=== PATIENT | female | born 1950 | race Caucasian/White ===

== ENCOUNTER → 2023-10-21 13:46 | Outpatient (REF) | payer MEDICARE, OTHER, SELFPAY | LOC: HWRAD 13:46 | PROVIDERS: ATTENDING PHYSICIAN Internal Medicine | DX: Z78.0 Asymptomatic menopausal state (principal) | CPT/HCPCS: 77080 ==

== ENCOUNTER 2023-11-22 06:16 | Day surgery (SDC) | payer MEDICARE, OTHER, SELFPAY ==
[2023-11-22] VITALS (9 sets, daily range): BP systolic 110–138; BP diastolic 44–76; BMI 32.2
[2023-11-22 07:34] LABS: Glucose - Point of Care 125 mg/dl (70-99)
[2023-11-22] MEDS: NORMOSOL-R 1000 IV ×2 (07:42→10:11)
[2023-11-22 10:07] LABS: Glucose - Point of Care 95 mg/dl (70-99)
== END 2023-11-22 11:29 | disposition home or self-care (01) ==
LOC: SDS 06:16
PROVIDERS: ATTENDING PHYSICIAN Otolaryngology
DX: J32.9 Chronic sinusitis, unspecified (principal)
CPT/HCPCS: 31254; 31256; 88304; 88311; 82962

== ENCOUNTER 2024-01-04 01:31 | Inpatient (IN) | payer MEDICARE, OTHER, SELFPAY ==
[2024-01-03 21:25] VITALS: BMI 31.7
[2024-01-03 21:26] VITALS: BP 100/58
[2024-01-03 21:47] LABS: % Basophils 0.3 % (0-2); % Eosinophils 0.6 % (0-6); % Immature Granulocytes 0.3 % (0-0.5); % Lymphocytes 3.6 % (20.5-51.1); % Monocytes 7.5 % (1.7-9.3); % Neutrophils 87.7 % (42.2-75.2); Absolute Basophils 0.1 10^3/uL (0-0.2); Absolute Eosinophils 0.1 10^3/uL (0-0.7); Absolute Immature Granulocytes 0.1 10^3/uL (0-0.05); Absolute Lymphocytes 0.6 10^3/uL (1.2-3.4); Absolute Monocytes 1.3 10^3/uL (0.1-0.6); Absolute Neutrophils 15.5 10^3/uL (1.4-6.5); Hematocrit 35.1 % (37.0-47.0); Hemoglobin 11.9 g/dL (12.0-16.0); Mean Corp Hgb Conc. 33.9 g/dL (33.0-37.0); Mean Corpuscular Hgb 28.4 pg (27.0-31.0); Mean Corpuscular Volume 83.8 fL (81.0-99.0); Mean Platelet Volume 9.8 fL (7.4-10.4); Nucleated Red Blood Cells % 0 %; Platelet Count 286 10^3/uL (130-400); Red Blood Cell Count 4.19 10^6/uL (4.20-5.40); Red Cell Dist. Width 12.5 % (11.5-14.5); White Blood Cell Count 17.7 10^3/uL (4.8-10.8)
[2024-01-03 21:54] VITALS: BP 114/52
[2024-01-03 22:00] VITALS: BP 111/57
[2024-01-03 22:01] LABS: Urine Albumin 1+ (Neg - Trace); Urine Bilirubin Negative (Negative); Urine Character Clear (Clear); Urine Color Yellow; Urine Glucose Negative (Negative); Urine Ketone Negative (Negative); Urine Leukocyte Negative (Negative); Urine Nitrite Negative (Negative); Urine Occult Blood Negative (Negative); Urine Urobilinogen Negative (Neg - 1+)
[2024-01-03 22:02] LABS: ALT (SGPT) 14 U/L (0-35); AST (SGOT) 26 U/L (14-36); Albumin 4.2 g/dl (3.5-5.0); Alkaline Phosphatase 122 U/L (38-126); Blood Urea Nitrogen 33 mg/dl (7-17); Carbon Dioxide 26 mmol/L (22-30); Chloride 102 mmol/L (98-107); Estimated Creatinine Clearance 31 ml/min; Glucose 151 mg/dl (70-99); Potassium 3.8 mmol/L (3.5-5.1); Sodium 133 mmol/L (135-145); Total Bilirubin 0.7 mg/dl (0.2-1.3); Total Protein 6.9 g/dl (6.3-8.2); eGFR 33.63
[2024-01-03 22:02] LABS: COVID-19 Antigen Negative (Negative)
[2024-01-03 22:11] LABS: Urine Red Blood Cell None Seen /HPF (0-2); Urine Squamous Cell 0-2 /LPF (Few); Urine White Cell 0-2 /HPF (0-5)
[2024-01-03] MEDS: TYLENOL 1000 MG PO (22:26)
[2024-01-03] MEDS: NSS 500 IV (22:26)
[2024-01-03 22:30] VITALS: BP 113/55
--- NOTE | 2024-01-03 22:37 | ED.GENMED ---
History of Present Illness
General
Chief Complaint: Fever
Source: patient
Exam Limitations: none
Time Seen by Provider: 01/03/24 21:26
Travel History
Have you had any contact with someone who has COVID-19?: No
Do you have any symptoms of coronavirus? Fever > 100 degrees, chills, cough, shortness of breath, sore throat, loss of taste or smell, muscle aches, or headache?: Yes
Symptoms:: fever
History of Present Illness
History of Present Illness:
This is a 73 year old female that comes in with c/o weakness. States that she was in the tub and was unable to get out. States that she couldn't stand up. State that she has been feeling weak today. States that 2 weeks ago she started with the tops
of her legs feeling weak. States that this is how she felt before they replaced her heart valve. States that she had chills today but did not realize that she had a fever. States that she also had diarrhea. Denies any chest pain, SOB, abd pain,
nausea, vomiting, headache, dizziness, urinary burning.
Past History
Past History
ED Past Medical History: Asthma, HTN, Hypercholesterolemia, NIDDM and Other (Neuropathy, PNA, Cardiomyopathy, Hemorrhoids, Cervical prolapse, Anemia, Vertigo)
ED Past Surgical History: Appendectomy, Cardiac (Aortic valve replaced), Cholecystectomy, Gynecological (Breast biopsy, Partial hysterectomy, ) and Other (Pessary, Cataracts, )
Social History
Tobacco: Non-smoker
Alcohol: Daily (Wine 2 glasses)
Personal:
Living: with family
Review of Systems
Review of Systems
All Other Systems: ROS reviewed and negative except as documented in HPI and ROS
Constitutional: Reports fever; Denies chills
EENT: Reports no symptoms
Respiratory: Reports no symptoms; Denies cough or trouble breathing
Cardiac: Reports no symptoms; Denies chest pain
ABD/GI: Reports diarrhea; Denies abdominal pain, nausea or vomiting
: Reports no symptoms; Denies dysuria, frequency or urgency
Musculoskeletal: Reports no symptoms
Skin: Reports no symptoms
Neurological: Reports no symptoms; Denies dizzy or headache
Psychiatric: Reports no symptoms
Phy Exam
General Physical Exam
General Presentation: no apparent distress
General age: appears stated age
General Skin: warm and dry
General Habitus: elderly
General Mental: alert
General Hydration: dry mucous membranes
ENT Exam
ENT Exam: TM's normal, pharynx normal and neck supple
Eye Exam
Eye Exam: EOMI
Cardiovascular Exam
Cardiovascular Exam: regular rate/rhythm, no edema and normal peripheral pulses
Pulmonary Exam
Pulmonary Exam: lungs clear, no respiratory distress, no rales, chest non tender, no crackles, no rhonchi, no wheezing and no cough
Gastrointestinal Exam
Gastrointestinal Exam: normal bowel sounds, non tender, soft, no organomegaly, no pulsatile mass and non distended
Musculoskeletal Exam
Musculoskeletal Exam: full ROM and no edema
Skin Exam
Skin Exam: normal color, warm/dry, no rash and no petechia
Psychiatric Exam
Psychiatric Exam: normal mood/affect
Course
Orders/Labs/Results
Orders:
Orders
01/03/24 21:19
EKG [Electrocardiogram (*1)] Urgent
Reason for Study: Fatigue / Weakness
EKG- Treatment ONCE
01/03/24 21:39
Complete Blood Count/With Diff Urgent
Comprehensive Metabolic Panel Urgent
Lactic Acid Q4H
Comment: ON ICE, CANCEL 2ND ORDER IF FIRST LACTIC ACID LEVEL <2
Blood Culture Q30M
MYRNA Source: Blood/Venous
Specimen Description:
Date Specimen was Collected: 01/03/24
Time Specimen was Collected: 21:30
Comment: FROM 2 SEPARATE SITES
01/03/24 21:41
COVID-19 Antigen Urgent
Source: Nasal Swab
Influenza A+B Rapid Molecular Urgent
MYRNA Source: Nasal Swab
Specimen Description:
01/03/24 21:49
Blood Culture Q30M
MYRNA Source: Blood/Venous
Specimen Description:
Comment: FROM 2 SEPARATE SITES
01/03/24 21:55
Urinalysis Reflex To Culture Urgent
Date Specimen was Collected: 01/03/24
Time Specimen was Collected: 21:30
Comment: straight cath
Urine Microscopic Reflex Cult Urgent
01/03/24 22:20
Acetaminophen [Tylenol] 1,000 mg .ROUTE .STK-MED ONE
01/03/24 22:23
0.9% Sodium Chloride 500 ml [Nss] 500 ml IV BOLUS
Acetaminophen [Tylenol] 1,000 mg PO NOW STA
01/03/24 22:36
CT Head W/o Iv Contrast Urgent
Comment:
Reason For Exam: wEAKNESS, COULDNT GET UP
01/03/24 22:42
CR Chest - 2 Views Urgent
Comment:
Reason For Exam: Weakness, fever
01/03/24 22:44
Troponin I Urgent
01/03/24 23:36
EKG- Treatment ONCE
01/04/24 00:10
Vancomycin 1 Gram/200 ml [Vancocin] 1 gram in 200 ml IV NOW
01/04/24 00:17
Admit/Transfer Patient As Directed
Co-Sign Provider:
Level of Care: Inpatient admission
Assign to:: Telemetry
Physician / Group: Jack
Diagnosis: Fever / Sepsis
Reason for Telemetry: Arrhythmia
Date to Stop Telemetry: 01/07/24
Time to Stop Telemetry: 11:00
Reason for Hospitalization: Fever / Sepsis
Expected length of stay greater than two midnights?: Yes
ELOS- Estimated Length of Stay in days: 4
I certify the patient meets the requirements for IP care: Yes
01/04/24 00:19
Code Status As Directed
Resuscitation Status: Full Code
01/04/24 00:24
LevoFLOXacin 500 MG/100 ML [Levaquin] 500 mg in 100 ml IV NOW
01/04/24 01:45
Electrocardiogram (*1) Urgent
Reason for Study: Fatigue / Weakness
Other Reason for Exam: Repeat with Troponin
Troponin I Urgent
01/07/24 11:00
DC Protocol for Telemetry ONCE
Abnormal Lab Results
01/03/24 01/03/24 01/03/24
21:39 21:55 22:44
WBC 17.7 H 10^3/uL
(4.8-10.8)
RBC 4.19 L 10^6/uL
(4.20-5.40)
Hgb 11.9 L g/dL
(12.0-16.0)
Hct 35.1 L %
(37.0-47.0)
Abs Immat Gran (auto) 0.1 H 10^3/uL
(0-0.05)
Absolute Neuts (auto) 15.5 H 10^3/uL
(1.4-6.5)
Absolute Lymphs (auto) 0.6 L 10^3/uL
(1.2-3.4)
Absolute Monos (auto) 1.3 H 10^3/uL
(0.1-0.6)
Neutrophils % 87.7 H %
(42.2-75.2)
Lymphocytes % 3.6 L %
(20.5-51.1)
Sodium 133 L mmol/L
(135-145)
BUN 33 H mg/dl
(7-17)
Creatinine 1.6 H mg/dL
(0.6-1.0)
Glucose 151 H mg/dl
(70-99)
Troponin I 0.187 H* ng/ml
Urine Albumin (Reflex) 1+ A
(Neg - Trace)
01/03/24 21:39
01/03/24 21:39
Leukocytosis, H/H slightly low. Sodium slightly low. Dehydration. Glucose nonfasting. Urine negative for infection. COVID and Influenza negative, Lactic acid normal at 1.0, Troponin 0.187
Vital Signs
Initial and Last Documented VS:
Initial Vital Signs
Temp Pulse Resp BP Pulse Ox
100.8 F H 110 20 100/58 95
01/03/24 21:26 01/03/24 21:26 01/03/24 21:26 01/03/24 21:26 01/03/24 21:26
Last Documented Vital Signs
Temp Pulse Resp BP Pulse Ox
98.7 F 94 18 119/56 95
01/04/24 00:26 01/04/24 00:15 01/04/24 00:00 01/04/24 00:00 01/04/24 00:15
MDM/Problems Addressed
Differential Diagnosis Includes:
PNA, Viral illness
MDM/Problems Addressed:
This is a 73 year old female that comes in with c/o weakness. States that she was unable to get out of the tub. State that she couldn't walk. States that she had chills today and diarrhea.
Will check lab, CT head, chest x-ray urine, Give IV fluids.
Back into see patient and family. Explained that her WBC are elevated but she is negative for COVID and Influenza. Her Chest x-ray is normal. Her urine is negative for infection. Her Troponin however is very elevated and there does not appear to any
prior Troponin. Will admit patient. CT head report is pending. Questioned patient at this time if she had any other pain. State that once and awhile she gets a cramp in her chest that only last <1min and then goes away. Hospitalist notified.
Chronic conditions affecting care: DM
Acute Exacerbation and/or Progression of Chronic Illness:
NA
*Radiology
Radiology exam reviewed: radiology read reviewed (Chest-NO acute cardiopulmonary process CT head-No acute intracranial abnormality by CT. NO acute intracranial hemorrhage, evidence of acute large territorial infarction, mass or mass effect.
Chronic microvascular ischemic changes of the cerebral white matter. Cerebral volume loss. Prior sinus surg)
*Pulse Oximetry
Patient hypoxic: no
*EKG
Interpreted by ED Provider?: Yes
Heart Rate: 109
Rate: tachycardiac
Rhythm: sinus and PVC's
[place]: normal axis
Interval: normal interval
QRS Pattern: normal QRS
Ischemia: no ischemia
*Crayon Sawyer Interpretation
Rate: tachycardiac
Heart Rate: 105
Rhythm: sinus tachycardia
*Critical Care Note
Total Time (30-74mins, 75-104mins- exclusive of procedures): Not Applicable
ED Attending Note
-
Portions of this chart may have been created with voice recognition software.� Occasional wrong word or��sound alike� substitutions may have occurred due to the inherent limitations of voice recognition software.
Discharge Plan
Departure
Patient Disposition: Admit
Date of Disposition: 01/03/24
Time of Disposition: 23:34
Admit to: Telemetry
Presentation/result/management discussed w/ accepting MD/DO: Hospitalist
Patient with high blood pressure during this ER visit?: No
Condition: Good
Covid-19: Negative COVID-19
Discharge Problem:
Fever, Weakness, Elevated troponin
Prescriptions:
No Action
gabapentin 600 MG tablet
1,200 mg PO BID
albuterol sulfate [Ventolin HFA] 90 MCG/PUFF HFA aerosol inhaler
2 puff inhalation R Q4 PRN (Reason: sob/wheezing)
omeprazole 20 MG tablet,delayed release (DR/EC)
20 mg PO QPM
carvedilol 6.25 mg Tablet
6.25 mg PO BID
cyanocobalamin (vitamin B-12) [Vitamin B-12] 1,000 mcg Tablet
1,000 mcg PO DAILY
duloxetine 30 mg Capsule,Delayed Release(Dr/Ec)
30 mg PO DAILY
Mounjaro 2.5 mg/0.5 mL Pen Injector
2.5 mg SC QWEEK
famotidine 40 mg Tablet
40 mg PO HS
rosuvastatin 20 mg Tablet
20 mg PO HS
insulin glargine [Lantus Solostar U-100 Insulin] 100 unit/mL (3 mL) Insulin Pen
34 unit SC HS
Patient Comments:
took 27 units on 11/21/23
furosemide 20 MG tablet
20 mg PO DAILY
valsartan 80 mg Tablet
80 mg PO HS
nitroglycerin [Nitrostat] 0.4 mg Tablet, Sublingual
0.4 mg SUBLINGUAL [id number] PRN (Reason: chest pain)
fluticasone propion-salmeterol [Wixela Inhub] 100-50 mcg/dose blister with device
1 inh INHALATION R BID
fluticasone propionate 50 mcg/actuation [place],Suspension
1 spray INTRANASAL DAILY
Referrals:
Susan Arnold MD [Family Provider] -
Interventions
Interventions:
*Risk Screen - Suicide Last Done: 01/03/24 21:56
*General Assessment Last Done: 01/03/24 21:56
*Neglect/Abuse Screening Last Done: 01/03/24 21:56
*ED COVID-19 Vaccine History Last Done: 01/03/24 21:56
ED- Neurological Assessment Last Done: 01/03/24 21:30
ED-Skin Assessment Last Done: 01/03/24 21:30
Discharge Date and Time
Print Language: ETHIOPIAN
[2024-01-03 23:18] LABS: Troponin I 0.187 ng/ml
[2024-01-03 23:21] VITALS: BP 126/49
[2024-01-03 23:30] VITALS: BP 123/53
[2024-01-04] VITALS (32 sets, daily range): BP systolic 88–164; BP diastolic 37–100; PULSE 76–86; O2SAT 97; BMI 31.4; BMI 31.6
--- NOTE | 2024-01-04 00:31 | HPS.HSE ---
Family Physician
-
Family Physician: Susan Arnold
Chief Complaint
-
Weakness, Chills
History of Present Illness
Patient is a 73y F with PMH significant for aortic stenosis s/p BioAVR, DM-II, hypertension and recent sinus surgery who presents to ED complaining of weakness and chills. History obtained from patient and her family at the bedside. Patient
states that she was feeling well early this AM. Around 5:30 this evening she reported feeling very cold and 'shivering'. She felt weak in the legs. She lie down in bed with an electric blanket for a time. She then wanted to get into a warm bath
- but she required her 's assistance to do this. When the patient was ready to get out of the tub, she was completely unable to get up. She noted significant weakness in both legs - mostly in the thighs. Patient denies any bladder or
bowel incontinence.
EMS was called and patient was brought to the ED for further evaluation.
Patient states that the weak sensation in her thighs is similar to the symptoms that she experienced from sever prior to undergoing AVR.
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 She has been driving back and forth every weekend.
Patient complains of some lower back discomfort that she attributes to her recent change in activity.
She also notes that she underwent endoscopic sinus surgery here on 11/22/23.
About one week later, she had a cracked tooth and this required extraction at her dentist's office.
Patient states that she tool her usual pre-procedure clindamycin prior to the dental extraction. She was given pre-op clindamycin here prior to the sinus surgery.
No known sick contacts. Patient states that she has a chronic cough (since episode of pneumonia last Fall) but no recent change in that symptom.
No other focal complaints including N/V/D, complaints, etc.
Patient states that her dose of Mounjaro was increased about 3 weeks ago. No other recent med changes.
Medical History
Past Medical History
Past Medical History: Reports Other
Additional Past Medical History:
Aortic Stenosis
History of Cardiomyopathy with Recovered LVEF (25% to 60-65%)
Hypertension
DM-II
Chronic Sinus Disease
Mild Intermittent Asthma
Melanoma
Past Surgical History: Reports Other
Additional Past Surgical History:
Bioprosthetic AVR (2014)
Cholecystectomy
Appendectomy
Breast Biopsies
Endoscopic Sinus Surgery (11/22/23)
Social History
Tobacco: Non-smoker
Alcohol: Occasional
Drug: None
Personal:
Living: With Family
Family History
Family History: Other (Mother: CAD Brother: CAD)
Allergies / Home Medications
Allergies reflects when Allergies were last updated in [facility].
Home Medications with original date entered in [facility]
Allergy/Medication List:
Allergies
Allergy/AdvReac Type Severity Reaction Status Date / Time
hydrocodone bitartrate Allergy confusion Verified 01/03/24 21:23
[From Vicodin]
oxycodone HCl [From Percocet] Allergy Nausea Verified 01/03/24 21:23
Penicillins Allergy skin color Verified 01/03/24 21:23
changes,problems
breathing
Home Medications
albuterol sulfate 90 mcg/actuation aerosol inhaler (Ventolin HFA) 2 puff inhalation R Q4 PRN sob/wheezing 02/22/15
gabapentin 600 mg tablet 1,200 mg PO BID pain 02/22/15
omeprazole 20 mg tablet,delayed release 20 mg PO QPM Gastrointestinal Issue 02/24/15
carvedilol 6.25 mg tablet 6.25 mg PO BID Blood Pressure 11/18/23
cyanocobalamin (vitamin B-12) 1,000 mcg tablet (Vitamin B-12) 1,000 mcg PO DAILY Supplement 11/18/23
duloxetine 30 mg capsule,delayed release 30 mg PO DAILY depression 11/18/23
famotidine 40 mg tablet 40 mg PO HS Gastrointestinal Issue 11/18/23
insulin glargine 100 unit/mL (3 mL) subcutaneous pen (Lantus Solostar U-100 Insulin) 34 unit SC HS diabetes 11/18/23
rosuvastatin 20 mg tablet 20 mg PO HS High Cholesterol 11/18/23
tirzepatide 2.5 mg/0.5 mL subcutaneous pen injector (Mounjaro) 2.5 mg SC QWEEK 11/18/23
furosemide 20 mg tablet 20 mg PO DAILY Fluid Retention/Swelling 11/22/23
fluticasone 100 mcg-salmeterol 50 mcg/dose blistr powdr for inhalation (Wixmele Inhub) 1 inh inhalation R BID 01/03/24
fluticasone propionate 50 mcg/actuation nasal spray,suspension 1 spray intranasal DAILY 01/03/24
nitroglycerin 0.4 mg sublingual tablet (Nitrostat) 0.4 mg sublingual [id number] PRN chest pain 01/03/24
valsartan 80 mg tablet 80 mg PO HS 01/03/24
Review of Systems
-
History Source: Patient and Family
A 12 point ROS was completed and negative except as noted: Yes
Constitutional: Reports Fatigue and Chills; Denies Fever
EENT: Denies Sore Throat
Respiratory: Reports Cough; Denies Hemoptysis or Trouble Breathing
Cardiac: Denies Chest Pain, Diaphoresis, Palpitations or Syncope
Abdomen/GI: Denies Abdominal Pain, Nausea, Vomiting, Diarrhea, Bloody Stools or Black Stools
: Denies Dysuria, Frequency or Flank Pain
Musculoskeletal: Denies Joint Pain or Edema
Neurological: Reports Dizzy and Weakness; Denies Headache or Numbness
Psych: Denies Depression or Anxiety
Physical Exam
Vital Signs
Vital Signs
Temp Pulse Resp BP Pulse Ox
98.7 F 94 18 119/56 95
01/04/24 00:26 01/04/24 00:15 01/04/24 00:00 01/04/24 00:00 01/04/24 00:15
Physical Exam
General: Other (73y F in no acute distress. Mildly pale appearing.)
HEENT: Moist mucous membranes, PERRLA and Other (No bruits.)
Respiratory: Other (Decreased throughout. Otherwse clear. No W/R/R.)
Cardiac: S1/S2 and Regular Rhythm; No Murmur
GI: Soft, Non Tender, Non Distended and Normal Bowel Sounds
Musculoskeletal: No Clubbing, No Cyanosis and No Edema
Neuro: AO x 3 and Other (Sensation and strength seems somewhat diminshed - but globally. No clear sensory level / focal deficits. )
Laboratory Results
-
01/03/24 21:39
01/03/24 21:39
Laboratory Results
Lactic Acid 1.0 mmol/L (0.7-2.0) 01/03/24 21:39
Total Bilirubin 0.7 mg/dl (0.2-1.3) 01/03/24 21:39
AST 26 U/L (14-36) 01/03/24 21:39
ALT 14 U/L (0-35) 01/03/24 21:39
Alkaline Phosphatase 122 U/L (38-126) 01/03/24 21:39
Troponin I 0.187 ng/ml H* 01/03/24 22:44
Impression/Plan
-
A/P: Patient is a 73y F with PMH significant for HTN, DM-II and prior BioAVR who presents to ED complaining of weakness and chills.
Fever / Sepsis
- Admit for further evaluation and treatment.
- Patient presents with fever to 103, leukocytosis, tachycardia.
- No evident focal source of infection identified with initial eval in the ED.
- COVID, influenza, UA and CXR all unremarkable.
- ? bacteremia +/- endocarditis given recent interventions (sinus surgery / dental procedure) - though patient did receive abx prophylaxis prior to each.
- Follow-up blood culture data. Check Echo.
- Empiric IV abx for now with Vanco / Levaquin (significant PCN allergy).
- ID evaluation for additional recommendations.
- Follow for clinical improvement / specifically improvement in weakness.
Non-Ischemic Myocardial Injury
Abnormal Troponin
- Initial troponin in the ED is 0.187 with no complaints of chest pain and no noted ischemia on EKG.
- ? related to endocarditis / myocarditis due to the above.
- Check blood cultures as noted. Check Lyme status.
- Check Echo for evidence of valve abnormality / vegetation - though no murmur appreciated on exam.
- Follow troponin to peak.
- ASA daily for now.
- Cardiology evaluation for additional recommendations.
Weakness
- Seems likely global phenomenon secondary to acute illness, fever, etc.
- No focality appreciated on exam.
- Follow for any neurologic changes.
- Consider MR spine imaging if any increase / focal weakness or if no other source for fever is discovered.
ASCVD
Aortic Stenosis s/p BioAVR
History of Cardiomyopathy with Recovered EF
- Stable. No chest pain, dyspnea, etc at present.
- EKG unremarkable as noted above.
- Last Echo was 2022 and showed normal EF, well-seated AVR, etc.
- No evidence on exam of volume overload.
- Hold Lasix for now. Follow I/Os, daily weights, etc.
SHARRON on CKD III
- SCr = 1.6 compared to known baseline of 1.1.
- Hold ARB acutely.
- Gentle IVFs overnight.
- Follow for improvement in renal function.
- Renally dose meds / abx.
DM-II
- Stable. Hold Mounjaro acutely.
- Continue basal : bolus inuslin regimen.
- Follow glucose and cover with SSI as needed.
- Update A1C.
DVT Prophylaxis: Subcut Heparin
Code Status: Full
[2024-01-04] MEDS: VANCOCIN 200 IV ×2 (00:36→20:41)
[2024-01-04] MEDS: LR 1000 IV ×2 (01:45→14:19)
[2024-01-04] MEDS: LEVAQUIN 100 IV (01:46)
[2024-01-04 02:30] LABS: Troponin I 0.157 ng/ml
[2024-01-04 06:29] LABS: Hematocrit 34.6 % (37.0-47.0); Hemoglobin 11.3 g/dL (12.0-16.0); Mean Corp Hgb Conc. 32.7 g/dL (33.0-37.0); Mean Corpuscular Hgb 28.8 pg (27.0-31.0); Mean Corpuscular Volume 88.3 fL (81.0-99.0); Mean Platelet Volume 10.1 fL (7.4-10.4); Platelet Count 271 10^3/uL (130-400); Red Blood Cell Count 3.92 10^6/uL (4.20-5.40); Red Cell Dist. Width 12.6 % (11.5-14.5); White Blood Cell Count 15.9 10^3/uL (4.8-10.8)
[2024-01-04 06:37] LABS: Blood Urea Nitrogen 31 mg/dl (7-17); Calcium 8.6 mg/dl (8.4-10.2); Carbon Dioxide 29 mmol/L (22-30); Chloride 102 mmol/L (98-107); Creatine Phosphokinase 426 U/L (30-135); Estimated Creatinine Clearance 33 ml/min; Glucose 120 mg/dl (70-99); Sodium 136 mmol/L (135-145); eGFR 36.34
[2024-01-04 06:48] LABS: Troponin I 0.105 ng/ml
[2024-01-04 07:11] LABS: TSH Reflex To Free T4 0.73 uIU/ml (0.47-4.68)
[2024-01-04 07:29] LABS: Erythrocyte Sed Rate 64 mm/hour (0-20)
[2024-01-04 08:32] LABS: Glucose - Point of Care 100 mg/dl (70-99)
[2024-01-04 08:32] LABS: Glycohemoglobin (HgbA1c) 6.5 % (4.0-5.6)
[2024-01-04] MEDS: NOVOLOG FLEXPEN-LOW RESISTANCE SC ×3 (08:34→16:36)
[2024-01-04] MEDS: COREG 6.25 MG PO ×2 (08:35→19:18)
[2024-01-04] MEDS: CYMBALTA DELAYED RELEASE 30 MG PO (08:36)
[2024-01-04] MEDS: HEPARIN 5000 UNITS SC ×2 (08:36→16:36)
[2024-01-04] MEDS: LOW STRENGTH ASPIRIN 81 MG PO (08:37)
[2024-01-04] MEDS: NEURONTIN 600 MG PO ×2 (08:37→19:18)
--- NOTE | 2024-01-04 08:49 | PHA.VAN.IN ---
Assessment
- Assessment
Renal Function: Appears elevated from baseline (SCR 1.5 vs 1.1)
Concomitant Antimicrobials: levofloxacin
Plan
- Plan
Initial / Loading Dose: 1000mg - 01/03 00:36 PLUS additional 1000mg x1 today
Maintenance Regimen: dosing by level
Monitoring: random 01/04 0600
Pharmacokinetics Vancomycin I
- -
Patient Age: 73
Patient Sex: Female
Vancomycin Day #: 1
Indication: Bacteremia
Requesting Provider: Dr. Santiago
Pertinent Antimicrobial Allergies:
penicillins - skin color changes; breathing problems
Height / Weight:
Height 5 ft 3 in
Actual Weight 80.3 kg
Pertinent Past Medical History: BMI ~31, DM II, CKD III (baseline SCR 1.1)
- Vital Signs / Lab Results
Temp Pulse Resp BP Pulse Ox
98.0 F 75 10 109/67 99
01/04/24 08:00 01/04/24 08:35 01/04/24 06:15 01/04/24 08:35 01/04/24 08:00
Lab Results - Hematology
01/03/24 01/04/24
21:39 05:59
WBC 17.7 H 15.9 H
Lab Results - Chemistry
01/03/24 01/04/24
21:39 05:59
BUN 33 H 31 H
Creatinine 1.6 H 1.5 H
Estimated Creat Clear 31 33
Albumin 4.2
01/03/24
21:39
Lactic Acid 1.0
Lab Results - Urine
01/03/24
21:55
Urine Nitrite (Reflex) Negative
Leukocyte Esterase Rfl Negative
Urine WBC (Reflex) 0-2
Ur Squamous Epith Cells 0-2
Microbiology Results
01/03/24 21:41 Influenza Types A & B (ALDAIR) - Final
Nasal Swab Negative for Influenza A & B, NAAT
Negative results must be combined with clinical observations
and patient history.
Nucleic Acid Amplification test (NAAT)performed on the
[employer] platform.
--- NOTE | 2024-01-04 08:57 | CON.CAR ---
Addendum entered and electronically signed by Gt Stovall MD 01/04/24 10:38:
I saw and examined the patient.
The EDGE TRIMMER or PA's note was reviewed and I agree with the note.
Comment: 73-year-old female with a past medical history of severe aortic stenosis status post AVR in 2014, dilated cardiomyopathy that improved to 60%, hypertension, hyperlipidemia, diabetes and CKD presents with weakness over the past 3 weeks. She
had multiple procedures including sinus surgery and dental extraction. She reports she has always been taking her prophylactic antibiotics. No orthopnea or PND. On exam, lungs are clear to auscultation, I do not hear any new murmur, abdomen is
soft nontender nondistended, extremities are warm and well-perfused, she is quite warm to touch actually. Blood cultures are pending, EKG shows normal sinus rhythm with normal LA interval, PVCs are seen. No change from prior. Labs are concerning
for leukocytosis with a left shift, ESR and CRP are quite elevated. Overall picture is quite concerning for endocarditis. I discussed this with the patient. She certainly would never want another open heart surgery. We discussed the SHANI, she is
not certain she would like this. I would keep n.p.o. after midnight. We started with a TTE results are pending. Would recommend ID consult. Currently, not in any heart failure. Will follow.
Original Note:
Consultation
Consultation Request
Date/Time Consultation Requested: 01/04/2024 02:40
Date/Time Consultation Performed: 01/04/2024 09:00
Requesting Provider: Dr. Santiago
Performing Provider: LALO Navarrete for Dr. Stovall
Reason for Consultation: Abnormal troponin, Sepsis in bioAVR
Medical History
-
Chief Complaint: Weakness
History of Present Illness:
Cookie Gallardo is a 73-year-old female (known to Dr. Stovall, her primary corporate intern), with severe arctic stenosis s/p AVR (2014), DCM (EF 25-30%, improved to 60%), dyslipidemia, hypertension, GERD, CKD3, and chronic anemia who presented to the
emergency department with a chief complaint of weakness. She endorses associated chills. She has not been feeling well for the past 48 hours but also admits over the weekend she was not feeling her normal self. Last month, she had sinus surgery.
She took prophylactic antibiotics. Approximately 8 days later she went to the dentist and had an extraction. She took her clindamycin prior to that procedure. 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 Cardiology has been consulted for sepsis in the setting of bio AVR and abnormal troponin. She is not having any chest pain. Chest x-ray without acute pathology. UA unremarkable. She is negative for both
COVID-19 and influenza. Her blood cultures are pending.
Past Medical History
Past Medical History: Cancer (Melanoma), CHF (DCM [recovered]), GERD, HTN, Hypercholesterolemia, NIDDM, Renal Failure (CKD3b), Valvular Disease (AVR) and Other (Anemia)
Past Surgical History: Appendectomy, Cardiac and Cholecystectomy
Social History
Tobacco: Non-Smoker
Alcohol: Occasional
Drug: None
Personal:
Living: With Family
Employment: Retired
Family History
Family History: CAD (In mother and brother. Mother at age 68) and Cancer (Her father had leukemia and pancreatic cancer.)
Allergies / Home Medications
Allergy/AdvReac Type Severity Reaction Status Date / Time
hydrocodone bitartrate Allergy confusion Verified 01/03/24 21:23
[From Vicodin]
oxycodone HCl [From Percocet] Allergy Nausea Verified 01/03/24 21:23
Penicillins Allergy skin color Verified 01/03/24 21:23
changes,problems
breathing
�Medication �Instructions �Recorded �Confirmed �Type
albuterol sulfate 90 mcg/actuation 2 puff inhalation R Q4 PRN 02/22/15 01/03/24 History
aerosol inhaler (Ventolin HFA) sob/wheezing
gabapentin 600 mg tablet 1,200 mg PO BID pain 02/22/15 01/03/24 History
omeprazole 20 mg tablet,delayed 20 mg PO QPM Gastrointestinal Issue 02/24/15 01/03/24 History
release
carvedilol 6.25 mg tablet 6.25 mg PO BID Blood Pressure 11/18/23 01/03/24 History
cyanocobalamin (vitamin B-12) 1,000 mcg PO DAILY Supplement 11/18/23 01/03/24 History
1,000 mcg tablet (Vitamin B-12)
duloxetine 30 mg capsule,delayed 30 mg PO DAILY depression 11/18/23 01/03/24 History
release
famotidine 40 mg tablet 40 mg PO HS Gastrointestinal Issue 11/18/23 01/03/24 History
insulin glargine 100 unit/mL (3 34 unit SC HS diabetes 11/18/23 01/03/24 History
mL) subcutaneous pen (Lantus
Solostar U-100 Insulin)
rosuvastatin 20 mg tablet 20 mg PO HS High Cholesterol 11/18/23 01/03/24 History
tirzepatide 2.5 mg/0.5 mL 2.5 mg SC QWEEK 11/18/23 01/03/24 History
subcutaneous pen injector
(Mounjaro)
furosemide 20 mg tablet 20 mg PO DAILY Fluid 11/22/23 01/03/24 History
Retention/Swelling
fluticasone 100 mcg-salmeterol 50 1 inh inhalation R BID 01/03/24 01/03/24 History
mcg/dose blistr powdr for
inhalation (Wixela Inhub)
fluticasone propionate 50 1 spray intranasal DAILY 01/03/24 01/03/24 History
mcg/actuation nasal
spray,suspension
nitroglycerin 0.4 mg sublingual 0.4 mg sublingual [id number] PRN 01/03/24 01/03/24 History
tablet (Nitrostat) chest pain
valsartan 80 mg tablet 80 mg PO HS 01/03/24 01/03/24 History
Review of Systems
-
History Source: Patient
All other systems: Negative unless noted
Constitutional: Fever, Fatigue and Chills
Respiratory: No Symptoms
Cardiac: No Symptoms
Abdomen/GI: No Symptoms
Physical Exam
Vital Signs
Temp Pulse Resp BP Pulse Ox
98.0 F 75 10 109/67 99
01/04/24 08:00 01/04/24 08:35 01/04/24 06:15 01/04/24 08:35 01/04/24 08:00
Lab Results
01/04/24 05:59
01/04/24 05:59
Troponin I 0.105 ng/ml H* D 01/04/24 05:59
Physical Exam
General: Well Developed, Well Nourished, No Apparent Distress and Comfortable
HEENT: Normocephalic, Anicteric and Moist Mucous Membranes
Respiratory: Non Labored Respirations
Cardiac: S1/S2, Regular Rhythm and Murmur (II/); Negative Peripheral Edema
Breast: Deferred by me
GI: Soft, Non Tender, Non Distended and Normal Bowel Sounds
Genito-urinary: No Costovertebral Tender
Musculoskeletal: No Clubbing, No Cyanosis and No Edema
Skin: Warm and Dry; Negative Rash
Neuro: AO x 3
Psych: Calm
Impression / Plan
-
Sepsis
-Febrile, leukocytosis, tachycardia
-Influenza negative, COVID-19 negative, CXR & UA unremarkable
-CRP 175, CK 426, Lactic 1.0
-Blood cultures are pending
-Prophylaxis prior to ENT surgery with Dr. Bowers
-Echocardiogram
Abnormal troponin, likely nonischemic myocardial injury in the setting of sepsis
-Chest pain-free, EKG stable
-Peak troponin on arrival, 0.187
Dilated cardiomyopathy with recovered EF (prior 25-30%, most recent 60-65%)
-Hold furosemide in the setting of sepsis
-She did not tolerate Farxiga or Jardiance in the past
-Trend daily weight, I/O, and BMP
Severe aortic stenosis s/p bioprosthetic aortic valve replacement
-21 mm bovine Trifecta tissue valve 02/25/[address] Read
-Echo 03/2023: Peak/mean gradient 17/10 mmHg without aortic regurgitation
-Update echo
Hypertension, hold agents in the setting of sepsis
Nonobstructive CAD (luminal irregularities) by cardiac catheterization 2014
CKD3b, follows with Dr. Washburn
NIDDM, Hgba1c 6.5%, per primary
HLD, on rosuvastatin 20mg
Anemia, chronic, follows with Dr. Rivas
Data Reviewed
-
EKG: Report Reviewed by me (Sinus rhythm, PVCs, prolonged QTc, rate 87)
Radiology: Report Reviewed by me (CXR: No acute cardiopulmonary process.)
CT Scan: Report Reviewed by me (Head: No acute intracranial abnormalities appreciated. Mild atrophy and mild chronic small vessel change.)
Medical Tests (Nuc Med, Echo etc): Report Reviewed by me (Echocardiogram as above)
Labs: Labs Reviewed by me
Old Records: Reviewed (Outpatient cardiology records)
--- NOTE | 2024-01-04 09:16 | EDRN ---
Pt just OOB to BR at this time, tolerated ambulation well.
--- NOTE | 2024-01-04 09:25 | EDRN ---
[facility] cardiology ELECTRIC [employer]OR [employer]OLS ASSEMBLER was in to see pt and requested Echo sooner than later so this RN called echo for pt.
--- NOTE | 2024-01-04 09:37 | EDRN ---
Pt's spouse in visiting at this time. Pt received breakfast and is eating now.
--- NOTE | 2024-01-04 09:39 | EDRN ---
Skin Diving Teacher in room w/ pt at this time.
--- NOTE | 2024-01-04 10:00 | EDRN ---
Pt ate 50% of breakfast sandwich for her breakfast.
--- NOTE | 2024-01-04 10:45 | W.PN.HOSP.TC ---
Today's Communication/Plan
-
Cont abx for now
await culture data
ECHO pending
ID eval
IVF
trend cr
Assessment / Plan
Assessment / Plan
A/P: Patient is a 73y F with PMH significant for HTN, DM-II and prior BioAVR who presents to ED complaining of weakness and chills.
Fever / Sepsis
- Patient presents with fever to 103, leukocytosis, tachycardia.
- COVID, influenza, UA and CXR all unremarkable.
- ? bacteremia +/- endocarditis given recent interventions (sinus surgery / dental procedure) - though patient did receive abx prophylaxis prior to each.
- Follow-up blood culture data. Check Echo.
- Empiric IV abx for now with Vanco / Levaquin (significant PCN allergy).
- ID evaluation for additional recommendations.
- Follow for clinical improvement / specifically improvement in weakness. May require SHANI if pt amenable.
Non-Ischemic Myocardial Injury
Abnormal Troponin
- Initial troponin in the ED is 0.187 with no complaints of chest pain and no noted ischemia on EKG.
- ? related to endocarditis / myocarditis due to the above.
- Check blood cultures as noted. Check Lyme status.
- Check Echo for evidence of valve abnormality / vegetation - though no murmur appreciated on exam.
- Follow troponin to peak.
- ASA daily for now.
- Cardiology evaluation for additional recommendations.
Weakness
- Seems likely global phenomenon secondary to acute illness, fever, etc.
- Follow for any neurologic changes.
- Consider MR spine imaging if any increase / focal weakness or if no other source for fever is discovered.
- PT/OT
ASCVD
Aortic Stenosis s/p BioAVR
History of Cardiomyopathy with Recovered EF
- Stable. No chest pain, dyspnea, etc at present.
- EKG unremarkable as noted above.
- Last Echo was 2022 and showed normal EF, well-seated AVR, etc.
- No evidence on exam of volume overload.
- Hold Lasix for now. Follow I/Os, daily weights, etc.
SHARRON on CKD III
- SCr = 1.5 compared to known baseline of 1.1.
- Hold ARB acutely.
- Gentle IVFs overnight.
- Follow for improvement in renal function.
- Renally dose meds / abx.
DM-II
- Stable. Hold Mounjaro acutely.
- Continue basal : bolus inuslin regimen.
- Follow glucose and cover with SSI as needed.
- Update A1C at 6.5.
DVT Prophylaxis: Subcut Heparin
Code Status: Full
d/w with cardiology
Anticipated Discharge: > 48 hours
Subjective/Interval History
-
Date of Service: January 04, 2024
spiked high fever overnight
denies any facial or dental pain
Objective Data
-
Labs:
Laboratory Results
01/04/24
05:59
WBC 15.9 H
Hgb 11.3 L
Hct 34.6 L
Plt Count 271
Sodium 136
Potassium 4.0
Chloride 102
Carbon Dioxide 29
BUN 31 H
Creatinine 1.5 H
Glucose 120 H
Calcium 8.6
Vital Signs:
Vital Signs
Temp Pulse Resp BP Pulse Ox
98.0 F 77 16 106/74 98
01/04/24 08:00 01/04/24 09:30 01/04/24 09:30 01/04/24 09:26 01/04/24 09:26
Physical Exam
-
General: No Apparent Distress
HEENT: Normocephalic, Atraumatic and Moist Mucous Membranes
Cardiac: Regular Rhythm
Neuro: Awake, AO x 3 and Nonfocal/Grossly Intact
Psych: Calm
--- NOTE | 2024-01-04 11:28 | EDRN ---
PT/OT in room w/pt at this time.
--- NOTE | 2024-01-04 12:01 | CON.ID ---
Consultation
-
Date/Time Consultation Requested: January 04, 2024 0242
Date/Time Consultation Performed: January 04, 2024 1200
Requesting Provider: Dr. Jasvir Santiago
Performing Provider: Dr. Jennifer Aguiar
Reason for Consultation: Fever/Sepsis
Chief Complaint / Past History
Chief Complaint
Weakness and shaking chills
History of Present Illness
73-year-old female with diabetes mellitus, CKD 3, aortic stenosis status post bioprosthetic aortic valve replacement who presented to the ER last night due to profound weakness and chills. She states she started feeling weak on Wednesday, December 31.
Yesterday she felt very cold with shaking chills. She used an electric blanket and then took a warm bath. However she was so weak she could not get out of the bathtub. She came to the ER. She was febrile. White count of 17.7. Patient noted to
be in acute on chronic kidney failure. Chest x-ray normal. She was started on vancomycin and levofloxacin. Patient denies ill contacts. No nausea or vomiting. No abdominal pain. Bowel movements have been loose. No dysuria. No headache. No
cough. No sinus congestion. Patient reports she recently had left maxillary pain and unable to chew. She therefore underwent endoscopic sinus surgery on November 22, 2023. Her left facial pain did not improve. She therefore went to the dentist and
noted to have left lower molar cracked tooth. This was a week from the sinus surgery. She underwent extraction of the tooth. She took prophylactic clindamycin. The left facial pain improved after the tooth extraction. She also has not been busy
in the process of moving to a home in the [facility]. She had been cleaning the house. No rodent droppings. She stayed indoors the whole time and did not have time to go outside and therefore no known tick exposure that she is aware of. She has low
back pain worse with standing up from recent increased physical activity. She reports penicillin allergy when she was in college; her skin turned orange, some shortness of breath and she may have fainted and was hospitalized. She never had
cephalosporins in the past.
Past History
Additional Past Medical History:
DM
s/p Bioprosthetic aortic valve replacement (2015)
Hypertension
CKD3
Chronic sinusitis s/p endoscopic sinus surgery 11/22/23
Mild Asthma
Melanoma
cholecystectomy
Appendectomy
Allergy History:
hydrocodone bitartrate [From Vicodin] Allergy (Verified 01/03/24 21:23)
confusion
oxycodone HCl [From Percocet] Allergy (Verified 01/03/24 21:23)
Nausea
Penicillins Allergy (Verified 01/03/24 21:23)
skin color changes,problems breathing
Medications Reviewed: Yes
Current Antibiotics:
Vancomycin
Levofloxacin
Social History
Tobacco: Non-Smoker
Alcohol: Occasional
Drug: None
Personal:
Living: With Family (1 indoor cat)
Family History
Family History: Not Pertinent
Review of Systems
Review of Systems
General: Chills and Change in Appetite
HEENT: Negative Stiff Neck, Sinus Problems, Headache or Pharyngitis
Cardiovascular: Negative Chest Pain or Dyspnea
Respiratory: Negative Cough
Gasteroenterology: Negative Nausea or Vomiting
Genital / Urological: Negative Dysuria or Flank Pain
Endocrine: Weakness and Fatigue
Musculoskeletal: Negative Arthralgias
Skin / Hair / Nails: Negative Rash
Neurological: Negative Headache or Dizziness
All systems: All other systems were reviewed and were negative
Vital Signs
Temp Pulse Resp BP Pulse Ox
98.0 F 77 7 101/41 94
01/04/24 08:00 01/04/24 11:00 01/04/24 11:00 01/04/24 10:00 01/04/24 11:00
Selected Entries
01/03/24
21:26 01/03/24
21:43
Temp 100.8 F H 103.0 F H
Physical Exam
Physical Exam
Constitutional: No Acute Distress, Comfortable and Obese
Head: Other (No frontal or maxillary sinus tenderness)
Pharynx: Benign
Oral: No Thrush
Cardiovascular: Regular Rate and S1/S2
Pulmonary: Clear
Gastrointestinal: Soft, Non Tender, Non Distended and Normal Bowel Sounds
Genito-Urinary: Negative CVA Tenderness
Extremities: Negative Edema or Erythema
Musculoskeletal: Negative Spinal Tenderness
Neurological: AO x 3
Lab / Diagnostic Study Results
01/04/24 05:59
01/04/24 05:59
Abs Immat Gran (auto) 0.1 10^3/uL (0-0.05) H 01/03/24 21:39
Absolute Neuts (auto) 15.5 10^3/uL (1.4-6.5) H 01/03/24 21:39
Absolute Lymphs (auto) 0.6 10^3/uL (1.2-3.4) L 01/03/24 21:39
Absolute Monos (auto) 1.3 10^3/uL (0.1-0.6) H 01/03/24 21:39
Absolute Basos (auto) 0.1 10^3/uL (0-0.2) 01/03/24 21:39
Immature Gran % 0.3 % (0-0.5) 01/03/24 21:39
Neutrophils % 87.7 % (42.2-75.2) H 01/03/24 21:39
Lymphocytes % 3.6 % (20.5-51.1) L 01/03/24 21:39
Monocytes % 7.5 % (1.7-9.3) 01/03/24 21:39
Eosinophils % 0.6 % (0-6) 01/03/24 21:39
Basophils % 0.3 % (0-2) 01/03/24 21:39
ESR 64 mm/hour (0-20) H 01/04/24 05:59
Lactic Acid 1.0 mmol/L (0.7-2.0) 01/03/24 21:39
C-Reactive Protein 175.00 mg/L (0.0-10.00) H 01/04/24 05:59
Ur Squamous Epith Cells 0-2 /LPF (Few) 01/03/24 21:55
Microbiology Results
Micro:
01/03/24 21:41 Influenza Types A & B (ALDAIR) - Final
Nasal Swab Negative for Influenza A & B, NAAT
Negative results must be combined with clinical observations
and patient history.
Nucleic Acid Amplification test (NAAT)performed on the
[employer] platform.
01/03/24 21:49 Blood Culture - Pending
Blood/Venous
01/03/24 21:39 Blood Culture - Pending
Blood/Venous
01/03/24 CXR: No acute cardiopulmonary process.
Assessment / Plan
# Sepsis with fever, leukocytosis
# SHARRON on CKD3
# PCN allergy (occurred in remote past, college)
# presence of bio-prosthetic AVR
-UA neg. CXR neg
- ?bacteremia. Awaiting blood cultures.
Of note recent dental procedure, did take prophylactic clindamycin.
- For TTE
-Continue Vancomycin pending bcx.
-DC levofloxacin due to prolonged QTc
- Discussed with Pharmacist Eder, Will give test dose ceftriaxone 200mg then 2g one hour later as tolerated.
- Trend temps, WBC
[2024-01-04 12:30] LABS: Glucose - Point of Care 113 mg/dl (70-99)
--- NOTE | 2024-01-04 12:42 | EDRN ---
Dr. Cosme CLOUD infectious disease was in to see pt at this time.
--- NOTE | 2024-01-04 12:59 | EDRN ---
Ceftriazone test for PCN allergy will be done here and Vancomycin 1 GM dose (last dose was not enough by wt) will be held until this test is done. This RN spoke w/ pharmacist Danelle at this time.
--- NOTE | 2024-01-04 13:57 | EDRN ---
Pt ambulated to BR at this time. Ceftriaxone received from pharmacy.
[2024-01-04] MEDS: FLUSH (NSS) 1 FLUSH IV ×2 (14:00→14:10)
[2024-01-04] MEDS: ROCEPHIN 10 MG IV (14:01)
[2024-01-04] MEDS: ROCEPHIN 10 ML IV (14:01)
--- NOTE | 2024-01-04 14:17 | EDRN ---
13:40 and 19:40 troponins both cancelled.
[2024-01-04] MEDS: TUMS 1 TABLET PO (15:09)
--- NOTE | 2024-01-04 15:40 | EDRN ---
Dr. Layne TT'd at 14:35 and ordered a TUMS that has been administered.
--- NOTE | 2024-01-04 15:57 | EDRN ---
just handed me the positive blood culture results and this RN went to send TT and Dr. Castellanos had already seen the results.
[2024-01-04] MEDS: ROCEPHIN 2000 MG IV (16:27)
[2024-01-04] MEDS: STERILE WATER FOR INJECTION 20 ML IV (16:28)
[2024-01-04 16:36] LABS: Glucose - Point of Care 121 mg/dl (70-99)
--- NOTE | 2024-01-04 16:40 | EDRN ---
IV site due to LR running was turned off and flushed prior to administering the Rocephin and post administering the Rocephin each time w/ 10 mL saline flush.
--- NOTE | 2024-01-04 16:41 | EDRN ---
IV fluids off pump for transport to admission bed. Pt states she has been having frequent BMs and asking about something to slow it down. Will TT Dr. Castellanos.
[2024-01-04] MEDS: PROTONIX 40 MG PO (17:34)
[2024-01-04] MEDS: TYLENOL 650 MG PO ×2 (19:18→23:18)
[2024-01-04] MEDS: CRESTOR 20 MG PO (20:42)
[2024-01-04] MEDS: PEPCID 20 MG PO (20:42)
[2024-01-04 21:43] LABS: Glucose - Point of Care 100 mg/dl (70-99)
[2024-01-04] MEDS: LANTUS 0.25 UNITS SC (21:48)
[2024-01-05] VITALS (19 sets, daily range): BP systolic 95–126; BP diastolic 40–82; PULSE 83–87; BMI 31.8
[2024-01-05] MEDS: HEPARIN 5000 UNITS SC ×4 (01:55→22:06)
[2024-01-05] MEDS: LEVAQUIN 50 IV (01:56)
[2024-01-05] MEDS: LR 1000 IV (01:56)
[2024-01-05 03:17] LABS: Glucose - Point of Care 132 mg/dl (70-99)
[2024-01-05 04:49] LABS: Hematocrit 33.8 % (37.0-47.0); Mean Corp Hgb Conc. 32.5 g/dL (33.0-37.0); Mean Corpuscular Hgb 28.4 pg (27.0-31.0); Mean Corpuscular Volume 87.3 fL (81.0-99.0); Mean Platelet Volume 9.9 fL (7.4-10.4); Platelet Count 273 10^3/uL (130-400); Red Blood Cell Count 3.87 10^6/uL (4.20-5.40); Red Cell Dist. Width 12.5 % (11.5-14.5); White Blood Cell Count 24.9 10^3/uL (4.8-10.8)
[2024-01-05 05:13] LABS: Vancomycin Random 12.5 ug/ml
[2024-01-05 05:17] LABS: Blood Urea Nitrogen 25 mg/dl (7-17); Calcium 8.8 mg/dl (8.4-10.2); Carbon Dioxide 25 mmol/L (22-30); Chloride 102 mmol/L (98-107); Estimated Creatinine Clearance 38 ml/min; Glucose 131 mg/dl (70-99); Potassium 4.1 mmol/L (3.5-5.1); Sodium 137 mmol/L (135-145); eGFR 43.15
[2024-01-05 06:04] LABS: Hepatitis C Antibody Negative (Negative)
[2024-01-05 07:19] LABS: Absolute Neutrophils -Man Diff 23.1 10^3/uL (1.4-6.5); Band Neutrophils 14 % (0-3); Lymphocytes 3 % (20-51); Monocytes 4 % (2-9); Segmented Neutrophils 79 % (42-75)
[2024-01-05 07:20] LABS: Normal RBC Morphology Yes; Platelets Checked Yes
[2024-01-05 07:21] LABS: Total Cells Counted 100
[2024-01-05 07:37] LABS: Glucose - Point of Care 129 mg/dl (70-99)
--- NOTE | 2024-01-05 08:05 | W.PN.CD ---
Today's Communication / Plan
-
TTE tomorrow
Impression / Plan
-
Sepsis, bacteremia with h/o bio-prosthetic AVR
-Blood culture 01/02: + Strep species
-IV Abx per ID
-TTE 01/03: EF 55-60%, bio-AVR (, no AR); no evidence of endocarditis within limited of TTE
-SHANI tomorrow
Abnormal troponin, likely nonischemic myocardial injury in the setting of sepsis
-Chest pain-free, EKG stable
-Peak troponin on arrival, 0.187
-TTE unremarkable
Dilated cardiomyopathy with recovered EF (prior 25-30%, most recent 60-65%); chronic HFPEF
-Holding furosemide and valsartan in the setting of sepsis, SHARRON
-She did not tolerate Farxiga or Jardiance in the past
-cont coreg
Severe aortic stenosis s/p bioprosthetic aortic valve replacement
-21 mm bovine Trifecta tissue valve 02/25/[address] Read
-plan as above
PVC's
-frequent on tele, no sxs
-cont coreg
Hypertension, hold ARB in the setting of sepsis/SHARRON
Nonobstructive CAD (luminal irregularities) by cardiac catheterization 2015: ASA, statin
CKD3b, follows with Dr. Washburn
NIDDM, Hgba1c 6.5%, per primary
HLD, on rosuvastatin 20mg
Anemia, chronic, follows with Dr. Rivas
Physical Exam
Vital Signs/Labs
Vital Signs
Temp Pulse Resp BP Pulse Ox
97.8 F 78 14 104/48 93
01/05/24 04:27 01/05/24 06:00 01/05/24 06:00 01/05/24 06:00 01/05/24 06:00
01/04/24 01/05/24 01/06/24
06:59 06:59 06:59
Actual Weight 81.2 kg 81.5 kg
01/05/24 04:36
01/05/24 04:36
LAB Results
01/03/24 01/04/24 01/04/24
22:44 01:40 05:59
Troponin I 0.187 H* 0.157 H* 0.105 H* D
01/04/24 01/04/24
13:40 19:40
Troponin I Cancelled Cancelled
Physical Exam
Constitutional: No acute distress and Comfortable
EENT: Moist mucous membranes
Cardiovascular: Rhythm & rate is regular, Pedal edema is absent, JVD pressure is normal and Systolic murmur present
Respiratory: Respiratory effort normal and Lungs clear to auscul.
GI: Soft and Distention absent
Neuro/Psych: AO x 3
Data Reviewed
-
Date of Service: January 05, 2024
EKG: Tracing Personally Visualized and interpreted (Tele: SR, frequent PVC's)
Labs: Labs Reviewed by me
[2024-01-05] MEDS: COREG 6.25 MG PO ×2 (08:36→19:51)
[2024-01-05] MEDS: NEURONTIN 600 MG PO ×2 (08:36→19:50)
[2024-01-05] MEDS: LOW STRENGTH ASPIRIN 81 MG PO (08:37)
[2024-01-05] MEDS: CYMBALTA DELAYED RELEASE 30 MG PO (08:37)
[2024-01-05] MEDS: NOVOLOG FLEXPEN-LOW RESISTANCE SC ×3 (08:38→17:57)
--- NOTE | 2024-01-05 10:19 | W.PN.HOSP.TC ---
Today's Communication/Plan
-
Continue with IV antibiotic
Surveillance cultures
IV fluids
SHANI in the morning
Assessment / Plan
Assessment / Plan
A/P: Patient is a 73y F with PMH significant for HTN, DM-II and prior BioAVR who presents to ED complaining of weakness and chills.
Sepsis likely 2/2 strep bacteremia with high suspicion for endocarditis -poa
- COVID, influenza, UA and CXR all unremarkable.
- ? bacteremia +/- endocarditis given recent interventions (sinus surgery / dental procedure) - though patient did receive abx prophylaxis prior to each.
- TTE negative for vegetation.
- Initial blood culture with Streptococcus species. Await susceptibility results. Surveillance cultures added.
- Vancomycin Levaquin discontinued and started on ceftriaxone. Seems to have tolerated cephalosporins.
- Plan for SHANI in the morning
- ID evaluation for additional recommendations. Bump in WBC noted.
- Follow for clinical improvement / specifically improvement in weakness. May require SHANI if pt amenable.
Non-Ischemic Myocardial Injury
Abnormal Troponin
- Initial troponin in the ED is 0.187 with no complaints of chest pain and no noted ischemia on EKG.
- ? related to endocarditis / myocarditis due to the above
- ASA daily for now.
- Cardiology evaluation for additional recommendations.
Weakness improved.
- Seems likely global phenomenon secondary to acute illness, fever, etc.
- Follow for any neurologic changes.
- Consider MR spine imaging if any increase / focal weakness or if no other source for fever is discovered.
- PT/OT
ASCVD
Aortic Stenosis s/p BioAVR
History of Cardiomyopathy with Recovered EF
- Stable. No chest pain, dyspnea, etc at present.
- EKG unremarkable as noted above.
- Last Echo was 2022 and showed normal EF, well-seated AVR, etc.
- No evidence on exam of volume overload.
- Hold Lasix for now. Follow I/Os, daily weights, etc.
SHARRON on CKD III
- Hold ARB acutely.
- Monitor off IV fluids. Improvement in creatinine.
- Follow for improvement in renal function.
- Renally dose meds / abx.
DM-II
- Stable. Hold Mounjaro acutely.
- Continue basal : bolus inuslin regimen.
- Follow glucose and cover with SSI as needed.
- Update A1C at 6.5.
DVT Prophylaxis: Subcut Heparin
Code Status: Full
d/w with cardiology
Anticipated Discharge: > 48 hours
Subjective/Interval History
-
Date of Service: January 05, 2024
states feeling better compared to yesterday
Objective Data
-
Labs:
Laboratory Results
01/05/24
04:36
WBC 24.9 H
Hgb 11.0 L
Hct 33.8 L
Plt Count 273
Sodium 137
Potassium 4.1
Chloride 102
Carbon Dioxide 25
BUN 25 H
Creatinine 1.3 H
Glucose 131 H
Calcium 8.8
Vital Signs:
Vital Signs
Temp Pulse Resp BP Pulse Ox
97.8 F 78 14 104/48 93
01/05/24 04:27 01/05/24 06:00 01/05/24 06:00 01/05/24 06:00 01/05/24 06:00
I&O
01/04/24 01/05/24 01/06/24
06:59 06:59 06:59
Intake Total 1889
Balance 1889
Physical Exam
-
General: No Apparent Distress
HEENT: Normocephalic, Atraumatic and Moist Mucous Membranes
Cardiac: Regular Rhythm and S1/S2; Negative Murmur
GI: Soft, Nontender, Nondistended and Normal Bowel Sounds
Rectal: Deferred by Provider
Musculoskeletal: No Edema
Neuro: Awake, Alert, Oriented, AO x 3, No Motor Deficits and Nonfocal/Grossly Intact
Psych: Calm
Data Reviewed
-
Total Time Spent with Patient (in minutes): 55
--- NOTE | 2024-01-05 11:59 | CM ---
CM following re: discharge planning.
Reviewed pt's chart, met with pt.
Pt is a 73 year old female, admitted with primary dx of Fever.
Pt reports she lives with in a 2SH, 2 steps to enter, has 2 supportive children. 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 No DME, VN or SNF history.
PT and OT will evaluate the pt to determine a level of care at discharge.
PCP: Susan Arnold
Pharmacy: [facility]
D/C plan: home with anticipated no need vs VN if recommended by PT/OT.
CM will follow with discharge plan updates as hospitalization progresses
[2024-01-05 12:15] LABS: Glucose - Point of Care 106 mg/dl (70-99)
--- NOTE | 2024-01-05 12:53 | W.PN.ID1 ---
Date of Service
Date of Service: January 05, 2024
Today's Communication
Agree with SHANI.
Continue ceftriaxone.
Assessment / Plan
# Streptococcus bacteremia
# Sepsis with fever, leukocytosis- worse
# SHARRON on CKD3
# PCN allergy (occurred in remote past, college)
# presence of bio-prosthetic AVR
- Of note recent cracked molar s/p dental procedure, did take prophylactic clindamycin.
- TTE no gross vege
-Appreciate cardiology - for SHANI
- Repeat blood cultures.
-Discontinue Vancomycin
- Continue ceftriaxone 2g IV q24. Pt tolerating abx.
- Trend temps, WBC
# Additional Past Medical History:
DM
s/p Bioprosthetic aortic valve replacement (2014)
Hypertension
CKD3
Chronic sinusitis s/p endoscopic sinus surgery 11/22/23
Mild Asthma
Melanoma
cholecystectomy
Appendectomy
Chief Complaint
-: Fever, Leukocytosis and Bacteremia
Subjective / Review of Systems
Feels better today. No back pain today.
Vital Signs / Physical Exam
Vital Signs
Vital Signs
Temp Pulse Resp BP Pulse Ox
98.0 F 76 13 113/52 97
01/05/24 07:00 01/05/24 12:00 01/05/24 12:00 01/05/24 12:00 01/05/24 12:35
Selected Entries
01/04/24
23:27
Temp 102.2 F H
Physical Exam
Constitutional: No Acute Distress and Comfortable
Cardiovascular: Regular Rate and S1/S2
Pulmonary: Clear
Gastrointestinal: Soft, Non Tender and Non Distended
Extremities: Negative Edema
Neurological: AO x 3
Objective Data
Lab Data
Lab Results
01/05/24 04:36
01/05/24 04:36
ESR 64 mm/hour (0-20) H 01/04/24 05:59
Estimated Creat Clear 38 ml/min 01/05/24 04:36
Lactic Acid 1.0 mmol/L (0.7-2.0) 01/03/24 21:39
Total Bilirubin 0.7 mg/dl (0.2-1.3) 01/03/24 21:39
AST 26 U/L (14-36) 01/03/24 21:39
ALT 14 U/L (0-35) 01/03/24 21:39
Alkaline Phosphatase 122 U/L (38-126) 01/03/24 21:39
C-Reactive Protein 175.00 mg/L (0.0-10.00) H 01/04/24 05:59
Most recent labs reviewed.
Micro Results:
01/05/24 04:36 Blood Culture - Pending
Blood/Venous
01/03/24 21:49 Blood Culture - Preliminary
Blood/Venous Streptococcus species
Gram Stain - Preliminary
01/03/24 21:39 Blood Culture - Preliminary
Blood/Venous Streptococcus species
Gram Stain - Preliminary
01/03/24 21:41 Influenza Types A & B (ALDAIR) - Final
Nasal Swab Negative for Influenza A & B, NAAT
Negative results must be combined with clinical observations
and patient history.
Nucleic Acid Amplification test (NAAT)performed on the
[employer] platform.
01/03/24 CXR: No acute cardiopulmonary process.
Care Review
Plan reviewed with: Physician (Dr. Butt)
[2024-01-05] MEDS: STERILE WATER FOR INJECTION 20 ML IV (16:54)
[2024-01-05] MEDS: ROCEPHIN 2000 MG IV (16:54)
[2024-01-05] MEDS: TYLENOL 650 MG PO (17:50)
[2024-01-05] MEDS: PROTONIX 40 MG PO (17:50)
[2024-01-05 18:08] LABS: Glucose - Point of Care 95 mg/dl (70-99)
--- NOTE | 2024-01-05 20:38 | PTCARENOTE ---
Received pt from keny MENDOSA. Pt is AAOx3, flat. NSR w/ PVCs on the monitor. On RA O2 sat 99%, lungs diminished. Poor appetite, BRP x1. SCDs in place. Mouth care provided. Pt is laying comfortable in bed with call amos in reach.
[2024-01-05] MEDS: CRESTOR 20 MG PO (22:06)
[2024-01-05] MEDS: PEPCID 20 MG PO (22:06)
[2024-01-05] MEDS: LANTUS 0.25 UNITS SC (22:06)
[2024-01-05 22:16] LABS: Glucose - Point of Care 102 mg/dl (70-99)
[2024-01-06] VITALS (10 sets, daily range): BP systolic 98–147; BP diastolic 46–85; BMI 31.5
[2024-01-06] MEDS: TYLENOL 650 MG PO ×2 (03:49→19:53)
[2024-01-06 03:55] LABS: % Basophils 0.4 % (0-2); % Eosinophils 1.5 % (0-6); % Immature Granulocytes 0.5 % (0-0.5); % Lymphocytes 10.5 % (20.5-51.1); % Monocytes 8.1 % (1.7-9.3); Absolute Basophils 0.1 10^3/uL (0-0.2); Absolute Eosinophils 0.2 10^3/uL (0-0.7); Absolute Immature Granulocytes 0.1 10^3/uL (0-0.05); Absolute Lymphocytes 1.6 10^3/uL (1.2-3.4); Absolute Monocytes 1.2 10^3/uL (0.1-0.6); Absolute Neutrophils 12.1 10^3/uL (1.4-6.5); Hematocrit 29.6 % (37.0-47.0); Hemoglobin 10.2 g/dL (12.0-16.0); Mean Corp Hgb Conc. 34.5 g/dL (33.0-37.0); Mean Corpuscular Hgb 28.3 pg (27.0-31.0); Mean Corpuscular Volume 82.2 fL (81.0-99.0); Mean Platelet Volume 9.8 fL (7.4-10.4); Nucleated Red Blood Cells % 0 %; Platelet Count 277 10^3/uL (130-400); Red Cell Dist. Width 12.6 % (11.5-14.5); White Blood Cell Count 15.3 10^3/uL (4.8-10.8)
[2024-01-06 04:25] LABS: Blood Urea Nitrogen 19 mg/dl (7-17); Calcium 8.7 mg/dl (8.4-10.2); Carbon Dioxide 23 mmol/L (22-30); Chloride 104 mmol/L (98-107); Estimated Creatinine Clearance 50 ml/min; Glucose 98 mg/dl (70-99); Potassium 4.1 mmol/L (3.5-5.1); Sodium 135 mmol/L (135-145); eGFR 59.12
[2024-01-06 07:56] LABS: Glucose - Point of Care 81 mg/dl (70-99)
[2024-01-06] MEDS: NOVOLOG FLEXPEN-LOW RESISTANCE SC ×3 (08:22→17:54)
--- NOTE | 2024-01-06 08:39 | PTCARENOTE ---
Patient is not having any GI, diarrhea issues when asked at this time. Spoke to infectin disease, enhanced precautions discontinued.
--- NOTE | 2024-01-06 08:57 | W.PN.CD ---
Today's Communication / Plan
-
SHANI today for endocarditis eval
Cr improved
-resume lasix 20mg PO daily to maintain euvolemic
-assess for ARB tomorrow
Impression / Plan
-
Sepsis, bacteremia with h/o bio-prosthetic AVR
-Blood culture 01/02: + Strep species
-IV Abx per ID
-TTE 01/03: EF 55-60%, bio-AVR (, no AR); no evidence of endocarditis within limited of TTE
-SHANI today
Abnormal troponin, likely nonischemic myocardial injury in the setting of sepsis
-Chest pain-free, EKG stable
-Peak troponin on arrival, 0.187
-TTE unremarkable
Dilated cardiomyopathy with recovered EF (prior 25-30%, most recent 60-65%); chronic HFPEF
-She did not tolerate Farxiga or Jardiance in the past
-cont coreg
-Holding furosemide and valsartan in the setting of sepsis, SHARRON--Cr has improved
-resume lasix 20mg PO daily to maintain euvolemic
-assess for ARB tomorrow
Severe aortic stenosis s/p bioprosthetic aortic valve replacement
-21 mm bovine Trifecta tissue valve 02/25/[address] Read
-plan as above
PVC's
-frequent on tele, no sxs
-cont coreg
Hypertension, hold ARB in the setting of sepsis/SHARRON
Nonobstructive CAD (luminal irregularities) by cardiac catheterization 2015: ASA, statin
CKD3b, follows with Dr. Washburn
NIDDM, Hgba1c 6.5%, per primary
HLD, on rosuvastatin 20mg
Anemia, chronic, follows with Dr. Rivas
Physical Exam
Vital Signs/Labs
Vital Signs
Temp Pulse Resp BP Pulse Ox
100.5 F H 86 18 132/59 98
01/06/24 03:52 01/06/24 06:00 01/06/24 06:00 01/06/24 06:00 01/05/24 22:02
01/05/24 01/06/24 01/07/24
06:59 06:59 06:59
Actual Weight 81.5 kg 80.6 kg
01/06/24 03:46
01/06/24 03:46
LAB Results
01/03/24 01/04/24 01/04/24
22:44 01:40 05:59
Troponin I 0.187 H* 0.157 H* 0.105 H* D
01/04/24 01/04/24
13:40 19:40
Troponin I Cancelled Cancelled
Physical Exam
Constitutional: No acute distress and Comfortable
EENT: Moist mucous membranes
Cardiovascular: Rhythm & rate is regular, Pedal edema is absent, JVD pressure is normal and Systolic murmur present
Respiratory: Respiratory effort normal and Lungs clear to auscul.
GI: Soft, Distention absent and Flat
Neuro/Psych: AO x 3
Data Reviewed
-
Date of Service: January 06, 2024
EKG: Other (Tele: SR, PVC's)
Labs: Labs Reviewed by me
[2024-01-06 10:33] LABS: Lyme Antibody Screen, EIA Negative (Negative)
--- NOTE | 2024-01-06 11:00 | W.PN.HOSP.TC ---
Today's Communication/Plan
-
await SHANI
IV abx
await surveillance culture
tx to tele
Assessment / Plan
Assessment / Plan
A/P: Patient is a 73y F with PMH significant for HTN, DM-II and prior BioAVR who presents to ED complaining of weakness and chills.
Sepsis likely 2/2 strep bacteremia with high suspicion for endocarditis -poa
- COVID, influenza, UA and CXR all unremarkable.
- ? bacteremia +/- endocarditis given recent interventions (sinus surgery / dental procedure) - though patient did receive abx prophylaxis prior to each.
- TTE negative for vegetation.
- Initial blood culture with Streptococcus species. Await susceptibility results. Surveillance cultures added.
- Vancomycin Levaquin discontinued and started on ceftriaxone. Seems to have tolerated cephalosporins.
- SHANI-await final report.
- ID evaluation for additional recommendations. WBC downtreded.
- Follow for clinical improvement / specifically improvement in weakness.
Non-Ischemic Myocardial Injury
Abnormal Troponin
- Initial troponin in the ED is 0.187 with no complaints of chest pain and no noted ischemia on EKG.
- ? related to endocarditis / myocarditis due to the above
- ASA daily for now.
- Cardiology evaluation for additional recommendations.
Weakness improved.
- Seems likely global phenomenon secondary to acute illness, fever, etc.
- Follow for any neurologic changes.
- Consider MR spine imaging if any increase / focal weakness or if no other source for fever is discovered.
- PT/OT
ASCVD
Aortic Stenosis s/p BioAVR
History of Cardiomyopathy with Recovered EF
- Stable. No chest pain, dyspnea, etc at present.
- EKG unremarkable as noted above.
- Last Echo was 2022 and showed normal EF, well-seated AVR, etc.
- No evidence on exam of volume overload.
- restarted on lasix. Follow I/Os, daily weights, etc.
SHARRON on CKD III
- Hold ARB acutely.
- DC IVF Improvement in creatinine.
- Follow for improvement in renal function.
- Renally dose meds / abx.
DM-II
- Stable. Hold Mounjaro acutely.
- Continue basal : bolus inuslin regimen.
- Follow glucose and cover with SSI as needed.
- Update A1C at 6.5.
DVT Prophylaxis: Subcut Heparin
Code Status: Full
d/w with spouse at bedside in details.
Anticipated Discharge: > 48 hours
Subjective/Interval History
-
Date of Service: January 06, 2024
Objective Data
-
Labs:
Laboratory Results
01/06/24
03:46
WBC 15.3 H
Hgb 10.2 L
Hct 29.6 L
Plt Count 277
Sodium 135
Potassium 4.1
Chloride 104
Carbon Dioxide 23
BUN 19 H
Creatinine 1.0
Glucose 98
Calcium 8.7
Vital Signs:
Vital Signs
Temp Pulse Resp BP Pulse Ox
98.3 F 86 18 132/59 98
01/06/24 07:05 01/06/24 06:00 01/06/24 06:00 01/06/24 06:00 01/05/24 22:02
I&O
01/05/24 01/06/24 01/07/24
06:59 06:59 06:59
Intake Total 1889 450 / 450
Balance 1889 450 / 450
[2024-01-06] MEDS: COREG 6.25 MG PO ×2 (11:42→19:52)
[2024-01-06] MEDS: HEPARIN 5000 UNITS SC ×3 (11:43→22:19)
[2024-01-06] MEDS: CYMBALTA DELAYED RELEASE 30 MG PO (11:43)
[2024-01-06] MEDS: LASIX 20 MG PO (11:43)
[2024-01-06] MEDS: LOW STRENGTH ASPIRIN 81 MG PO (11:43)
[2024-01-06] MEDS: NEURONTIN 600 MG PO ×2 (11:43→19:52)
[2024-01-06 12:33] LABS: Glucose - Point of Care 99 mg/dl (70-99)
--- NOTE | 2024-01-06 13:49 | CONSULT.CT ---
Consultation
-
Date/Time Consultation Requested: 01/05 1345
Date/Time Consultation Performed: 01/05 1350
Requesting Provider: Jeremias CLOUD
Performing Provider: Juan Toledo MD
Reason for Consultation: Ednocarditis
Patient History
Physicians
Family Physician: Joyce Yang
Outpatient Dairy Powder Mixer Operator: Wilman
Inpatient Dairy Powder Mixer Operator: Filomena
History of Present Illness
73 y/o w/ PMHx of SAVR (#21mm [facility] Elias Trifecta with Dr. Read in 2014), DMII, HTN, and recent dental and sinus surgery presents to the ED complaining of weakness and chills. She states that due to the chills she took a hot bath but then
afterwards was so weak she couldn't get OOB. They called EMS and they took her to . She complained of LE weakness that she associated with her feelings prior to her last AVR.
of note, she underwent endoscopic sinus surgery here on 11/21 and about a week later she had a cracked tooth extraction. She reports taking her clindamycin pre-procedure for both.
Today, she went received a SHANI which showed a possible AV abscess and MV abscess. Therefore, CT surgery was consulted for surgical evaluation.
Past Medical History
Past Medical History: HTN, NIDDM and Valvular Disease
Past Surgical History
Tooth removal
Endoscopic Sinus surgery
SAVR in 2014
Dental History
Missing teeth and old implant
Social History
Alcohol: Daily
Drug: None
Tobacco: Former Smoker
Personal:
Living: With Spouse
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
Allergies
Allergy/AdvReac Type Severity Reaction Status Date / Time
hydrocodone bitartrate Allergy confusion Verified 01/03/24 21:23
[From Vicodin]
oxycodone HCl [From Percocet] Allergy Nausea Verified 01/03/24 21:23
Penicillins Allergy skin color Verified 01/04/24 13:17
changes,problems
breathing
(in
college)
Home Medications
�Medication �Instructions �Recorded �Confirmed �Type
albuterol sulfate 90 mcg/actuation 2 puff inhalation R Q4 PRN 02/22/15 01/03/24 History
aerosol inhaler (Ventolin HFA) sob/wheezing
gabapentin 600 mg tablet 1,200 mg PO BID pain 02/22/15 01/03/24 History
omeprazole 20 mg tablet,delayed 20 mg PO QPM Gastrointestinal Issue 02/24/15 01/03/24 History
release
carvedilol 6.25 mg tablet 6.25 mg PO BID Blood Pressure 11/18/23 01/03/24 History
cyanocobalamin (vitamin B-12) 1,000 mcg PO DAILY Supplement 11/18/23 01/03/24 History
1,000 mcg tablet (Vitamin B-12)
duloxetine 30 mg capsule,delayed 30 mg PO DAILY depression 11/18/23 01/03/24 History
release
famotidine 40 mg tablet 40 mg PO HS Gastrointestinal Issue 11/18/23 01/03/24 History
insulin glargine 100 unit/mL (3 34 unit SC HS diabetes 11/18/23 01/03/24 History
mL) subcutaneous pen (Lantus
Solostar U-100 Insulin)
rosuvastatin 20 mg tablet 20 mg PO HS High Cholesterol 11/18/23 01/03/24 History
tirzepatide 2.5 mg/0.5 mL 2.5 mg SC QWEEK Weight loss 11/18/23 01/03/24 History
subcutaneous pen injector
(Mounjaro)
furosemide 20 mg tablet 20 mg PO DAILY Fluid 11/22/23 01/03/24 History
Retention/Swelling
fluticasone 100 mcg-salmeterol 50 1 inh inhalation R BID 01/03/24 01/03/24 History
mcg/dose blistr powdr for Lung/Breathing Issues
inhalation (Wixela Inhub)
fluticasone propionate 50 1 spray intranasal DAILY 01/03/24 01/03/24 History
mcg/actuation nasal Lung/Breathing Issues
spray,suspension
nitroglycerin 0.4 mg sublingual 0.4 mg sublingual [id number] PRN 01/03/24 01/03/24 History
tablet (Nitrostat) chest pain
valsartan 80 mg tablet 80 mg PO HS Blood Pressure 01/03/24 01/03/24 History
Review of Systems
-
History Source: Patient and Family
General: Reports Fever, Fatigue and Chills
HEENT: Reports No Symptoms
Respiratory: Reports No Symptoms
Cardiac: Reports No Symptoms
Abdomen/GI: Reports No Symptoms
: Reports No Symptoms
Musculoskeletal: Reports Myalgias and Joint Pain
Skin: Reports No Symptoms
Neurological: Reports Weakness
Vascular: Reports No Symptoms
Physical Exam
Vital Signs
Temp 98.3 F 01/06/24 07:05
Temp route: Oral 01/06/24 07:05
Pulse 94 01/06/24 12:00
Rhythm: Normal sinus rhythm 01/06/24 12:24
With- PVC's Monomorphic 01/05/24 20:26
Resp Rate 15 01/06/24 12:00
Blood pressure 137/62 01/06/24 12:00
Blood pressure extremity used: Right upper arm 01/04/24 14:00
Position: Lying 01/04/24 14:00
MAP (cuff-Bria Monitor) 85 01/06/24 12:00
SaO2 97 01/06/24 12:00
Oxygen Mode of Delivery Room air 01/05/24 22:02
Pulse Ox at Rest 97 01/04/24 11:41
Can the patient verbally communicate their pain? Yes 01/06/24 12:24
Pain scale rating: Asleep 01/06/24 04:49
Actual Weight 80.6 kg 01/06/24 03:38
Body Mass Index (BMI) 31.5 01/06/24 03:38
Supine- Blood Pressure 126/53 01/05/24 19:52
Supine- Pulse 83 01/05/24 19:52
Sitting- Blood Pressure 125/68 01/05/24 19:52
Sitting- Pulse 87 01/05/24 19:52
Standing- Blood Pressure 117/62 01/05/24 19:52
Standing- Pulse 86 01/05/24 19:52
Blood pressure extremity used: Left upper arm 01/05/24 19:52
Mode BP taken: Automatic 01/05/24 19:52
Labs
01/06/24 03:46
01/06/24 03:46
Hemoglobin A1c 6.5 % (4.0-5.6) H 01/04/24 05:59
Troponin I Cancelled 01/04/24 19:40
Urinalysis
Urine Color Yellow 01/03/24 21:55
Urine Clarity Clear (Clear) 01/03/24 21:55
Urine pH 6.0 (5.0-9.0) 01/03/24 21:55
Ur Specific [place] 1.010 (<1.030) 01/03/24 21:55
Urine Ketones Negative (Negative) 01/03/24 21:55
Ur Occult Blood Reflex Negative (Negative) 01/03/24 21:55
Urine Bilirubin Negative (Negative) 01/03/24 21:55
Leukocyte Esterase Rfl Negative (Negative) 01/03/24 21:55
Urine RBC None seen /HPF (0-2) 01/03/24 21:55
Urine WBC (Reflex) 0-2 /HPF (0-5) 01/03/24 21:55
Ur Squamous Epith Cells 0-2 /LPF (Few) 01/03/24 21:55
Urine Glucose Negative (Negative) 01/03/24 21:55
Urine Albumin (Reflex) 1+ (Neg - Trace) A 01/03/24 21:55
Exam
General: Well Developed, Fever and Other (cuellar)
HEENT: Normocephalic
Respiratory: Crackles
Cardiac: S1/S2
GI: Non Tender and Non Distended
Rectal: Deferred by Provider
Skin: Other (cool)
Neuro: AO x 3
Extremities: Lower Level Edema
Lymph: No Lymphadenopathy
Psych: Other (anxious)
Assessment / Plan
-
73-year-old female with past medical history listed above found to have possible AV root abscess. CT surgery consulted for surgical evaluation
#AV root abscess
- Patient's case will be discussed with attending physician; surgical timing will be determined after testing
- Routine preoperative cardiothoracic surgery orders will be initiated when surgical timing is determined
- Follow up CTA chest
- LHC to r/o CAD
- Serial blood cultures and monitor fever trend
- Continue ABX
- PICC line placement for long term acute care registered nurse abx
- Transfer to IVU
--- NOTE | 2024-01-06 14:42 | W.PN.UPDATE ---
Update Note
Progress Note Update
I met with Mrs. Gallardo and her at the bedside. Had dental and sinus surgery 1 month ago, has been experiencing fevers and chills nightly for the last week. Feels better since Abx has been started. Positive blood cultures. Her SHANI is suspicious
to me for a root abscess at the N/L segment of the annulus heading toward the aorto-mitral curtain. The 21mm Trifecta valve is functional with some sclerosis, but no bhavin deterioration. Plan for CTA of the Chest (aortic gated) / will also need a
[facility]. She understands that should there be evidence confirming an abscess around her root, that a reoperation would likely be indicated after a period of abx treatment for bacterial clearance. For now, would place her in IVU, continue abx, serial
blood cultures, etc. I plan to sit down with her once the CT is done to go over the plan of care in detail.
Thank you for involving me in the care of this patient. Please feel free to contact me with any questions or concerns.
Robb Toledo MD, MS
Cardiothoracic Surgeon
[facility]
This dictation was created using the [employer] dictation system. Please excuse any grammatical, typographical, or 'sound alike' errors.
--- NOTE | 2024-01-06 15:12 | W.PN.ID1 ---
Date of Service
Date of Service: January 06, 2024
Today's Communication
See below.
Assessment / Plan
# Streptococcus mitis/oralis bacteremia
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
# Sepsis with fever, leukocytosis- improving
# SHARRON on CKD3
# PCN allergy (occurred in remote past, [facility])
# presence of bio-prosthetic AVR
- Of note recent cracked molar s/p dental procedure, did take prophylactic clindamycin.
- SHANI suspicious for root abscess. CTS now following.
- Repeat blood cultures negative to date.
- Continue ceftriaxone 2g IV q24.
- Trend temps, WBC
# Additional Past Medical History:
DM
s/p Bioprosthetic aortic valve replacement (2014)
Hypertension
CKD3
Chronic sinusitis s/p endoscopic sinus surgery 11/22/23
Mild Asthma
Melanoma
cholecystectomy
Appendectomy
Chief Complaint
-: Fever, Leukocytosis and Bacteremia
Subjective / Review of Systems
Appetite improving.
Vital Signs / Physical Exam
Vital Signs
Vital Signs
Temp Pulse Resp BP Pulse Ox
98.5 F 94 15 137/62 98
01/06/24 11:05 01/06/24 12:00 01/06/24 12:00 01/06/24 12:00 01/06/24 14:20
Physical Exam
Constitutional: No Acute Distress and Comfortable
Cardiovascular: Regular Rate and S1/S2
Pulmonary: Clear
Gastrointestinal: Soft, Non Tender and Non Distended
Genito-Urinary: Negative CVA Tenderness
Musculoskeletal: Negative Spinal Tenderness
Neurological: AO x 3
Objective Data
Lab Data
Lab Results
01/06/24 03:46
01/06/24 03:46
ESR 64 mm/hour (0-20) H 04/23/24 05:59
Estimated Creat Clear 50 ml/min 01/06/24 03:46
Lactic Acid 1.0 mmol/L (0.7-2.0) 01/03/24 21:39
Total Bilirubin 0.7 mg/dl (0.2-1.3) 01/03/24 21:39
AST 26 U/L (14-36) 01/03/24 21:39
ALT 14 U/L (0-35) 01/03/24 21:39
Alkaline Phosphatase 122 U/L (38-126) 01/03/24 21:39
C-Reactive Protein 175.00 mg/L (0.0-10.00) H 01/04/24 05:59
Most recent labs reviewed.
Micro Results:
01/05/24 13:17 Blood Culture - Preliminary
Blood/Venous No Growth in 24 hours- Final report to follow
01/03/24 21:49 Blood Culture - Final
Blood/Venous Strep mitis/oralis
Gram Stain - Final
01/03/24 21:39 Blood Culture - Final
Blood/Venous Strep mitis/oralis
Gram Stain - Final
01/05/24 04:36 Blood Culture - Preliminary
Blood/Venous No Growth in 24 hours- Final report to follow
01/06/24 03:46 Blood Culture - Pending
Blood/Venous
01/03/24 21:41 Influenza Types A & B (ALDAIR) - Final
Nasal Swab Negative for Influenza A & B, NAAT
Negative results must be combined with clinical observations
and patient history.
Nucleic Acid Amplification test (NAAT)performed on the
[employer] platform.
01/03/24 CXR: No acute cardiopulmonary process.
--- NOTE | 2024-01-06 15:33 | PTCARENOTE ---
Patient is now for transfer to IVU due to SHANI findings. Ct scan in progress at this time. Patient educated about plan of care, verbalized understanding.
[2024-01-06] MEDS: ROCEPHIN 2000 MG IV (16:40)
[2024-01-06] MEDS: STERILE WATER FOR INJECTION 20 ML IV (16:41)
[2024-01-06] MEDS: PROTONIX 40 MG PO (16:42)
--- NOTE | 2024-01-06 17:49 | PTCARENOTE ---
Report given to Alison MENDOSA for transfer to room 2246. Belongings to be sent with patient. Patient made aware of plan of care.
[2024-01-06 18:04] LABS: Glucose - Point of Care 102 mg/dl (70-99)
--- NOTE | 2024-01-06 19:10 | PTCARENOTE ---
Pt transferred to 2246 from IMU. Pt denies any discomfort, states she 'has had a hard day and needs to not think'. Telemetry shows sinus rhythm.
[2024-01-06 21:25] LABS: Glucose - Point of Care 133 mg/dl (70-99)
[2024-01-06] MEDS: CRESTOR 20 MG PO (22:19)
[2024-01-06] MEDS: PEPCID 20 MG PO (22:19)
[2024-01-06] MEDS: LANTUS 0.25 UNITS SC (22:20)
--- NOTE | 2024-01-06 23:53 | PTCARENOTE ---
Pt rec'd at change of shift with spouse and son at bedside. Pt voiced that she is very anxious to have to do a redo valve surgery if necessary. Emotional support given. Sinus on telemetry. Afebrile. Pt with c/o b/l shoulder discomfort,medicated with
Tylenol.
[2024-01-07] VITALS (15 sets, daily range): BP systolic 92–141; BP diastolic 40–91; BMI 31.1
[2024-01-07 05:16] LABS: % Basophils 0.3 % (0-2); % Eosinophils 1.9 % (0-6); % Immature Granulocytes 0.5 % (0-0.5); % Lymphocytes 12.9 % (20.5-51.1); % Monocytes 8.5 % (1.7-9.3); % Neutrophils 75.9 % (42.2-75.2); Absolute Eosinophils 0.2 10^3/uL (0-0.7); Absolute Immature Granulocytes 0.1 10^3/uL (0-0.05); Absolute Lymphocytes 1.5 10^3/uL (1.2-3.4); Absolute Neutrophils 8.8 10^3/uL (1.4-6.5); Hematocrit 31.4 % (37.0-47.0); Hemoglobin 10.5 g/dL (12.0-16.0); Mean Corp Hgb Conc. 33.4 g/dL (33.0-37.0); Mean Corpuscular Hgb 28.8 pg (27.0-31.0); Mean Platelet Volume 9.8 fL (7.4-10.4); Nucleated Red Blood Cells % 0 %; Platelet Count 287 10^3/uL (130-400); Red Blood Cell Count 3.65 10^6/uL (4.20-5.40); Red Cell Dist. Width 12.3 % (11.5-14.5); White Blood Cell Count 11.6 10^3/uL (4.8-10.8)
[2024-01-07 05:56] LABS: Blood Urea Nitrogen 15 mg/dl (7-17); Calcium 9.1 mg/dl (8.4-10.2); Carbon Dioxide 23 mmol/L (22-30); Chloride 106 mmol/L (98-107); Estimated Creatinine Clearance 49 ml/min; Glucose 113 mg/dl (70-99); Potassium 3.8 mmol/L (3.5-5.1); Sodium 139 mmol/L (135-145); eGFR 59.12
--- NOTE | 2024-01-07 08:15 | W.PN.CD ---
Today's Communication / Plan
-
npo for [facility] today
will hold arb today
Impression / Plan
-
Sepsis, bacteremia with h/o bio-prosthetic AVR now
-Blood culture 01/02: + Strep mitis , Tmax 100.5 01/05 3:52am
-IV Abx per ID
-TTE 01/03: EF 55-60%, bio-AVR (, no AR); no evidence of endocarditis within limited of TTE
-SHANI with significant aortic root abscess on my review of the images
-CT surgery c/s will discuss timing of testing with them.
-will get [facility] today
Abnormal troponin, likely nonischemic myocardial injury in the setting of sepsis
-Chest pain-free, EKG stable
-Peak troponin on arrival, 0.187
Dilated cardiomyopathy with recovered EF (prior 25-30%, most recent 60-65%); chronic HFPEF
-She did not tolerate Farxiga or Jardiance in the past
-cont coreg
-Cr has imporved after intitial elevation
-furosemide resumed.
-intermittent hypotension will continue to hold ARB today
Severe aortic stenosis s/p bioprosthetic aortic valve replacement
-21 mm bovine Trifecta tissue valve 02/[address] Read
-plan as above
PVC's
-frequent on tele, no sxs
-cont coreg
Hypertension, hold ARB in the setting of sepsis/SHARRON
Nonobstructive CAD (luminal irregularities) by cardiac catheterization 2015: ASA, statin
CKD3b, follows with Dr. Washburn
NIDDM, Hgba1c 6.5%, per primary
HLD, on rosuvastatin 20mg
Anemia, chronic, follows with Dr. Rivas
Subjective:
she is overwhelmed but feeling better, really didn't want another surgery but beginning to wrap her head around this.
Data:
01/07/24 :TTE CONCLUSIONS
Normal biventricular size and systolic function without regional wall motion
abnormality.
Bioprosthetic aortic valve replacement is functioning well (peak/mean
gradients 26/15 mmHg, and no AI).
The mean gradient across the AoV has increased over time.
No vegetation seen on this transthoracic echocardiogram.
Little change since the prior study of 04/02/2023 when the AoV gradient was 10
mmHg. On 06/03/2021 the mean gradient across the AoV was 8 mmHg.
Consider SHANI if clinically indicated.
Physical Exam
Vital Signs/Labs
Vital Signs
Temp Pulse Resp BP Pulse Ox
98.8 F 91 20 111/46 96
01/07/24 07:38 01/07/24 07:40 01/07/24 07:38 01/07/24 07:40 01/07/24 07:38
01/06/24 01/07/24 01/08/24
06:59 06:59 06:59
Actual Weight 80.6 kg 79.5 kg
01/07/24 05:01
01/07/24 05:01
LAB Results
01/04/24 01/04/24
13:40 19:40
Troponin I Cancelled Cancelled
Physical Exam
Constitutional: No acute distress
Cardiovascular: Rhythm & rate is regular, Pedal edema is absent and Systolic murmur present
Respiratory: Respiratory effort normal, Lungs clear to auscul., Wheeze Absent and Crackles Absent
Neuro/Psych: AO x 3
Data Reviewed
-
Date of Service: January 07, 2024
X-Ray/CT/US/MRI/NUC/PET: Discussed with Physician ([facility] today d/w dr rivas and dr reddy)
--- NOTE | 2024-01-07 08:25 | W.PN.CT ---
Today's Communication / Plan
-
- Patient stated that fevers have been improving
- CT Chest/Abd/plevis showed some haziness around the aorta
- Continue Abx
- Repeat echocardiogram next week
- Possible surgery with Dr. Toledo later next week
Assessment / Plan
-
# AV root abscess
# Sepsis with fever, leukocytosis- improving
# SHARRON on CKD3
# Streptococcus mitis/oralis bacteremia
Subjective
-
Date of Service: January 07, 2024
Objective Data
-
Lab Results
01/07/24 05:01
01/07/24 05:01
Vital Signs
Vital Signs
Temp Pulse Resp BP Pulse Ox
98.8 F 91 20 111/46 96
01/07/24 07:38 01/07/24 07:40 01/07/24 07:38 01/07/24 07:40 01/07/24 07:38
CT Intake/Output/Weight
01/06/24 01/07/24 01/07/24
18:59 06:59 18:59
Intake Total 120 / 220 100 / 220
Balance 120 / 220 100 / 220
SaO2: 96
Data Reviewed
-
Lab Results: Results Reviewed
Medications: Active Meds Reviewed
CT Scan: Report Reviewed and Image Reviewed
--- NOTE | 2024-01-07 08:58 | W.PN.ID1 ---
Date of Service
Date of Service: January 07, 2024
Today's Communication
Continue ceftriaxone.
Assessment / Plan
# Streptococcus mitis/oralis bacteremia
# Root abscess/infective endocarditis
# Sepsis with fever, leukocytosis- improving
# SHARRON on CKD3
# PCN allergy (occurred in remote past, [facility]), tolerating cephalosporins
# presence of bio-prosthetic AVR
- Of note recent cracked molar s/p dental procedure, did take prophylactic clindamycin.
- SHANI suspicious for root abscess. CTS now following.
- Repeat blood cultures negative to date.
- Continue ceftriaxone 2g IV q24.
- Trend WBC
# Additional Past Medical History:
DM
s/p Bioprosthetic aortic valve replacement (2014)
Hypertension
CKD3
Chronic sinusitis s/p endoscopic sinus surgery 11/22/23
Mild Asthma
Melanoma
cholecystectomy
Appendectomy
Chief Complaint
-: Fever, Leukocytosis and Bacteremia
Subjective / Review of Systems
No acute complaints.
Vital Signs / Physical Exam
Vital Signs
Vital Signs
Temp Pulse Resp BP Pulse Ox
98.8 F 91 20 111/46 96
01/07/24 07:38 01/07/24 07:40 01/07/24 07:38 01/07/24 07:40 01/07/24 08:26
Physical Exam
Constitutional: No Acute Distress and Comfortable
Cardiovascular: Regular Rate; Negative S1/S2
Pulmonary: Clear
Gastrointestinal: Soft, Non Tender and Non Distended
Extremities: Negative Edema
Neurological: AO x 3
Objective Data
Lab Data
Lab Results
01/07/24 05:01
01/07/24 05:01
ESR 64 mm/hour (0-20) H 01/04/24 05:59
Estimated Creat Clear 49 ml/min 01/07/24 05:01
Lactic Acid 1.0 mmol/L (0.7-2.0) 01/03/24 21:39
Total Bilirubin 0.7 mg/dl (0.2-1.3) 01/03/24 21:39
AST 26 U/L (14-36) 01/03/24 21:39
ALT 14 U/L (0-35) 01/03/24 21:39
Alkaline Phosphatase 122 U/L (38-126) 01/03/24 21:39
C-Reactive Protein 175.00 mg/L (0.0-10.00) H 01/04/24 05:59
Most recent labs reviewed.
Micro Results:
01/05/24 04:36 Blood Culture - Preliminary
Blood/Venous No Growth in 48 hours- Final report to follow
01/06/24 03:46 Blood Culture - Preliminary
Blood/Venous No Growth in 24 hours- Final report to follow
01/05/24 13:17 Blood Culture - Preliminary
Blood/Venous No Growth in 24 hours- Final report to follow
01/03/24 21:49 Blood Culture - Final
Blood/Venous Strep mitis/oralis
Gram Stain - Final
01/03/24 21:39 Blood Culture - Final
Blood/Venous Strep mitis/oralis
Gram Stain - Final
01/03/24 21:41 Influenza Types A & B (ALDAIR) - Final
Nasal Swab Negative for Influenza A & B, NAAT
Negative results must be combined with clinical observations
and patient history.
Nucleic Acid Amplification test (NAAT)performed on the
[employer] platform.
01/03/24 CXR: No acute cardiopulmonary process.
[2024-01-07] MEDS: LASIX PO (09:00)
[2024-01-07] MEDS: NEURONTIN 600 MG PO ×2 (09:05→20:31)
[2024-01-07] MEDS: LOW STRENGTH ASPIRIN 81 MG PO (09:05)
[2024-01-07] MEDS: COREG 6.25 MG PO ×2 (09:06→20:30)
[2024-01-07] MEDS: CYMBALTA DELAYED RELEASE 30 MG PO (09:06)
[2024-01-07] MEDS: HEPARIN 5000 UNITS SC ×2 (09:06→16:00)
[2024-01-07] MEDS: TYLENOL 650 MG PO ×2 (09:12→18:53)
[2024-01-07] MEDS: NOVOLOG FLEXPEN-LOW RESISTANCE SC ×3 (09:13→17:10)
[2024-01-07 09:14] LABS: Glucose - Point of Care 109 mg/dl (70-99)
--- NOTE | 2024-01-07 10:33 | W.PN.HOSP.TC ---
Today's Communication/Plan
-
IV abx
[facility] today
CTS recs
Assessment / Plan
Assessment / Plan
A/P: Patient is a 73y F with PMH significant for HTN, DM-II and prior BioAVR who presents to ED complaining of weakness and chills.
Sepsis likely 2/2 Streptococcus mitis/oralis bacteremia with high suspicion for endocarditis and aortic root abscess -poa
- COVID, influenza, UA and CXR all unremarkable.
- given recent interventions (sinus surgery / dental procedure) - though patient did receive abx prophylaxis prior to each.
- TTE negative for vegetation.
- Surveillance cultures negative so far.. Today resulted. Continue ceftriaxone.
- Vancomycin Levaquin discontinued and started on ceftriaxone. Seems to have tolerated cephalosporins.
- SHANI-concern for aortic root abscess. Status post CT chest abdomen per CT surgery.
- ID evaluation for additional recommendations.
- Plan for left heart cath today. CT surgery following for eventual surgery.
- Follow for clinical improvement / specifically improvement in weakness.
Non-Ischemic Myocardial Injury
Abnormal Troponin
- Initial troponin in the ED is 0.187 with no complaints of chest pain and no noted ischemia on EKG.
- ? related to endocarditis / myocarditis due to the above
- ASA daily for now. [facility] today.
- Cardiology evaluation for additional recommendations.
Weakness improved.
- Seems likely global phenomenon secondary to acute illness, fever, etc.
- Follow for any neurologic changes.
- Consider MR spine imaging if any increase / focal weakness or if no other source for fever is discovered.
- PT/OT
ASCVD
Aortic Stenosis s/p BioAVR
History of Cardiomyopathy with Recovered EF
- No evidence on exam of volume overload.
- restarted on lasix 20mg daily. Follow I/Os, daily weights, etc.
SHARRON on CKD III
- Hold ARB acutely as plan for [facility] today.
- DC IVF Improvement in creatinine.
- Follow for improvement in renal function.
- Renally dose meds / abx.
DM-II
- Stable. Hold Mounjaro acutely.
- Continue basal : bolus inuslin regimen.
- Follow glucose and cover with SSI as needed.
- Update A1C at 6.5.
DVT Prophylaxis: Subcut Heparin
Code Status: Full
d/w with spouse at bedside in details.
d/w with cardiology
Anticipated Discharge: > 48 hours
Subjective/Interval History
-
Date of Service: January 07, 2024
tx to IVU
Plan for LHC
Remains afebrile
ambulating in room
Objective Data
-
Labs:
Laboratory Results
01/07/24
05:01
WBC 11.6 H
Hgb 10.5 L
Hct 31.4 L
Plt Count 287
Sodium 139
Potassium 3.8
Chloride 106
Carbon Dioxide 23
BUN 15
Creatinine 1.0
Glucose 113 H
Calcium 9.1
Vital Signs:
Vital Signs
Temp Pulse Resp BP Pulse Ox
98.8 F 91 20 111/46 96
01/07/24 07:38 01/07/24 07:40 01/07/24 07:38 01/07/24 09:06 01/07/24 09:14
I&O
01/06/24 01/07/24 01/08/24
06:59 06:59 06:59
Intake Total 450 / 450 220 / 220
Balance 450 / 450 220 / 220
Physical Exam
-
General: No Apparent Distress
HEENT: Normocephalic, Atraumatic and Moist Mucous Membranes
Cardiac: Regular Rhythm and S1/S2; Negative Murmur
GI: Soft, Nontender, Nondistended and Normal Bowel Sounds
Rectal: Deferred by Provider
Musculoskeletal: No Edema
Neuro: Awake, Alert, Oriented, AO x 3, No Motor Deficits and Nonfocal/Grossly Intact
Psych: Calm
--- NOTE | 2024-01-07 11:10 | CM ---
Chart reviewed. Patient is independent of ADLS, lives with her in a [address], [address], 0 [address]ME. Patient being treated for endocarditis x 1 week of antibiotics and possible redo AVR 01/13. CM to follow patient
--- NOTE | 2024-01-07 11:51 | ITS.CL.CATH ---
[facility] - Catheterization
Cardiac Catheterization
Procedure Report:
CARDIAC CATHETERIZATION REPORT
Date of Procedure: 01/07/2024
Referring: Marry Stovall MD
Indication: Preop coronary angiogram for patient with prosthetic valve endocarditis/planned redo AVR
HEMODYNAMIC DATA
AO: 115/57
LV: Not done
LEFT VENTRICULOGRAPHY: Not performed as we did not want to cross the infected aortic valve
CORONARY ANGIOGRAPHY
Dominance: Right
Left Main: Normal
LAD: Trivial luminal irregularities
Circumflex: Normal
RCA: 20% proximal stenosis otherwise normal dominant vessel
Note: Coronary takeoffs are quite low relative to the aortic prosthesis
Closure Device: None-the procedure was performed via the left radial artery. The right radial artery was not used as there was no palpable pulse.
Radiation (mGy): 375
DAP (cm2.Gy): 32.2
Fluoroscopy time: 7.5 minutes
CONCLUSIONS
1: No significant CAD
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
3. Both the left and right coronary takeoffs are very close to the prosthetic valve annulus
Copy to: Marry Stovall MD, Susan Arnold MD
Alfie Novak MD, [facility], [facility]
[2024-01-07] MEDS: NSS 1000 IV (12:40)
[2024-01-07 12:49] LABS: Glucose - Point of Care 103 mg/dl (70-99)
[2024-01-07] MEDS: STERILE WATER FOR INJECTION 20 ML IV (16:01)
[2024-01-07] MEDS: ROCEPHIN 2000 MG IV (16:01)
[2024-01-07 16:48] LABS: Glucose - Point of Care 130 mg/dl (70-99)
[2024-01-07] MEDS: PROTONIX 40 MG PO (17:48)
--- NOTE | 2024-01-07 19:47 | PTCARENOTE ---
Pt had cardiac cath via left radial artery. Radial band removed without problem, no sign of bleeding or hematoma . Pt slept for several hours post cath, given tylenol for headache. Telemetry shows sinus rhythm.
[2024-01-07 21:28] LABS: Glucose - Point of Care 135 mg/dl (70-99)
[2024-01-07] MEDS: PEPCID 20 MG PO (22:39)
[2024-01-07] MEDS: LANTUS 0.25 UNITS SC (22:39)
[2024-01-07] MEDS: CRESTOR 20 MG PO (22:39)
[2024-01-08] MEDS: HEPARIN 5000 UNITS SC ×4 (00:05→23:24)
--- NOTE | 2024-01-08 01:30 | PTCARENOTE ---
Left radial cath site wnl. Sleeping at present. No complaints earlier when questioned. Remains SR on the monitor in the 80's.
[2024-01-08 04:13] VITALS: BP 105/34
[2024-01-08 05:16] LABS: % Basophils 0.3 % (0-2); % Eosinophils 2.1 % (0-6); % Immature Granulocytes 0.6 % (0-0.5); % Lymphocytes 12.1 % (20.5-51.1); % Monocytes 9.4 % (1.7-9.3); % Neutrophils 75.5 % (42.2-75.2); Absolute Eosinophils 0.3 10^3/uL (0-0.7); Absolute Immature Granulocytes 0.1 10^3/uL (0-0.05); Absolute Lymphocytes 1.4 10^3/uL (1.2-3.4); Absolute Monocytes 1.1 10^3/uL (0.1-0.6); Hemoglobin 10.7 g/dL (12.0-16.0); Mean Corp Hgb Conc. 32.4 g/dL (33.0-37.0); Mean Corpuscular Hgb 28.1 pg (27.0-31.0); Mean Corpuscular Volume 86.6 fL (81.0-99.0); Nucleated Red Blood Cells % 0 %; Platelet Count 283 10^3/uL (130-400); Red Blood Cell Count 3.81 10^6/uL (4.20-5.40); Red Cell Dist. Width 12.3 % (11.5-14.5)
[2024-01-08 05:50] LABS: Blood Urea Nitrogen 14 mg/dl (7-17); Calcium 8.8 mg/dl (8.4-10.2); Carbon Dioxide 27 mmol/L (22-30); Chloride 105 mmol/L (98-107); Estimated Creatinine Clearance 49 ml/min; Glucose 103 mg/dl (70-99); Potassium 3.9 mmol/L (3.5-5.1); Sodium 137 mmol/L (135-145); eGFR 59.12
[2024-01-08 08:00] VITALS: BMI 31.0
--- NOTE | 2024-01-08 08:10 | W.PN.CD ---
Today's Communication / Plan
-
-Continue IV antibiotics.
-Possible plan for surgery as per ID/CT surgery
Impression / Plan
-
Sepsis, bacteremia with h/o bio-prosthetic AVR now
-Blood culture 01/02: + Strep mitis , Tmax 100.5 01/05 3:52am
-IV Abx per ID
-TTE 01/03: EF 55-60%, bio-AVR (, no AR); no evidence of endocarditis within limited of TTE
-SHANI with significant aortic root abscess on my review of the images
-CT surgery c/s will discuss timing of testing with them.
-Left heart cath on 01/07/2024: No significant coronary artery disease; both left and right coronary takeoffs are close to prosthetic valve annulus�prostatic aortic valve endocarditis
Abnormal troponin, likely nonischemic myocardial injury in the setting of sepsis
-Chest pain-free, EKG stable
-Peak troponin on arrival, 0.187
Dilated cardiomyopathy with recovered EF (prior 25-30%, most recent 60-65%); chronic HFPEF
-She did not tolerate Farxiga or Jardiance in the past
-cont coreg
-Cr has improved after inittial elevation
-furosemide resumed.
-intermittent hypotension will continue to hold ARB for now
Severe aortic stenosis s/p bioprosthetic aortic valve replacement
-21 mm bovine Trifecta tissue valve 02/25/[address] Read
-plan as above
PVC's
-frequent on tele, no sxs
-cont coreg
Hypertension, hold ARB in the setting of sepsis/SHARRON
Nonobstructive CAD (luminal irregularities) by cardiac catheterization 2015: ASA, statin
CKD3b, follows with Dr. Washburn
NIDDM, Hgba1c 6.5%, per primary
HLD, on rosuvastatin 20mg
Anemia, chronic, follows with Dr. Rivas
Subjective:
No active complaints. Denies chest pain.
Data:
01/07/24 :TTE CONCLUSIONS
Normal biventricular size and systolic function without regional wall motion
abnormality.
Bioprosthetic aortic valve replacement is functioning well (peak/mean
gradients 26/15 mmHg, and no AI).
The mean gradient across the AoV has increased over time.
No vegetation seen on this transthoracic echocardiogram.
Little change since the prior study of 04/02/2023 when the AoV gradient was 10
mmHg. On 06/03/2021 the mean gradient across the AoV was 8 mmHg.
Consider SHANI if clinically indicated.
Physical Exam
Vital Signs/Labs
Vital Signs
Temp Pulse Resp BP Pulse Ox
98.5 F 85 20 105/34 98
01/08/24 03:10 01/08/24 04:13 01/08/24 03:10 01/08/24 04:13 01/08/24 03:10
01/07/24 01/08/24 01/09/24
06:59 06:59 06:59
Actual Weight 79.5 kg
01/08/24 04:27
01/08/24 04:27
Magnesium 2.0 mg/dl (1.6-2.3) 01/08/24 04:27
Physical Exam
Constitutional: No acute distress and Comfortable
EENT: Anicteric and Moist mucous membranes
Cardiovascular: Rhythm & rate is regular, Pedal edema is absent, JVD pressure is normal and Systolic murmur present
Respiratory: Respiratory effort normal, Lungs clear to auscul. and Crackles Absent
GI: Soft and Non tender
Neuro/Psych: Alert and AO x 3
Data Reviewed
-
Date of Service: January 08, 2024
Medical Decision Making: Reviewed Test Results, Independent Historian Assessment and Test Interpretation
EKG: Tracing Personally Visualized and interpreted (Telemetry shows normal sinus rhythm with frequent PVCs.)
Echo: Report Reviewed by me
Labs: Labs Reviewed by me
Old Records: Reviewed
[2024-01-08 08:27] VITALS: BP 126/74
[2024-01-08 08:33] LABS: Glucose - Point of Care 110 mg/dl (70-99)
[2024-01-08] MEDS: NOVOLOG FLEXPEN-LOW RESISTANCE SC ×3 (08:33→17:46)
[2024-01-08] MEDS: COREG 6.25 MG PO ×2 (08:33→19:35)
[2024-01-08] MEDS: LOW STRENGTH ASPIRIN 81 MG PO (08:34)
[2024-01-08] MEDS: NEURONTIN 600 MG PO ×2 (08:34→19:35)
[2024-01-08] MEDS: CYMBALTA DELAYED RELEASE 30 MG PO (08:35)
[2024-01-08] MEDS: LASIX 20 MG PO (08:35)
--- NOTE | 2024-01-08 09:15 | PTCARENOTE ---
Assumed care of pt from night RN. Pt received asleep but wakens easily to verbal. VSS, CM shows NSR with first degree AVB, POX 97% on RA. Pt c/o frequent diarrhea from antibiotics, feels weak. Left radial site remains CDI with normal CMS
throughout limb. No c/o pain, weight stable.
--- NOTE | 2024-01-08 09:56 | W.PN.ID1 ---
Date of Service
Date of Service: January 08, 2024
Today's Communication
Continue ceftriaxone.
Assessment / Plan
# Streptococcus mitis/oralis bacteremia
# Bio-AVR root abscess/infective endocarditis
# Leukocytosis - stable
# Fever resolved
# SHARRON on CKD3 - resolved
# PCN allergy (occurred in remote past, [facility]), tolerating cephalosporins
- Of note recent cracked molar s/p dental procedure, did take prophylactic clindamycin.
- SHANI suspicious for root abscess.
- Tentative valve surgery next week.
- Repeat blood cultures negative to date.
- Continue ceftriaxone 2g IV q24.
- Trend WBC
# Additional Past Medical History:
DM
s/p Bioprosthetic aortic valve replacement (2014)
Hypertension
CKD3
Chronic sinusitis s/p endoscopic sinus surgery 11/22/23
Mild Asthma
Melanoma
cholecystectomy
Appendectomy
Chief Complaint
-: Fever, Leukocytosis and Bacteremia
Vital Signs / Physical Exam
Vital Signs
Vital Signs
Temp Pulse Resp BP Pulse Ox
98.5 F 99 20 126/74 97
01/08/24 03:10 01/08/24 08:33 01/08/24 03:10 01/08/24 08:33 01/08/24 08:51
Physical Exam
Constitutional: No Acute Distress and Comfortable
Cardiovascular: Regular Rate and S1/S2
Pulmonary: Clear
Gastrointestinal: Soft, Non Tender and Non Distended
Objective Data
Lab Data
Lab Results
01/08/24 04:27
01/08/24 04:27
ESR 64 mm/hour (0-20) H 01/04/24 05:59
Estimated Creat Clear 49 ml/min 01/08/24 04:27
Lactic Acid 1.0 mmol/L (0.7-2.0) 01/03/24 21:39
Total Bilirubin 0.7 mg/dl (0.2-1.3) 01/03/24 21:39
AST 26 U/L (14-36) 01/03/24 21:39
ALT 14 U/L (0-35) 01/03/24 21:39
Alkaline Phosphatase 122 U/L (38-126) 01/03/24 21:39
C-Reactive Protein 175.00 mg/L (0.0-10.00) H 01/04/24 05:59
Most recent labs reviewed.
Micro Results:
01/05/24 04:36 Blood Culture - Preliminary
Blood/Venous No Growth in 72 hours- Final report to follow
01/06/24 03:46 Blood Culture - Preliminary
Blood/Venous No Growth in 48 hours- Final report to follow
01/05/24 13:17 Blood Culture - Preliminary
Blood/Venous No Growth in 48 hours- Final report to follow
01/03/24 21:49 Blood Culture - Final
Blood/Venous Strep mitis/oralis
Gram Stain - Final
01/03/24 21:39 Blood Culture - Final
Blood/Venous Strep mitis/oralis
Gram Stain - Final
01/03/24 21:41 Influenza Types A & B (ALDAIR) - Final
Nasal Swab Negative for Influenza A & B, NAAT
Negative results must be combined with clinical observations
and patient history.
Nucleic Acid Amplification test (NAAT)performed on the
[employer] platform.
01/03/24 CXR: No acute cardiopulmonary process.
[2024-01-08] MEDS: VISBIOME 2 CAP PO (10:49)
[2024-01-08 12:00] VITALS: BP 121/58
--- NOTE | 2024-01-08 12:59 | W.PN.HOSP.TC ---
Today's Communication/Plan
-
probiotics added
cont IV abx
CTS recs for surgery
Assessment / Plan
Assessment / Plan
A/P: Patient is a 73y F with PMH significant for HTN, DM-II and prior BioAVR who presents to ED complaining of weakness and chills.
Sepsis likely 2/2 Streptococcus mitis/oralis bacteremia with high suspicion for endocarditis and aortic root abscess -poa
- COVID, influenza, UA and CXR all unremarkable.
- given recent interventions (sinus surgery / dental procedure) - though patient did receive abx prophylaxis prior to each.
- TTE negative for vegetation.
- Surveillance cultures negative so far.. Continue ceftriaxone.
- Vancomycin Levaquin discontinued and started on ceftriaxone. Seems to have tolerated cephalosporins. Probiotics added
- SHANI-concern for aortic root abscess. Status post CT chest abdomen per CT surgery.
- ID evaluation for additional recommendations.
- CT surgery following for eventual surgery.
- Follow for clinical improvement / specifically improvement in weakness.
Non-Ischemic Myocardial Injury
Abnormal Troponin
- Initial troponin in the ED is 0.187 with no complaints of chest pain and no noted ischemia on EKG.
- ? related to endocarditis / myocarditis due to the above
- ASA daily for now. Status post left heart catheter 01/06 with no significant CAD. LV G not performed as the patient has prosthetic aortic valve endocarditis. Both the left and right coronary takeoffs are very close to the prosthetic valve annulus
- Cardiology evaluation for additional recommendations.
Weakness improved.
- Seems likely global phenomenon secondary to acute illness, fever, etc.
- PT/OT
ASCVD
Aortic Stenosis s/p BioAVR
History of Cardiomyopathy with Recovered EF
- No evidence on exam of volume overload.
- restarted on lasix 20mg daily. Follow I/Os, daily weights, etc.
SHARRON on CKD III
- Hold ARB acutely as plan for [facility] today.
- DC IVF Improvement in creatinine.
- Follow for improvement in renal function.
- Renally dose meds / abx.
DM-II
- Stable. Hold Mounjaro acutely.
- Continue basal : bolus inuslin regimen.
- Follow glucose and cover with SSI as needed.
- Update A1C at 6.5.
DVT Prophylaxis: Subcut Heparin
Code Status: Full
d/w with spouse at bedside in details.
d/w with cardiology
Anticipated Discharge: > 48 hours
Subjective/Interval History
-
Date of Service: January 08, 2024
states of loose stools
Objective Data
-
Labs:
Laboratory Results
01/08/24
04:27
WBC 12.0 H
Hgb 10.7 L
Hct 33.0 L
Plt Count 283
Sodium 137
Potassium 3.9
Chloride 105
Carbon Dioxide 27
BUN 14
Creatinine 1.0
Glucose 103 H
Calcium 8.8
Vital Signs:
Vital Signs
Temp Pulse Resp BP Pulse Ox
98.0 F 94 16 121/58 97
01/08/24 12:02 01/08/24 12:00 01/08/24 12:02 01/08/24 12:00 01/08/24 12:02
I&O
01/07/24 01/08/24 01/09/24
06:59 06:59 06:59
Intake Total 220 / 220 860 / 860
Balance 220 / 220 860 / 860
Physical Exam
-
General: Well Developed and No Apparent Distress
HEENT: Normocephalic, Atraumatic and Moist Mucous Membranes
Cardiac: Regular Rhythm and S1/S2
GI: Soft, Nontender, Nondistended and Normal Bowel Sounds
Rectal: Deferred by Provider
Musculoskeletal: No Edema
Neuro: Awake, Alert, Oriented, AO x 3, No Motor Deficits and Nonfocal/Grossly Intact
Psych: Calm
[2024-01-08 13:03] LABS: Glucose - Point of Care 129 mg/dl (70-99)
--- NOTE | 2024-01-08 13:56 | W.PN.UPDATE ---
Update Note
Progress Note Update
Patient remains afebrile
Leukocytosis stable (11.6 today previously 12.0)
ABX per ID (Rocephin 2000 mg IV daily)
Plan for repeat echocardiogram (SHANI) on Wednesday01/11/24
Will re-evaluate after SHANI, possible surgery with Dr. Toledo later next week.
#AV root abscess
#Sepsis with fever, leukocytosis
# SHARRON on CKDIII-improving
# Streptococcus mitis/oralis bacteremia
[2024-01-08] MEDS: STERILE WATER FOR INJECTION 20 ML IV (15:44)
[2024-01-08] MEDS: ROCEPHIN 2000 MG IV (15:44)
[2024-01-08 16:10] VITALS: BP 128/55
[2024-01-08] MEDS: PROTONIX 40 MG PO (17:46)
[2024-01-08 17:48] LABS: Glucose - Point of Care 97 mg/dl (70-99)
[2024-01-08 19:25] VITALS: BP 148/63
[2024-01-08] MEDS: TYLENOL 650 MG PO (19:35)
[2024-01-08 21:36] LABS: Glucose - Point of Care 131 mg/dl (70-99)
[2024-01-08] MEDS: LANTUS 0.25 UNITS SC (21:58)
[2024-01-08] MEDS: PEPCID 20 MG PO (21:58)
[2024-01-08] MEDS: CRESTOR 20 MG PO (21:58)
[2024-01-08 22:03] VITALS: BP 133/66
--- NOTE | 2024-01-09 01:19 | PTCARENOTE ---
Pt. in NSR this shift, VSS. OOB to use BR with assist x 1, gait steady. Pt. sleeping.
[2024-01-09 03:56] VITALS: BP 150/60
[2024-01-09 05:27] LABS: % Basophils 0.4 % (0-2); % Eosinophils 2.7 % (0-6); % Immature Granulocytes 0.6 % (0-0.5); % Lymphocytes 15.9 % (20.5-51.1); % Monocytes 10.7 % (1.7-9.3); % Neutrophils 69.7 % (42.2-75.2); Absolute Eosinophils 0.3 10^3/uL (0-0.7); Absolute Immature Granulocytes 0.1 10^3/uL (0-0.05); Absolute Lymphocytes 1.8 10^3/uL (1.2-3.4); Absolute Monocytes 1.2 10^3/uL (0.1-0.6); Absolute Neutrophils 7.8 10^3/uL (1.4-6.5); Hematocrit 30.6 % (37.0-47.0); Hemoglobin 10.4 g/dL (12.0-16.0); Mean Corpuscular Hgb 28.4 pg (27.0-31.0); Mean Corpuscular Volume 83.6 fL (81.0-99.0); Mean Platelet Volume 10.1 fL (7.4-10.4); Nucleated Red Blood Cells % 0 %; Platelet Count 318 10^3/uL (130-400); Red Blood Cell Count 3.66 10^6/uL (4.20-5.40); Red Cell Dist. Width 12.4 % (11.5-14.5); White Blood Cell Count 11.2 10^3/uL (4.8-10.8)
[2024-01-09 05:51] LABS: Blood Urea Nitrogen 12 mg/dl (7-17); Calcium 8.9 mg/dl (8.4-10.2); Carbon Dioxide 28 mmol/L (22-30); Chloride 104 mmol/L (98-107); Estimated Creatinine Clearance 49 ml/min; Glucose 100 mg/dl (70-99); Potassium 3.7 mmol/L (3.5-5.1); Sodium 137 mmol/L (135-145); eGFR 59.12
[2024-01-09 06:00] VITALS: BMI 30.6
[2024-01-09 07:17] VITALS: BP 135/59
[2024-01-09 07:23] LABS: Glucose - Point of Care 118 mg/dl (70-99)
[2024-01-09] MEDS: CYMBALTA DELAYED RELEASE 30 MG PO (08:32)
[2024-01-09] MEDS: NOVOLOG FLEXPEN-LOW RESISTANCE SC (08:32)
[2024-01-09] MEDS: LOW STRENGTH ASPIRIN 81 MG PO (08:32)
[2024-01-09] MEDS: NEURONTIN 600 MG PO ×2 (08:33→19:49)
[2024-01-09] MEDS: HEPARIN 5000 UNITS SC ×2 (08:33→15:58)
[2024-01-09] MEDS: COREG 6.25 MG PO ×2 (08:33→19:48)
[2024-01-09] MEDS: VISBIOME 2 CAP PO (08:34)
[2024-01-09] MEDS: LASIX 20 MG PO (08:34)
--- NOTE | 2024-01-09 09:36 | W.PN.CD ---
Today's Communication / Plan
-
-Continue supportive care with IV antibiotics.
-Repeat SHANI on Wednesday
Impression / Plan
-
Sepsis, bacteremia with h/o bio-prosthetic AVR now
-Blood culture 01/02: + Strep mitis , Tmax 100.5 01/05 3:52am
-IV Abx per ID
-TTE 01/03: EF 55-60%, bio-AVR (, no AR); no evidence of endocarditis within limited of TTE
-SHANI with significant aortic root abscess on my review of the images -plan to repeat on Wednesday
-CT surgery c/s will discuss timing of testing with them.
-Left heart cath on 01/07/2024: No significant coronary artery disease; both left and right coronary takeoffs are close to prosthetic valve annulus�prostatic aortic valve endocarditis
Abnormal troponin, likely nonischemic myocardial injury in the setting of sepsis
-Chest pain-free, EKG stable
-Peak troponin on arrival, 0.187
Dilated cardiomyopathy with recovered EF (prior 25-30%, most recent 60-65%); chronic HFPEF
-She did not tolerate Farxiga or Jardiance in the past
-cont coreg
-Cr has improved after inittial elevation
-furosemide resumed.
-intermittent hypotension will continue to hold ARB for now
Severe aortic stenosis s/p bioprosthetic aortic valve replacement
-21 mm bovine Trifecta tissue valve 02/[address] Read
-plan as above
PVC's
-frequent on tele, no sxs
-cont coreg
Hypertension, hold ARB in the setting of sepsis/SHARRON
Nonobstructive CAD (luminal irregularities) by cardiac catheterization 2015: ASA, statin
CKD3b, follows with Dr. Washburn
NIDDM, Hgba1c 6.5%, per primary
HLD, on rosuvastatin 20mg
Anemia, chronic, follows with Dr. Evelyn
Subjective:
No active complaints. Denies chest pain.
Data:
01/07/24 :TTE CONCLUSIONS
Normal biventricular size and systolic function without regional wall motion
abnormality.
Bioprosthetic aortic valve replacement is functioning well (peak/mean
gradients 26/15 mmHg, and no AI).
The mean gradient across the AoV has increased over time.
No vegetation seen on this transthoracic echocardiogram.
Little change since the prior study of 04/02/2023 when the AoV gradient was 10
mmHg. On 06/03/2021 the mean gradient across the AoV was 8 mmHg.
Consider SHANI if clinically indicated.
Physical Exam
Vital Signs/Labs
Vital Signs
Temp Pulse Resp BP Pulse Ox
98.9 F 84 18 135/59 96
01/09/24 07:14 01/09/24 08:42 01/09/24 08:42 01/09/24 08:33 01/09/24 08:42
01/08/24 01/09/24 01/10/24
06:59 06:59 06:59
Actual Weight 78.4 kg
01/09/24 04:03
01/09/24 04:03
Magnesium 2.0 mg/dl (1.6-2.3) 01/08/24 04:27
Physical Exam
Constitutional: No acute distress and Comfortable
EENT: Anicteric
Cardiovascular: Rhythm & rate is regular, JVD present and Systolic murmur present
Respiratory: Respiratory effort normal and Wheeze Absent
GI: Non tender and Normal bowel sounds
Neuro/Psych: Alert, Oriented and AO x 3
Data Reviewed
-
Date of Service: January 09, 2024
Medical Decision Making: Reviewed Test Results, Independent Historian Assessment and Test Interpretation
EKG: Tracing Personally Visualized and interpreted
Labs: Labs Reviewed by me
Old Records: Reviewed
--- NOTE | 2024-01-09 09:43 | W.PN.ID1 ---
Date of Service
Date of Service: January 09, 2024
Today's Communication
Continue ceftriaxone.
Assessment / Plan
# Streptococcus mitis/oralis bacteremia
# Bio-AVR root abscess/infective endocarditis
# Leukocytosis - improving
# Fever resolved
# SHARRON on CKD3 - resolved
# PCN allergy (occurred in remote past, [facility]), tolerating cephalosporins
- recent cracked molar s/p dental procedure, did take prophylactic clindamycin.
- SHANI suspicious for root abscess.
- Tentative valve surgery this week.
- Repeat blood cultures negative to date.
- Continue ceftriaxone 2g IV q24h x 6 weeks, at least.
- Trend WBC
# Additional Past Medical History:
DM
s/p Bioprosthetic aortic valve replacement (2014)
Hypertension
CKD3
Chronic sinusitis s/p endoscopic sinus surgery 11/22/23
Mild Asthma
Melanoma
cholecystectomy
Appendectomy
Chief Complaint
-: Leukocytosis and Bacteremia
Subjective / Review of Systems
Feels feverish at night.
Vital Signs / Physical Exam
Vital Signs
Vital Signs
Temp Pulse Resp BP Pulse Ox
98.9 F 84 18 135/59 96
01/09/24 07:14 01/09/24 08:42 01/09/24 08:42 01/09/24 08:33 01/09/24 08:42
Physical Exam
Constitutional: No Acute Distress
Cardiovascular: Regular Rate and S1/S2
Pulmonary: Clear
Gastrointestinal: Soft, Non Tender and Non Distended
Objective Data
Lab Data
Lab Results
01/09/24 04:03
01/09/24 04:03
ESR 64 mm/hour (0-20) H 01/04/24 05:59
Estimated Creat Clear 49 ml/min 01/09/24 04:03
Lactic Acid 1.0 mmol/L (0.7-2.0) 01/03/24 21:39
Total Bilirubin 0.7 mg/dl (0.2-1.3) 01/03/24 21:39
AST 26 U/L (14-36) 01/03/24 21:39
ALT 14 U/L (0-35) 01/03/24 21:39
Alkaline Phosphatase 122 U/L (38-126) 01/03/24 21:39
C-Reactive Protein 175.00 mg/L (0.0-10.00) H 01/04/24 05:59
Most recent labs reviewed.
Micro Results:
01/05/24 04:36 Blood Culture - Preliminary
Blood/Venous No Growth in 4 days- Final report to follow
01/06/24 03:46 Blood Culture - Preliminary
Blood/Venous No Growth in 72 hours- Final report to follow
01/05/24 13:17 Blood Culture - Preliminary
Blood/Venous No Growth in 72 hours- Final report to follow
01/03/24 21:49 Blood Culture - Final
Blood/Venous Strep mitis/oralis
Gram Stain - Final
01/03/24 21:39 Blood Culture - Final
Blood/Venous Strep mitis/oralis
Gram Stain - Final
01/03/24 21:41 Influenza Types A & B (ALDAIR) - Final
Nasal Swab Negative for Influenza A & B, NAAT
Negative results must be combined with clinical observations
and patient history.
Nucleic Acid Amplification test (NAAT)performed on the
[employer] platform.
01/03/24 CXR: No acute cardiopulmonary process.
[2024-01-09 10:14] LABS: Glucose - Point of Care 118 mg/dl (70-99)
--- NOTE | 2024-01-09 10:22 | PTCARENOTE ---
Assumed care of pt from night RN. Pt received awake and alert, Ox3. VSs, CM shows NSR with first degree AVB, POX 97% on RA. Pt receiving Rocephin 2 gm's QD. She denies any pain or discomfort at this time, encouraged to ambulate, at
bedside.
--- NOTE | 2024-01-09 10:34 | W.PN.HOSP.TC ---
Today's Communication/Plan
-
Monitor stools
Continue with probiotic
SHANI early next week
Assessment / Plan
Assessment / Plan
A/P: Patient is a 73y F with PMH significant for HTN, DM-II and prior BioAVR who presents to ED complaining of weakness and chills.
Sepsis likely 2/2 Streptococcus mitis/oralis bacteremia with high suspicion for endocarditis and aortic root abscess -poa
- COVID, influenza, UA and CXR all unremarkable.
- given recent interventions (sinus surgery / dental procedure) - though patient did receive abx prophylaxis prior to each.
- TTE negative for vegetation.
- Surveillance cultures negative so far.. Continue ceftriaxone.
- Vancomycin Levaquin discontinued and started on ceftriaxone. Seems to have tolerated cephalosporins. Probiotics added
- SHANI-concern for aortic root abscess. Status post CT chest abdomen per CT surgery.
- ID evaluation for additional recommendations.
- CT surgery correspondence noted with plan for SHANI next Wednesday.
Non-Ischemic Myocardial Injury
Abnormal Troponin
- Initial troponin in the ED is 0.187 with no complaints of chest pain and no noted ischemia on EKG.
- ? related to endocarditis / myocarditis due to the above
- ASA daily for now. Status post left heart catheter 01/06 with no significant CAD. LV G not performed as the patient has prosthetic aortic valve endocarditis. Both the left and right coronary takeoffs are very close to the prosthetic valve annulus
- Cardiology evaluation for additional recommendations.
Weakness improved.
- Seems likely global phenomenon secondary to acute illness, fever, etc.
- PT/OT
Loose stools likely 2/2 antibiotics
-If with 3 or 4 loose stools then check cdiff as on high dose abx
-cont with probiotics.
ASCVD
Aortic Stenosis s/p BioAVR
History of Cardiomyopathy with Recovered EF
- No evidence on exam of volume overload.
- restarted on lasix 20mg daily. Follow I/Os, daily weights, etc.
SHARRON on CKD III
- Hold ARB acutely as plan for [facility] today.
- DC IVF Improvement in creatinine.
- Follow for improvement in renal function.
- Renally dose meds / abx.
DM-II
- Stable. Hold Mounjaro acutely.
- Continue basal : bolus inuslin regimen.
- Follow glucose and cover with SSI as needed.
- Update A1C at 6.5.
DVT Prophylaxis: Subcut Heparin
Code Status: Full
d/w with spouse at bedside in details.
Anticipated Discharge: > 48 hours
Subjective/Interval History
-
Date of Service: January 09, 2024
states of 2 loose bm earlier today
yesterday it stopped after probiotics
yet to receive am meds
Objective Data
-
Labs:
Laboratory Results
01/09/24
04:03
WBC 11.2 H
Hgb 10.4 L
Hct 30.6 L
Plt Count 318
Sodium 137
Potassium 3.7
Chloride 104
Carbon Dioxide 28
BUN 12
Creatinine 1.0
Glucose 100 H
Calcium 8.9
Vital Signs:
Vital Signs
Temp Pulse Resp BP Pulse Ox
98.9 F 84 18 135/59 97
01/09/24 07:14 01/09/24 08:42 01/09/24 08:42 01/09/24 08:33 01/09/24 09:53
I&O
01/08/24 01/09/24 01/10/24
06:59 06:59 06:59
Intake Total 860 / 860 240 / 240
Balance 860 / 860 240 / 240
Physical Exam
-
General: Well Developed and No Apparent Distress
HEENT: Normocephalic, Atraumatic and Moist Mucous Membranes
Cardiac: Regular Rhythm and S1/S2
GI: Nondistended
Rectal: Deferred by Provider
Musculoskeletal: No Edema
Neuro: Awake, Alert, Oriented, AO x 3, No Motor Deficits and Nonfocal/Grossly Intact
Psych: Calm
[2024-01-09 12:01] VITALS: BP 122/66
--- NOTE | 2024-01-09 12:30 | W.PN.CT ---
Today's Communication / Plan
-
Patient continues to remain afebrile. Tmax 99.0
Leukocytosis improving (11.2 today, previously 12.0)
ABX per ID (Rocephin 2000 mg IV daily)
Plan for repeat echocardiogram (SHANI) on Wednesday01/11/24
Will re-evaluate after SHANI.
Further plans for possible surgery with Dr. Toledo later next week will be determined after SHANI and the rest of the patients CT Surgery work up is completed.
Assessment / Plan
-
# AV root abscess
# Sepsis with fever, leukocytosis- improving
# SHARRON on CKD3
# Streptococcus mitis/oralis bacteremia
Subjective
-
Date of Service: January 09, 2024
Objective Data
-
Lab Results
01/09/24 04:03
01/09/24 04:03
Vital Signs
Vital Signs
Temp Pulse Resp BP Pulse Ox
98.7 F 90 20 122/66 96
01/09/24 11:59 01/09/24 12:01 01/09/24 11:59 01/09/24 12:01 01/09/24 12:[address]
CT Intake/Output/Weight
01/08/24 01/09/24 01/09/24
18:59 06:59 18:59
Intake Total 240 / 240
Balance 240 / 240
SaO2: 96
[2024-01-09 12:51] LABS: Glucose - Point of Care 169 mg/dl (70-99)
[2024-01-09] MEDS: NOVOLOG FLEXPEN-LOW RESISTANCE 1 UNITS SC (14:02)
[2024-01-09] MEDS: ROCEPHIN 2000 MG IV (15:57)
[2024-01-09] MEDS: STERILE WATER FOR INJECTION 20 ML IV (15:58)
[2024-01-09 16:03] VITALS: BP 124/64
[2024-01-09] MEDS: TYLENOL 650 MG PO ×2 (16:16→22:08)
[2024-01-09 17:01] LABS: Glucose - Point of Care 163 mg/dl (70-99)
[2024-01-09] MEDS: NOVOLOG FLEXPEN-LOW RESISTANCE 300 UNITS SC (18:24)
[2024-01-09] MEDS: PROTONIX 40 MG PO (18:25)
[2024-01-09 18:46] VITALS: BP 146/68
[2024-01-09 21:47] LABS: Glucose - Point of Care 115 mg/dl (70-99)
[2024-01-09 22:03] VITALS: BP 147/64
[2024-01-09] MEDS: PEPCID 20 MG PO (22:07)
[2024-01-09] MEDS: CRESTOR 20 MG PO (22:07)
[2024-01-09] MEDS: LANTUS 0.25 UNITS SC (22:07)
[2024-01-10] VITALS (9 sets, daily range): BP systolic 104–141; BP diastolic 52–75; PULSE 97–106; O2SAT 94; BMI 30.7
[2024-01-10] MEDS: HEPARIN 5000 UNITS SC ×4 (00:48→23:20)
--- NOTE | 2024-01-10 02:00 | PTCARENOTE ---
Pt. NSR on the monitor, VSS, ambulating independently. No complains of CP/SOB. States she feels overall better tonight than she has since being admitted. Plan of care discussed, understanding verbalized. Pt. currently sleeping.
[2024-01-10 04:36] LABS: % Basophils 0.4 % (0-2); % Immature Granulocytes 0.8 % (0-0.5); % Monocytes 10.7 % (1.7-9.3); % Neutrophils 71.1 % (42.2-75.2); Absolute Basophils 0.1 10^3/uL (0-0.2); Absolute Eosinophils 0.4 10^3/uL (0-0.7); Absolute Immature Granulocytes 0.1 10^3/uL (0-0.05); Absolute Lymphocytes 1.7 10^3/uL (1.2-3.4); Absolute Monocytes 1.3 10^3/uL (0.1-0.6); Absolute Neutrophils 8.6 10^3/uL (1.4-6.5); Mean Corp Hgb Conc. 32.4 g/dL (33.0-37.0); Mean Corpuscular Hgb 27.9 pg (27.0-31.0); Mean Corpuscular Volume 86.3 fL (81.0-99.0); Mean Platelet Volume 9.8 fL (7.4-10.4); Nucleated Red Blood Cells % 0 %; Platelet Count 322 10^3/uL (130-400); Red Blood Cell Count 3.94 10^6/uL (4.20-5.40); Red Cell Dist. Width 12.2 % (11.5-14.5); White Blood Cell Count 12.1 10^3/uL (4.8-10.8)
[2024-01-10 09:02] LABS: Glucose - Point of Care 136 mg/dl (70-99)
[2024-01-10] MEDS: NOVOLOG FLEXPEN-LOW RESISTANCE SC ×3 (09:02→17:45)
[2024-01-10] MEDS: VISBIOME 2 CAP PO (09:07)
[2024-01-10] MEDS: NEURONTIN 600 MG PO ×2 (09:08→20:02)
[2024-01-10] MEDS: CYMBALTA DELAYED RELEASE 30 MG PO (09:08)
[2024-01-10] MEDS: LOW STRENGTH ASPIRIN 81 MG PO (09:08)
[2024-01-10] MEDS: COREG 6.25 MG PO ×2 (09:08→20:02)
[2024-01-10] MEDS: LASIX 20 MG PO (09:09)
--- NOTE | 2024-01-10 09:48 | W.PN.CD ---
Today's Communication / Plan
-
NPO p MN for SHANI tomorrow
Impression / Plan
-
Sepsis, bacteremia with h/o bio-prosthetic AVR now c/f aortic root abscess
-Blood culture 01/02: + Strep mitis , Tmax 100.5 01/05 3:52am
-IV Abx per ID
-TTE 01/03: EF 55-60%, bio-AVR (, no AR); no evidence of endocarditis within limited of TTE
-SHANI with significant aortic root abscess on my review of the images -plan to repeat on Wednesday
-NPO p mn
-CT surgery c/s will discuss timing of testing with them.
-Left heart cath on 01/07/2024: No significant coronary artery disease; both left and right coronary takeoffs are close to prosthetic valve annulus�prostatic aortic valve endocarditis
Abnormal troponin, likely nonischemic myocardial injury in the setting of sepsis
-Chest pain-free, EKG stable
-Peak troponin on arrival, 0.187
Dilated cardiomyopathy with recovered EF (prior 25-30%, most recent 60-65%); chronic HFPEF
-She did not tolerate Farxiga or Jardiance in the past
-cont coreg
-Cr has improved after initial elevation
-furosemide resumed.
-intermittent hypotension will continue to hold ARB for now
Severe aortic stenosis s/p bioprosthetic aortic valve replacement
-21 mm bovine Trifecta tissue valve 02/25/[address] Read
-plan as above
PVC's
-frequent on tele, no sxs
-cont coreg
Hypertension, hold ARB in the setting of sepsis/SHARRON
Nonobstructive CAD (luminal irregularities) by cardiac catheterization 2015: ASA, statin
CKD3b, follows with Dr. Washburn
NIDDM, Hgba1c 6.5%, per primary
HLD, on rosuvastatin 20mg
Anemia, chronic, follows with Dr. Rivas
Subjective:
No active complaints. She is feeling much better. Denies chest pain.
Data:
01/07/24 :TTE CONCLUSIONS
Normal biventricular size and systolic function without regional wall motion
abnormality.
Bioprosthetic aortic valve replacement is functioning well (peak/mean
gradients 26/15 mmHg, and no AI).
The mean gradient across the AoV has increased over time.
No vegetation seen on this transthoracic echocardiogram.
Little change since the prior study of 04/02/2023 when the AoV gradient was 10
mmHg. On 06/03/2021 the mean gradient across the AoV was 8 mmHg.
Consider SHANI if clinically indicated.
Physical Exam
Vital Signs/Labs
Vital Signs
Temp Pulse Resp BP Pulse Ox
98.2 F 103 20 141/76 96
01/10/24 03:05 01/10/24 09:08 01/10/24 03:05 01/10/24 09:08 01/10/24 03:37
01/09/24 01/10/24 01/11/24
06:59 06:59 06:59
Actual Weight 78.4 kg 78.6 kg
01/10/24 04:20
01/09/24 04:03
Magnesium 2.0 mg/dl (1.6-2.3) 01/08/24 04:27
Physical Exam
Constitutional: No acute distress
Cardiovascular: Rhythm & rate is regular, Pedal edema is absent, JVD pressure is normal and Systolic murmur present
Respiratory: Respiratory effort normal, Lungs clear to auscul., Wheeze Absent, Crackles Absent and Rhonchi Absent
Neuro/Psych: AO x 3
Data Reviewed
-
Date of Service: January 10, 2024
X-Ray/CT/US/MRI/NUC/PET: Discussed with Physician (Dr hamilton shani tomorrow) and Discussed with Family ( at the bedside, will do a SHANI tomorrow)
--- NOTE | 2024-01-10 12:22 | CM ---
cm continues to follow, plan is for AVR this admission.
[2024-01-10 13:33] LABS: Glucose - Point of Care 114 mg/dl (70-99)
--- NOTE | 2024-01-10 14:05 | W.PN.ID1 ---
Date of Service
Date of Service: January 10, 2024
Today's Communication
Continue ceftriaxone x 6 weeks.
Assessment / Plan
# Streptococcus mitis/oralis bacteremia
# Possible Bio-AVR root abscess/infective endocarditis
# Leukocytosis - stable
# Fever resolved
# SHARRON on CKD3 - resolved
# PCN allergy (occurred in remote past, [facility]), tolerating cephalosporins
- recent cracked molar s/p dental procedure, did take prophylactic clindamycin.
- Repeat blood cultures negative to date.
- 01/05 SHANI suspicious for root abscess.
- CTA: A discrete aortic root abscess is not clearly seen by CT
- For repeat SHANI tomorrow then decide on +/- surgery.
If valve surgery, please send cultures.
- Plan to treat with 6 weeks of IV abx.
- Continue ceftriaxone 2g IV q24h x 6 weeks through 02/15/24.
Infusion sheet placed in chart.
- Trend WBC
# Additional Past Medical History:
DM
s/p Bioprosthetic aortic valve replacement (2014)
Hypertension
CKD3
Chronic sinusitis s/p endoscopic sinus surgery 11/22/23
Mild Asthma
Melanoma
cholecystectomy
Appendectomy
Chief Complaint
-: Bacteremia
Subjective / Review of Systems
Feeling better today.
Vital Signs / Physical Exam
Vital Signs
Vital Signs
Temp Pulse Resp BP Pulse Ox
98.5 F 98 18 141/76 95
01/10/24 11:47 01/10/24 10:00 01/10/24 11:47 01/10/24 09:08 01/10/24 11:47
Physical Exam
Constitutional: No Acute Distress and Comfortable
Cardiovascular: Regular Rate and S1/S2
Pulmonary: Clear
Gastrointestinal: Soft, Non Tender and Non Distended
Extremities: Negative Edema
Objective Data
Lab Data
Lab Results
01/10/24 04:20
01/09/24 04:03
ESR 64 mm/hour (0-20) H 01/04/24 05:59
Estimated Creat Clear 49 ml/min 01/09/24 04:03
Lactic Acid 1.0 mmol/L (0.7-2.0) 01/03/24 21:39
Total Bilirubin 0.7 mg/dl (0.2-1.3) 01/03/24 21:39
AST 26 U/L (14-36) 01/03/24 21:39
ALT 14 U/L (0-35) 01/03/24 21:39
Alkaline Phosphatase 122 U/L (38-126) 01/03/24 21:39
C-Reactive Protein 175.00 mg/L (0.0-10.00) H 01/04/24 05:59
Most recent labs reviewed.
Micro Results:
01/05/24 13:17 Blood Culture - Final
Blood/Venous No Growth - Final Report
01/05/24 04:36 Blood Culture - Final
Blood/Venous No Growth - Final Report
01/06/24 03:46 Blood Culture - Preliminary
Blood/Venous No Growth in 4 days- Final report to follow
01/03/24 21:49 Blood Culture - Final
Blood/Venous Strep mitis/oralis
Gram Stain - Final
01/03/24 21:39 Blood Culture - Final
Blood/Venous Strep mitis/oralis
Gram Stain - Final
01/03/24 21:41 Influenza Types A & B (ALDAIR) - Final
Nasal Swab Negative for Influenza A & B, NAAT
Negative results must be combined with clinical observations
and patient history.
Nucleic Acid Amplification test (NAAT)performed on the
[employer] platform.
01/03/24 CXR: No acute cardiopulmonary process.
[2024-01-10] MEDS: ROCEPHIN 2000 MG IV (15:36)
[2024-01-10] MEDS: STERILE WATER FOR INJECTION 20 ML IV (15:36)
--- NOTE | 2024-01-10 16:01 | PTCARENOTE ---
Pt c/o burning during antibiotic infusion into left forearm. Left forearm INT d/c'd per pt's request. Will monitor.
--- NOTE | 2024-01-10 16:45 | W.PN.HOSP.TC ---
Today's Communication/Plan
-
SHANI for tomorrow
Decision on surgical intervention to follow
Assessment / Plan
Assessment / Plan
A/P: Patient is a 73y F with PMH significant for HTN, DM-II and prior BioAVR who presents to ED complaining of weakness and chills.
Sepsis likely 2/2 Streptococcus mitis/oralis bacteremia with high suspicion for endocarditis and aortic root abscess -poa
- COVID, influenza, UA and CXR all unremarkable.
- given recent interventions (sinus surgery / dental procedure) - though patient did receive abx prophylaxis prior to each.
- TTE negative for vegetation.
- Surveillance cultures negative so far.. Continue ceftriaxone.
- Vancomycin Levaquin discontinued and started on ceftriaxone 2 gms IV q24hrs. Seems to have tolerated cephalosporins. Probiotics added
- SHANI-concern for aortic root abscess. Status post CT chest abdomen per CT surgery: Moderate calcified atherosclerosis of the thoracic aorta and abdominal aorta, but no evidence for an aortic dissection, aneurysm, or intramural hematoma. A
discrete aortic root abscess is not clearly seen by CT but recommend correlation with transesophageal echocardiogram and intraoperative findings.
- ID input appreciated
- CT surgery correspondence noted with plan for SHANI 01/10.
Non-Ischemic Myocardial Injury
Abnormal Troponin
- Initial troponin in the ED is 0.187 with no complaints of chest pain and no noted ischemia on EKG.
- ? related to endocarditis / myocarditis due to the above
- ASA daily for now. Status post left heart catheter 01/06 with no significant CAD. LV G not performed as the patient has prosthetic aortic valve endocarditis. Both the left and right coronary takeoffs are very close to the prosthetic valve annulus
- Cardiology evaluation appreciated
Weakness improved.
- Seems likely global phenomenon secondary to acute illness, fever, etc.
- PT/OT
Loose stools likely 2/2 antibiotics
-If with 3 or 4 loose stools then check cdiff as on high dose abx
-cont with probiotics.
ASCVD
Aortic Stenosis s/p BioAVR 2014
History of Cardiomyopathy with Recovered EF
- No evidence on exam of volume overload.
- restarted on lasix 20mg daily. Follow I/Os, daily weights, etc.
SHARRON on CKD III
- Holding ARB, reviewed with Dr. Stovall, she prefers to continue to hold pending decision on surgical intervention
- DC IVF Improvement in creatinine.
- BUN/Creat 12/1.0
DM-II
- Stable. Hold Mounjaro acutely.
- Continue basal : bolus inuslin regimen.
- Follow glucose and cover with SSI as needed.
- Update A1C at 6.5.
DVT Prophylaxis: Subcut Heparin
Code Status: Full
d/w with spouse at bedside in details.
Anticipated Discharge: > 48 hours
Subjective/Interval History
-
Date of Service: January 10, 2024
in room, pt concerned about plans
Objective Data
-
Labs:
Laboratory Results
01/10/24
04:20
WBC 12.1 H
Hgb 11.0 L
Hct 34.0 L
Plt Count 322
Vital Signs:
Vital Signs
Temp Pulse Resp BP Pulse Ox
98.2 F 95 16 124/70 98
01/10/24 16:17 01/10/24 15:00 01/10/24 16:17 01/10/24 11:42 01/10/24 16:17
I&O
01/09/24 01/10/24 01/11/24
06:59 06:59 06:59
Intake Total 240 / 240 240 / 240
Balance 240 / 240 240 / 240
Review of Systems
-
History Source: Patient, Family and Coordinated Provider
Constitutional: Denies Fever (afebrile since 01/05)
EENT: Reports No Symptoms Reported
Respiratory: Reports No Symptoms; Denies Cough
Cardiac: Reports No Symptoms; Denies Chest Pain
Physical Exam
-
General: Well Developed, Well Nourished and No Apparent Distress
HEENT: Normocephalic, Atraumatic and Moist Mucous Membranes
Respiratory: Clear to Auscultation; Negative Wheezes, Rales or Rhonchi
Cardiac: Regular Rhythm, S1/S2 and Murmur (2/6sem)
GI: Soft, Nontender and Nondistended
Musculoskeletal: No Clubbing, No Cyanosis and No Edema
[2024-01-10 17:24] LABS: Glucose - Point of Care 127 mg/dl (70-99)
[2024-01-10] MEDS: PROTONIX 40 MG PO (17:44)
[2024-01-10] MEDS: TYLENOL 650 MG PO (20:02)
[2024-01-10 21:42] LABS: Glucose - Point of Care 115 mg/dl (70-99)
[2024-01-10] MEDS: LANTUS SC (22:38)
[2024-01-10] MEDS: CRESTOR 20 MG PO (22:43)
[2024-01-10] MEDS: PEPCID 20 MG PO (22:43)
[2024-01-10] MEDS: LANTUS 0.100000000000000006 UNITS SC (22:43)
[2024-01-11] VITALS (8 sets, daily range): BP systolic 111–136; BP diastolic 49–68; BMI 30.5
--- NOTE | 2024-01-11 01:48 | PTCARENOTE ---
Patient ambulating self in room. Tele monitor shows SR, HR in the 70-90's. HS blood sugar 115. Patient aware to maintain NPO at midnight for SHANI on 01/10. Patient due for 25 units of Lantus. Murtaza Ingram CV PA made aware, and orders obtained. 25units
of Lantus held, and orders to administer 10 units of Lantus instead. See MAR for details. Patient aware of POC,call amos in reach.
[2024-01-11] MEDS: TYLENOL 650 MG PO ×2 (04:26→20:06)
[2024-01-11 05:17] LABS: % Basophils 0.5 % (0-2); % Eosinophils 2.9 % (0-6); % Immature Granulocytes 0.9 % (0-0.5); % Lymphocytes 11.9 % (20.5-51.1); % Monocytes 10.7 % (1.7-9.3); % Neutrophils 73.1 % (42.2-75.2); Absolute Basophils 0.1 10^3/uL (0-0.2); Absolute Eosinophils 0.4 10^3/uL (0-0.7); Absolute Immature Granulocytes 0.1 10^3/uL (0-0.05); Absolute Lymphocytes 1.7 10^3/uL (1.2-3.4); Absolute Monocytes 1.6 10^3/uL (0.1-0.6); Absolute Neutrophils 10.7 10^3/uL (1.4-6.5); Hematocrit 35.1 % (37.0-47.0); Hemoglobin 11.6 g/dL (12.0-16.0); Mean Corpuscular Hgb 27.8 pg (27.0-31.0); Mean Platelet Volume 9.9 fL (7.4-10.4); Nucleated Red Blood Cells % 0 %; Platelet Count 417 10^3/uL (130-400); Red Blood Cell Count 4.18 10^6/uL (4.20-5.40); Red Cell Dist. Width 12.3 % (11.5-14.5); White Blood Cell Count 14.6 10^3/uL (4.8-10.8)
[2024-01-11 05:45] LABS: Procalcitonin 0.37 ng/ml (0.0-0.25)
[2024-01-11 05:49] LABS: ALT (SGPT) 19 U/L (0-35); AST (SGOT) 26 U/L (14-36); Alkaline Phosphatase 99 U/L (38-126); Blood Urea Nitrogen 17 mg/dl (7-17); Calcium 9.3 mg/dl (8.4-10.2); Carbon Dioxide 27 mmol/L (22-30); Chloride 101 mmol/L (98-107); Estimated Creatinine Clearance 49 ml/min; Glucose 136 mg/dl (70-99); Potassium 4.2 mmol/L (3.5-5.1); Total Bilirubin 0.4 mg/dl (0.2-1.3); Total Protein 7.1 g/dl (6.3-8.2); eGFR 59.12
[2024-01-11 05:56] LABS: Sodium 138 mmol/L (135-145)
[2024-01-11 06:58] LABS: Glucose - Point of Care 134 mg/dl (70-99)
[2024-01-11 07:48] LABS: Erythrocyte Sed Rate 61 mm/hour (0-20)
[2024-01-11 12:00] LABS: Glucose - Point of Care 106 mg/dl (70-99)
--- NOTE | 2024-01-11 12:18 | W.PN.CD ---
Today's Communication / Plan
-
Ct surgery to discuss surgical intervention likely Wednesday
Impression / Plan
-
Sepsis, bacteremia with h/o bio-prosthetic AVR now c/f aortic root abscess
-Blood culture 01/02: + Strep mitis , Tmax 100.5 01/05 3:52am
-IV Abx per ID
-TTE 01/03: EF 55-60%, bio-AVR (, no AR); no evidence of endocarditis within limited of TTE
-SHANI with significant aortic root abscess on my review of the images
-Repeat SHANI today 01/11/24 shows progression of the aortic root abscess with flow within the abscess, extension into the LVOT and along the anterior mitral valve with associated trace flow.
-Discussed with Dr Toeldo, will proceed with surgery, he will see Ms Gallardo today to discuss extent of needed surgery.
-Left heart cath on 01/07/2024: No significant coronary artery disease; both left and right coronary takeoffs are close to prosthetic valve annulus�prostatic aortic valve endocarditis
Abnormal troponin, likely nonischemic myocardial injury in the setting of sepsis
-Chest pain-free, EKG stable
-Peak troponin on arrival, 0.187
Dilated cardiomyopathy with recovered EF (prior 25-30%, most recent 60-65%); chronic HFPEF
-She did not tolerate Farxiga or Jardiance in the past
-cont coreg
-Cr has improved after initial elevation
-furosemide resumed.
-intermittent hypotension will continue to hold ARB for now will resume post op as able
Severe aortic stenosis s/p bioprosthetic aortic valve replacement
-21 mm bovine Trifecta tissue valve 02/[address] Read
-plan as above
PVC's
-frequent on tele, no sxs
-cont coreg
Hypertension, hold ARB in the setting of sepsis/SHARRON
Nonobstructive CAD (luminal irregularities) by cardiac catheterization 2015: ASA, statin
CKD3b, follows with Dr. Washburn
NIDDM, Hgba1c 6.5%, per primary
HLD, on rosuvastatin 20mg
Anemia, chronic, follows with Dr. Rivas
Subjective:
No active complaints. She is feeling anixous but ok.
Data:
01/07/24 :TTE CONCLUSIONS
Normal biventricular size and systolic function without regional wall motion
abnormality.
Bioprosthetic aortic valve replacement is functioning well (peak/mean
gradients 26/15 mmHg, and no AI).
The mean gradient across the AoV has increased over time.
No vegetation seen on this transthoracic echocardiogram.
Little change since the prior study of 04/02/2023 when the AoV gradient was 10
mmHg. On 06/03/2021 the mean gradient across the AoV was 8 mmHg.
Consider SHANI if clinically indicated.
Physical Exam
Vital Signs/Labs
Vital Signs
Temp Pulse Resp BP Pulse Ox
98.4 F 80 16 121/61 100
01/11/24 11:55 01/11/24 11:55 01/11/24 11:55 01/11/24 06:55 01/11/24 11:55
01/10/24 01/11/24 01/12/24
06:59 06:59 06:59
Actual Weight 78.6 kg 78 kg
01/11/24 04:22
01/11/24 04:22
Magnesium 2.0 mg/dl (1.6-2.3) 01/08/24 04:27
Physical Exam
Constitutional: No acute distress
Cardiovascular: Rhythm & rate is regular, Pedal edema is absent, JVD pressure is normal and Systolic murmur present
Respiratory: Respiratory effort normal, Lungs clear to auscul., Wheeze Absent, Crackles Absent and Rhonchi Absent
Neuro/Psych: AO x 3
Data Reviewed
-
Date of Service: January 11, 2024
Medical Tests (PFT, Pathology etc): Discussed with Physician (Reviewed images and plan with Dr Toledo)
--- NOTE | 2024-01-11 13:17 | W.PN.OMFS ---
Today's Communication
-
...
Assessment / Plan
-
DENTALLY CLEARED FOR VALVULAR HEART SURGERY
CONSULT TO DICTATE
KELLEN GUERRERO, DMD
[phone]
Subjective Data
-
DENTAL CLEARANCE FOR VALVULAR HEART SURGERY
Objective Data
-
Vitals, I&O and Lab Results:
Vital Signs
Temp Pulse Resp BP Pulse Ox
98.4 F 80 16 121/61 100
01/11/24 11:55 01/11/24 11:55 01/11/24 11:55 01/11/24 06:55 01/11/24 11:55
Intake and Output
01/10/24 01/11/24 01/12/24
06:59 06:59 06:59
Intake Total 240 / 240
Balance 240 / 240
Intake:
Oral fluids 240 / 240
Other:
Number of approximated MODERATE 2 2
amounts of urine
Lab Data
01/11/24 04:22
01/11/24 04:22
Plt Count 417 10^3/uL (130-400) H D 01/11/24 04:22
Microbiology
01/06/24 03:46 Blood Culture - Final
Blood/Venous No Growth - Final Report
01/05/24 13:17 Blood Culture - Final
Blood/Venous No Growth - Final Report
Physical Exam
-
DENTITION INTACT
SEES DDS REGULARLY
NO ACUTE DISEASE
NO RADIOGRAPH AVAILABLE
[2024-01-11] MEDS: NOVOLOG FLEXPEN-LOW RESISTANCE SC ×3 (13:28→18:08)
[2024-01-11] MEDS: HEPARIN SC (13:29)
[2024-01-11] MEDS: LOW STRENGTH ASPIRIN 81 MG PO (13:30)
[2024-01-11] MEDS: COREG 6.25 MG PO ×2 (13:30→20:07)
[2024-01-11] MEDS: LASIX 20 MG PO (13:30)
[2024-01-11] MEDS: NEURONTIN 600 MG PO ×2 (13:30→20:06)
[2024-01-11] MEDS: VISBIOME 2 CAP PO (13:31)
[2024-01-11] MEDS: CYMBALTA DELAYED RELEASE 30 MG PO (13:42)
--- NOTE | 2024-01-11 14:20 | W.PN.HOSP.TC ---
Today's Communication/Plan
-
check stool for C.Diff
Assessment / Plan
Assessment / Plan
A/P: Patient is a 73y F with PMH significant for HTN, DM-II and prior BioAVR who presents to ED complaining of weakness and chills.
Sepsis likely 2/2 Streptococcus mitis/oralis bacteremia with high suspicion for endocarditis and aortic root abscess -poa
- COVID, influenza, UA and CXR all unremarkable.
- given recent interventions (sinus surgery / dental procedure) - though patient did receive abx prophylaxis prior to each.
TTE 01/03:Normal biventricular size and systolic function without regional wall motion
abnormality.
Bioprosthetic aortic valve replacement is functioning well (peak/mean
gradients 26/15 mmHg, and no AI).
The mean gradient across the AoV has increased over time.
No vegetation seen on this transthoracic echocardiogram.
Little change since the prior study of 04/02/2023 when the AoV gradient was 10
mmHg. On 06/03/2021 the mean gradient across the AoV was 8 mmHg.
Consider SHANI if clinically indicated.
- Surveillance cultures negative so far.. Continue ceftriaxone.
- Vancomycin Levaquin discontinued and started on ceftriaxone 2 gms IV q24hrs. Seems to have tolerated cephalosporins. Probiotics added
- SHANI-concern for aortic root abscess. Status post CT chest abdomen per CT surgery: Moderate calcified atherosclerosis of the thoracic aorta and abdominal aorta, but no evidence for an aortic dissection, aneurysm, or intramural hematoma. A
discrete aortic root abscess is not clearly seen by CT but recommend correlation with transesophageal echocardiogram and intraoperative findings.
- ID input appreciated
- CT surgery correspondence noted, underwent SHANI 01/10, input from Dr. Stovall appreciated
WBC 11.6-->12.0-->11.2-->12.1-->14.6
Non-Ischemic Myocardial Injury
Abnormal Troponin
- Initial troponin in the ED is 0.187-->0.157-->0.105 with no complaints of chest pain and no noted ischemia on EKG.
- ? related to endocarditis / myocarditis due to the above
- ASA daily for now. Status post left heart catheter 01/06 with no significant CAD. LV G not performed as the patient has prosthetic aortic valve endocarditis. Both the left and right coronary takeoffs are very close to the prosthetic valve annulus
- Cardiology evaluation appreciated
Weakness improved.
- Seems likely global phenomenon secondary to acute illness, fever, etc.
- PT/OT
Loose stools likely 2/2 antibiotics
-Will check cdiff as on high dose abx in pt with planned surgical intervention, reviewed with nursing, stool is loose, not typical watery as per C.Diff, but with surgery planned and pt on abx, will check stool. Reviewed with pt
-cont with probiotics.
ASCVD
Aortic Stenosis s/p BioAVR 2014
History of Cardiomyopathy with Recovered EF
- No evidence on exam of volume overload.
- restarted on lasix 20mg daily. Follow I/Os, daily weights, etc.
SHARRON on CKD III
- Holding ARB, reviewed with Dr. Stovall, she prefers to continue to hold pending decision on surgical intervention
- DC IVF Improvement in creatinine.
- BUN/Creat 12/1.0
DM-II
- Stable. Hold Mounjaro acutely.
- Continue basal : bolus inuslin regimen.
- Follow glucose and cover with SSI as needed.
- Update A1C at 6.5.
DVT Prophylaxis: Subcut Heparin
Code Status: Full
d/w with spouse at bedside in details.
Anticipated Discharge: > 48 hours
Subjective/Interval History
-
Date of Service: January 11, 2024
Situation reviewed with 1:1 initially, then with and pt
Objective Data
-
Labs:
Laboratory Results
01/11/24
04:22
WBC 14.6 H
Hgb 11.6 L
Hct 35.1 L
Plt Count 417 H D
Sodium 138
Potassium 4.2
Chloride 101
Carbon Dioxide 27
BUN 17
Creatinine 1.0
Glucose 136 H
Calcium 9.3
Total Bilirubin 0.4
AST 26
ALT 19
Alkaline Phosphatase 99
Vital Signs:
Vital Signs
Temp Pulse Resp BP Pulse Ox
98.4 F 80 16 136/64 100
01/11/24 11:55 01/11/24 13:30 01/11/24 11:55 01/11/24 13:30 01/11/24 11:55
I&O
01/10/24 01/11/24 01/12/24
06:59 06:59 06:59
Intake Total 240 / 240
Balance 240 / 240
Review of Systems
-
History Source: Patient, Family and Coordinated Provider
Constitutional: Denies Fever (afebrile since 01/05)
EENT: Reports No Symptoms Reported
Respiratory: Reports No Symptoms; Denies Cough
Cardiac: Reports No Symptoms; Denies Chest Pain
Neuro: Reports No Symptoms
Physical Exam
-
General: Well Developed, Well Nourished and No Apparent Distress
HEENT: Normocephalic, Atraumatic and Moist Mucous Membranes
Respiratory: Rales (bibasilar atelectatic rales); Negative Wheezes or Rhonchi
Cardiac: Regular Rhythm, S1/S2 and Murmur (2/6sem)
GI: Soft, Nontender and Nondistended
Musculoskeletal: No Clubbing, No Cyanosis and No Edema
--- NOTE | 2024-01-11 14:21 | CM ---
joe set up for PICC care at home, [facility] care consulted for IV meds (till 02/14)/ referral started, awaiting ID orders and picc details after surgery.
--- NOTE | 2024-01-11 14:41 | W.PN.UPDATE ---
Update Note
Progress Note Update
I had a long conversation with Mrs. Gallardo and her spouse at the bedside. We reviewed the findings of today's SHANI which demonstrates progression of her root abscess now involving the AL of the mitral valve. There is evidence of early dehiscence of her
bioprosthetic valve as well. She continues to have a leukocytosis on suppressive abx. I described the likely scenario of requiring a double valve replacement (AVR MVR) with reconstruction of her fibrous skeleton. She understands that she is at
elevated risk compared to the average person, I quoted her a mortality risk of 10-15% within 30 days and possible reinfection of her new prosthetic valves. She will very likely require a PPM for heart block post surgery. I have tentatively arrange
for surgery on as first case. She should continue abx until the OR. If she develops any worsening SOB in the meantime, she will need an immediate TTE to eval for sudden new AI.
[2024-01-11] MEDS: HEPARIN 5000 UNITS SC ×2 (15:36→22:44)
--- NOTE | 2024-01-11 15:40 | W.PN.ID1 ---
Date of Service
Date of Service: January 11, 2024
Today's Communication
Please culture valves.
Continue ceftriaxone 2g IV q24h x 6 weeks through 02/15/24 (or longer if OR culture remains positive)
Assessment / Plan
# Streptococcus mitis/oralis bacteremia
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
# Leukocytosis - trending up
# Fever resolved
# SHARRON on CKD3 - resolved
# PCN allergy (occurred in remote past, [facility]), tolerating cephalosporins
- recent cracked molar s/p dental procedure, did take prophylactic clindamycin.
- Repeat blood cultures negative to date.
- 01/05 SHANI suspicious for root abscess.
- 01/10 SHANI progression of AV root abscess with progression and now involves MV
- For valve surgery this week. Please send valves for culture.
- Plan to treat with 6 weeks of IV abx.
- Continue ceftriaxone 2g IV q24h x 6 weeks through 02/15/24 (or longer if OR culture remains positive)
Infusion sheet placed in chart and case managemeny aware.
- Trend WBC
# Additional Past Medical History:
DM
s/p Bioprosthetic aortic valve replacement (2014)
Hypertension
CKD3
Chronic sinusitis s/p endoscopic sinus surgery 11/22/23
Mild Asthma
Melanoma
cholecystectomy
Appendectomy
Chief Complaint
-: Bacteremia
Subjective / Review of Systems
Worried about upcoming surgery.
No diarrhea.
Vital Signs / Physical Exam
Vital Signs
Vital Signs
Temp Pulse Resp BP Pulse Ox
98.7 F 79 18 136/64 95
01/11/24 15:20 01/11/24 15:20 01/11/24 15:20 01/11/24 13:30 01/11/24 15:20
Physical Exam
Constitutional: No Acute Distress and Comfortable
Cardiovascular: Regular Rate and S1/S2
Pulmonary: Clear
Gastrointestinal: Soft, Non Tender and Non Distended
Extremities: Negative Edema
Neurological: AO x 3
Objective Data
Lab Data
Lab Results
01/11/24 04:22
01/11/24 04:22
ESR 61 mm/hour (0-20) H 01/11/24 04:22
Estimated Creat Clear 49 ml/min 01/11/24 04:22
Lactic Acid 1.0 mmol/L (0.7-2.0) 01/03/24 21:39
Total Bilirubin 0.4 mg/dl (0.2-1.3) 01/11/24 04:22
AST 26 U/L (14-36) 01/11/24 04:22
ALT 19 U/L (0-35) 01/11/24 04:22
Alkaline Phosphatase 99 U/L (38-126) 01/11/24 04:22
C-Reactive Protein 175.00 mg/L (0.0-10.00) H 01/04/24 05:59
Most recent labs reviewed.
Micro Results:
01/06/24 03:46 Blood Culture - Final
Blood/Venous No Growth - Final Report
01/05/24 13:17 Blood Culture - Final
Blood/Venous No Growth - Final Report
01/05/24 04:36 Blood Culture - Final
Blood/Venous No Growth - Final Report
01/03/24 21:49 Blood Culture - Final
Blood/Venous Strep mitis/oralis
Gram Stain - Final
01/03/24 21:39 Blood Culture - Final
Blood/Venous Strep mitis/oralis
Gram Stain - Final
01/03/24 21:41 Influenza Types A & B (ALDAIR) - Final
Nasal Swab Negative for Influenza A & B, NAAT
Negative results must be combined with clinical observations
and patient history.
Nucleic Acid Amplification test (NAAT)performed on the
[employer] platform.
01/03/24 CXR: No acute cardiopulmonary process.
[2024-01-11] MEDS: ROCEPHIN 2000 MG IV (16:31)
[2024-01-11] MEDS: STERILE WATER FOR INJECTION 20 ML IV (16:32)
[2024-01-11 17:34] LABS: Glucose - Point of Care 145 mg/dl (70-99)
[2024-01-11] MEDS: PROTONIX 40 MG PO (18:09)
[2024-01-11 22:15] LABS: Glucose - Point of Care 155 mg/dl (70-99)
[2024-01-11] MEDS: PEPCID 20 MG PO (22:44)
[2024-01-11] MEDS: CRESTOR 20 MG PO (22:44)
[2024-01-11] MEDS: LANTUS 0.25 UNITS SC (22:44)
[2024-01-12] VITALS (7 sets, daily range): BP systolic 120–143; BP diastolic 53–69; BMI 30.3
--- NOTE | 2024-01-12 00:16 | PTCARENOTE ---
Pt rec'd at beginning of shift awake,alert with spouse and son at bedside. No c/o sob. Sinus with first degree on telemetry. No bm's thus far this shift. Pt aware of need to obtain stool specimen. Medicated with Tylenol per pt request for chronic
shoulder discomfort.
--- NOTE | 2024-01-12 00:27 | W.PN.CT ---
Today's Communication / Plan
-
Plan:
-Cont. current medical management per primary team
-Cont. current abx per ID, currently on Rocephin
-F/U AM labs, pending
-Avoid AUGUSTA-I/ARB's in preparation for OR
-For likely AVR/MVR/Aortic root replacement/ELAA, by Dr. Toledo tomorrow 01/12
-Will cont. to closely monitor
Assessment / Plan
-
Assessment:
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 mitral valve, per SHANI 01/11/24. Bioprosthetic aortic valve is well seated
-Fever/Leukocytosis
-Blood culture from 01/02 grew Strep mitis/oralis; no growth from subsequent cultures
-Recent tooth extraction
-S/P Endoscopic bilateral anterior ethmoidectomy and maxillary antrostomy, 11/22/23
-S/P Aortic valve replacement ([address] [employer] Trifecta bovine pericardial tissue valve) by Dr. Jayjay Read on 02/25/2015
-SHARRON on CKD3b
-Hypertension.
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
-Hyperlipidemia
-Class 1 obesity
-GERD
-Asthma
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
-Hx of vertigo
-S/p Cholecystectomy
-S/P Appendectomy
-S/P Bilateral breast biopsies (benign)
-S/p Teeth implants
Discussed patient care with: Cardiology, Nursing, Pharmacy and Care Team
Subjective
-
Date of Service: January 12, 2024
No issues overnight. Denies CP/SOB
Objective Data
-
Lab Results
01/11/24 04:22
Vital Signs
Vital Signs
Temp Pulse Resp BP Pulse Ox
97.8 F 77 20 116/51 93
01/11/24 22:49 01/11/24 23:00 01/11/24 22:49 01/11/24 22:50 01/11/24 22:50
SaO2: 93 (RA)
Physical Exam
-
General: Awake, Oriented and AOx3
Cardiovascular: Regular rate & rhythm, No Murmurs, No Rub and No Gallop
Extremities: Other (+trace edema)
Data Reviewed
-
Lab Results: Results Reviewed
Medications: Active Meds Reviewed
Chest X-Ray: Report Reviewed and Image Reviewed
ECG: Report Reviewed and Image Reviewed
--- NOTE | 2024-01-12 05:52 | PTCARENOTE ---
Pt with no c/o sob last night. call amos within reach
[2024-01-12 06:30] LABS: % Basophils 0.5 % (0-2); % Eosinophils 2.9 % (0-6); % Immature Granulocytes 0.9 % (0-0.5); % Lymphocytes 13.9 % (20.5-51.1); % Monocytes 10.3 % (1.7-9.3); % Neutrophils 71.5 % (42.2-75.2); Absolute Basophils 0.1 10^3/uL (0-0.2); Absolute Eosinophils 0.3 10^3/uL (0-0.7); Absolute Immature Granulocytes 0.1 10^3/uL (0-0.05); Absolute Lymphocytes 1.6 10^3/uL (1.2-3.4); Absolute Monocytes 1.2 10^3/uL (0.1-0.6); Absolute Neutrophils 8.3 10^3/uL (1.4-6.5); Hematocrit 32.5 % (37.0-47.0); Hemoglobin 10.6 g/dL (12.0-16.0); Mean Corp Hgb Conc. 32.6 g/dL (33.0-37.0); Mean Corpuscular Hgb 28.1 pg (27.0-31.0); Mean Corpuscular Volume 86.2 fL (81.0-99.0); Nucleated Red Blood Cells % 0 %; Platelet Count 365 10^3/uL (130-400); Red Blood Cell Count 3.77 10^6/uL (4.20-5.40); Red Cell Dist. Width 12.4 % (11.5-14.5); White Blood Cell Count 11.6 10^3/uL (4.8-10.8)
[2024-01-12 07:28] LABS: Glucose - Point of Care 132 mg/dl (70-99)
--- NOTE | 2024-01-12 07:53 | W.PN.CD ---
Today's Communication / Plan
-
-IV Abx
-Dr. Toledo planning OR tomorrow.
Impression / Plan
-
Sepsis, bacteremia, and prosthetic valve IE now with aortic root abscess
-Blood culture 01/02: + Strep mitis
-IV Abx per ID
-Repeat SHANI 01/11/24 shows progression of the aortic root abscess with flow within the abscess, extension into the LVOT and along the anterior mitral valve with associated trace flow.
-Dr. Toledo planning OR tomorrow.
-Left heart cath on 01/07/2024: No significant coronary artery disease; both left and right coronary takeoffs are close to prosthetic valve annulus�prostatic aortic valve endocarditis
Abnormal troponin - probably due to IE
Dilated cardiomyopathy with recovered EF (prior 25-30%, most recent 60-65%); chronic HFPEF
-She did not tolerate Farxiga or Jardiance in the past
-cont coreg
-Cr has improved after initial elevation
-furosemide resumed.
-intermittent hypotension will continue to hold ARB for now will resume post op as able
Severe aortic stenosis s/p bioprosthetic aortic valve replacement
-21 mm bovine Trifecta tissue valve 02/25/[address] Read
-plan as above
PVC's
Hypertension, hold ARB in the setting of sepsis/SHARRON
Nonobstructive CAD (luminal irregularities): ASA, statin
CKD3b, follows with Dr. Washburn
NIDDM, Hgba1c 6.5%, per primary
HLD, on rosuvastatin 20mg
Anemia, chronic, follows with Dr. Rivas
Subjective:
No active complaints. She is feeling anixous but ok.
Physical Exam
Vital Signs/Labs
Vital Signs
Temp Pulse Resp BP Pulse Ox
37.1 C 90 20 132/63 93
01/12/24 07:24 01/12/24 05:25 01/12/24 07:24 01/12/24 05:25 01/12/24 07:24
01/11/24 01/12/24 01/13/24
06:59 06:59 06:59
Actual Weight 171 lb 15.369 oz
01/12/24 05:31
01/11/24 04:22
Magnesium 2.0 mg/dl (1.6-2.3) 01/08/24 04:27
Physical Exam
Constitutional: No acute distress
EENT: Anicteric and Moist mucous membranes
Cardiovascular: Rhythm & rate is regular, Pedal edema is absent and Diastolic murmur absent
Respiratory: Respiratory effort normal
GI: Soft, Distention absent, Non tender and Normal bowel sounds
Data Reviewed
-
Date of Service: January 12, 2024
EKG: Other (Tele unremarkable)
[2024-01-12] MEDS: LOW STRENGTH ASPIRIN 81 MG PO (08:06)
[2024-01-12] MEDS: NEURONTIN 600 MG PO ×2 (08:06→20:44)
[2024-01-12] MEDS: COREG 6.25 MG PO (08:08)
[2024-01-12] MEDS: VITAMIN C 500 MG PO (08:08)
[2024-01-12] MEDS: CYMBALTA DELAYED RELEASE 30 MG PO (08:08)
[2024-01-12] MEDS: LASIX 20 MG PO (08:08)
[2024-01-12] MEDS: NOVOLOG FLEXPEN-LOW RESISTANCE SC ×2 (08:09→12:51)
[2024-01-12] MEDS: FEOSOL 325 MG PO (08:09)
[2024-01-12] MEDS: HEPARIN 5000 UNITS SC ×3 (08:10→23:09)
[2024-01-12] MEDS: VISBIOME 2 CAP PO (08:10)
--- NOTE | 2024-01-12 09:32 | W.PN.ID1 ---
Date of Service
Date of Service: January 12, 2024
Today's Communication
continue ceftriaxone
agree with perioperative cefazolin
anticipate OR tomorrow
Assessment / Plan
# Streptococcus mitis/oralis bacteremia
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
# Leukocytosis
# PCN allergy (occurred in remote past, [facility]), tolerating cephalosporins
- recent cracked molar s/p dental procedure, did take prophylactic clindamycin.
- Repeat blood cultures negative to date.
- 01/05 SHANI suspicious for root abscess.
- 01/10 SHANI progression of AV root abscess with progression and now involves MV
- For valve surgery tomorrow. Please send valves for culture.
- Plan to treat with 6 weeks of IV abx.
- Continue ceftriaxone 2g IV q24h x 6 weeks through 02/15/24 (or longer if OR culture remains positive)
- PICC post op
- Infusion sheet placed in chart and case management aware.
- Trend WBC
# Additional Past Medical History:
DM
s/p Bioprosthetic aortic valve replacement (2014)
Hypertension
CKD3
Chronic sinusitis s/p endoscopic sinus surgery 11/22/23
Mild Asthma
Melanoma
cholecystectomy
Appendectomy
Chief Complaint
-: Bacteremia and Other (endocarditis, AV root abscess)
Subjective / Review of Systems
afebrile
bp stable
leukcytosis improved today
plt normalized
cr 1.0
for OR tomorrow
Vital Signs / Physical Exam
Vital Signs
Vital Signs
Temp Pulse Resp BP Pulse Ox
98.7 F 93 20 128/69 96
01/12/24 07:24 01/12/24 08:08 01/12/24 07:24 01/12/24 08:08 01/12/24 07:26
Physical Exam
Constitutional: No Acute Distress and Chronically Ill
Cardiovascular: Regular Rate and S1/S2; Negative Murmur or Rub
Pulmonary: Clear and Symmetric; Negative Wheezes or Rales
Gastrointestinal: Soft, Non Tender, Non Distended and Normal Bowel Sounds
Skin: Warm and Dry; Negative Rash or Jaundice
Objective Data
Lab Data
Lab Results
01/12/24 05:31
01/11/24 04:22
ESR 61 mm/hour (0-20) H 01/11/24 04:22
Estimated Creat Clear 49 ml/min 01/11/24 04:22
Lactic Acid 1.0 mmol/L (0.7-2.0) 01/03/24 21:39
Total Bilirubin 0.4 mg/dl (0.2-1.3) 01/11/24 04:22
AST 26 U/L (14-36) 01/11/24 04:22
ALT 19 U/L (0-35) 01/11/24 04:22
Alkaline Phosphatase 99 U/L (38-126) 01/11/24 04:22
C-Reactive Protein 175.00 mg/L (0.0-10.00) H 01/04/24 05:59
Most recent labs reviewed.
Micro Results:
01/06/24 03:46 Blood Culture - Final
Blood/Venous No Growth - Final Report
01/05/24 13:17 Blood Culture - Final
Blood/Venous No Growth - Final Report
01/05/24 04:36 Blood Culture - Final
Blood/Venous No Growth - Final Report
01/03/24 21:49 Blood Culture - Final
Blood/Venous Strep mitis/oralis
Gram Stain - Final
01/03/24 21:39 Blood Culture - Final
Blood/Venous Strep mitis/oralis
Gram Stain - Final
01/03/24 21:41 Influenza Types A & B (ALDAIR) - Final
Nasal Swab Negative for Influenza A & B, NAAT
Negative results must be combined with clinical observations
and patient history.
Nucleic Acid Amplification test (NAAT)performed on the
[employer] platform.
01/03/24 CXR: No acute cardiopulmonary process.
--- NOTE | 2024-01-12 10:18 | PTCARENOTE ---
Assumed care of pt from night RN. Pt received awake and alert, Ox3. VSs, CM shows NSR with first degree AVB 80-90's, POX 93% on RA. Left radial site remains CDI with good CMS to extremity. Pt for Cerebral US today. Stool for C-dif obtained and
sent to lab. She denies any pain or discomfort at this time.PLAN for AVR/MVR tomorrow.
--- NOTE | 2024-01-12 12:43 | W.PN.UPDATE ---
Update Note
Progress Note Update
Procedure Type:�CABG + MVR
PERIOPERATIVE OUTCOME ESTIMATE %
Operative Mortality 10.8%
Morbidity & Mortality 36.8%
Stroke 3.21%
Renal Failure 10.7%
Reoperation 6.45%
Prolonged Ventilation 23.5%
Deep Sternal Wound Infection 0.426%
Long Hospital Stay (>14 days) 23.7%
Short Hospital Stay (<6 days)* 6.88%
Clinical Summary
Planned Surgery: CABG + MVR, Urgent, ReOp#1 cardiovascular surgery
Demographics: 73 year old, White, female, 77.6kg, 160cm, BMI: 30.3 kg/m�
Lab Values: Creatinine: 1 mg/dL, Hematocrit: 32.5%, WBC Count: 11.6 10�/�L, Platelet Count: 071427 cells/�L
PreOp Medications: Insulin diabetes control
Substance Abuse: Never smoker
Risk Factors / Comorbidities: Insulin-dependent Diabetes Mellitus, Treated Endocarditis, Hypertension
Cardiac Status: NYHA Class I, Ejection Fraction = 65%
Coronary Artery Disease: No coronary symptoms
Valve Disease: Aortic Root Abscess, Trivial/Trace AR, Trivial/Trace MR
Prev. Cardiac Interv: Previous valve: Aortic valve repair, surgical/ Aortic valve replacement, surgical
Procedure is AVR/MVR/Likely reconstruction of fibrous body which is not accounted for in the STS Database (so I chose the highest risk category). I quoted a 10-15% mortality risk. Albeit, she does not have another option.
[2024-01-12 12:52] LABS: Glucose - Point of Care 150 mg/dl (70-99)
--- NOTE | 2024-01-12 15:35 | W.PN.HOSP.TC ---
Today's Communication/Plan
-
for surgical intervention tomorrow
no evidence of C.Diff
Assessment / Plan
Assessment / Plan
A/P: Patient is a 73y F with PMH significant for HTN, DM-II and prior BioAVR who presents to ED complaining of weakness and chills.
Sepsis likely 2/2 Streptococcus mitis/oralis bacteremia with high suspicion for endocarditis and aortic root abscess -poa
- COVID, influenza, UA and CXR all unremarkable.
- given recent interventions (sinus surgery / dental procedure) - though patient did receive abx prophylaxis prior to each.
TTE 01/03:Normal biventricular size and systolic function without regional wall motion
abnormality.
Bioprosthetic aortic valve replacement is functioning well (peak/mean
gradients 26/15 mmHg, and no AI).
The mean gradient across the AoV has increased over time.
No vegetation seen on this transthoracic echocardiogram.
Little change since the prior study of 04/02/2023 when the AoV gradient was 10
mmHg. On 06/03/2021 the mean gradient across the AoV was 8 mmHg.
Consider SHANI if clinically indicated.
- Surveillance cultures negative so far.. Continue ceftriaxone.
- Vancomycin Levaquin discontinued and started on ceftriaxone 2 gms IV q24hrs. Seems to have tolerated cephalosporins. Probiotics added
- SHANI-concern for aortic root abscess. Status post CT chest abdomen per CT surgery: Moderate calcified atherosclerosis of the thoracic aorta and abdominal aorta, but no evidence for an aortic dissection, aneurysm, or intramural hematoma. A
discrete aortic root abscess is not clearly seen by CT but recommend correlation with transesophageal echocardiogram and intraoperative findings.
- ID input appreciated
- CT surgery correspondence noted, underwent SHANI 01/10, input from Dr. Stovall appreciated
WBC 11.6-->12.0-->11.2-->12.1-->14.6-->11.6
Non-Ischemic Myocardial Injury
Abnormal Troponin
- Initial troponin in the ED is 0.187-->0.157-->0.105 with no complaints of chest pain and no noted ischemia on EKG.
- ? related to endocarditis / myocarditis due to the above
- ASA daily for now. Status post left heart catheter 01/06 with no significant CAD. LV G not performed as the patient has prosthetic aortic valve endocarditis. Both the left and right coronary takeoffs are very close to the prosthetic valve annulus
- Cardiology evaluation appreciated
Weakness improved.
- Seems likely global phenomenon secondary to acute illness, fever, etc.
- PT/OT
Loose stools likely 2/2 antibiotics
- cdiff negative (as expected)
-cont with probiotics.
ASCVD
Aortic Stenosis s/p BioAVR 2014
History of Cardiomyopathy with Recovered EF
- No evidence on exam of volume overload.
- restarted on lasix 20mg daily. Follow I/Os, daily weights, etc.
SHARRON on CKD III
- Holding ARB, reviewed with Dr. Stovall, she prefers to continue to hold for now
- DC IVF Improvement in creatinine.
- BUN/Creat 12/1.0
DM-II
- Stable. Hold Mounjaro acutely.
- Continue basal : bolus insulin regimen.
- Follow glucose and cover with SSI as needed.
- Update A1C at 6.5.
glu 106-155
DVT Prophylaxis: Subcut Heparin
Code Status: Full
d/w with spouse at bedside in details.
For surgical intervention tomorrow, 01/12
Anticipated Discharge: > 48 hours
Subjective/Interval History
-
Date of Service: January 12, 2024
Apprehensive over planned surgical intervention
Objective Data
-
Labs:
Laboratory Results
01/12/24
05:31
WBC 11.6 H
Hgb 10.6 L
Hct 32.5 L
Plt Count 365
Vital Signs:
Vital Signs
Temp Pulse Resp BP Pulse Ox
98 F 82 20 120/69 98
01/12/24 11:53 01/12/24 12:00 01/12/24 11:53 01/12/24 11:52 01/12/24 11:53
I&O
01/11/24 01/12/24 01/13/24
06:59 06:59 06:59
Intake Total 480 / 480
Balance 480 / 480
Review of Systems
-
History Source: Patient, Family and Coordinated Provider
Constitutional: Denies Fever (afebrile since 01/05)
EENT: Reports No Symptoms Reported
Respiratory: Reports No Symptoms; Denies Cough
Cardiac: Reports No Symptoms; Denies Chest Pain
Neuro: Reports No Symptoms
Physical Exam
-
General: Well Developed, Well Nourished and No Apparent Distress
HEENT: Normocephalic, Atraumatic and Moist Mucous Membranes
Respiratory: Rales (bibasilar atelectatic rales less pronounced); Negative Wheezes or Rhonchi
Cardiac: Regular Rhythm, S1/S2 and Murmur (2/6sem)
GI: Soft, Nontender and Nondistended
Musculoskeletal: No Clubbing, No Cyanosis and No Edema
[2024-01-12] MEDS: ROCEPHIN 2000 MG IV (16:14)
[2024-01-12] MEDS: STERILE WATER FOR INJECTION 20 ML IV (16:14)
--- NOTE | 2024-01-12 16:31 | CM ---
CM following for DC planning needs.
Met w/ patient, spouse, son at bedside to complete pre-op teaching.
Pt. had undergone CT Surgery in 2014; at that time, returned home w/ assist from spouse.
Reviewed pre and post op routines.
Provided CT Surgery booklet for review.
Discussed post op restrictions to include lifting, driving, flying and sternal precautions.
Reviewed post op MD appointments, Cardiac Rehab and visit from CT Transitional Care RN/VN (since Jackie will be coming out for PICC care).
Discussed need for IV ABT @ home. Initial referral sent to [facility] for IV ABT + Jackie for home RN. Will follow up w/ referrals closer to DC.
Plan for CT Surgery 01/12.
CM to follow.
[2024-01-12 17:32] LABS: Glucose - Point of Care 234 mg/dl (70-99)
[2024-01-12] MEDS: NOVOLOG FLEXPEN-LOW RESISTANCE 2 UNITS SC (17:39)
[2024-01-12] MEDS: PROTONIX 40 MG PO (17:40)
--- NOTE | 2024-01-12 18:45 | PTCARENOTE ---
rectal aspirin given per orders.
--- NOTE | 2024-01-12 19:23 | PTCARENOTE ---
Received patient from IVU. Family at bedside. Oriented to room. Questions answered about surgery tomorrow. Reassurance provided. NSR with 1st block on tele. Pt ambulating in room. Plan for surgical prep tonight. Assessment per nursing flowsheet.
[2024-01-12] MEDS: COREG 12.5 MG PO (20:43)
--- NOTE | 2024-01-12 21:25 | PTCARENOTE ---
First surgical prep done. Pt clipped. Pt showered with chlorhexadine wash. Pt washed hair
[2024-01-12 21:48] LABS: Glucose - Point of Care 152 mg/dl (70-99)
[2024-01-12] MEDS: PEPCID 20 MG PO (22:21)
[2024-01-12] MEDS: CRESTOR 20 MG PO (22:21)
[2024-01-12] MEDS: LANTUS SC (22:21)
[2024-01-12] MEDS: LANTUS 0.119999999999999996 UNITS SC (22:47)
[2024-01-12] MEDS: TYLENOL 650 MG PO (23:09)
--- NOTE | 2024-01-13 | PTCARENOTE ---
NSR with 1st degree. VSS. RA. Lantus decreased per T, [place] PA. Assessment unchanged.
[2024-01-13 04:21] VITALS: BP 104/50
--- NOTE | 2024-01-13 04:46 | PTCARENOTE ---
Second shower with chlorahexadine wash done. CHG wipes used after. New linens and new gown.
[2024-01-13 04:51] VITALS: BMI 30.4
[2024-01-13 05:17] VITALS: BP 120/71
[2024-01-13 05:19] VITALS: BP 114/59
[2024-01-13] MEDS: BACTROBAN 2% OINTMENT 1 APPLIC NASAL ×2 (06:06→20:19)
[2024-01-13] MEDS: MAGNESIUM OXIDE 500 MG PO (06:07)
[2024-01-13] MEDS: LOPRESSOR 25 MG PO (06:07)
[2024-01-13] MEDS: PROTONIX 40 MG PO (06:07)
--- NOTE | 2024-01-13 06:09 | W.CVOR.SURPR ---
CVOR Surgeon Immed Pre Op
-
I have examined this patient prior to performance of the scheduled procedure.
The patient's condition is unchanged from the time of the dictated/written History and
Physical and the patient is able to undergo the scheduled procedure.
High risk surgery: Redo sternotomy, AVR/MVR with reconstruction of fibrous body, +/- LAAE +/- homograft root replacement
[2024-01-13 07:12] LABS: ACT+ - POC 93 Seconds (82-134)
[2024-01-13 07:15] LABS: B.E. - POC -1.9 mmol/L; Glucose - POC 134 mg/dl (65-99); HCO3 - POC 24 mmol/L (21-29); Hematocrit - POC 32 % PCV (37-47); Hemodilution- POC Yes; Hemoglobin Calculated - POC 10.7; Ionized Calcium - POC 1.13 mmol/L (1.12-1.27); O2 Saturation %Calculated-POC 99.9 5 (92-96); PCO2 - POC 43 mmHg (35-45); PO2 - POC 289 mmHg (80-100); Potassium - POC 3.3 mmol/L (3.6-5.0); Sodium - POC 143 mmol/L (135-145); pH - POC 7.35 (7.35-7.45)
--- NOTE | 2024-01-13 08:32 | W.PN.CD ---
Impression / Plan
-
Sepsis, bacteremia, and prosthetic valve IE now with aortic root abscess
-Blood culture 01/02: + Strep mitis
-IV Abx per ID
-Repeat SHANI 01/11/24 shows progression of the aortic root abscess with flow within the abscess, extension into the LVOT and along the anterior mitral valve with associated trace flow.
-Dr. Toledo planning OR tomorrow.
-Left heart cath on 01/07/2024: No significant coronary artery disease; both left and right coronary takeoffs are close to prosthetic valve annulus�prostatic aortic valve endocarditis
Abnormal troponin - probably due to IE
Dilated cardiomyopathy with recovered EF (prior 25-30%, most recent 60-65%); chronic HFPEF
-She did not tolerate Farxiga or Jardiance in the past
-cont coreg
-Cr has improved after initial elevation
-furosemide resumed.
-intermittent hypotension will continue to hold ARB for now will resume post op as able
Severe aortic stenosis s/p bioprosthetic aortic valve replacement
-21 mm bovine Trifecta tissue valve 02/25/[address] Read
-plan as above
PVC's
Hypertension, hold ARB in the setting of sepsis/SHARRON
Nonobstructive CAD (luminal irregularities): ASA, statin
CKD3b, follows with Dr. Washburn
NIDDM, Hgba1c 6.5%, per primary
HLD, on rosuvastatin 20mg
Anemia, chronic, follows with Dr. Rivas
Subjective:
No active complaints. She is feeling anixous but ok.
Physical Exam
Vital Signs/Labs
Vital Signs
Temp Pulse Resp BP Pulse Ox
97.6 F 85 16 120/71 96
01/13/24 04:25 01/13/24 06:07 01/13/24 04:25 01/13/24 06:07 01/13/24 04:25
01/12/24 01/13/24 01/14/24
06:59 06:59 06:59
Actual Weight 77.6 kg 77.9 kg
01/12/24 05:31
01/11/24 04:22
Magnesium 2.0 mg/dl (1.6-2.3) 01/08/24 04:27
Data Reviewed
-
Date of Service: January 13, 2024
[2024-01-13 08:39] LABS: Urine Albumin Negative (Neg - Trace); Urine Bilirubin Negative (Negative); Urine Character Clear (Clear); Urine Color Yellow; Urine Glucose Negative (Negative); Urine Ketone Negative (Negative); Urine Leukocyte Negative (Negative); Urine Nitrite Negative (Negative); Urine Occult Blood Negative (Negative); Urine Specific Gravity 1.015 (<1.030); Urine Urobilinogen Negative (Neg - 1+)
[2024-01-13 08:47] LABS: ACT+ - POC 575 Seconds (82-134)
[2024-01-13 09:20] LABS: B.E. - POC 3.6 mmol/L; Glucose - POC 161 mg/dl (65-99); HCO3 - POC 26 mmol/L (21-29); Hematocrit - POC 24 % PCV (37-47); Hemodilution- POC Yes; Hemoglobin Calculated - POC 8.2; Ionized Calcium - POC 1.01 mmol/L (1.12-1.27); PCO2 - POC 30 mmHg (35-45); PO2 - POC 474 mmHg (80-100); Potassium - POC 3.8 mmol/L (3.6-5.0); Sodium - POC 138 mmol/L (135-145); pH - POC 7.55 (7.35-7.45)
[2024-01-13 09:22] LABS: ACT+ - POC 651 Seconds (82-134)
[2024-01-13 09:39] LABS: Glucose - POC 178 mg/dl (65-99); HCO3 - POC 27 mmol/L (21-29); Hematocrit - POC 23 % PCV (37-47); Hemodilution- POC Yes; Hemoglobin Calculated - POC 7.8; Ionized Calcium - POC 0.98 mmol/L (1.12-1.27); PCO2 - POC 33 mmHg (35-45); PO2 - POC 377 mmHg (80-100); Potassium - POC 4.5 mmol/L (3.6-5.0); Sodium - POC 137 mmol/L (135-145); pH - POC 7.52 (7.35-7.45)
[2024-01-13 09:44] LABS: ACT+ - POC 732 Seconds (82-134)
[2024-01-13 10:04] LABS: B.E. - POC 0.4 mmol/L; Glucose - POC 170 mg/dl (65-99); HCO3 - POC 25 mmol/L (21-29); Hematocrit - POC 23 % PCV (37-47); Hemodilution- POC Yes; Hemoglobin Calculated - POC 7.9; Ionized Calcium - POC 1.03 mmol/L (1.12-1.27); O2 Saturation %Calculated-POC 99.9 5 (92-96); PCO2 - POC 38 mmHg (35-45); PO2 - POC 297 mmHg (80-100); Potassium - POC 3.3 mmol/L (3.6-5.0); Sodium - POC 139 mmol/L (135-145); pH - POC 7.43 (7.35-7.45)
[2024-01-13 10:14] LABS: ACT+ - POC 870 Seconds (82-134)
[2024-01-13 10:35] LABS: B.E. - POC 0.2 mmol/L; Glucose - POC 147 mg/dl (65-99); HCO3 - POC 24 mmol/L (21-29); Hematocrit - POC 24 % PCV (37-47); Hemodilution- POC Yes; Hemoglobin Calculated - POC 8.3; Ionized Calcium - POC 1.04 mmol/L (1.12-1.27); O2 Saturation %Calculated-POC 99.8 5 (92-96); PCO2 - POC 35 mmHg (35-45); PO2 - POC 220 mmHg (80-100); Potassium - POC 3.5 mmol/L (3.6-5.0); Sodium - POC 140 mmol/L (135-145); pH - POC 7.45 (7.35-7.45)
[2024-01-13 10:41] LABS: ACT+ - POC 725 Seconds (82-134)
[2024-01-13 11:02] LABS: B.E. - POC -1.1 mmol/L; Glucose - POC 121 mg/dl (65-99); HCO3 - POC 23 mmol/L (21-29); Hematocrit - POC 24 % PCV (37-47); Hemodilution- POC Yes; Hemoglobin Calculated - POC 8.1; Ionized Calcium - POC 1.02 mmol/L (1.12-1.27); O2 Saturation %Calculated-POC 99.9 5 (92-96); PCO2 - POC 36 mmHg (35-45); PO2 - POC 269 mmHg (80-100); Potassium - POC 3.8 mmol/L (3.6-5.0); Sodium - POC 141 mmol/L (135-145); pH - POC 7.42 (7.35-7.45)
[2024-01-13 11:08] LABS: ACT+ - POC 584 Seconds (82-134)
[2024-01-13 11:34] LABS: B.E. - POC -0.8 mmol/L; Glucose - POC 115 mg/dl (65-99); HCO3 - POC 24 mmol/L (21-29); Hematocrit - POC 25 % PCV (37-47); Hemodilution- POC Yes; Hemoglobin Calculated - POC 8.6; Ionized Calcium - POC 1.05 mmol/L (1.12-1.27); O2 Saturation %Calculated-POC 99.9 5 (92-96); PCO2 - POC 38 mmHg (35-45); PO2 - POC 278 mmHg (80-100); Potassium - POC 3.6 mmol/L (3.6-5.0); Sodium - POC 141 mmol/L (135-145)
[2024-01-13 11:40] LABS: ACT+ - POC 595 Seconds (82-134)
[2024-01-13 11:59] LABS: B.E. - POC -1.7 mmol/L; Glucose - POC 114 mg/dl (65-99); HCO3 - POC 23 mmol/L (21-29); Hematocrit - POC 24 % PCV (37-47); Hemodilution- POC Yes; Hemoglobin Calculated - POC 8.3; Ionized Calcium - POC 1.04 mmol/L (1.12-1.27); PCO2 - POC 39 mmHg (35-45); PO2 - POC 446 mmHg (80-100); Potassium - POC 3.8 mmol/L (3.6-5.0); Sodium - POC 138 mmol/L (135-145); pH - POC 7.39 (7.35-7.45)
[2024-01-13 12:01] LABS: ACT+ - POC 618 Seconds (82-134)
[2024-01-13 12:33] LABS: B.E. - POC 1.4 mmol/L; Glucose - POC 143 mg/dl (65-99); HCO3 - POC 25 mmol/L (21-29); Hematocrit - POC 30 % PCV (37-47); Hemodilution- POC Yes; Hemoglobin Calculated - POC 10.2; PCO2 - POC 34 mmHg (35-45); PO2 - POC 446 mmHg (80-100); Potassium - POC 4.8 mmol/L (3.6-5.0); Sodium - POC 141 mmol/L (135-145); pH - POC 7.47 (7.35-7.45)
[2024-01-13 12:37] LABS: ACT+ - POC 506 Seconds (82-134)
[2024-01-13] MEDS: ANCEF 10 IV ×2 (12:52→15:31)
[2024-01-13 12:57] LABS: B.E. - POC -2.2 mmol/L; Glucose - POC 128 mg/dl (65-99); HCO3 - POC 22 mmol/L (21-29); Hematocrit - POC 30 % PCV (37-47); Hemodilution- POC Yes; Hemoglobin Calculated - POC 10.1; Ionized Calcium - POC 1.18 mmol/L (1.12-1.27); O2 Saturation %Calculated-POC 99.8 5 (92-96); PCO2 - POC 35 mmHg (35-45); PO2 - POC 233 mmHg (80-100); Potassium - POC 3.7 mmol/L (3.6-5.0); Sodium - POC 144 mmol/L (135-145); pH - POC 7.41 (7.35-7.45)
[2024-01-13 12:57] LABS: ACT+ - POC 107 Seconds (82-134)
--- NOTE | 2024-01-13 13:30 | CON.INTV ---
Consultation
Consultation Request
Date/Time Consultation Requested: 01/13/2024
Date/Time Consultation Performed: 01/13/2024
Requesting Provider: Dr. Toledo
Performing Provider: Dr. Ryan Lance
Reason for Consultation: Postoperative ICU care status post redo sternotomy AVR/MVR with reconstruct
Medical History
-
History of Present Illness:
73-year-old female with past medical history significant for hypertension, type 2 diabetes, prior biome prosthetic AVR who presented with symptoms suggestive of infection to the emergency room. Found to have bacteremia with Streptococcus mitis.
Had recent sinus and dental procedures surgery.
Has been on antibiotics through the course of the hospital stay. SHANI performed was concerning for aortic root abscess. CT surgery evaluated the patient and recommended surgical intervention.
Patient today underwent AVR/MVR high risk procedure.
Patient currently in the critical care unit, intubated on mechanical ventilation.
Past Medical History
Past Medical History: Other (See assessment and plan section)
Social History
Tobacco: Non-smoker
Alcohol: Occasional
Drug: None
Personal:
Living: With Family
Family History
Family History: Unable to Obtain
Allergies / Home Medications
Allergies
Allergy/AdvReac Type Severity Reaction Status Date / Time
hydrocodone bitartrate Allergy confusion Verified 01/03/24 21:23
[From Vicodin]
oxycodone HCl [From Percocet] Allergy Nausea Verified 01/03/24 21:23
Penicillins Allergy skin color Verified 01/08/24 09:59
changes,problems
breathing
(in
college)
Home Medications
�Medication �Instructions �Recorded �Confirmed �Last Taken �Type
albuterol sulfate 90 mcg/actuation 2 puff inhalation R Q4 PRN 02/22/15 01/03/24 Unknown History
aerosol inhaler (Ventolin HFA) sob/wheezing
gabapentin 600 mg tablet 1,200 mg PO BID pain 02/22/15 01/03/24 11/22/23 05:30 History
omeprazole 20 mg tablet,delayed 20 mg PO QPM Gastrointestinal Issue 02/24/15 01/03/24 11/21/23 17:00 History
release
carvedilol 6.25 mg tablet 6.25 mg PO BID Blood Pressure 11/18/23 01/03/24 11/22/23 05:30 History
cyanocobalamin (vitamin B-12) 1,000 mcg PO DAILY Supplement 11/18/23 01/03/24 11/19/23 History
1,000 mcg tablet (Vitamin B-12)
duloxetine 30 mg capsule,delayed 30 mg PO DAILY depression 11/18/23 01/03/24 11/21/23 21:00 History
release
famotidine 40 mg tablet 40 mg PO HS Gastrointestinal Issue 11/18/23 01/03/24 11/21/23 17:00 History
insulin glargine 100 unit/mL (3 34 unit SC HS diabetes 11/18/23 01/03/24 11/21/23 22:00 History
mL) subcutaneous pen (Lantus
Solostar U-100 Insulin)
rosuvastatin 20 mg tablet 20 mg PO HS High Cholesterol 11/18/23 01/03/24 11/21/23 21:00 History
tirzepatide 2.5 mg/0.5 mL 2.5 mg SC QWEEK Weight loss 11/18/23 01/03/24 11/15/23 History
subcutaneous pen injector
(Mounjaro)
furosemide 20 mg tablet 20 mg PO DAILY Fluid 11/22/23 01/03/24 11/21/23 08:00 History
Retention/Swelling
fluticasone 100 mcg-salmeterol 50 1 inh inhalation R BID 01/03/24 01/03/24 Unknown History
mcg/dose blistr powdr for Lung/Breathing Issues
inhalation (Wixela Inhub)
fluticasone propionate 50 1 spray intranasal DAILY 01/03/24 01/03/24 Unknown History
mcg/actuation nasal Lung/Breathing Issues
spray,suspension
nitroglycerin 0.4 mg sublingual 0.4 mg sublingual [id number] PRN 01/03/24 01/03/24 Unknown History
tablet (Nitrostat) chest pain
valsartan 80 mg tablet 80 mg PO HS Blood Pressure 01/03/24 01/03/24 Unknown History
Review of Systems
-
Unable to Obtain full review of systems at this time due to: Patient Intubation
Vitals / Labs / Diagnostic Testing
Vital Signs
Temp Pulse Resp BP Pulse Ox
97.6 F 85 16 120/71 96
01/13/24 04:25 01/13/24 06:07 01/13/24 04:25 01/13/24 06:07 01/13/24 04:25
Microbiology
01/13/24 09:52 Abscess Gram Stain - Preliminary
01/13/24 09:56 Valve Gram Stain - Preliminary
01/13/24 09:54 Valve Gram Stain - Preliminary
01/12/24 09:57 Feces/Stool C. difficile GDH Antigen & Toxins - Final
Negative for toxigenic C.difficile
01/06/24 03:46 Blood/Venous Blood Culture - Final
No Growth - Final Report
01/05/24 13:17 Blood/Venous Blood Culture - Final
No Growth - Final Report
Diagnostic Testing:
Physical Exam
-
HEENT: Normocephalic
Cardiovascular: S1/S2
Respiratory: Clear and Other (Chest tube in place. No air leak or excessive drainage.)
GI: Soft and Non Distended
Neurology: Other (Sedated, mechanical ventilation)
Skin: Warm
General: Respiratory Distress (n)
Assessment
-
Conditions present prior admission:
Type 2 diabetes
Status post bioprosthetic AVR 2014
Chronic kidney disease
Chronic sinusitis
Mild intermittent asthma
History of melanoma
Endoscopic surgery of the sinuses 11/22/2023
-
Assessment and plan:
She is doing well postop-currently on mechanical ventilation and appears comfortable.
ABG reviewed: Adequate oxygenation on ventilation
Continue SIMV mode with no change
Spontaneous breathing trial per protocol once sedation wears off.
Anemia noted-no evidence of acute bleeding
Follow H&H serially
Hemodynamics - minimal Levophed requirements.
Tejeda urinary output
Renal function is normal
Chest tube with no excessive drainage-no air leak.
Chest x-ray reviewed: With no pneumothorax or fluid collections.
Remain nothing by mouth
Head of the bed elevation
Glycemic control per protocol
DVT prophylaxis when safe from the surgical perspective.
Critical care statement: A total of 31 minutes of critical care time was provided for this patient today. This includes management of unstable vital signs, evaluation of the patient at bedside, reviewing the patient's pertinent medical records
including ventilator settings, arterial blood gases, radiographs, microbiology, laboratory evaluations and discussion with primary team, critical care nursing, and respiratory therapy.
--- NOTE | 2024-01-13 13:45 | W.PN.CT.SURG ---
CT Surgery Operative Note
-
CARDIAC SURGERY OPERATIVE REPORT
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
Postoperative Diagnosis: Same
Procedure(s) Performed:
1. Ultrasound-guided access of the right common femoral vein and left common femoral artery using Seldinger technique
2. Redo sternotomy with extensive adhesiolysis
3. Explant of prior aortic valve prosthesis and wide debridement from trigone to trigone
4. Reconstruction of the fibrous body using bovine pericardium (aka Commando Procedure)
5. Chordal sparing mitral valve replacement with a 27 mm bioprosthesis
6. Aortic valve replacement with a 23 mm bioprosthesis
7. Debridement of fibrinous exudate and pannus around the left main and tacking of the intima of the left main coronary artery using 7-0 Prolene
8. Placement of temporary atrial and ventricular pacing wires
9. Transesophageal echocardiography
Date of Surgery: 01/13/2024
Comorbidities:
1. 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
2. Bacteremic/sepsis
3. Type 2 diabetes
4. Mild, nonobstructive CAD
5. Prior open heart cardiac surgery
6. GERD
Primary Attending Surgeon: Robb Toledo MD, MS
Co-Surgeon: Juan M Viera MD (due to the complexity and high risk nature of this case, it required two attendings for exposure, retraction, and surgical planning)
Assistants: Lani Panchal PA-C (present and necessary to radiology physician assistant, retraction, suction, exposure, suture management, and wound closure under my direction)
Anesthesiology: Murtaza Parks MD and Indio Bloom CRNA
Scrub and Circulating RNs: Tori Marin, RN, Yasmin Guillen, NAVYA
Field Tax Auditor: Quita Chase CCP
Anesthesia: GETA
EBL: per perfusion records
Products: 2 PRBCs on pump, 2 PLTS, 2 FFP (will be given in CVICU)
CPB Time: 227 minutes
Aortic Cross Clamp Time: 161 minutes
Indication(s) for Procedures: This is a 73-year-old female had a previous bioprosthetic aortic valve replacement using a 21 mm trifecta valve back in 2014. She received underwent sinus surgery as well as dental surgery and approximately 2 weeks
later developed fevers and chills mostly at nighttime after about a week of having fevers and chills, she attends the emergency department and is found to have bacteremia with strep mitis. She underwent an echocardiogram which revealed a possible
fullness around her root towards the aorta mitral curtain. A CT scan was unrevealing. She was started on suppressive antibiotics. Due to high suspicion for root abscess, she underwent a repeat transesophageal echocardiogram approximately 4 days
later this revealed progression of the abscess onto the aorto mitral curtain with early dehiscence of the bioprosthetic valve and flow into a pseudoaneurysm in the root. Given the rather rapid progression, she was offered urgent high risk redo
surgery. For mortality risk was approximately 10 to 15% within 30 days, albeit her conservative options were nonexistent. She accepted the risks and so we proceeded with surgery.
Aortic Valve Description: Heavily abnormal appearing bioprosthetic valve with vegetations on the cusp, a total of 13 core knots were retrieved, there was fibrinous exudate and an abscess pocket towards the PDA aorto mitral curtain extended leftward
toward the left main. Both coronary ostia were very low in the sinus particular the left main. He was covered in fibrinous exudate and scar tissue from the prior aortic valve replacement. After extensive debridement, left main was tacked with two
7-0 Prolene's with the hopes of maintaining luminal integrity.
Mitral Valve Description: Although structurally the mitral valve was relatively normal, the abscess extended down onto the aorto mitral curtain with evidence of penetration through the insertion point at the annular hinge.
Findings: Her left ventricular ejection fraction preoperatively was essentially normal with EF of 60%. There were no regional wall motion abnormalities. There was evidence of abscess pocket and extension down to the aorta mitral curtain with early
dehiscence of the prior bioprosthetic AVR now involving the anterior leaf of the mitral valve. Following surgery her left ventricular ejection fraction remained the same at 60% with no inotropic support. RV size and function were both normal. Her
left ventricular contractions were symmetrical and concentric. Her prior bioprosthetic aortic valve was explanted recovering a total of 13 core knots in several pledgets. The valve itself was abnormal its appearance with vegetation as well as an
abscess pocket extended down towards the Jasmeet noncoronary sinus towards the left coronary sinus with extension onto the aorto mitral curtain. All fibrinous exudate and infected material was debrided from trigone to trigone and the field was
irrigated with Betadine diluted solution. The aortotomy was carried down onto the anterior leaf of the mitral valve and through the leaflet. Most of the body of the anterior foot was resected as part of the specimen. The remaining primary cords
were then relocated towards the posterior annulus. We sized the mitral valve to an approximate 27 mm bioprosthetic valve. A total of 8 pledgeted 2 Ethibond sutures were used to anchor the mitral valve to the posterior annulus from trigone to
trigone from LVOT through annulus through sewing cuff. These were secured with core knots. A large bovine pericardial patch was then fashioned in order to reconstruct the fibrous body. This was sewn onto the sewing cuff of the mitral valve and
anchored to the trigone using 4-0 Prolene in a running fashion. The dome of the left atrium was then reconstructed with the patch in a running fashion imbricating the bovine pericardial patch inside the left atrium. Next the other end of the patch
was used to reconstruct the integrity of the aortic wall and to form a needle annulus. We then sized the aortic valve neoannulus to approximately 23 mm valve. A total of 9 nonpledgeted 2 Ethibond sutures were used to anchor the aortic valve to the
[place] annulus along with 6 pledgeted 2 Ethibond sutures to bridge the patch and anchored aortic valve into place, all annular sutures were secured with core knots. The patch was then used to reconstruct the aorta at the previous aortotomy site
imbricating the patch inside the aorta. At the conclusion of the case, there is no appreciable paravalvular leak on transesophageal echocardiography. Both bioprosthetic valves had normal excursion of the leaflets and function normally. The mean
gradient across the new bioprosthetic aortic valve was 6 mmHg, the mean gradient across the new mitral bioprosthetic valve was 1 mmHg. She initially was placed on low-dose dobutamine but quickly was titrated off as she became hypertensive and
hyperdynamic. She required 2 units of blood on cardiopulmonary bypass, he was also given 2 units of platelets, with plans for 2 units of FFP based on TEG results. She had a slow underlying junctional rhythm and required AV pacing.
Specimen(s):
1. Prior Bioprosthetic AVR, 21mm Trifecta Valve
2. Piece of prosthetic AVR Veg
3. Abscess pocket fluid/material
4. Mitral valve veg
Prosthesis:
1. Bovine Pericardial Patch, SN [id number]
2. 23mm SANTAMARIA Resilia Inspiris AVR, SN [id number]
3. 27mm SANTAMARIA Resilia Mitris MVR, SN [id number]
4. Floseal and Prev[place]
Description of Procedure: The patient was taken to the operating room. Their identity and procedure to be performed were verified and they were positioned supine on the operating table. Induction via general anesthesia with endotracheal intubation
was performed and central venous access and arterial monitoring were inserted. A preoperative transesophageal echocardiogram was performed to assess cardiac function and valvular function. The patient was then prepped and draped from chin to feet in
a sterile fashion. A preoperative time-out was performed with all members of the team present. Ultrasound was used to access both the right and left common femoral vein and common femoral artery, respectively. This was done using Seldinger
technique with micropuncture. 5 [place] sheaths were left in each groin A midline chest incision was performed along with extraction of a total of 6 previous stainless steel wires. An oscillating saw was used to transect the anterior table. Rakes
were used to elevate the xiphoid and a straight Lee scissors was used to cut through the posterior table. Laminar spreaders were used to separate the sternum until it was clear that the posterior table was completely . Both left and
right hemisternum's were sequentially elevated and the heart was freed from the posterior table. I started off by dissecting the base of the heart at the diaphragm. Was able to identify a free space with loose adhesions. Adhesiolysis was then
carried along the right atrium down towards the IVC. Next I identified the ascending aorta at the previous cannulation site. The pericardium was then carefully stripped off of the aorta identified in the SVC. I then connected the upper and lower
dissection planes in order to free the right atrium completely off of the pericardium. The RV was then freed leftward towards the pericardium. The innominate vein was isolated. Full heparinization was given (a total of 45,000 units). The aortic
cannulation site was chosen where it was soft, pliable, and free of calcium just above the previous cannulation site. Cannulation was performed with an arterial cannula in the mid arch past innominate artery. The arterial cannula line had an
appropriate bounce and correlating pressures. Next using a J-wire, the right common femoral vein was accessed and under SHANI guidance the wire was placed in the SVC. I then inserted a 25 [place] percutaneous venous cannula placed in the cannula up
in the SVC. This was done with Seldinger technique under SHANI guidance. Next, a root vent/antegrade cannula was inserted into the ascending aorta. The ACT was confirmed to be over 400 and retrograde autologous priming was performed before
commencing cardiopulmonary bypass. The heart decompressed, additional adhesiolysis was performed freeing the entire left side of the heart as well as the base developing the planes between the SVC and right pulmonary artery as well as the oblique
sinus. A coronary sinus catheter was placed via the right atrium and secured with a pursestring. The aorta was then circumferentially dissected and the pulmonary artery was away from the aorta to facilitate a clamp site. The aortic
cross-clamp was placed after decreasing the flow on the bypass and mean arterial pressure. A total of 800cc initial dose of antegrade Del-Nido cardioplegia solution was given followed by 400 cc of retrograde coronary sinus cardioplegia and planned
for re-dosing every 90 minutes as necessary. There was rapid electro-mechanical arrest of the heart at 200 cc of cardioplegia. The left ventricle was observed for distention on echocardiogram and manual palpation. Cold slush was placed into a lap on
the RV and we systemically cooled to 32 degrees centigrade.
Carbon dioxide was used to flood the field. We visually identified the location of the prior aortotomy suture line. An aortotomy was made approximately 2cm above the sinotubular junction and carried obliquely towards the pulmonary artery and then
down towards the noncoronary sinus the location of both left and right coronary vessels were visualized in the root and found to be very low towards the annulus with pannus surrounding the ostia. I used a freer elevator in order to separate the
post of the previous trifecta valve from the sinuses. I then sequentially identified core knots securing the valve in place and transected each 1 with a 15 blade. There was an area of dehiscence of the valve toward the noncoronary sinus caring
towards the left coronary sinus. There was significant fibrinous exudate here and cultures were taken. At this point, I was able to elevate the segment of the valve upward and bluntly dissect the valve free from the [place] annulus
circumferentially. After debriding the infected and material overlying the aorto mitral curtain, it became apparent that the infection had gone onto the annular hinge part of the anterior leaflet significantly weakening the segment of the
fibers body. I then carried my aortotomy incision down to the noncoronary sinus onto the aorto mitral curtain through the anterior to the mitral valve and opening the dome of the left atrium. The body and insertion point of the anterior mitral
valve leaflet was resected and vegetations were sent for culture. The primary cords along the free margin the anterior leaflet were really located towards the posterior annulus. Pledgeted 2-0 Ethibond sutures were used to both tach the anterior
leaflet cords to the posterior annulus as well as to secure the valve. At this point I sized the opening to a 27 mm bioprosthetic mitral valve that would also accommodate a 23 mm aortic bioprosthesis. The mitral valve was secured from trigone to
trigone posteriorly with core knots in an inverted fashion from LV through annulus through sewing cuff at this point I fashioned a large patch and marked off the midpoint. I anchored the edge of the midpoint of the patch to the left trigone using
4-0 Prolene and sewed on the external side of the patch across the sewing cuff of the mitral valve heading towards the right trigone. An additional 4-0 Prolene anchoring suture was placed here and tied to itself. I then carried the patch along the
dome of the left atrium imbricating the bovine pericardium within the left atrial wall using 4-0 Prolene. A pediatric LV vent was left across the apex of the patch repair leaving both needles attached. The cephalad portion of the patch was then
carried up along the annulus of the aortic valve onto the aortic wall at the aortotomy stopping at the midpoint using 4 pro. The root and left ventricular outflow tract were thoroughly irrigated to remove any debris. Annular sutures were then
placed circumferentially towards the [place] annulus using nonpledgeted 2 Ethibond sutures placed from LVOT through annulus through sewing cuff. Additional pledgeted 2 Ethibond sutures were placed on the outside of the patch bridging the suture
line. A total of 15 sutures were used to anchor the aortic valve into place and secured with core knots. Gentle debridement was performed around the right and left coronary ostia. There was significant amount of pannus overlying these low-lying
ostia. As I felt the tissue appeared to be relatively raw, I tacked the intima of the left main at 2 spots using 7-0 Prolene in a horizontal mattress fashion. I then carried the patch all the way up and around the aortotomy again in imbricating
fashion using 4-0 Prolene.
De-airing maneuvers were performed and temporary atrial and ventricular pacing wires were placed at the RA junction and base of the right ventricle, respectively. The patient was placed in a Trendelenburg position and flows on bypass were lowered.
The aortic cross clamp was removed and flows were slowly brought back up. The suture lines were hemostatic. LV vent was removed and the sutures were tied over the dome the left atrium. Additional sealants were placed for needle hole hemostasis.
Transesophageal echocardiography revealed no evidence of paravalvular leak and ventricular function was normal to hyperdynamic. The retrograde coronary sinus catheter was removed and the posting was tied and reinforced with 4-0 Prolene. There was
a small tear there and so a 4-0 pledgeted suture was used to reinforce the area. The AV prosthesis was well seated without PVL or AI as was the mitral valve prosthesis. Approximately 40 minutes was spent rewarming the patient is with cooled to
approximately 32 �C. Once de-airing was satisfactory the root vents were removed. After verifying acceptable parameters, we initiated weaning from cardiopulmonary bypass. Her ventricular pacing wire was acting inappropriately and so an additional
pacing wires placed on the anterior side of the RV. Once we were off cardiopulmonary bypass, the percutaneous venous cannula was clamped and divided allowing blood to be returned to the pump while maintaining venous access. A test dose of protamine
was administered and the patient was monitored for any adverse reaction before resuming protamine. Once half of the protamine dose was delivered, pump suckers were turned off and the systolic blood pressure was lowered for aortic decannulation. The
aortic cannula was removed and purse strings were tied down. All cannulation sites were oversewn with a 4-0 prolene. The the suture lines were inspected and hemostasis was confirmed. I had intermittently entered into the right hemithorax and so a
19 [place] Kurt drain was placed there. Two #24 Kurt drains were placed within the pericardium. The sternum was approximated with 4 #7 single and 3 #8 double stainless steel wires. Fascia was approximated with #1 vicryl suture. The subcutaneous,
dermis and epidermis were closed in layers in a running fashion. The skin wound was cleansed and dressed.
All instrument, sponge, and needle counts were confirmed to be correct x 2 at the end of the operation. The patient was transferred to the cardiac intensive care unit in critical but stable condition.
I, Dr. Robb Toledo, was present, scrubbed for, and performed all critical elements of this procedure.
Robb Toledo MD, MS
Cardiothoracic Surgeon
[facility]
This dictation was created using the [employer] dictation system. Please excuse any grammatical, typographical, or 'sound alike' errors
--- NOTE | 2024-01-13 13:58 | W.PN.ID1 ---
Date of Service
Date of Service: January 13, 2024
Today's Communication
gram stain negative x3
continue current treatment
Assessment / Plan
# Streptococcus mitis/oralis bacteremia
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
# Leukocytosis
# PCN allergy (occurred in remote past, [facility]), tolerating cephalosporins
- recent cracked molar s/p dental procedure, did take prophylactic clindamycin.
- valve cultures in progress; gram stain no organisms x3
- Repeat blood cultures finalized negative
- 01/05 SHANI suspicious for root abscess.
- 01/10 SHANI progression of AV root abscess with progression and now involves MV
- Plan to treat with 6 weeks of IV abx.
- Continue ceftriaxone 2g IV q24h x 6 weeks through 02/15/24 (or longer if OR culture remains positive)
- plan PICC post op, still pending pacemaker placement
- Infusion sheet placed in chart and case management aware.
- Trend WBC
# Additional Past Medical History:
DM
s/p Bioprosthetic aortic valve replacement (2014)
Hypertension
CKD3
Chronic sinusitis s/p endoscopic sinus surgery 11/22/23
Mild Asthma
Melanoma
cholecystectomy
Appendectomy
Chief Complaint
-: Bacteremia and Other (endocarditis, AV root abscess)
Subjective / Review of Systems
afebrile
bp stable
gram stain of the valve no organisms x3
sedated and intubated post op
Vital Signs / Physical Exam
Vital Signs
Vital Signs
Temp Pulse Resp BP Pulse Ox
97.6 F 85 16 120/71 96
01/13/24 04:25 01/13/24 06:07 01/13/24 04:25 01/13/24 06:07 01/13/24 04:25
Physical Exam
Constitutional: No Acute Distress
Cardiovascular: Regular Rate and S1/S2; Negative Murmur or Rub
Pulmonary: Clear and Symmetric; Negative Wheezes or Rales
Gastrointestinal: Soft, Non Tender, Non Distended and Normal Bowel Sounds
Skin: Warm and Dry; Negative Rash or Jaundice
Neurological: Negative Awake
Objective Data
Lab Data
ESR 61 mm/hour (0-20) H 01/11/24 04:22
Estimated Creat Clear 49 ml/min 01/11/24 04:22
Lactic Acid 1.0 mmol/L (0.7-2.0) 01/03/24 21:39
Total Bilirubin 0.4 mg/dl (0.2-1.3) 01/11/24 04:22
AST 26 U/L (14-36) 01/11/24 04:22
ALT 19 U/L (0-35) 01/11/24 04:22
Alkaline Phosphatase 99 U/L (38-126) 01/11/24 04:22
C-Reactive Protein 175.00 mg/L (0.0-10.00) H 01/04/24 05:59
Most recent labs reviewed.
Micro Results:
01/13/24 09:52 Tissue Culture - Pending
Abscess Gram Stain - Preliminary
01/13/24 09:56 Tissue Culture - Pending
Valve Gram Stain - Preliminary
01/13/24 09:54 Tissue Culture - Pending
Valve Gram Stain - Preliminary
01/13/24 09:54 Fungal Culture - Pending
Valve
01/13/24 09:54 Anaerobic Culture - Pending
Valve
01/13/24 09:56 Fungal Culture - Pending
Valve
01/13/24 09:56 Anaerobic Culture - Pending
Valve
01/13/24 09:52 Fungal Culture - Pending
Abscess
01/13/24 09:52 Anaerobic Culture - Pending
Abscess
01/12/24 09:57 C. difficile GDH Antigen & Toxins - Final
Feces/Stool Negative for toxigenic C.difficile
01/06/24 03:46 Blood Culture - Final
Blood/Venous No Growth - Final Report
01/05/24 13:17 Blood Culture - Final
Blood/Venous No Growth - Final Report
01/05/24 04:36 Blood Culture - Final
Blood/Venous No Growth - Final Report
01/03/24 21:49 Blood Culture - Final
Blood/Venous Strep mitis/oralis
Gram Stain - Final
01/03/24 21:39 Blood Culture - Final
Blood/Venous Strep mitis/oralis
Gram Stain - Final
01/03/24 21:41 Influenza Types A & B (ALDAIR) - Final
Nasal Swab Negative for Influenza A & B, NAAT
Negative results must be combined with clinical observations
and patient history.
Nucleic Acid Amplification test (NAAT)performed on the
[employer] platform.
01/03/24 CXR: No acute cardiopulmonary process.
Care Review
Plan reviewed with: Physician (Dr Toledo - post op )
[2024-01-13 14:13] LABS: Glucose - Point of Care 127 mg/dl (70-99)
[2024-01-13 14:27] LABS: Hematocrit 23.6 % (37.0-47.0); Platelet Count 264 10^3/uL (130-400)
[2024-01-13 14:28] LABS: B.E. -3.6 mmol/L; HCO3 21.5 mmol/L (21-28); Ionized Calcium 0.92 mMOL/L (1.15-1.33); O2 Saturation % 98.9 % (94-98); PCO2 38 mmHg (32-35); PO2 175 mmHg (83-108); Potassium 3.7 mMOL/L (3.5-5.1); Sodium 141 mMOL/L (136-145); pH 7.36 (7.35-7.45)
[2024-01-13 14:29] LABS: O2 Therapy VENT
--- NOTE | 2024-01-13 14:30 | PTCARENOTE ---
received patient from cvor sedated and placed on vent by GRA[employer]ER. Out with usual lines, CTx3 to -20 wall suction. no air leaks/crepitus, AV wires present and pacing. Out on levo insulin and precedex. ekg cxr and labs drawn and sent. family updated at
bedside. 1 unit PRBCs given, 2 ffp and 1 plt. will continue ot monitor
[2024-01-13 14:31] LABS: Mixed Venous O2 Saturation 58.2 %
[2024-01-13 14:34] LABS: Hemoglobin 8.1 g/dL (12.0-16.0)
--- NOTE | 2024-01-13 14:34 | W.PN.CD ---
Today's Communication / Plan
-
-close post-op monitoring and care with weaning of drips and vent as tolerated per CT surgery/CVICU protocol
Impression / Plan
-
Sepsis, bacteremia, and prosthetic valve IE now with aortic root abscess:
-s/p IV abx per ID
-Repeat SHANI 01/11/24 shows progression of the aortic root abscess with flow within the abscess, extension into the LVOT and along the anterior mitral valve with associated trace flow.
-Left heart cath on 01/07/2024: No significant coronary artery disease; both left and right coronary takeoffs are close to prosthetic valve annulus�prostatic aortic valve endocarditis
-now s/p bio AVR, MVR, reconstruction of the fibrous body using bovine pericardium (aka Commando Procedure) with Dr. Toledo 01/13/24. Intra-op EF 55%. S/P 2 units PRBC's, 2 platelets, 2 FFP. Tejeda, pacer wire, CT's in place. Post-op EKG AV paced.
Currently on Levophed, being weaned off. Getting another unit PRBC at present.
Dilated cardiomyopathy with recovered EF (prior 25-30%, most recent 60-65%); chronic HFpEF
-She did not tolerate Farxiga or Jardiance in the past
-cont coreg
-Cr has improved after initial elevation
-furosemide resumed.
-intermittent hypotension will continue to hold ARB for now will resume post op as able
Severe aortic stenosis s/p bioprosthetic aortic valve replacement
-21 mm bovine Trifecta tissue valve 02/25/[address] Read
-now s/p procedure as above
PVC's
Hypertension, hold ARB in the setting of sepsis/SHARRON
Nonobstructive CAD (luminal irregularities): ASA, statin
CKD3b, follows with Dr. Washburn
NIDDM, Hgba1c 6.5%, per primary
HLD, on rosuvastatin 20mg
Anemia, chronic, follows with Dr. Rivas
Physical Exam
Vital Signs/Labs
Vital Signs
Temp Pulse Resp BP Pulse Ox
97.6 F 85 16 120/71 96
01/13/24 04:25 01/13/24 06:07 01/13/24 04:25 01/13/24 06:07 01/13/24 04:25
01/12/24 01/13/24 01/14/24
06:59 06:59 06:59
Actual Weight 77.6 kg 77.9 kg
Magnesium 2.0 mg/dl (1.6-2.3) 01/08/24 04:27
Physical Exam
Constitutional: No acute distress
EENT: Anicteric
Cardiovascular: Rhythm & rate is regular
Respiratory: Other (intubated/ventilated)
Neuro/Psych: Other (sedated)
Other: Skin (midsternal incision no redness, drainage, or swelling)
Data Reviewed
-
Date of Service: January 13, 2024
EKG: Tracing Personally Visualized and interpreted (as above)
[2024-01-13 14:39] LABS: Blood Urea Nitrogen 18 mg/dl (7-17); Estimated Creatinine Clearance 44 ml/min; Glucose 118 mg/dl (70-99); Magnesium 2.5 mg/dl (1.6-2.3)
[2024-01-13 14:43] LABS: INR 1.93; PT 22.3 Sec (11.4-14.6)
[2024-01-13 14:44] LABS: APTT 43.1 Sec (23.4-35.0)
[2024-01-13] MEDS: KCL 50 IV ×2 (14:52→15:30)
[2024-01-13] MEDS: NOVOLOG FLEXPEN SC ×2 (15:02→17:33)
[2024-01-13] MEDS: CYMBALTA DELAYED RELEASE PO (15:02)
[2024-01-13] MEDS: FEOSOL PO (15:02)
[2024-01-13] MEDS: DILAUDID 0.5 MG IV (15:02)
[2024-01-13] MEDS: NEURONTIN PO ×2 (15:02→20:18)
[2024-01-13] MEDS: VITAMIN C PO (15:02)
[2024-01-13] MEDS: TYLENOL PO ×2 (15:04→22:09)
[2024-01-13] MEDS: NSS 500 IV (15:04)
[2024-01-13] MEDS: CALCIUM CHLORIDE 10% SYRINGE 50 MG IV (15:09)
[2024-01-13] MEDS: CALCIUM CHLORIDE 10% SYRINGE 50 ML IV (15:09)
[2024-01-13 15:16] LABS: Glucose - Point of Care 222 mg/dl (70-99)
[2024-01-13] MEDS: PACERONE PO (15:34)
--- NOTE | 2024-01-13 16:01 | W.PN.CD ---
Addendum entered and electronically signed by Shiraz Hoover MD 01/13/24 16:20:
Patient seen and examined in collaboration with SENIOR ECONOMIST; agree with below.
-Patient underwent successful aortic valve and mitral valve replacement surgery.
-Currently intubated; just returned from the OR.
-Being weaned off of pressors.
-Continue telemetry and routine postsurgical care.
-Will follow.
Original Note:
Today's Communication / Plan
-
-close post-op monitoring and care with weaning of drips and vent as tolerated per CT surgery/CVICU protocol
Impression / Plan
-
Sepsis, bacteremia, and prosthetic valve IE now with aortic root abscess:
-s/p IV abx per ID
-Repeat SHANI 01/11/24 shows progression of the aortic root abscess with flow within the abscess, extension into the LVOT and along the anterior mitral valve with associated trace flow.
-Left heart cath on 01/07/2024: No significant coronary artery disease; both left and right coronary takeoffs are close to prosthetic valve annulus�prostatic aortic valve endocarditis
-now s/p bio AVR, MVR, reconstruction of the fibrous body using bovine pericardium (aka Commando Procedure) with Dr. Toledo 01/13/24. Intra-op EF 55%. S/P 2 units PRBC's, 2 platelets, 2 FFP. Ileana, pacer wire, CT's in place. Post-op EKG AV paced.
Currently on Levophed, being weaned off. Getting another unit PRBC at present.
Dilated cardiomyopathy with recovered EF (prior 25-30%, most recent 60-65%- 55% on SHANI); chronic HFpEF
-She did not tolerate Farxiga or Jardiance in the past
-on Coreg/ARB as OP
-monitor volume post-op
Severe aortic stenosis s/p bioprosthetic aortic valve replacement
-21 mm bovine Trifecta tissue valve 02/25/[address] Read
-now s/p procedure as above
PVC's
Hypertension, hold ARB in the setting of sepsis/SHARRON
Nonobstructive CAD (luminal irregularities): ASA, statin
CKD3b, follows with Dr. Washburn
NIDDM, Hgba1c 6.5%, per primary
HLD, on rosuvastatin 20mg
Anemia, chronic, follows with Dr. Riavs
Physical Exam
Vital Signs/Labs
Vital Signs
Temp Pulse Resp BP Pulse Ox
96.6 F L 85 16 120/71 95
01/13/24 15:00 01/13/24 06:07 01/13/24 04:25 01/13/24 06:07 01/13/24 15:17
01/12/24 01/13/24 01/14/24
06:59 06:59 06:59
Actual Weight 77.6 kg 77.9 kg
01/13/24 14:13
PT 22.3 Sec (11.4-14.6) H 01/13/24 14:13
INR 1.93 01/13/24 14:13
APTT 43.1 Sec (23.4-35.0) H 01/13/24 14:13
Magnesium 2.5 mg/dl (1.6-2.3) H 01/13/24 14:13
Physical Exam
Constitutional: No acute distress
Cardiovascular: Rhythm & rate is regular
Respiratory: Other (intubated/ventilated)
Neuro/Psych: Other (sedated)
Other: Skin (midsternal incision no redness, drainage, or swelling)
Data Reviewed
-
Date of Service: January 13, 2024
EKG: Tracing Personally Visualized and interpreted (as noted)
[2024-01-13 16:34] LABS: Glucose - Point of Care 170 mg/dl (70-99)
--- NOTE | 2024-01-13 17:31 | W.PN.UPDATE ---
Update Note
Progress Note Update
73 y/o w/ PMHx of SAVR (#21mm [employer]. Elias Trifecta with Dr. Read in 2014), DMII, HTN, and recent dental and sinus surgery, was admitted via the ED with c/o weakness and chills. Found to have Strep Mitis bacteremia and aortic root abscess. Treated
with Rocephin. SHANI on 01/10 reported extension of root abscess now involving mitral valve.
IV fluids: 2400
U.O.:� 195
Blood:� 2PRBC, 2Plts, 2FFP
Wires:� 2 A & 2 sets of V-wires
Inotropes:� none
Pressors:� Levophed
Sedatives:� Precedex
�
NEURO: sedated on Precedex @ 0.5, pupils +2mm B/L
RESP: #8OT @24cm> 500/60%/12/5. Lungs clear B/L. 2 mediastinal (10cc on arrival) and R pleural (30cc on arrival) chest tubes to -20cm suction. Sanguineous drainage
CV: RRR +S1, S2, no S3, no�rub, no murmur. Dermabond to median sternotomy. RIJ w/[place] locked @ 45cm. PA 38/18; CVP 12; C.O 3.04/CI 1.68
ABD: obese, round, soft, no BS
EXT: no edema, +2/4 DP pulses B/L, no femoral bruit, left femoral sheath intact; left radial A-line intact
: Tejeda with clear yellow urine
�
A/P: POD #0 s/p Reconstruction of the fibrous body using bovine pericardium (aka Commando Procedure); MVR #27 mm Mitris; AVR #23 mm Inspiris
SHANI: EF�60%, AV 11/6mmHg, MV 3/1mmHg, no AI/MR, moderate TR
- wean and extubate
- will need instruction regarding antibiotic prophylaxis for dental and invasive procedures
- will discuss timing of Coumadin for bio-MVR
- keep SBP around 100mmHg
# Strep mitis prosthetic valve endocarditis
- continue ceftriaxone 2g IV q24h x 6 weeks through 02/15/24 (or longer if OR culture remains positive)
- plan PICC post op
# HTN
- labile BP post-op- on/ff Levophed/Cardene
- resume Valsartan as BP permits
�
# acute surgical blood loss anemia-expected
- initial post-op Hb 8.1>transfuse 1PRBC
- trend CBC
�
# T2DM (A1C 6.5)
- insulin infusion x 48h f/b sliding scale insulin with Lantus @ HS (home dose 34u HS)
- resume Mounjaro 2.5mg weekly on DC
# Hx CVA (w/resolved RUE weakness)
- monitor neuro status
�
# Hyperlipidemia
- resume Rosuvastatin as needed
# Depression
- resume Duloxetine 30mg daily
[2024-01-13] MEDS: ROCEPHIN 2000 MG IV (17:33)
[2024-01-13 17:36] LABS: Glucose - Point of Care 169 mg/dl (70-99)
[2024-01-13] MEDS: LOW STRENGTH ASPIRIN PO (18:22)
[2024-01-13] MEDS: VISBIOME PO (18:22)
[2024-01-13] MEDS: NOVOLOG FLEXPEN-LOW RESISTANCE SC ×2 (18:23→18:24)
[2024-01-13] MEDS: LASIX PO (18:23)
[2024-01-13] MEDS: COREG PO (18:23)
[2024-01-13] MEDS: HEPARIN SC (18:25)
[2024-01-13] MEDS: STERILE WATER FOR INJECTION 20 ML IV (18:29)
[2024-01-13 18:37] LABS: Glucose - Point of Care 140 mg/dl (70-99)
[2024-01-13] MEDS: DOBUTREX 500 MG 250 IV (18:58)
[2024-01-13] MEDS: TYLENOL/FEVERALL 650 MG RECTAL (18:58)
--- NOTE | 2024-01-13 19:00 | PTCARENOTE ---
bedside report received from previous RN. pt in bed, intubated s/p CVOR. pt awakens for short periods to verbal stimuli. ETT intact, vent set to SIMV 12/500/5/5/40%. POX 100%. B/L breath sounds present. CT x3 intact to -20cm wall suction, drainage
WNL, no air leak present. SR on monitor, HR 70's. epicardial AV wires intact, set to back up DDD 50/10/10. no pacing spikes noted. B/L radial and DP pulses palpable. heart tones clear. Levo gtt infusing @ 2mcg. SBP low 100's. Dobut gtt initiated @
2mcg for CI 1.22. RIJ cordis + swan intact w KVOs infusing. left radial art line intact. mcgee catheter intact, draining clear yellow urine. UO adequate. hypoactive bowel sounds present. Insulin gtt infusing per glycemic protocol. all surgical sites
stable. see worklist for full assessment, VS, and interventions.
[2024-01-13 19:11] LABS: Mixed Venous O2 Saturation 56.6 %
[2024-01-13 19:14] LABS: Hematocrit 28.2 % (37.0-47.0); Platelet Count 234 10^3/uL (130-400)
[2024-01-13 19:18] LABS: Hemoglobin 9.9 g/dL (12.0-16.0)
[2024-01-13 19:50] VITALS: BP_SYST 147
[2024-01-13 19:51] VITALS: BP 121/65
[2024-01-13 19:54] VITALS: BP 125/58
[2024-01-13 20:09] LABS: Glucose - Point of Care 131 mg/dl (70-99)
[2024-01-13] MEDS: VANCOCIN 200 IV (20:15)
[2024-01-13 20:17] LABS: B.E. -1.5 mmol/L; HCO3 23.7 mmol/L (21-28); Ionized Calcium 1.23 mMOL/L (1.15-1.33); O2 Saturation % 96.4 % (94-98); PCO2 41 mmHg (32-35); PO2 73 mmHg (83-108); Potassium 4.7 mMOL/L (3.5-5.1); pH 7.37 (7.35-7.45)
[2024-01-13] MEDS: SENOKOT-S PO (20:18)
[2024-01-13 20:20] LABS: Mixed Venous O2 Saturation 54.8 %
[2024-01-13] MEDS: ZOFRAN 4 MG IV (21:28)
[2024-01-13 22:00] LABS: Glucose - Point of Care 157 mg/dl (70-99)
[2024-01-13] MEDS: ALBUMIN 5% 250 IV (22:05)
[2024-01-13] MEDS: CRESTOR PO (22:09)
[2024-01-13] MEDS: PRIMACOR 20 MG 100 IV (22:41)
--- NOTE | 2024-01-13 23:00 | PTCARENOTE ---
no acute changes in assessment. pt slightly more awake but still apneic when sleeping. ETT remains intact. vent set to SIMV 12/500/5/5/50%. POX 97%. CT output WNL. pt SR on monitor, HR 80's. Cardene gtt infusing @ 7.5mg, Nitro gtt infusing @ 40mcg.
Dobut gtt infusing @ 3mcg. Milrinone initiated @ 2230, infusing @ 0.125mcg. CI now 1.92. UO adequate. Insulin gtt maintained per protocol. all surgical sites stable.
[2024-01-13] MEDS: OFIRMEV 100 IV (23:18)
[2024-01-14] VITALS (8 sets, daily range): BP systolic 89–118; BP diastolic 51–67; PULSE 75; O2SAT 94–95; BMI 31.3
[2024-01-14 00:10] LABS: Glucose - Point of Care 130 mg/dl (70-99)
[2024-01-14 00:21] LABS: Mixed Venous O2 Saturation 57.9 %
[2024-01-14 00:24] LABS: B.E. -1.8 mmol/L; HCO3 23.1 mmol/L (21-28); O2 Saturation % 97.1 % (94-98); PCO2 39 mmHg (32-35); PO2 75 mmHg (83-108); pH 7.38 (7.35-7.45)
[2024-01-14 00:25] LABS: O2 Therapy cpap
--- NOTE | 2024-01-14 00:40 | RESPNOTE ---
PT was extubated at this time and placed on a 10L midflow @ 10L (60%). PT tolerated extubation well and stated her name after. Some thick green/clear secretions were coughed up and suctioned orally after and PT performed the IS with good effort,
producing a 1200 ml result the first time and a 1600 ml result the second time. Will continue to monitor. HR-85/ RR-10/ SPO2-98%.
--- NOTE | 2024-01-14 00:40 | PTCARENOTE ---
ABG results reviewed w CT MARIA ESTHER Higgins. respiratory @ bedside. pt extubated to midflow NC 10L. POX 98%. IS 1500.
[2024-01-14] MEDS: CARDENE 200 IV (00:51)
[2024-01-14 01:40] LABS: Glucose - Point of Care 114 mg/dl (70-99)
[2024-01-14 02:18] LABS: Glucose - Point of Care 106 mg/dl (70-99)
[2024-01-14 02:55] LABS: Glucose - Point of Care 108 mg/dl (70-99)
--- NOTE | 2024-01-14 03:00 | PTCARENOTE ---
no changes in assessment. pt oriented x4. toradol ordered for pain per CT PA. SR 80's. Nitro and Cardene gtts infusing. SBP 100's. Dobut and Milrinone gtts infusing. CI 2.27. Insulin gtt maintained. CT output WNL. UO ~30/hr, CTPA aware. all surgical
sites stable. AM labs drawn and sent. EKG completed. pt sleeping between care.
[2024-01-14] MEDS: TORADOL 15 MG IV (03:04)
[2024-01-14 03:09] LABS: Hematocrit 26.8 % (37.0-47.0); Hemoglobin 9.3 g/dL (12.0-16.0); Mean Corp Hgb Conc. 34.7 g/dL (33.0-37.0); Mean Corpuscular Hgb 29.1 pg (27.0-31.0); Mean Corpuscular Volume 83.8 fL (81.0-99.0); Mean Platelet Volume 9.9 fL (7.4-10.4); Platelet Count 251 10^3/uL (130-400); Red Cell Dist. Width 13.2 % (11.5-14.5); White Blood Cell Count 26.3 10^3/uL (4.8-10.8)
[2024-01-14 03:33] LABS: Blood Urea Nitrogen 23 mg/dl (7-17); Calcium 8.8 mg/dl (8.4-10.2); Carbon Dioxide 23 mmol/L (22-30); Chloride 109 mmol/L (98-107); Estimated Creatinine Clearance 38 ml/min; Glucose 103 mg/dl (70-99); Magnesium 2.3 mg/dl (1.6-2.3); Potassium 4.2 mmol/L (3.5-5.1); Sodium 141 mmol/L (135-145); eGFR 43.15
[2024-01-14 04:05] LABS: Glucose - Point of Care 106 mg/dl (70-99)
[2024-01-14 05:09] LABS: Glucose - Point of Care 103 mg/dl (70-99)
--- NOTE | 2024-01-14 05:49 | W.PN.CT ---
Today's Communication / Plan
-
-pod #1
-extubated uneventfully to midflow NC at 12:40 am
-CI 2.27, CO 4.11. Drips: Dobut 3, Milrinone 0.125, Nitro 30, Cardene off, Insulin
-CT output: R pleur 60/150, 2 meds 90/170 in 12/24 hrs
-follow-up Echo on 01/13 (ordered)
-follow Cr- 1.3 today (1.0 preop)
-noted ID recommendation to continue Ceftriaxone 2g IV q24h x 6 weeks through 02/15/24 (or longer if OR culture remains positive). Got Vanco 01/12 periop
-plan PICC post op, still pending pacemaker placement
-current meds (ASA, Crestor, Abx, Protonix, Neurontin, po iron, Vit C). Holding BB and Amio while on inotrops
-encourage IS, OOB
Assessment / Plan
-
Assessment:
-s/p Reconstruction of the fibrous body using bovine pericardium (aka Commando Procedure); MVR #27 mm Mitris; AVR #23 mm Inspiris on 01/13/[address] Toledo, pod #1
-intraop SHANI: EF�60%, AV 11/6mmHg, MV 3/1mmHg, no AI/MR, moderate TR
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 mitral valve, per SHANI 01/11/24. Bioprosthetic aortic valve is well seated
-Fever/Leukocytosis
-Blood culture from 01/02 grew Strep mitis/oralis; no growth from subsequent cultures
-Recent tooth extraction
-S/P Endoscopic bilateral anterior ethmoidectomy and maxillary antrostomy, 11/22/23
-S/P Aortic valve replacement ([address] Elias Trifecta bovine pericardial tissue valve) by Dr. Jayjay Read on 02/25/2015
-SHARRON on CKD3b
-Hypertension.
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
-Hx CVA (w/resolved RUE weakness)
-Hyperlipidemia
-Class 1 obesity (BMI 30)
-GERD
-Asthma
-Depression
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
-Hx of vertigo
-S/p Cholecystectomy
-S/P Appendectomy
-S/P Bilateral breast biopsies (benign)
-S/p Teeth implants
-Acute on chronic postop blood loss anemia - s/p 3 pRBCs
-Acute postop coagulopathy - s/p 2 FFPs and 2 unit platelets
-Acute postop atelectasis
-SHARRON
Discussed patient care with: Nursing and Care Team
Subjective
Procedure
-s/p Reconstruction of the fibrous body using bovine pericardium (aka Commando Procedure); MVR #27 mm Mitris; AVR #23 mm Inspiris on 01/13/[address] Toledo
-
Date of Service: January 14, 2024
Objective Data
-
PT 22.3 Sec (11.4-14.6) H 01/13/24 14:13
INR 1.93 01/13/24 14:13
APTT 43.1 Sec (23.4-35.0) H 01/13/24 14:13
Vital Signs
Vital Signs
Temp Pulse Resp BP Pulse Ox
98.6 F 82 12 125/58 96
01/14/24 00:00 01/13/24 23:00 01/13/24 17:00 01/13/24 19:54 01/14/24 00:00
CT Intake/Output/Weight
01/13/24 01/13/24 01/14/24
06:59 18:59 06:59
Intake Total 304.0 / 1337.4 1033.4 / 1337.4
Output Total 690 / 1105 415 / 1105
Balance -386.0 / 232.4 618.4 / 232.4
SaO2: 96
Physical Exam
-
General: Awake and Oriented
Cardiovascular: Regular rate & rhythm, No Murmurs and Rub
Respiratory: Decreased Breath Sounds
Sternum: Stable
Incision: Clean, Dry and Intact
Extremities: Edema +1
Data Reviewed
-
Lab Results: Results Reviewed
Medications: Active Meds Reviewed
Chest X-Ray: Report Reviewed and Image Reviewed
ECG: Report Reviewed and Image Reviewed
[2024-01-14 06:27] LABS: Mixed Venous O2 Saturation 62.5 %
[2024-01-14] MEDS: TYLENOL PO (06:53)
[2024-01-14 07:05] LABS: Glucose - Point of Care 107 mg/dl (70-99)
--- NOTE | 2024-01-14 08:00 | PTCARENOTE ---
report received from previous RN. pt drowsy but awakens easily. VSS. NSR with temp AV wires in place. A off. V to back up 50/10. no pacing noted. CT x3 to -20cm wall suction, minimal drainage. no air leak/crepitus present. B/L radial and DP pulses
palpable. 8L midflow NC. pulse ox 97. will wean as tolerated. mcgee catheter intact, draining clear yellow urine. hypoactive bowel sounds, poor appetite. tolerating sips and chips. RIJ cordis + swan intact w KVOs infusing. left radial a line intact.
Insulin gtt infusing per glycemic protocol. dobut at ordered rate as well as milrinone. all surgical sites stable. will continue to monitor.
[2024-01-14] MEDS: BACTROBAN 2% OINTMENT 1 APPLIC NASAL ×2 (08:10→20:06)
[2024-01-14] MEDS: NSS IV (08:11)
[2024-01-14] MEDS: NOVOLOG FLEXPEN SC ×3 (08:32→16:37)
[2024-01-14] MEDS: MAGNESIUM OXIDE 500 MG PO ×2 (08:46→20:09)
[2024-01-14] MEDS: LOW STRENGTH ASPIRIN 81 MG PO (08:46)
[2024-01-14] MEDS: SENOKOT-S 1 TABLET PO ×2 (08:46→20:09)
[2024-01-14] MEDS: CYMBALTA DELAYED RELEASE 30 MG PO (08:47)
[2024-01-14] MEDS: NEURONTIN 600 MG PO ×2 (08:47→20:08)
[2024-01-14] MEDS: PROTONIX 40 MG PO (08:47)
[2024-01-14] MEDS: FEOSOL 325 MG PO (08:47)
[2024-01-14] MEDS: VITAMIN C 500 MG PO (08:48)
[2024-01-14] MEDS: VANCOCIN 200 IV (08:48)
[2024-01-14] MEDS: LIDOCAINE 4% PATCH 1 PATCH TOPICAL (08:49)
[2024-01-14 09:00] LABS: Glucose - Point of Care 97 mg/dl (70-99)
--- NOTE | 2024-01-14 10:20 | W.PN.CD ---
Today's Communication / Plan
-
wean inotropes
monitor tele
Impression / Plan
-
Sepsis, bacteremia, and prosthetic valve with aortic root abscess:
-IV abx per ID
-Repeat SHANI 01/11/24 showed progression of the aortic root abscess with flow within the abscess, extension into the LVOT and along the anterior mitral valve with associated trace flow.
-Left heart cath on 01/07/2024: No significant coronary artery disease; both left and right coronary takeoffs are close to prosthetic valve annulus�prostatic aortic valve endocarditis
-now s/p bio AVR, MVR, reconstruction of the fibrous body using bovine pericardium (aka Commando Procedure) with Dr. Toledo 01/13/24.
-Intra-op EF 55%.
-weaning inotropes
Rhythm
-sinus with long 1st degree AVB, IVCD
-monitor tele
Dilated cardiomyopathy with recovered EF (prior 25-30%, most recent 60-65%- 55% on SHANI); chronic HFpEF
-She did not tolerate Farxiga or Jardiance in the past
-on Coreg/ARB as OP: assess to resume as she recovers from OR
-monitor volume post-op
Severe aortic stenosis s/p bioprosthetic aortic valve replacement
-21 mm bovine Trifecta tissue valve 02/25/[address] Read
-now s/p redo CT surgery as above
PVC's
Hypertension, hold ARB in the setting of sepsis/SHARRON
Nonobstructive CAD (luminal irregularities): ASA, statin
CKD3b, follows with Dr. Washburn
NIDDM, Hgba1c 6.5%, per primary
HLD, on rosuvastatin 20mg
Anemia, chronic, follows with Dr. Rivas
CCT 31 minutes
Physical Exam
Vital Signs/Labs
Vital Signs
Temp Pulse Resp BP Pulse Ox
99 F 91 12 89/52 95
01/14/24 08:00 01/14/24 09:45 01/13/24 17:00 01/14/24 03:39 01/14/24 09:45
01/13/24 01/14/24 01/15/24
06:59 06:59 06:59
Actual Weight 77.9 kg 80.2 kg
01/14/24 02:52
01/14/24 02:52
PT 22.3 Sec (11.4-14.6) H 01/13/24 14:13
INR 1.93 01/13/24 14:13
APTT 43.1 Sec (23.4-35.0) H 01/13/24 14:13
Magnesium 2.3 mg/dl (1.6-2.3) 01/14/24 02:52
Physical Exam
Constitutional: No acute distress
EENT: Moist mucous membranes
Cardiovascular: Rhythm & rate is regular, Systolic murmur absent and Pedal edema present
Respiratory: Respiratory effort normal and Lungs clear to auscul.
GI: Soft and Distention absent
Neuro/Psych: AO x 3
Data Reviewed
-
Date of Service: January 14, 2024
EKG: Other (Tele: SR 80s)
Labs: Labs Reviewed by me
Critical Care Time (in minutes): 31
--- NOTE | 2024-01-14 10:52 | W.PN.ANS.POP ---
Anesthesia Post Operative
- Anesthesia Post Op Note
Vital Signs Stable-See Nursing Note: Yes
Airway Patent: Yes
Adequate Pain Control: Yes
Change in Mental Status: No
Current Postoperative Nausea & Vomiting: No
Anesthesia Complications: No
General Anesthetic Recall: No
Unplanned Admission: No
Post Op Hydration Adequate: Yes
- -
Pt awake and alert, resting comfortably with no anesthesia c/o at time of post op visit.
--- NOTE | 2024-01-14 11:03 | CARDSERVDEF ---
Echocardiogram with Definity completed after protocol screening completed. Allergies verified.
Patent IV site: __RT IJ cordis___
IV site flushed with 0.9% NaCl pre and post administration.
Diluted bolus method utilized to enhance visualization of ventricular armstrong.
Total volume given: _4.0___ mL
Patient tolerated all procedures well without complications.
[2024-01-14 11:25] LABS: Glucose - Point of Care 152 mg/dl (70-99)
[2024-01-14] MEDS: FLEXERIL 5 MG PO ×2 (12:16→20:08)
--- NOTE | 2024-01-14 12:45 | PTCARENOTE ---
d/c pleural chest tube as ordered. weaned off both dobut and milrinone as able. CI 2.4. Flexeril for pain. will continue to monitor.
[2024-01-14] MEDS: NOVOLIN R INSULIN INFUSION 100 IV (13:06)
[2024-01-14 13:14] LABS: Glucose - Point of Care 105 mg/dl (70-99)
[2024-01-14] MEDS: TYLENOL 1000 MG PO ×2 (13:17→22:18)
--- NOTE | 2024-01-14 13:21 | W.PN.INTV ---
Today's Communication / Plan
Recommendations
Continue to monitor hemodynamics.
Diuretics
Follow renal function and electrolytes
Coumadin started
Follow chest tube output
Continue antibiotics per infectious disease
Postoperative care
Sign off
Assessment
-
s/p Reconstruction of the fibrous body using bovine pericardium (aka Commando Procedure); MVR #27 mm Mitris; AVR #23 mm Inspiris on 01/13/[address] Toledo 01/13/2024
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 mitral valve, per SHANI 01/11/24. Bioprosthetic aortic valve is well seated
Conditions present prior admission:
Type 2 diabetes
Status post bioprosthetic AVR 2014
Chronic kidney disease
Chronic sinusitis
Mild intermittent asthma
History of melanoma
Endoscopic surgery of the sinuses 11/22/2023
-
Assessment and plan:
Postoperative day 1
Extubated and currently on low rate supplemental oxygen.
Encourage incentive spirometry patient feels tired. Slightly somnolent but arousable.
Anemia noted-no evidence of acute bleeding
Follow H&H serially
Hemodynamics -off vasoactive drugs.
Diuresis started
To get repeat echocardiogram today
Anticoagulation to be started with low-dose Coumadin.
-
Follow urinary output.
Follow renal function, slight creatinine bump to 1.3.
Tejeda urinary output
Chest tube with no excessive drainage-no air leak.
Chest x-ray reviewed: With no pneumothorax or fluid collections.
Continue ceftriaxone per infectious disease
Monitor fevers
Leukocytosis noted
Advance diet as tolerated
Head of the bed elevation
Glycemic control per protocol
DVT prophylaxis when safe from the surgical perspective.
No additional critical care recommendations.
Sign off
Subjective Dataa
Subjective Data
Date of Service:
Date of Service: January 14, 2024
Chief Complaint: Explosive Expert Follow Up (Status post MVR, AVR)
Subjective:
No particular complaints.
Overnight remains on vasoactive drugs.
Pain is controlled
Denies shortness of breath at rest
Review of Systems
General: Fever (n)
Cardiopulmonary: Dyspnea (none at rest)
GI: Abdominal Pain (n) and Nausea (n)
Objective Data
Data Reviewed
Vital Signs / I&O / Oxygen:
Vital Signs
Temp Pulse Resp BP Pulse Ox
100.1 F 78 12 89/52 94
01/14/24 12:22 01/14/24 12:22 01/13/24 17:00 01/14/24 03:39 01/14/24 12:22
Intake and Output
01/13/24 01/14/24 01/15/24
06:59 06:59 06:59
Intake Total 1851.1 / 1851.1 499.9 / 499.9
Output Total 1370 / 1370 290 / 290
Balance 481.1 / 481.1 209.9 / 209.9
SaO2 [CPAP/PSV] 96
SaO2 [SIMV] 98
SaO2 94
Nasal Cannula flow liters per 6
minute
Physical Exam
General: Respiratory Distress (n) and Comfortable
HEENT: Normocephalic
Cardiovascular: Regular Rhythm and Rub
Respiratory: Clear and Chest Tube (No excessive drainage or air leak)
GI: Soft and Non Distended
Neurology: Awake and Alert
Skin: Warm
Labs/Micro/Reports
Lab Data
01/14/24 02:52
01/14/24 02:52
Laboratory Results
01/13/24 01/13/24 01/14/24
14:13 20:12 00:10
PT 22.3 H
INR 1.93
APTT 43.1 H
pH 7.36 7.37 7.38
pCO2 38 H 41 H 39 H
pO2 175 H 73 L 75 L
HCO3 21.5 23.7 23.1
O2 Delivery Level Vent cpap
Microbiology
01/13/24 09:54 Valve Tissue Culture - Preliminary
NO GROWTH
01/13/24 09:54 Valve Gram Stain - Preliminary
01/13/24 09:56 Valve Tissue Culture - Preliminary
No Growth After 18-24 Hours
01/13/24 09:56 Valve Gram Stain - Preliminary
01/13/24 09:52 Abscess Tissue Culture - Preliminary
No Growth After 18-24 Hours
01/13/24 09:52 Abscess Gram Stain - Preliminary
01/13/24 09:56 Valve Fungal Culture - Preliminary
Culture in progress.
Positive cultures are reported as soon as detected.
Final report to follow in four to five weeks.
01/13/24 09:54 Valve Fungal Culture - Preliminary
Culture in progress.
Positive cultures are reported as soon as detected.
Final report to follow in four to five weeks.
01/13/24 09:52 Abscess Fungal Culture - Preliminary
Culture in progress.
Positive cultures are reported as soon as detected.
Final report to follow in four to five weeks.
01/12/24 09:57 Feces/Stool C. difficile GDH Antigen & Toxins - Final
Negative for toxigenic C.difficile
[2024-01-14 15:23] LABS: Glucose - Point of Care 84 mg/dl (70-99)
--- NOTE | 2024-01-14 15:38 | PTCARENOTE ---
delined. oob into chair. assist x2.
--- NOTE | 2024-01-14 15:41 | CM ---
dc plan remains home when medically stable and option care of IV antibx delivery with Jackie for Picc line and assessments- jackie will draw INR as well with results to Dr Stovall
[2024-01-14] MEDS: STERILE WATER FOR INJECTION 20 ML IV (15:54)
[2024-01-14] MEDS: ROCEPHIN 2000 MG IV (15:56)
[2024-01-14 17:32] LABS: Glucose - Point of Care 221 mg/dl (70-99)
[2024-01-14] MEDS: TYLENOL 650 MG PO (17:36)
[2024-01-14] MEDS: COUMADIN 2 MG PO (17:39)
--- NOTE | 2024-01-14 17:50 | PTCARENOTE ---
made it 2 hours oob in chair.
[2024-01-14 18:51] LABS: Glucose - Point of Care 195 mg/dl (70-99)
--- NOTE | 2024-01-14 19:34 | VATNOTE ---
VAT in receipt of PICC order this mook. Read [employer] [facility] note and spoke with THEA Nelson now. No discharge date known as of yet. Will revisit picc placement Sat. 01/14.
--- NOTE | 2024-01-14 20:00 | PTCARENOTE ---
assumed care of patient @ 1900. received pt lying in bed, AOX3. Drowsy, responds to verbal, GARCIA. Flexeril given for back pain. NSR with prolonged QT. weak pulses, trace edema. lungs clear, diminished on 2L 02 satting mid 90s. ocasional non
productive cough. 2 mediastinal chest tubes to wall suction, no air leak, tidaling or crepitus noted. hypoactive BS, poor appetite reported. mcgee draining clear ruben urine, UO low, ctpa notified. Sternal FINANCIAL ADVISOR, R and L groin with dry dressings. RIJ
cordis with kvo, insulin infusing per protocol through peripheral. pt boosted and repositioned, resting comfortably with call amos within reach.
[2024-01-14 20:05] LABS: Glucose - Point of Care 154 mg/dl (70-99)
[2024-01-14] MEDS: CRESTOR 20 MG PO (20:08)
[2024-01-14] MEDS: FLEXBUMIN 50 IV (22:14)
[2024-01-14 22:17] LABS: Ionized Calcium 1.21 mMOL/L (1.15-1.33)
[2024-01-14 22:29] LABS: Blood Urea Nitrogen 26 mg/dl (7-17); Calcium 8.6 mg/dl (8.4-10.2); Magnesium 2.5 mg/dl (1.6-2.3); Sodium 137 mmol/L (135-145)
[2024-01-14 22:48] LABS: Carbon Dioxide 26 mmol/L (22-30); Chloride 105 mmol/L (98-107); Estimated Creatinine Clearance 38 ml/min; Glucose 68 mg/dl (70-99); eGFR 43.15
--- NOTE | 2024-01-14 23:00 | PTCARENOTE ---
25 percent albumin ordered and given for low UO. pt resting comfortably, no other change in assessment.
[2024-01-15] VITALS (24 sets, daily range): BP systolic 83–118; BP diastolic 32–76; PULSE 87; O2SAT 92–95; BMI 32.1
[2024-01-15 00:01] LABS: Glucose - Point of Care 76 mg/dl (70-99)
[2024-01-15 00:01] LABS: Glucose - Point of Care 90 mg/dl (70-99)
[2024-01-15 00:16] LABS: Glucose - Point of Care 80 mg/dl (70-99)
[2024-01-15 01:06] LABS: Glucose - Point of Care 123 mg/dl (70-99)
[2024-01-15] MEDS: TYLENOL 650 MG PO ×2 (02:02→20:11)
[2024-01-15 02:08] LABS: Glucose - Point of Care 107 mg/dl (70-99)
--- NOTE | 2024-01-15 04:00 | PTCARENOTE ---
Flexeril given for pain. labs drawn and sent. no change in assessment
[2024-01-15 04:18] LABS: Glucose - Point of Care 96 mg/dl (70-99)
[2024-01-15 04:25] LABS: Hematocrit 26.4 % (37.0-47.0); Hemoglobin 8.6 g/dL (12.0-16.0); Mean Corp Hgb Conc. 32.6 g/dL (33.0-37.0); Mean Corpuscular Hgb 29.2 pg (27.0-31.0); Mean Corpuscular Volume 89.5 fL (81.0-99.0); Mean Platelet Volume 10.4 fL (7.4-10.4); Platelet Count 225 10^3/uL (130-400); Red Blood Cell Count 2.95 10^6/uL (4.20-5.40); Red Cell Dist. Width 13.7 % (11.5-14.5); White Blood Cell Count 25.8 10^3/uL (4.8-10.8)
[2024-01-15 04:48] LABS: Blood Urea Nitrogen 26 mg/dl (7-17); Calcium 8.5 mg/dl (8.4-10.2); Carbon Dioxide 28 mmol/L (22-30); Chloride 107 mmol/L (98-107); Estimated Creatinine Clearance 41 ml/min; Glucose 92 mg/dl (70-99); Magnesium 2.6 mg/dl (1.6-2.3); Potassium 4.3 mmol/L (3.5-5.1); Sodium 137 mmol/L (135-145)
[2024-01-15] MEDS: FLEXERIL 5 MG PO ×2 (04:55→20:09)
[2024-01-15] MEDS: FLEXBUMIN 50 IV ×2 (05:53→12:50)
[2024-01-15 06:00] LABS: Glucose - Point of Care 109 mg/dl (70-99)
--- NOTE | 2024-01-15 06:17 | W.PN.CT ---
Today's Communication / Plan
-
-pod #2
-no significant issues overnight
-drips: insulin only, off inotrops
-decreased UO last night 15-25cc per hr- Cr was mildly elevated but stable 1.3. BP ok. Started 25% Albumin q8 x3
-Echo / with hyperdynamic LV, EF >75%, well functioning AVR/MVR
-CT output: 2 meds 75/165 in 12/24 hrs
-follow OR cultures
-will get picc for Abx
-current meds (ASA, Crestor, Abx, Protonix, Neurontin, po iron, Vit C). Holding BB and Amio
-encourage IS, OOB
Assessment / Plan
-
Assessment:
-s/p Reconstruction of the fibrous body using bovine pericardium (aka Commando Procedure); MVR #27 mm Mitris; AVR #23 mm Inspiris on 01/13/[address] Toledo, pod #2
-intraop SHANI: EF�60%, AV 11/6mmHg, MV 3/1mmHg, no AI/MR, moderate TR
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 mitral valve, per SHANI 01/11/24. Bioprosthetic aortic valve is well seated
-Fever/Leukocytosis
-Blood culture from 01/02 grew Strep mitis/oralis; no growth from subsequent cultures
-Recent tooth extraction
-S/P Endoscopic bilateral anterior ethmoidectomy and maxillary antrostomy, 11/22/23
-S/P Aortic valve replacement ([address] Elias Trifecta bovine pericardial tissue valve) by Dr. Jayjay Read on 02/25/2015
-SHARRON on CKD3b
-Hypertension.
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
-Hx CVA (w/resolved RUE weakness)
-Hyperlipidemia
-Class 1 obesity (BMI 30)
-GERD
-Asthma
-Depression
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
-Hx of vertigo
-S/p Cholecystectomy
-S/P Appendectomy
-S/P Bilateral breast biopsies (benign)
-S/p Teeth implants
-Acute on chronic postop blood loss anemia - s/p 3 pRBCs
-Acute postop coagulopathy - s/p 2 FFPs and 2 unit platelets
-Acute postop atelectasis
-SHARRON
Echo 01/14/24:
-Technically difficult study with very limited acoustic windows. Definity contrast used.
-Left ventricular ejection fraction is >75%, by visual assessment. Normal regional wall motion.
-Normal right ventricular systolic function.
-Status-post mitral valve replacement with peak/mean gradients of 14/3 mmHg. No mitral regurgitation is seen.
-Status-post bioprosthetic aortic valve replacement with peak/mean gradients of 10/6 mmHg. No aortic regurgitation is seen.
Discussed patient care with: Nursing and Care Team
Subjective
Procedure
-s/p Reconstruction of the fibrous body using bovine pericardium (aka Commando Procedure); MVR #27 mm Mitris; AVR #23 mm Inspiris on 01/13/[address] Toledo
-
Date of Service: January 15, 2024
Objective Data
-
PT 22.3 Sec (11.4-14.6) H 01/13/24 14:13
INR 1.93 01/13/24 14:13
APTT 43.1 Sec (23.4-35.0) H 01/13/24 14:13
Vital Signs
Vital Signs
Temp Pulse Resp BP Pulse Ox
99.4 F 73 12 111/57 96
01/14/24 23:04 01/15/24 00:00 01/13/24 17:00 01/15/24 00:00 01/15/24 00:00
CT Intake/Output/Weight
01/14/24 01/14/24 01/15/24
06:59 18:59 06:59
Intake Total 1547.1 / 1851.1 672.5 / 743.0 70.5 / 743.0
Output Total 680 / 1370 445 / 660 215 / 660
Balance 867.1 / 481.1 227.5 / 83.0 -144.5 / 83.0
SaO2: 96
Physical Exam
-
General: Awake and Oriented
Cardiovascular: Regular rate & rhythm, No Murmurs and Rub
Respiratory: Decreased Breath Sounds
Sternum: Stable
Incision: Clean, Dry and Intact
Extremities: Edema +1
Data Reviewed
-
Lab Results: Results Reviewed
Medications: Active Meds Reviewed
Chest X-Ray: Report Reviewed and Image Reviewed
ECG: Report Reviewed and Image Reviewed
[2024-01-15] MEDS: NEURONTIN 600 MG PO ×2 (06:22→20:10)
[2024-01-15] MEDS: LIDOCAINE 4% PATCH 1 PATCH TOPICAL (06:23)
--- NOTE | 2024-01-15 07:10 | PTCARENOTE ---
Rn assumed care for outgoing RN, Pt oob in a chair, POD 2 AVR/MVR, NSR, 2Lnc, MSCT x2, Rt IJ Cordis, insulin gtt till this afternoon, pain management encourage IS, ambulated as tolerated, encourage PO intake, monitor I&O. RN will continue to monitor
pt.
[2024-01-15 08:11] LABS: Glucose - Point of Care 131 mg/dl (70-99)
[2024-01-15] MEDS: TYLENOL PO ×2 (09:29→22:13)
[2024-01-15] MEDS: SENOKOT-S 1 TABLET PO ×2 (09:30→20:10)
[2024-01-15] MEDS: LOW STRENGTH ASPIRIN 81 MG PO (09:30)
[2024-01-15] MEDS: VITAMIN C 500 MG PO (09:30)
[2024-01-15] MEDS: FEOSOL 325 MG PO (09:30)
[2024-01-15] MEDS: BACTROBAN 2% OINTMENT 1 APPLIC NASAL ×2 (09:30→20:13)
[2024-01-15] MEDS: CYMBALTA DELAYED RELEASE 30 MG PO (09:30)
[2024-01-15] MEDS: NOVOLOG FLEXPEN 4 UNITS SC ×2 (09:30→11:52)
[2024-01-15] MEDS: PROTONIX 40 MG PO (09:31)
--- NOTE | 2024-01-15 09:43 | W.PN.ID1 ---
Date of Service
Date of Service: January 15, 2024
Today's Communication
- Continue ceftriaxone 2g IV q24h x 6 weeks through 02/15/24 (or longer if OR culture remains positive)
- plan PICC post op, still pending pacemaker placement
- Infusion sheet placed in chart and case management aware.
Assessment / Plan
# Streptococcus mitis/oralis bacteremia
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
# Leukocytosis
# PCN allergy (occurred in remote past, [facility]), tolerating cephalosporins
- recent cracked molar s/p dental procedure, did take prophylactic clindamycin.
- valve cultures in progress; gram stain no organisms, no growth to date
- Repeat blood cultures finalized negative
- 01/05 SHANI suspicious for root abscess.
- 01/10 SHANI progression of AV root abscess with progression and now involves MV
- Plan to treat with 6 weeks of IV abx.
- Continue ceftriaxone 2g IV q24h x 6 weeks through 02/15/24 (or longer if OR culture remains positive)
- plan PICC post op, still pending pacemaker placement
- Infusion sheet placed in chart and case management aware.
- Trend WBC
# Additional Past Medical History:
DM
s/p Bioprosthetic aortic valve replacement (2014)
Hypertension
CKD3
Chronic sinusitis s/p endoscopic sinus surgery 11/22/23
Mild Asthma
Melanoma
cholecystectomy
Appendectomy
Chief Complaint
-: Bacteremia and Other (endocarditis, AV root abscess)
Subjective / Review of Systems
afebrile
bp stable
declining leukocytosis
cr stable
tissue cultures no growth to date
Vital Signs / Physical Exam
Vital Signs
Vital Signs
Temp Pulse Resp BP Pulse Ox
98.5 F 77 12 118/63 95
01/15/24 04:00 01/15/24 04:15 01/13/24 17:00 01/15/24 04:00 01/15/24 07:04
Physical Exam
Constitutional: No Acute Distress and Chronically Ill
Cardiovascular: Regular Rate and S1/S2; Negative Murmur or Rub
Pulmonary: Clear and Symmetric; Negative Wheezes or Rales
Gastrointestinal: Soft, Non Tender, Non Distended and Normal Bowel Sounds
Skin: Warm and Dry; Negative Rash or Jaundice
Objective Data
Lab Data
Lab Results
01/15/24 04:12
01/15/24 04:12
ESR 61 mm/hour (0-20) H 01/11/24 04:22
PT 17.0 Sec (11.4-14.6) H 01/15/24 04:12
INR 1.40 01/15/24 04:12
APTT 43.1 Sec (23.4-35.0) H 01/13/24 14:13
Estimated Creat Clear 41 ml/min 01/15/24 04:12
Lactic Acid 1.0 mmol/L (0.7-2.0) 01/03/24 21:39
Total Bilirubin 0.4 mg/dl (0.2-1.3) 01/11/24 04:22
AST 26 U/L (14-36) 01/11/24 04:22
ALT 19 U/L (0-35) 01/11/24 04:22
Alkaline Phosphatase 99 U/L (38-126) 01/11/24 04:22
C-Reactive Protein 175.00 mg/L (0.0-10.00) H 01/04/24 05:59
Most recent labs reviewed.
Micro Results:
01/13/24 09:56 Anaerobic Culture - Preliminary
Valve Culture pending. Anaerobic cultures are examined after 3
days incubation. Additional information to follow.
01/13/24 09:54 Anaerobic Culture - Preliminary
Valve Culture pending. Anaerobic cultures are examined after 3
days incubation. Additional information to follow.
01/13/24 09:52 Anaerobic Culture - Preliminary
Abscess Culture pending. Anaerobic cultures are examined after 3
days incubation. Additional information to follow.
01/13/24 09:54 Tissue Culture - Preliminary
Valve NO GROWTH
Gram Stain - Preliminary
01/13/24 09:56 Tissue Culture - Preliminary
Valve No Growth After 18-24 Hours
Gram Stain - Preliminary
01/13/24 09:52 Tissue Culture - Preliminary
Abscess No Growth After 18-24 Hours
Gram Stain - Preliminary
01/13/24 09:56 Fungal Culture - Preliminary
Valve Culture in progress.
Positive cultures are reported as soon as detected.
Final report to follow in four to five weeks.
01/13/24 09:54 Fungal Culture - Preliminary
Valve Culture in progress.
Positive cultures are reported as soon as detected.
Final report to follow in four to five weeks.
01/13/24 09:52 Fungal Culture - Preliminary
Abscess Culture in progress.
Positive cultures are reported as soon as detected.
Final report to follow in four to five weeks.
01/12/24 09:57 C. difficile GDH Antigen & Toxins - Final
Feces/Stool Negative for toxigenic C.difficile
01/06/24 03:46 Blood Culture - Final
Blood/Venous No Growth - Final Report
01/05/24 13:17 Blood Culture - Final
Blood/Venous No Growth - Final Report
01/05/24 04:36 Blood Culture - Final
Blood/Venous No Growth - Final Report
01/03/24 21:49 Blood Culture - Final
Blood/Venous Strep mitis/oralis
Gram Stain - Final
01/03/24 21:39 Blood Culture - Final
Blood/Venous Strep mitis/oralis
Gram Stain - Final
01/03/24 21:41 Influenza Types A & B (ALDAIR) - Final
Nasal Swab Negative for Influenza A & B, NAAT
Negative results must be combined with clinical observations
and patient history.
Nucleic Acid Amplification test (NAAT)performed on the
[employer] NOW platform.
[2024-01-15 10:59] LABS: Glucose - Point of Care 170 mg/dl (70-99)
--- NOTE | 2024-01-15 11:00 | PTCARENOTE ---
MSCT x2 dced, mcgee Dced.
[2024-01-15] MEDS: TORADOL 15 MG IV (11:19)
[2024-01-15] MEDS: LASIX 40 MG IV (12:50)
--- NOTE | 2024-01-15 13:47 | W.PN.CD ---
Today's Communication / Plan
-
-Clinically improving; off of pressors.
-Continue postsurgical care as directed by CT Surgery.
Impression / Plan
-
Sepsis, bacteremia, and prosthetic valve with aortic root abscess:
-IV abx per ID
-Repeat SHANI 01/11/24 showed progression of the aortic root abscess with flow within the abscess, extension into the LVOT and along the anterior mitral valve with associated trace flow.
-Left heart cath on 01/07/2024: No significant coronary artery disease; both left and right coronary takeoffs are close to prosthetic valve annulus�prostatic aortic valve endocarditis
-now s/p bio AVR, MVR, reconstruction of the fibrous body using bovine pericardium (aka Commando Procedure) with Dr. Toledo 01/13/24.
-Intra-op EF 55%.
-Clinically improving; off of pressors.
-Continue postsurgical care as directed by CT Surgery.
Rhythm
-Remains in sinus rhythm with long 1st degree AVB, IVCD
-Continue radiation monitor.
Dilated cardiomyopathy with recovered EF (prior 25-30%, most recent 60-65%- 55% on SHANI); chronic HFpEF
-She did not tolerate Farxiga or Jardiance in the past
-on Coreg/ARB as OP: assess to resume as she recovers from OR
-monitor volume post-op
Severe aortic stenosis s/p bioprosthetic aortic valve replacement
-21 mm bovine Trifecta tissue valve 02/25/[address] Read
-now s/p redo CT surgery as above
PVC's
Hypertension, hold ARB in the setting of sepsis/SHARRON
Nonobstructive CAD (luminal irregularities): ASA, statin
CKD3b, follows with Dr. Washburn
NIDDM, Hgba1c 6.5%, per primary
HLD, on rosuvastatin 20mg
Anemia, chronic, follows with Dr. Rivas
CCT 33 minutes
Physical Exam
Vital Signs/Labs
Vital Signs
Temp Pulse Resp BP Pulse Ox
98.2 F 83 18 104/50 96
01/15/24 12:00 01/15/24 13:00 01/15/24 12:00 01/15/24 12:00 01/15/24 12:30
01/14/24 01/15/24 01/16/24
06:59 06:59 06:59
Actual Weight 80.2 kg 82.3 kg
01/15/24 04:12
01/15/24 04:12
PT 17.0 Sec (11.4-14.6) H 01/15/24 04:12
INR 1.40 01/15/24 04:12
APTT 43.1 Sec (23.4-35.0) H 01/13/24 14:13
Magnesium 2.6 mg/dl (1.6-2.3) H 01/15/24 04:12
Physical Exam
Constitutional: No acute distress and Comfortable
EENT: Anicteric
Cardiovascular: Rhythm & rate is regular, Pedal edema is absent, Systolic murmur absent and S1S2 is normal
Respiratory: Respiratory effort normal and Rhonchi Present (Mild bibasilar)
GI: Soft
Neuro/Psych: AO x 3
Other: Skin (Warm, dry, intact)
Data Reviewed
-
Date of Service: January 15, 2024
EKG: Tracing Personally Visualized and interpreted (Telemetry: Sinus rhythm with first-degree AV block)
Medical Tests (PFT, Pathology etc): Discussed with Nurse, Discussed with Patient and Discussed with Family (At bedside)
Labs: Labs Reviewed by me
Critical Care Time (in minutes): 33
--- NOTE | 2024-01-15 15:41 | VATNOTE ---
PICC line in distal SVC per radiology report, called PCN to notify PICC is OK to use.
[2024-01-15] MEDS: NSS IV (15:55)
[2024-01-15] MEDS: STERILE WATER FOR INJECTION 20 ML IV (15:56)
[2024-01-15] MEDS: ROCEPHIN 2000 MG IV (15:56)
[2024-01-15] MEDS: TYLENOL 1000 MG PO (15:56)
[2024-01-15 15:57] LABS: Hematocrit 25.6 % (37.0-47.0); Hemoglobin 8.7 g/dL (12.0-16.0); Mean Corpuscular Hgb 29.4 pg (27.0-31.0); Mean Corpuscular Volume 86.5 fL (81.0-99.0); Mean Platelet Volume 10.6 fL (7.4-10.4); Platelet Count 235 10^3/uL (130-400); Red Blood Cell Count 2.96 10^6/uL (4.20-5.40); Red Cell Dist. Width 13.9 % (11.5-14.5)
[2024-01-15 16:11] LABS: Osmolality Serum 298 mOsm/kg (275-300)
[2024-01-15 16:15] LABS: Blood Urea Nitrogen 27 mg/dl (7-17); Calcium 8.3 mg/dl (8.4-10.2); Carbon Dioxide 25 mmol/L (22-30); Chloride 104 mmol/L (98-107); Estimated Creatinine Clearance 46 ml/min; Glucose 199 mg/dl (70-99); Potassium 4.4 mmol/L (3.5-5.1); Sodium 135 mmol/L (135-145); eGFR 52.73
[2024-01-15] MEDS: NOVOLOG FLEXPEN-MODERATE RESISTANCE 3 UNITS SC (16:22)
[2024-01-15 16:27] LABS: Glucose - Point of Care 224 mg/dl (70-99)
--- NOTE | 2024-01-15 16:27 | PTCARENOTE ---
Pt reassessment unchanged from previous, VSS, 2Lnc, MSCT dced, mcgee dced, Lasix 40mg iVp given, pending PICC placement this afternoon.
--- NOTE | 2024-01-15 16:28 | PTCARENOTE ---
Pt assessment improved this afternoon, Pt oob in a chair with x1 assist, PICC line placed and Xray confirmation obtained, Cordis dced, Insulin gtt dced, AC/hs sliding scale, 2lnc, Voiding in BR, x1 BM, low appetite, repeat CMP/CBC this afternoon,
pain well controlled post CT removal.
--- NOTE | 2024-01-15 16:53 | W.PN.UPDATE ---
Update Note
Progress Note Update
Mediastinal and mcgee removed. Received Lasix 40mg IV 2ith 400cc response. Wt 82.3 from 80 kg yesterday (baseline 77.9k). Ordered Coumadin 5mg for INR 1.4. Insulin infusion DC'd. RUE PICC placed for 6 week course of Rocephin. Left apical
pneumothorax (approx 15%), plan F/U CXR @ 1800. Hb 8.6 with patient reporting fatigue. 1PRBC ordered and follow with Bumex 2ng IV. Plan d/w Dr. Toledo.
[2024-01-15] MEDS: COUMADIN 5 MG PO (19:22)
--- NOTE | 2024-01-15 20:00 | PTCARENOTE ---
Bedside walking rounds report received. 1 unit PRBC's infusing without reaction. Patient is awake alert and oriented x 3. See flow record for pain management documentation. 2 l nasal canula oxygen. Pulse ox sats 97%. NSR on monitor. Temp epicardial
AV wires secure and insulated. See flowrecord for remaining assessments.
[2024-01-15] MEDS: BUMEX 2 MG IV (20:08)
[2024-01-15] MEDS: CRESTOR 20 MG PO (22:12)
[2024-01-16] VITALS (30 sets, daily range): BP systolic 76–151; BP diastolic 22–114; PULSE 82–89; BMI 32.3
--- NOTE | 2024-01-16 | PTCARENOTE ---
No acute changes. Ambulating to and from bathroom with a moderate assist of 1: very deconditioned: goals set for next day to ambulate hallway at least 4 times and increase oob time to wean off oxygen.
[2024-01-16 03:53] LABS: Osmolality Urine 384 mOsm/kg (300-900)
[2024-01-16 03:56] LABS: Hematocrit 29.1 % (37.0-47.0); Hemoglobin 9.8 g/dL (12.0-16.0); Mean Corp Hgb Conc. 33.7 g/dL (33.0-37.0); Mean Corpuscular Hgb 29.3 pg (27.0-31.0); Mean Corpuscular Volume 87.1 fL (81.0-99.0); Mean Platelet Volume 10.5 fL (7.4-10.4); Platelet Count 243 10^3/uL (130-400); Red Blood Cell Count 3.34 10^6/uL (4.20-5.40); Red Cell Dist. Width 13.9 % (11.5-14.5); White Blood Cell Count 22.6 10^3/uL (4.8-10.8)
--- NOTE | 2024-01-16 04:00 | PTCARENOTE ---
No acute changes. Vitals stable. Room air. Diuresed well overnight from IV bumex.
[2024-01-16 04:06] LABS: INR 1.78; PT 20.5 Sec (11.4-14.6)
[2024-01-16 04:14] LABS: Blood Urea Nitrogen 28 mg/dl (7-17); Calcium 8.5 mg/dl (8.4-10.2); Carbon Dioxide 28 mmol/L (22-30); Chloride 101 mmol/L (98-107); Estimated Creatinine Clearance 45 ml/min; Glucose 192 mg/dl (70-99); Potassium 3.9 mmol/L (3.5-5.1); Sodium 135 mmol/L (135-145)
--- NOTE | 2024-01-16 05:57 | W.PN.CT ---
Today's Communication / Plan
-
-pod #4
-no overnight issues
-Echo 01/13 with hyperdynamic LV, EF >75%, well functioning AVR/MVR
-INR 1.78 today, 5 mg Coumadin given yesterday
-follow cxr for small L PTX
-follow OR cultures
-Abx per ID, WBC downtrending, afebrile
-current meds (ASA, Crestor, Abx (rocephin), Protonix, Neurontin, po iron, Vit C, duloxetine). Holding BB and Amio
-encourage IS, OOB
Assessment / Plan
-
Assessment:
-s/p Reconstruction of the fibrous body using bovine pericardium (aka Commando Procedure); MVR #27 mm Mitris; AVR #23 mm Inspiris on 01/13/[address] Toledo, pod #4
-intraop SHANI: EF�60%, AV 11/6mmHg, MV 3/1mmHg, no AI/MR, moderate TR
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 mitral valve, per SHANI 01/11/24. Bioprosthetic aortic valve is well seated
-Fever/Leukocytosis
-Blood culture from 01/02 grew Strep mitis/oralis; no growth from subsequent cultures
-Recent tooth extraction
-S/P Endoscopic bilateral anterior ethmoidectomy and maxillary antrostomy, 11/22/23
-S/P Aortic valve replacement ([address] Elias Trifecta bovine pericardial tissue valve) by Dr. Jayjay Read on 02/25/2015
-SHARRON on CKD3b
-Hypertension.
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
-Hx CVA (w/resolved RUE weakness)
-Hyperlipidemia
-Class 1 obesity (BMI 30)
-GERD
-Asthma
-Depression
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
-Hx of vertigo
-S/p Cholecystectomy
-S/P Appendectomy
-S/P Bilateral breast biopsies (benign)
-S/p Teeth implants
-Acute on chronic postop blood loss anemia - s/p 3 pRBCs
-Acute postop coagulopathy - s/p 2 FFPs and 2 unit platelets
-Acute postop atelectasis
-SHARRON
Echo 01/14/24:
-Technically difficult study with very limited acoustic windows. Definity contrast used.
-Left ventricular ejection fraction is >75%, by visual assessment. Normal regional wall motion.
-Normal right ventricular systolic function.
-Status-post mitral valve replacement with peak/mean gradients of 14/3 mmHg. No mitral regurgitation is seen.
-Status-post bioprosthetic aortic valve replacement with peak/mean gradients of 10/6 mmHg. No aortic regurgitation is seen.
Subjective
Procedure
-s/p Reconstruction of the fibrous body using bovine pericardium (aka Commando Procedure); MVR #27 mm Mitris; AVR #23 mm Inspiris on 01/13/[address] Toledo
-
Date of Service: January 16, 2024
No overnight issues. Yesterday mcgee and mct removed. Received 40 mg IV lasix and then 2 mg bumex. 5 mg Coumadin given. PICC placed. L PTX noted, repeat film showing stability
Objective Data
-
Lab Results
01/16/24 03:15
01/16/24 03:15
PT 20.5 Sec (11.4-14.6) H 01/16/24 03:15
INR 1.78 01/16/24 03:15
APTT 43.1 Sec (23.4-35.0) H 01/13/24 14:13
Vital Signs
Vital Signs
Temp Pulse Resp BP Pulse Ox
97.4 F 85 18 103/47 94
01/16/24 03:38 01/16/24 04:30 01/16/24 03:38 01/16/24 04:00 01/16/24 03:38
CT Intake/Output/Weight
01/15/24 01/15/24 01/16/24
06:59 18:59 06:59
Intake Total 113.3 / 795.8 145.2 / 520.2 375 / 520.2
Output Total 325 / 795 760 / 1810 1050 / 1810
Balance -211.7 / 0.8 -614.8 / -1289.8 -675 / -1289.8
SaO2: 94
Physical Exam
-
General: Awake, Oriented and AOx3
Cardiovascular: Regular rate & rhythm and Irregular rate & rhythm
Respiratory: Decreased Breath Sounds
Sternum: Stable
Incision: Clean, Dry and Intact
Extremities: Edema +1
Data Reviewed
-
Lab Results: Results Reviewed
Medications: Active Meds Reviewed
Chest X-Ray: Report Reviewed
ECG: Report Reviewed
[2024-01-16] MEDS: TYLENOL 1000 MG PO ×3 (06:32→21:17)
--- NOTE | 2024-01-16 08:00 | PTCARENOTE ---
resumed care from previous RN. walking rounds completed. oob in chair at time of assessment. AOOX3. Drowsy but easily arousable. NSR HR 80s. weak pulses, +1 edema. lungs diminished. 94% on RA. non productive cough. poor appetite. BRP. assist x1
into bathroom, walked herself back to chair. weakened but stable on feet. All surgical sites c/d/i. PIVx2 and PICC line patent. will continue to monitor.
[2024-01-16 08:15] LABS: % Basophils 0.3 % (0-2); % Eosinophils 0.1 % (0-6); % Immature Granulocytes 0.5 % (0-0.5); % Lymphocytes 6.9 % (20.5-51.1); % Monocytes 10.2 % (1.7-9.3); Absolute Basophils 0.1 10^3/uL (0-0.2); Absolute Immature Granulocytes 0.1 10^3/uL (0-0.05); Absolute Lymphocytes 1.5 10^3/uL (1.2-3.4); Absolute Monocytes 2.3 10^3/uL (0.1-0.6); Absolute Neutrophils 18.2 10^3/uL (1.4-6.5); Nucleated Red Blood Cells % 0 %
[2024-01-16] MEDS: FIRST-MOUTHWASH BLM SUSPENSION 5 ML PO (08:18)
[2024-01-16] MEDS: LOW STRENGTH ASPIRIN 81 MG PO (08:18)
[2024-01-16] MEDS: SENOKOT-S 1 TABLET PO (08:18)
[2024-01-16] MEDS: NEURONTIN 600 MG PO ×2 (08:18→21:17)
[2024-01-16] MEDS: PROTONIX 40 MG PO (08:19)
[2024-01-16] MEDS: FEOSOL 325 MG PO (08:19)
[2024-01-16] MEDS: CYMBALTA DELAYED RELEASE 30 MG PO (08:19)
[2024-01-16] MEDS: VITAMIN C 500 MG PO (08:22)
[2024-01-16] MEDS: LIDOCAINE 4% PATCH 1 PATCH TOPICAL (08:24)
[2024-01-16] MEDS: BACTROBAN 2% OINTMENT 1 APPLIC NASAL ×2 (08:26→21:18)
[2024-01-16 08:31] LABS: Glucose - Point of Care 229 mg/dl (70-99)
[2024-01-16] MEDS: NSS IV (08:31)
[2024-01-16] MEDS: NOVOLOG FLEXPEN-MODERATE RESISTANCE 3 UNITS SC ×3 (08:31→17:39)
--- NOTE | 2024-01-16 08:46 | W.PN.ID1 ---
Date of Service
Date of Service: January 16, 2024
Today's Communication
- Continue ceftriaxone 2g IV q24h x 6 weeks through 02/15/24 (or longer if OR culture remains positive)
- plan PICC post op, still pending pacemaker placement
Assessment / Plan
# Streptococcus mitis/oralis bacteremia
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
# Leukocytosis
# PCN allergy (occurred in remote past, [facility]), tolerating cephalosporins
- recent cracked molar s/p dental procedure, did take prophylactic clindamycin.
- valve cultures in progress; gram stain no organisms, no growth to date
- Repeat blood cultures finalized negative
- 01/05 SHANI suspicious for root abscess.
- 01/10 SHANI progression of AV root abscess with progression and now involves MV
- Plan to treat with 6 weeks of IV abx.
- Continue ceftriaxone 2g IV q24h x 6 weeks through 02/15/24 (or longer if OR culture remains positive)
- plan PICC post op, still pending pacemaker placement
- Infusion sheet placed in chart and case management aware.
- Trend WBC
# Additional Past Medical History:
DM
s/p Bioprosthetic aortic valve replacement (2014)
Hypertension
CKD3
Chronic sinusitis s/p endoscopic sinus surgery 11/22/23
Mild Asthma
Melanoma
cholecystectomy
Appendectomy
Chief Complaint
-: Bacteremia and Other (endocarditis, AV root abscess)
Subjective / Review of Systems
afebrile
bp stable
ongoing leukocytosis - improving
cr stable
valve cultures no growth to date
no complaints
Vital Signs / Physical Exam
Vital Signs
Vital Signs
Temp Pulse Resp BP Pulse Ox
97.4 F 81 18 100/63 94
01/16/24 03:38 01/16/24 08:15 01/16/24 03:38 01/16/24 06:33 01/16/24 06:00
Physical Exam
Constitutional: No Acute Distress
Cardiovascular: Regular Rate and S1/S2; Negative Murmur or Rub
Pulmonary: Clear and Symmetric; Negative Wheezes or Rales
Gastrointestinal: Soft, Non Tender, Non Distended and Normal Bowel Sounds
Skin: Warm and Dry; Negative Rash or Jaundice
Objective Data
Lab Data
Lab Results
01/16/24 03:15
01/16/24 03:15
ESR 61 mm/hour (0-20) H 01/11/24 04:22
PT 20.5 Sec (11.4-14.6) H 01/16/24 03:15
INR 1.78 01/16/24 03:15
APTT 43.1 Sec (23.4-35.0) H 01/13/24 14:13
Estimated Creat Clear 45 ml/min 01/16/24 03:15
Lactic Acid 1.0 mmol/L (0.7-2.0) 01/03/24 21:39
Total Bilirubin 0.4 mg/dl (0.2-1.3) 01/11/24 04:22
AST 26 U/L (14-36) 01/11/24 04:22
ALT 19 U/L (0-35) 01/11/24 04:22
Alkaline Phosphatase 99 U/L (38-126) 01/11/24 04:22
C-Reactive Protein 175.00 mg/L (0.0-10.00) H 01/04/24 05:59
Most recent labs reviewed.
Micro Results:
01/13/24 09:56 Tissue Culture - Preliminary
Valve No Growth After 48 Hours
Gram Stain - Preliminary
01/13/24 09:52 Tissue Culture - Preliminary
Abscess No Growth After 48 Hours
Gram Stain - Preliminary
01/13/24 09:54 Tissue Culture - Preliminary
Valve No Growth After 48 Hours
Gram Stain - Preliminary
01/13/24 09:56 Anaerobic Culture - Preliminary
Valve Culture pending. Anaerobic cultures are examined after 3
days incubation. Additional information to follow.
01/13/24 09:54 Anaerobic Culture - Preliminary
Valve Culture pending. Anaerobic cultures are examined after 3
days incubation. Additional information to follow.
01/13/24 09:52 Anaerobic Culture - Preliminary
Abscess Culture pending. Anaerobic cultures are examined after 3
days incubation. Additional information to follow.
01/13/24 09:56 Fungal Culture - Preliminary
Valve Culture in progress.
Positive cultures are reported as soon as detected.
Final report to follow in four to five weeks.
01/13/24 09:54 Fungal Culture - Preliminary
Valve Culture in progress.
Positive cultures are reported as soon as detected.
Final report to follow in four to five weeks.
01/13/24 09:52 Fungal Culture - Preliminary
Abscess Culture in progress.
Positive cultures are reported as soon as detected.
Final report to follow in four to five weeks.
01/12/24 09:57 C. difficile GDH Antigen & Toxins - Final
Feces/Stool Negative for toxigenic C.difficile
01/06/24 03:46 Blood Culture - Final
Blood/Venous No Growth - Final Report
01/05/24 13:17 Blood Culture - Final
Blood/Venous No Growth - Final Report
01/05/24 04:36 Blood Culture - Final
Blood/Venous No Growth - Final Report
01/03/24 21:49 Blood Culture - Final
Blood/Venous Strep mitis/oralis
Gram Stain - Final
01/03/24 21:39 Blood Culture - Final
Blood/Venous Strep mitis/oralis
Gram Stain - Final
01/03/24 21:41 Influenza Types A & B (ALDAIR) - Final
Nasal Swab Negative for Influenza A & B, NAAT
Negative results must be combined with clinical observations
and patient history.
Nucleic Acid Amplification test (NAAT)performed on the
[employer] platform.
--- NOTE | 2024-01-16 13:05 | PTCARENOTE ---
oob in chair till 11am. min assist back to bed to nap. VSS
[2024-01-16 13:47] LABS: Glucose - Point of Care 228 mg/dl (70-99)
--- NOTE | 2024-01-16 13:57 | W.PN.CD ---
Today's Communication / Plan
-
-Clinically stable; making good progress post-surgery.
-Continue with current management.
-Continue library monitor; no events.
Impression / Plan
-
Sepsis, bacteremia, and prosthetic valve with aortic root abscess:
-IV abx per ID
-Repeat SHANI 01/11/24 showed progression of the aortic root abscess with flow within the abscess, extension into the LVOT and along the anterior mitral valve with associated trace flow.
-Left heart cath on 01/07/2024: No significant coronary artery disease; both left and right coronary takeoffs are close to prosthetic valve annulus�prostatic aortic valve endocarditis
-now s/p bio AVR, MVR, reconstruction of the fibrous body using bovine pericardium (aka Commando Procedure) with Dr. Toledo 01/13/24.
-Intra-op EF 55%.
-Clinically stable; making good progress post-surgery.
-Continue routine postsurgical care as directed by CT Surgery.
-Continue with current management.
Rhythm
-Remains in sinus rhythm with long 1st degree AVB, IVCD
-Continue library monitor; no events.
Dilated cardiomyopathy with recovered EF (prior 25-30%, most recent 60-65%- 55% on SHANI); chronic HFpEF
-She did not tolerate Farxiga or Jardiance in the past
-on Coreg/ARB as OP: assess to resume as she recovers from OR
-Continue low-dose metoprolol heart rate.
Severe aortic stenosis s/p bioprosthetic aortic valve replacement
-21 mm bovine Trifecta tissue valve 02/25/[address] Read
-now s/p redo CT surgery as above
PVC's
Hypertension, hold ARB in the setting of sepsis/SHARRON
Nonobstructive CAD (luminal irregularities): ASA, statin
CKD3b, follows with Dr. Washburn
NIDDM, Hgba1c 6.5%, per primary
HLD, on rosuvastatin 20mg
Anemia, chronic, follows with Dr. Rivas
CCT 32 minutes
Physical Exam
Vital Signs/Labs
Vital Signs
Temp Pulse Resp BP Pulse Ox
97.5 F 84 18 98/58 95
01/16/24 08:00 01/16/24 13:45 01/16/24 03:38 01/16/24 12:00 01/16/24 08:00
01/15/24 01/16/24 01/17/24
06:59 06:59 06:59
Actual Weight 82.3 kg 82.7 kg
01/16/24 03:15
01/16/24 03:15
PT 20.5 Sec (11.4-14.6) H 01/16/24 03:15
INR 1.78 01/16/24 03:15
APTT 43.1 Sec (23.4-35.0) H 01/13/24 14:13
Magnesium 2.0 mg/dl (1.6-2.3) 01/16/24 03:15
Physical Exam
Constitutional: No acute distress and Comfortable
EENT: Anicteric
Cardiovascular: Rhythm & rate is regular, Pedal edema is absent, Systolic murmur absent and S1S2 is normal
Respiratory: Respiratory effort normal and Rhonchi Present (Scant bibasilar rhonchi)
GI: Soft
Neuro/Psych: AO x 3
Other: Skin (Warm, dry, intact)
Data Reviewed
-
Date of Service: January 16, 2024
EKG: Tracing Personally Visualized and interpreted (Telemetry: Sinus rhythm)
Labs: Labs Reviewed by me
Critical Care Time (in minutes): 32
[2024-01-16] MEDS: STERILE WATER FOR INJECTION 20 ML IV (15:48)
[2024-01-16] MEDS: ROCEPHIN 2000 MG IV (15:48)
[2024-01-16] MEDS: COUMADIN 3 MG PO (17:35)
[2024-01-16 17:39] LABS: Glucose - Point of Care 204 mg/dl (70-99)
--- NOTE | 2024-01-16 20:00 | PTCARENOTE ---
aaox4 w/o complaints of pain. NS in 80's VSS, RA 94% clear lung sounds, GI and WNL, all surgical sights CDI, R PICC and L PIV's WNL, see worklsit for detailed assessment.
[2024-01-16] MEDS: CRESTOR 20 MG PO (21:17)
[2024-01-16] MEDS: SENOKOT-S PO (21:17)
--- NOTE | 2024-01-16 23:30 | PTCARENOTE ---
2241 - HR 41 bpm, [employer]OL[employer] COACH at bedside, pacer attached levo & dobutamine started. Levo turned off and Dobutamine @2, VVI 80/10.
--- NOTE | 2024-01-16 23:59 | W.PN.UPDATE ---
Update Note
Progress Note Update
Notified by RN that Mrs. Gallardo suddenly became bradycardic with a ventricular rate in the 30-40s. This appeared to be a CHB which was also suggested on her 12 lead EKG. She was awake and interactive with preserved BP and denying symptoms. We first
attempted to attach her epicardial wires to the Medtronic pacer box at DDD which did not capture despite maximally increasing the output mA and titrating sensitivity. We next tried switching to VVI but there were no pacer spikes seen. She then
began to have pauses and her blood pressure became low and she was symptomatic. Code cart was brought into the room and an epi drip and dopamine drip were ordered and started. We attempted transcutaneous pacing while waiting for the meds to arrive
but were unable to successfully obtain capture. Her heart rate and blood pressure responded to dopamine and this was continued with the epi drip subsequently turned off. A second Medtronic pacer box was brought in and after starting on VVI mode we
successfully obtained capture with a rate of 80 and output of 25 mA. A repeat EKG was obtained and shows a ventricular paced rhythm with intermittent capture failure. I discussed these events and reviewed her EKGs and tele strips with cardiology
Dr. Hoover. After review he recommends continued pacing at the current settings with concurrent low dose dopamine while repeating labs. He will plan for PPM first thing in the morning with back up plan to place a temporary PW if she were to
decompensate again.
a/p:
1) High grade AV block
2) Symptomatic bradycardia
3) AV root abscess POD #4 bio AVR, MVR, reconstruction of the fibrous body using bovine pericardium
Continue VVI pacing, dopamine gtt, follow up labs, NPO for PPM consideration in the morning
critical care time = 50 minutes
[2024-01-17] VITALS (43 sets, daily range): BP systolic 82–114; BP diastolic 37–81; BMI 32.4
[2024-01-17 00:15] LABS: Lactic Acid 1.2 mmol/L (0.7-2.0)
[2024-01-17 00:22] LABS: ALT (SGPT) 26 U/L (0-35); AST (SGOT) 45 U/L (14-36); Albumin 3.1 g/dl (3.5-5.0); Alkaline Phosphatase 127 U/L (38-126); Blood Urea Nitrogen 34 mg/dl (7-17); Calcium 8.1 mg/dl (8.4-10.2); Carbon Dioxide 29 mmol/L (22-30); Chloride 100 mmol/L (98-107); Estimated Creatinine Clearance 45 ml/min; Glucose 245 mg/dl (70-99); Magnesium 2.2 mg/dl (1.6-2.3); Phosphorus 2.9 mg/dl (2.5-4.5); Potassium 3.5 mmol/L (3.5-5.1); Sodium 133 mmol/L (135-145); Total Bilirubin 0.4 mg/dl (0.2-1.3); Total Protein 5.5 g/dl (6.3-8.2)
[2024-01-17 00:58] LABS: % Basophils 0.3 % (0-2); % Eosinophils 1.1 % (0-6); % Immature Granulocytes 0.6 % (0-0.5); % Lymphocytes 5.9 % (20.5-51.1); % Monocytes 9.6 % (1.7-9.3); % Neutrophils 82.5 % (42.2-75.2); Absolute Basophils 0.1 10^3/uL (0-0.2); Absolute Eosinophils 0.2 10^3/uL (0-0.7); Absolute Immature Granulocytes 0.1 10^3/uL (0-0.05); Absolute Lymphocytes 1.1 10^3/uL (1.2-3.4); Absolute Monocytes 1.8 10^3/uL (0.1-0.6); Absolute Neutrophils 15.3 10^3/uL (1.4-6.5); Hematocrit 27.3 % (37.0-47.0); Hemoglobin 9.4 g/dL (12.0-16.0); Mean Corp Hgb Conc. 34.4 g/dL (33.0-37.0); Mean Corpuscular Hgb 29.7 pg (27.0-31.0); Mean Corpuscular Volume 86.1 fL (81.0-99.0); Mean Platelet Volume 10.3 fL (7.4-10.4); Nucleated Red Blood Cells % 0 %; Platelet Count 235 10^3/uL (130-400); Red Blood Cell Count 3.17 10^6/uL (4.20-5.40); Red Cell Dist. Width 13.9 % (11.5-14.5); White Blood Cell Count 18.6 10^3/uL (4.8-10.8)
[2024-01-17] MEDS: LR 500 IV (01:09)
[2024-01-17] MEDS: POTASSIUM PHOSPHATE 259.090899999999976 MEQ IV (01:22)
--- NOTE | 2024-01-17 04:24 | W.PN.CT ---
Today's Communication / Plan
-
-pod #4
-Bradycardia/CHB resolved, off dopamine and intrinsic rate beating over set pacer rate. Currently NPO for PPM evaluation this AM. Cardiology to see early today. Holding BB and Amio.
-Echo 01/13 with hyperdynamic LV, EF >75%, well functioning AVR/MVR
-INR 2.85 today, 3 mg Coumadin given yesterday
-follow cxr for small L PTX, f/u 2 view CXR today
-follow OR cultures
-Abx per ID, WBC downtrending, afebrile
-current meds (ASA, Crestor, Abx (ceftriaxone), Protonix, Neurontin, po iron, Vit C, duloxetine).
-encourage IS, OOB
Assessment / Plan
-
Assessment:
-s/p Reconstruction of the fibrous body using bovine pericardium (aka Commando Procedure); MVR #27 mm Mitris; AVR #23 mm Inspiris on 01/13/[address] Toledo, pod #4
-intraop SHANI: EF�60%, AV 11/6mmHg, MV 3/1mmHg, no AI/MR, moderate TR
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 mitral valve, per SHANI 01/11/24. Bioprosthetic aortic valve is well seated
-Fever/Leukocytosis
-Blood culture from 01/02 grew Strep mitis/oralis; no growth from subsequent cultures
-Recent tooth extraction
-S/P Endoscopic bilateral anterior ethmoidectomy and maxillary antrostomy, 11/22/23
-S/P Aortic valve replacement ([address] [employer] Trifecta bovine pericardial tissue valve) by Dr. Jayjay Read on 02/25/2015
-SHARRON on CKD3b
-Hypertension.
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
-Hx CVA (w/resolved RUE weakness)
-Hyperlipidemia
-Class 1 obesity (BMI 30)
-GERD
-Asthma
-Depression
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
-Hx of vertigo
-S/p Cholecystectomy
-S/P Appendectomy
-S/P Bilateral breast biopsies (benign)
-S/p Teeth implants
-Acute on chronic postop blood loss anemia - s/p 3 pRBCs
-Acute postop coagulopathy - s/p 2 FFPs and 2 unit platelets
-Acute postop atelectasis
-SHARRON
Echo 01/14/24:
-Technically difficult study with very limited acoustic windows. Definity contrast used.
-Left ventricular ejection fraction is >75%, by visual assessment. Normal regional wall motion.
-Normal right ventricular systolic function.
-Status-post mitral valve replacement with peak/mean gradients of 14/3 mmHg. No mitral regurgitation is seen.
-Status-post bioprosthetic aortic valve replacement with peak/mean gradients of 10/6 mmHg. No aortic regurgitation is seen.
Subjective
Procedure
-s/p Reconstruction of the fibrous body using bovine pericardium (aka Commando Procedure); MVR #27 mm Mitris; AVR #23 mm Inspiris on 01/13/[address] Toledo
-
Date of Service: January 17, 2024
Overnight events reviewed, bradycardia/CHB requiring dopamine and epicardial pacing. Since the previous note dopamine has now been titrated off and intrinsic rate in the 80s with pacer set to VVI rate 70 with stable BP.
Objective Data
-
PT 20.5 Sec (11.4-14.6) H 01/16/24 03:15
INR 1.78 01/16/24 03:15
APTT 43.1 Sec (23.4-35.0) H 01/13/24 14:13
Vital Signs
Vital Signs
Temp Pulse Resp BP Pulse Ox
98.5 F 75 18 105/63 98
05/06/24 00:00 01/17/24 02:15 01/17/24 00:00 01/17/24 02:10 01/17/24 02:15
CT Intake/Output/Weight
01/16/24 01/16/24 01/17/24
06:59 18:59 06:59
Intake Total 425 / 570.2 240 / 240
Output Total 1249 500 / 800 300 / 800
Balance -825 / -1439.8 -260 / -560 -300 / -560
SaO2: 98
Physical Exam
-
General: Awake and Oriented
Cardiovascular: Regular rate & rhythm, No Murmurs and No Rub
Respiratory: Clear and Decreased Breath Sounds
Sternum: Stable
Incision: Clean, Dry and Intact
Extremities: Edema +1 and No Erythema
Data Reviewed
-
Lab Results: Results Reviewed
Medications: Active Meds Reviewed
Chest X-Ray: Report Reviewed
ECG: Report Reviewed
[2024-01-17 04:42] LABS: Hemoglobin 9.7 g/dL (12.0-16.0); Mean Corp Hgb Conc. 33.4 g/dL (33.0-37.0); Mean Corpuscular Hgb 30.2 pg (27.0-31.0); Mean Corpuscular Volume 90.3 fL (81.0-99.0); Mean Platelet Volume 10.9 fL (7.4-10.4); Platelet Count 239 10^3/uL (130-400); Red Blood Cell Count 3.21 10^6/uL (4.20-5.40); Red Cell Dist. Width 13.9 % (11.5-14.5); White Blood Cell Count 19.5 10^3/uL (4.8-10.8)
[2024-01-17 04:54] LABS: INR 2.85; PT 29.8 Sec (11.4-14.6)
[2024-01-17 05:12] LABS: Blood Urea Nitrogen 32 mg/dl (7-17); Calcium 8.1 mg/dl (8.4-10.2); Carbon Dioxide 30 mmol/L (22-30); Chloride 101 mmol/L (98-107); Estimated Creatinine Clearance 50 ml/min; Glucose 186 mg/dl (70-99); Magnesium 2.2 mg/dl (1.6-2.3); Potassium 4.3 mmol/L (3.5-5.1); Sodium 135 mmol/L (135-145); eGFR 58.75
[2024-01-17] MEDS: TYLENOL 1000 MG PO ×3 (06:40→22:30)
--- NOTE | 2024-01-17 07:00 | PTCARENOTE ---
Bedside walking rounds report received. Patient seen on rounds on bedrest: awake alert and oriented x 3. Flat depressed affect this am. Accel junctional rhythm to NSR on monitor with epicardial v wire temp wire rate of 64bpm backup rate with a mA
of 25: temp pacing pads also secured in place and readily accessible. CT surgical rounds: aware of last night event and PPM will be scheduled cory through EP lab. Purewick external urinary drainage device in place due to patient being on complete
bedrest due to last nights events. Left forearm peripheral IV's x 2 functional. PPM will be this am. See flow record for remaining assessments
[2024-01-17] MEDS: FEOSOL 325 MG PO (08:09)
[2024-01-17] MEDS: CYMBALTA DELAYED RELEASE 30 MG PO (08:09)
[2024-01-17] MEDS: NEURONTIN 600 MG PO ×2 (08:09→20:24)
[2024-01-17] MEDS: PROTONIX 40 MG PO (08:10)
[2024-01-17] MEDS: LOW STRENGTH ASPIRIN 81 MG PO (08:10)
[2024-01-17] MEDS: VITAMIN C 500 MG PO (08:10)
[2024-01-17] MEDS: LIDOCAINE 4% PATCH TOPICAL (08:11)
[2024-01-17] MEDS: BACTROBAN 2% OINTMENT 1 APPLIC NASAL (08:11)
[2024-01-17] MEDS: NOVOLOG FLEXPEN-MODERATE RESISTANCE 1 UNITS SC (08:14)
[2024-01-17 08:15] LABS: Glucose - Point of Care 196 mg/dl (70-99)
[2024-01-17] MEDS: SENOKOT-S PO ×2 (08:16→20:25)
--- NOTE | 2024-01-17 09:35 | W.PN.ID1 ---
Date of Service
Date of Service: January 17, 2024
Today's Communication
Continue ceftriaxone.
Assessment / Plan
# Streptococcus mitis/oralis bacteremia
# Bio-AVR root abscess and MV IE
# Leukocytosis
# PCN allergy (occurred in remote past, college), tolerating cephalosporins
- recent cracked molar s/p dental procedure, did take prophylactic clindamycin.
- Repeat blood cultures finalized negative
- 01/05 SHANI suspicious for root abscess.
- 01/10 SHANI progression of AV root abscess with progression and now involves MV
- 01/13/2024 s/p Reconstruction of the fibrous body using bovine pericardium; MVR #27 mm Mitris; AVR #23 mm Inspiris
OR valve cultures negative
- For PPM today
- Continue ceftriaxone 2g IV q24h x 6 weeks through 02/15/24
- plan PICC when close to discharge
- Infusion sheet placed in chart and case management aware.
- Trend WBC
# Additional Past Medical History:
DM
s/p Bioprosthetic aortic valve replacement (2014)
Hypertension
CKD3
Chronic sinusitis s/p endoscopic sinus surgery 11/22/23
Mild Asthma
Melanoma
cholecystectomy
Appendectomy
Chief Complaint
-: Bacteremia and Other (endocarditis, AV root abscess)
Subjective / Review of Systems
No new complaints.
Vital Signs / Physical Exam
Vital Signs
Vital Signs
Temp Pulse Resp BP Pulse Ox
98.6 F 79 18 106/56 96
01/17/24 07:54 01/17/24 09:00 01/17/24 07:54 01/17/24 09:00 01/17/24 08:15
Physical Exam
Constitutional: No Acute Distress and Comfortable
Cardiovascular: Regular Rate
Pulmonary: Clear (anteriorly)
Gastrointestinal: Soft, Non Tender and Non Distended
Neurological: AO x 3
Objective Data
Lab Data
Lab Results
01/17/24 03:54
01/17/24 03:54
ESR 61 mm/hour (0-20) H 01/11/24 04:22
PT 29.8 Sec (11.4-14.6) H 01/17/24 03:54
INR 2.85 01/17/24 03:54
APTT 43.1 Sec (23.4-35.0) H 01/13/24 14:13
Estimated Creat Clear 50 ml/min 01/17/24 03:54
Lactic Acid 1.2 mmol/L (0.7-2.0) 01/16/24 23:56
Total Bilirubin 0.4 mg/dl (0.2-1.3) 01/16/24 23:56
AST 45 U/L (14-36) H 01/16/24 23:56
ALT 26 U/L (0-35) 01/16/24 23:56
Alkaline Phosphatase 127 U/L (38-126) H 01/16/24 23:56
C-Reactive Protein 175.00 mg/L (0.0-10.00) H 01/04/24 05:59
Most recent labs reviewed.
Micro Results:
01/13/24 09:52 Anaerobic Culture - Preliminary
Abscess NO ANAEROBES ISOLATED
01/13/24 09:56 Anaerobic Culture - Preliminary
Valve NO ANAEROBES ISOLATED
01/13/24 09:54 Anaerobic Culture - Preliminary
Valve NO ANAEROBES ISOLATED
01/13/24 09:54 Tissue Culture - Preliminary
Valve No Growth After 72 Hours
Gram Stain - Preliminary
01/13/24 09:52 Tissue Culture - Preliminary
Abscess No Growth After 72 Hours
Gram Stain - Preliminary
01/13/24 09:56 Tissue Culture - Preliminary
Valve No Growth After 72 Hours
Gram Stain - Preliminary
01/13/24 09:56 Fungal Culture - Preliminary
Valve Culture in progress.
Positive cultures are reported as soon as detected.
Final report to follow in four to five weeks.
01/13/24 09:54 Fungal Culture - Preliminary
Valve Culture in progress.
Positive cultures are reported as soon as detected.
Final report to follow in four to five weeks.
01/13/24 09:52 Fungal Culture - Preliminary
Abscess Culture in progress.
Positive cultures are reported as soon as detected.
Final report to follow in four to five weeks.
01/12/24 09:57 C. difficile GDH Antigen & Toxins - Final
Feces/Stool Negative for toxigenic C.difficile
01/06/24 03:46 Blood Culture - Final
Blood/Venous No Growth - Final Report
01/05/24 13:17 Blood Culture - Final
Blood/Venous No Growth - Final Report
01/05/24 04:36 Blood Culture - Final
Blood/Venous No Growth - Final Report
01/03/24 21:49 Blood Culture - Final
Blood/Venous Strep mitis/oralis
Gram Stain - Final
01/03/24 21:39 Blood Culture - Final
Blood/Venous Strep mitis/oralis
Gram Stain - Final
01/03/24 21:41 Influenza Types A & B (ALDAIR) - Final
Nasal Swab Negative for Influenza A & B, NAAT
Negative results must be combined with clinical observations
and patient history.
Nucleic Acid Amplification test (NAAT)performed on the
[employer] platform.
[2024-01-17] MEDS: VANCOCIN 300 ML IV (12:09)
[2024-01-17] MEDS: VANCOCIN 300 MG IV (12:09)
--- NOTE | 2024-01-17 12:45 | PTCARENOTE ---
Patient report called to EP equipment operator/laborer. Patient to laborer [facility] lab via bed for PPM placement
[2024-01-17] MEDS: STERILE WATER FOR INJECTION 10 ML IV (13:35)
[2024-01-17] MEDS: AZACTAM 2000 MG IV (13:35)
--- NOTE | 2024-01-17 14:22 | W.PN.CD ---
Today's Communication / Plan
-
- PPM today
Impression / Plan
-
Sepsis, bacteremia, and prosthetic valve with aortic root abscess:
-IV abx per ID
-Repeat SHANI 01/11/24 showed progression of the aortic root abscess with flow within the abscess, extension into the LVOT and along the anterior mitral valve with associated trace flow.
-Left heart cath on 01/07/2024: No significant coronary artery disease; both left and right coronary takeoffs are close to prosthetic valve annulus�prostatic aortic valve endocarditis
-now s/p bio AVR, MVR, reconstruction of the fibrous body using bovine pericardium (aka Commando Procedure) with Dr. Toledo 01/13/24.
-Intra-op EF 55%.
-Clinically stable; making good progress post-surgery.
-Continue routine postsurgical care as directed by CT Surgery.
-Continue with current management.
Rhythm
- intermittent complete heart block
- Paced via the temp wire
- Had 20 second pause last night
- On dopamine and dobutamine gtt
- Will plan for a dual chamber PPM today
- Consent obtained with in the room, All questions answered.
Dilated cardiomyopathy with recovered EF (prior 25-30%, most recent 60-65%- 55% on SHANI); chronic HFpEF
-She did not tolerate Farxiga or Jardiance in the past
-on Coreg/ARB as OP: assess to resume as she recovers from OR
-Continue low-dose metoprolol heart rate.
Severe aortic stenosis s/p bioprosthetic aortic valve replacement
-21 mm bovine Trifecta tissue valve 02/25/[address] Read
-now s/p redo CT surgery as above
PVC's
Hypertension, hold ARB in the setting of sepsis/SHARRON
Nonobstructive CAD (luminal irregularities): ASA, statin
CKD3b, follows with Dr. Washburn
NIDDM, Hgba1c 6.5%, per primary
HLD, on rosuvastatin 20mg
Anemia, chronic, follows with Dr. Rivas
CCT 35 minutes
Physical Exam
Vital Signs/Labs
Vital Signs
Temp Pulse Resp BP Pulse Ox
97.9 F 82 18 105/58 100
01/17/24 11:55 01/17/24 11:55 01/17/24 11:55 01/17/24 11:55 01/17/24 11:55
01/16/24 01/17/24 01/18/24
06:59 06:59 06:59
Actual Weight 82.7 kg 82.9 kg
01/17/24 03:54
01/17/24 03:54
PT 29.8 Sec (11.4-14.6) H 01/17/24 03:54
INR 2.85 01/17/24 03:54
APTT 43.1 Sec (23.4-35.0) H 01/13/24 14:13
Magnesium 2.2 mg/dl (1.6-2.3) 01/17/24 03:54
Physical Exam
Constitutional: No acute distress and Comfortable
EENT: Anicteric and Moist mucous membranes
Cardiovascular: Rhythm & rate is regular, Pedal edema is absent, JVD present and Systolic murmur present
Respiratory: Respiratory effort normal, Lungs clear to auscul. and Crackles Absent
GI: Soft, Non tender and Normal bowel sounds
Neuro/Psych: Alert, Oriented and AO x 3
Data Reviewed
-
Date of Service: January 17, 2024
Medical Decision Making: Reviewed Test Results and Independent Historian Assessment
EKG: Tracing Personally Visualized and interpreted
Echo: Report Reviewed by me
Labs: Labs Reviewed by me
Old Records: Reviewed
--- NOTE | 2024-01-17 14:25 | ITS.CL.PACE ---
Grinding Machine Tender - Pacemaker Implant
Pacemaker Implant
Procedure Report:
Conduction system pacing Permanent Pacemaker Placement:
74-year-old woman with endocarditis and sepsis status post aortic /mitral valve replacement is noted to have intermittent complete heart block and is here for dual-chamber pacemaker.
Indications:
Intermittent high degree heart block
Date of the Procedure:
01/17/24
Pre-Operative Diagnosis: High degree AV block
Post-Operative Diagnosis: High degree AV block
Procedure Performed: Conduction system pacing permanent pacemaker
Performing Physician:
Zoey Fink MD
Anesthesia:
See anesthesia report.
Detailed Description of the Procedure:
The patient was identified using hospital identification and informed consent obtained for the procedure. The risks were explained to the patient and the family including, but not limited to: Bleeding, infection, arrhythmia, stroke,
vascular/cardiac/lung puncture, surgery, pacemaker dependency/device malfunction. All questions were answered.
A surgical pause was performed in accordance with hospital regulations. Anesthesia service provided sedation as reported separately. Antibiotics administered IV for risk of bacterial colonization. After obtaining informed and written consent, the
patient was brought to the electrophysiology laboratory.
The initial rhythm was paced rhythm from temporary wire.
The procedure site was meticulously prepared with surgical scrub and allowed to dry with no pooling. Sterile draping was applied to cover the procedure site. The image intensifier was draped with sterile bag and positioned over the patient.
A surgical pause and time out was performed immediately prior to the procedure with review of her medical history, recent labs, allergies and medications with site of procedure identified and consent noted in the chart. Antibiotics pre operatively
given. All team members concurred.
The left infraclavicular region was prepped and draped in the usual sterile fashion. Local anesthesia was administered subcutaneously using 1% lidocaine / Bupivacaine. The left cephalic vein cutdown was performed with an incision at the
delto-pectoral groove, and vascular sheath was introduced for lead access.
A subcutaneous pocket was created with blunt dissection and use of electrocautery. Hemostasis was excellent.
The guide wire was advanced to the RA and was advanced to the RV. The preformed curved long hemostatic peel away HIS sheath was advanced into the RV cavity. A left bundle pacing wire was advanced into the sheath to the tip with ventricular signals
noted with unipolar manner. The cardiac anatomy was significant rotated.
The HIS location was identified under guidance of the fluoroscopy and the pacing wire signals. The sheath with the pacing lead was moved deeper into the RV cavity on the septum at a more inferior and distal to the HIS signals.
Once adequate signals were noted on the electrograms of the pacing lead in the sheath with W pattern signals on the RV septum, the lead was advanced and clockwise turns were done under fluoroscopic guidance. The septum was engaged and the lead was
paced intermittently after every 2-3 turns. The Impedance of the lead was measured that remained stable around 900 Ohm. There was sheath approximation confirmed on KARLA view and the pacing lead was advanced with clockwise turns into the septal
location. The lead was paced and septal pacing was noted. The sheath was placed again to the septum and the lead was advanced 2-3 turns with pacing with each advancement. The ventricular capture was monitored throughout and the captures gradually
changed from RV pacing to non-selective pacing to LBB pacing with a small R wave on V1 morphology. �
The long guiding sheath was cut and removed from the RV without change in lead position, impedance, sensing, or capture. The lead was sutured to the underlying pectoralis fascia with 0-silk stitches.
Then the attention was given to atrial lead. Atrial active lead was placed in the RA and into the RAA. Atrial lead signal was poor with high threshold, ergo lead was moved to different location. �Adequate sensing was noted but there was no angiogram
noted on the atrial signals. The lead remained unstable and was dislodged. Decision was made to switch to a passive lead. The pessary was impacted in the right atrial appendage with excellent impedance and thresholds.
The leads were attached to the pulse generator in standard configuration with acceptable sensing and threshold parameters. The pocket was irrigated with antibiotic solution; the pocket was inspected with no active bleeding noted. The device and the
leads were placed in the pocket.
Given sepsis and infection, Tyrx pouch was placed around the device and the leads.
Deep subcutaneous tissues were closed with three layers of 2-0 V loc sutures; and the dermis was reopposed using a running 4-0 VLoc subcuticular suture.
A pressure dressing was applied. Sponge counts / sharp counts were appropriate.
Procedure End:
The procedure was tolerated well. Aquacel bandaged was applied.
Estimated Blood loss:
5 cc
Specimens Removed:
No cultures and no specimens were obtained. No intraoperative pathology was identified.
Urine output:
None
Packs / Drains/ Tubes:
None
Instrument / Sponge Count Correct:
Yes
Flouro time:
6.5min / 26mGy
Complications of the Procedure:
None
Condition of Patient at Time of Transfer:
Hemodynamically stable with no neurological or vascular compromise.
Device information:�
Generator: [employer]ific; Model: W1DR01; Serial # [id number]�
����������� RA pacing lead: Medtronic; Model: 4574-53; Serial # [id number]
����������� Measured data on the RV lead was sensing of 1.5 mV of flutter waves, impedance of 570 ohms and threshold of 0.6 V at 0.4ms. �
����������� RV LBB pacing lead: Medtronic; Model: 3830-69; Serial # [id number]
����������� Measured data on the RV lead was sensing of 10mV, impedance of 680 ohms and threshold of 0.5 V at 0.4ms�
PROGRAMMING PARAMETERS:�
Sundar parameter settings were DDDR 60-130 �
����������� Paced AV interval: 180ms
����������� Sensed AV interval: 150 ms.
����������� Rate Adaptive A-V Interval: off
�
Summary:
Successful implantation of MRI compatible dual chamber conduction system pacing permanent pacemaker.
Results/Recommendations:
-Please follow up CXR�
1. Please provide patient with adequate pain control�
Instructions to be given to patient:�
- Please follow up with [facility] at [address] [place] [address] ([phone]) to get your wound checked in 2 weeks of your discharge. Then follow with
- Do not wet incision site until after it is evaluated at cardiology clinic. No baths or showers until then. Sponge baths / showers are OK but dab dry the dressing after it is wet.�
- Allow 'steri strips' to fall off on their own�
- Do not lift left elbow above shoulder, particularly with sudden jerking movements, for 1 month�
- Do not lift anything weighing more than 5 pounds with the left arm for 1 month�
- If you notice any fevers, shortness of breath, lightheadedness, chest pain, or worsening swelling in the wound site, please contact the arrhythmia clinic, contact your small business banking officer, or present to the hospital for evaluation.�
Zoey Fink MD
Electrophysiology
--- NOTE | 2024-01-17 14:30 | PTCARENOTE ---
Patient received from EP laborer chemical processing status post Dual chamber PPM left upper chest: settings VVIR 60 - 130bpm. Patient placed on 1.5l nasal canula oxygen. Report received from laborer chemical processing staff. Patient is groggy but answering questions appropriately.
Vitals stable.
[2024-01-17 15:27] LABS: INR 2.76; PT 29.1 Sec (11.4-14.6)
[2024-01-17] MEDS: STERILE WATER FOR INJECTION 20 ML IV (16:00)
[2024-01-17] MEDS: NOVOLOG FLEXPEN-MODERATE RESISTANCE SC (16:00)
[2024-01-17] MEDS: ROCEPHIN 2000 MG IV (16:01)
[2024-01-17] MEDS: NSS IV (16:02)
--- NOTE | 2024-01-17 16:15 | CM ---
Reviewed chart. Met with Mrs. Gallardo. She states she is feeling tired. Had PPM insertion today. Faxed Picc line and CXR to [facility]. Will see her functional level after PPM to see if she will have any skilled care needs.
Prior to admission she resides with her spouse in a two story home with two steps to enter. Prior to admission she was independent with ambulation and adls. Medical work-up in progress. The discharge plan is to return home with her spouse and
[facility] and [facility] when medically stable.
[2024-01-17] MEDS: LASIX 40 MG IV (16:44)
--- NOTE | 2024-01-17 17:00 | PTCARENOTE ---
No acute changes. Vitals stable. V pacing. Return from cxr. OOB to chair
[2024-01-17] MEDS: COUMADIN 3 MG PO (17:37)
[2024-01-17] MEDS: NOVOLOG FLEXPEN-MODERATE RESISTANCE 5 UNITS SC (17:40)
[2024-01-17 17:46] LABS: Glucose - Point of Care 259 mg/dl (70-99)
[2024-01-17] MEDS: LOPRESSOR 12.5 MG PO (20:24)
--- NOTE | 2024-01-17 21:25 | PTCARENOTE ---
Assumed care of pt from dayshift RN. Walking rounds completed. Pt AAOx3. Flat affect. GARCIA. Following commands appropriately. Left arm immobilizer on from PMM procedure this AM. Pt SR on monitor w/ BBB. HR 80s. PPM placed this morning via left upper
chest - no pacer spikes noted. Temporary epicardial A/V wires insulated. +1 LE edema noted. Palpable pulses. BP stable. Pt on RA. POX 93-94%. Lung sounds diminished. Deep breathing and IS encouraged. Pt OOB w/ 1 assist to void. Abdomen
soft/nontender. +BS. Left upper chest Aquacel CDI. Sternal incision CDI and open to air. Right upper arm PICC line CDI. Left PIVx2 CDI. No c/o pain at this time. See worklist for full nursing assessment, VS, and interventions. Call amos within
reach.
[2024-01-17] MEDS: CRESTOR 20 MG PO (22:30)
[2024-01-17] MEDS: PACERONE 200 MG PO (22:32)
[2024-01-17 22:35] LABS: Glucose - Point of Care 286 mg/dl (70-99)
[2024-01-17] MEDS: NOVOLOG FLEXPEN 5 UNITS SC (23:00)
[2024-01-18] VITALS (16 sets, daily range): BP systolic 78–108; BP diastolic 39–68; PULSE 82; BMI 32.5
--- NOTE | 2024-01-18 | PTCARENOTE ---
Previous assessment unchanged. Pt SR on monitor. HR 80s. BP stable. Left arm immobilizer intact. Pt on RA. POX 96%. All surgical sites stable. Pt OOB w/ 1 assist to void. No c/o pain at this time. Call amos within reach.
[2024-01-18 04:09] LABS: Hematocrit 27.1 % (37.0-47.0); Hemoglobin 9.2 g/dL (12.0-16.0); Mean Corp Hgb Conc. 33.9 g/dL (33.0-37.0); Mean Corpuscular Hgb 29.9 pg (27.0-31.0); Mean Platelet Volume 10.4 fL (7.4-10.4); Platelet Count 253 10^3/uL (130-400); Red Blood Cell Count 3.08 10^6/uL (4.20-5.40); White Blood Cell Count 14.9 10^3/uL (4.8-10.8)
[2024-01-18 04:20] LABS: INR 3.56; PT 35.6 Sec (11.4-14.6)
[2024-01-18 04:33] LABS: Blood Urea Nitrogen 36 mg/dl (7-17); Calcium 8.3 mg/dl (8.4-10.2); Carbon Dioxide 29 mmol/L (22-30); Chloride 102 mmol/L (98-107); Estimated Creatinine Clearance 50 ml/min; Glucose 224 mg/dl (70-99); Magnesium 2.3 mg/dl (1.6-2.3); Potassium 4.2 mmol/L (3.5-5.1); Sodium 137 mmol/L (135-145); eGFR 58.75
--- NOTE | 2024-01-18 05:46 | PTCARENOTE ---
Previous assessment unchanged. Pt remains SR on monitor. No pacer spikes noted. BP stable. Pt on RA. POX 94%. Pt assisted OOB to void and repositioned back into bed. Labs drawn and sent. EKG obtained. No c/o pain at this time. Call amos within
reach.
--- NOTE | 2024-01-18 06:17 | W.PN.CT ---
Today's Communication / Plan
-
-pod #5
-no issues overnight, in nsr 70s
-s/p pacer implant on 01/16
-BB and Amio restarted after pacer implant
-INR 3.56 today (got Coumadin 2, 5, 3, 3)
-cut epicardial pw
-b/l pleural effusions, L>R
-stable L small ptx
-wt is up 12 lbs from preop- diurese
-continue PT/OT
-encourage IS, OOB
Assessment / Plan
-
Assessment:
-s/p Reconstruction of the fibrous body using bovine pericardium (aka Commando Procedure); MVR #27 mm Mitris; AVR #23 mm Inspiris on 01/13/[address] Toledo, pod #5
-intraop SHANI: EF�60%, AV 11/6mmHg, MV 3/1mmHg, no AI/MR, moderate TR
-s/p Successful implantation of Medtronic MRI compatible dual chamber conduction system pacing permanent pacemaker on 01/17/[address] Fink
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 mitral valve, per SHANI 01/11/24. Bioprosthetic aortic valve is well seated
-Fever/Leukocytosis
-Blood culture from 01/02 grew Strep mitis/oralis; no growth from subsequent cultures
-Recent tooth extraction
-S/P Endoscopic bilateral anterior ethmoidectomy and maxillary antrostomy, 11/22/23
-S/P Aortic valve replacement ([address] Elias Trifecta bovine pericardial tissue valve) by Dr. Jayjay Read on 02/25/2015
-SHARRON on CKD3b
-Hypertension.
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
-Hx CVA (w/resolved RUE weakness)
-Hyperlipidemia
-Class 1 obesity (BMI 30)
-GERD
-Asthma
-Depression
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
-Hx of vertigo
-S/p Cholecystectomy
-S/P Appendectomy
-S/P Bilateral breast biopsies (benign)
-S/p Teeth implants
-Acute on chronic postop blood loss anemia - s/p 3 pRBCs
-Acute postop coagulopathy - s/p 2 FFPs and 2 unit platelets
-Acute postop atelectasis/ b/l pleural effusions
-SHARRON-resolved
-Acute postop small L apical ptx - stable
-Acute postop complete heart block, requiring Dopa/Epi/pacing on 01/15 - s/p pacer implant 01/17/24
Echo 01/14/24:
-Technically difficult study with very limited acoustic windows. Definity contrast used.
-Left ventricular ejection fraction is >75%, by visual assessment. Normal regional wall motion.
-Normal right ventricular systolic function.
-Status-post mitral valve replacement with peak/mean gradients of 14/3 mmHg. No mitral regurgitation is seen.
-Status-post bioprosthetic aortic valve replacement with peak/mean gradients of 10/6 mmHg. No aortic regurgitation is seen.
Discussed patient care with: Nursing and Care Team
Subjective
Procedure
-s/p Reconstruction of the fibrous body using bovine pericardium (aka Commando Procedure); MVR #27 mm Nely; AVR #23 mm Inspiris on 01/13/[address] Toledo
-
Date of Service: January 18, 2024
Objective Data
-
Lab Results
01/18/24 03:51
01/18/24 03:51
PT 35.6 Sec (11.4-14.6) H 01/18/24 03:51
INR 3.56 01/18/24 03:51
APTT 43.1 Sec (23.4-35.0) H 01/13/24 14:13
Vital Signs
Vital Signs
Temp Pulse Resp BP Pulse Ox
97.7 F 76 14 99/54 94
01/18/24 03:54 01/18/24 03:54 01/18/24 03:54 01/18/24 03:54 01/18/24 03:54
CT Intake/Output/Weight
01/17/24 01/17/24 01/18/24
06:59 18:59 06:59
Intake Total 50 / 50
Output Total 300 / 800 450 / 1050 600 / 1050
Balance -300 / -560 -400 / -1000 -600 / -1000
SaO2: 94
Physical Exam
-
General: Awake and AOx3
Cardiovascular: Regular rate & rhythm, No Murmurs and No Rub
Respiratory: Clear and Decreased Breath Sounds
Sternum: Stable
Incision: Clean, Dry and Intact
Extremities: Other (trace edema b/l)
Data Reviewed
-
Lab Results: Results Reviewed
Medications: Active Meds Reviewed
Chest X-Ray: Report Reviewed and Image Reviewed
ECG: Report Reviewed and Image Reviewed
[2024-01-18] MEDS: TYLENOL 1000 MG PO ×3 (06:31→22:30)
--- NOTE | 2024-01-18 07:00 | PTCARENOTE ---
Bedside walking rounds report received. V paced rhythm on monitor with rates in the 80's. Having loose stools and unable to control with ambulation . Penelope DEDICATED LOCAL TRUCK DRIVER aware.
[2024-01-18] MEDS: NOVOLOG FLEXPEN-MODERATE RESISTANCE 5 UNITS SC ×2 (07:53→12:54)
[2024-01-18] MEDS: BUMEX 2 MG IV ×2 (07:55→16:54)
[2024-01-18] MEDS: PROTONIX 40 MG PO (07:56)
[2024-01-18] MEDS: CYMBALTA DELAYED RELEASE 30 MG PO (07:56)
[2024-01-18] MEDS: NEURONTIN 600 MG PO ×2 (07:56→20:04)
[2024-01-18] MEDS: VITAMIN C 500 MG PO (07:56)
[2024-01-18] MEDS: LOPRESSOR 12.5 MG PO ×2 (07:56→20:04)
[2024-01-18] MEDS: KCL 20 MEQ PO ×2 (07:56→16:54)
[2024-01-18] MEDS: LOW STRENGTH ASPIRIN 81 MG PO (07:56)
[2024-01-18] MEDS: PACERONE 200 MG PO ×3 (07:56→22:30)
[2024-01-18] MEDS: LIDOCAINE 4% PATCH TOPICAL (07:57)
[2024-01-18] MEDS: FEOSOL 325 MG PO (07:57)
[2024-01-18 08:04] LABS: Glucose - Point of Care 278 mg/dl (70-99)
--- NOTE | 2024-01-18 09:27 | W.PN.ID1 ---
Addendum entered and electronically signed by Jennifer Aguiar MD 01/18/24 09:41:
Correction: Pt already has PICC in place.
Original Note:
Date of Service
Date of Service: January 18, 2024
Today's Communication
Ordered PICC.
Continue ceftriaxone.
Assessment / Plan
# Streptococcus mitis/oralis bacteremia
# Bio-AVR root abscess and MV IE
# Leukocytosis -trending down
# PCN allergy (occurred in remote past, [facility]), tolerating cephalosporins
- recent cracked molar s/p dental procedure, did take prophylactic clindamycin.
- Repeat blood cultures finalized negative
- 01/05 SHANI suspicious for root abscess.
- 01/10 SHANI progression of AV root abscess with progression and now involves MV
- 01/13/2024 s/p Reconstruction of the fibrous body using bovine pericardium; MVR #27 mm Mitris; AVR #23 mm Inspiris
OR valve cultures negative
- 01/17/24 s/p PPM
- Continue ceftriaxone 2g IV q24h x 6 weeks through 02/15/24
- Ordered PICC
- Infusion sheet placed in chart and case management aware.
- Trend WBC
# Additional Past Medical History:
DM
s/p Bioprosthetic aortic valve replacement (2014)
Hypertension
CKD3
Chronic sinusitis s/p endoscopic sinus surgery 11/22/23
Mild Asthma
Melanoma
cholecystectomy
Appendectomy
Chief Complaint
-: Bacteremia and Other (endocarditis, AV root abscess)
Subjective / Review of Systems
Feels well.
Vital Signs / Physical Exam
Vital Signs
Vital Signs
Temp Pulse Resp BP Pulse Ox
97.5 F 75 18 101/45 94
01/18/24 07:42 01/18/24 07:45 01/18/24 07:42 01/18/24 07:42 01/18/24 07:45
Physical Exam
Constitutional: No Acute Distress and Comfortable
Cardiovascular: Regular Rate and S1/S2
Gastrointestinal: Soft, Non Tender and Non Distended
Wound: Other (sternal incision clean/closed)
Neurological: AO x 3
Objective Data
Lab Data
Lab Results
01/18/24 03:51
01/18/24 03:51
ESR 61 mm/hour (0-20) H 01/11/24 04:22
PT 35.6 Sec (11.4-14.6) H 01/18/24 03:51
INR 3.56 01/18/24 03:51
APTT 43.1 Sec (23.4-35.0) H 01/13/24 14:13
Estimated Creat Clear 50 ml/min 01/18/24 03:51
Lactic Acid 1.2 mmol/L (0.7-2.0) 01/16/24 23:56
Total Bilirubin 0.4 mg/dl (0.2-1.3) 01/16/24 23:56
AST 45 U/L (14-36) H 01/16/24 23:56
ALT 26 U/L (0-35) 01/16/24 23:56
Alkaline Phosphatase 127 U/L (38-126) H 01/16/24 23:56
C-Reactive Protein 175.00 mg/L (0.0-10.00) H 01/04/24 05:59
Most recent labs reviewed.
Micro Results:
01/13/24 09:52 Fungal Culture - Preliminary
Abscess Culture in progress.
Positive cultures are reported as soon as detected.
Final report to follow in four to five weeks.
01/13/24 09:56 Fungal Culture - Preliminary
Valve Culture in progress.
Positive cultures are reported as soon as detected.
Final report to follow in four to five weeks.
01/13/24 09:54 Fungal Culture - Preliminary
Valve Culture in progress.
Positive cultures are reported as soon as detected.
Final report to follow in four to five weeks.
01/13/24 09:52 Anaerobic Culture - Preliminary
Abscess NO ANAEROBES ISOLATED
01/13/24 09:56 Anaerobic Culture - Preliminary
Valve NO ANAEROBES ISOLATED
01/13/24 09:54 Anaerobic Culture - Preliminary
Valve NO ANAEROBES ISOLATED
01/13/24 09:54 Tissue Culture - Preliminary
Valve No Growth After 72 Hours
Gram Stain - Preliminary
01/13/24 09:52 Tissue Culture - Preliminary
Abscess No Growth After 72 Hours
Gram Stain - Preliminary
01/13/24 09:56 Tissue Culture - Preliminary
Valve No Growth After 72 Hours
Gram Stain - Preliminary
01/12/24 09:57 C. difficile GDH Antigen & Toxins - Final
Feces/Stool Negative for toxigenic C.difficile
01/06/24 03:46 Blood Culture - Final
Blood/Venous No Growth - Final Report
01/05/24 13:17 Blood Culture - Final
Blood/Venous No Growth - Final Report
01/05/24 04:36 Blood Culture - Final
Blood/Venous No Growth - Final Report
01/03/24 21:49 Blood Culture - Final
Blood/Venous Strep mitis/oralis
Gram Stain - Final
01/03/24 21:39 Blood Culture - Final
Blood/Venous Strep mitis/oralis
Gram Stain - Final
01/03/24 21:41 Influenza Types A & B (ALDAIR) - Final
Nasal Swab Negative for Influenza A & B, NAAT
Negative results must be combined with clinical observations
and patient history.
Nucleic Acid Amplification test (NAAT)performed on the
[employer] platform.
--- NOTE | 2024-01-18 12:00 | PTCARENOTE ---
No acute changes. Continues with loose stools. Patient is c diff negative as tested.
--- NOTE | 2024-01-18 12:31 | W.PN.CD ---
Today's Communication / Plan
-
diuresis
ambulation
d/c planning
Impression / Plan
-
Sepsis, bacteremia, and prosthetic valve with aortic root abscess:
-IV abx per ID
-Repeat SHANI 01/11/24 showed progression of the aortic root abscess with flow within the abscess, extension into the LVOT and along the anterior mitral valve with associated trace flow.
-Left heart cath on 01/07/2024: No significant coronary artery disease; both left and right coronary takeoffs are close to prosthetic valve annulus�prostatic aortic valve endocarditis
-now s/p bio AVR, MVR, reconstruction of the fibrous body using bovine pericardium (aka Commando Procedure) with Dr. Toledo 01/13/24.
-Intra-op EF 55%.
-Clinically stable; making good progress post-surgery.
-Continue routine postsurgical care as directed by CT Surgery.
-Continue with current management.
Rhythm
- s/p DC medtronic, MRI compatible PPM 01/17/24
Dilated cardiomyopathy with recovered EF (prior 25-30%, most recent 60-65%- 55% on SHANI); chronic HFpEF
-She did not tolerate Farxiga or Jardiance in the past
-on Coreg/ARB as OP: assess to resume as she recovers from OR
-Continue low-dose metoprolol heart rate---> transition to SUCCINATE on discharge
-Wt is up post op, agree with diuresis
Severe aortic stenosis s/p bioprosthetic aortic valve replacement
-21 mm bovine Trifecta tissue valve 02/25/[address] Read
-now s/p redo CT surgery as above
PVC's
Hypertension, hold ARB in the setting of sepsis/SHARRON
Nonobstructive CAD (luminal irregularities): ASA, statin
CKD3b, follows with Dr. Washburn
NIDDM, Hgba1c 6.5%, per primary
HLD, on rosuvastatin 20mg
Anemia, chronic, follows with Dr. Rivas
Subjective:
She is feeling better than yesteday, working with ICS.
Physical Exam
Vital Signs/Labs
Vital Signs
Temp Pulse Resp BP Pulse Ox
97.5 F 80 18 97/52 100
01/18/24 11:42 01/18/24 11:42 01/18/24 11:42 01/18/24 11:42 01/18/24 11:42
01/17/24 01/18/24 01/19/24
06:59 06:59 06:59
Actual Weight 82.9 kg 83.2 kg
01/18/24 03:51
01/18/24 03:51
PT 35.6 Sec (11.4-14.6) H 01/18/24 03:51
INR 3.56 01/18/24 03:51
APTT 43.1 Sec (23.4-35.0) H 01/13/24 14:13
Magnesium 2.3 mg/dl (1.6-2.3) 01/18/24 03:51
Physical Exam
Constitutional: No acute distress
Cardiovascular: Rhythm & rate is regular, Pedal edema is absent, JVD pressure is normal and Systolic murmur absent
Respiratory: Respiratory effort normal, Lungs clear to auscul., Wheeze Absent, Crackles Absent and Rhonchi Absent
Other: Cardiac Device Site (ppm soft nt, drsg c/d/i)
Data Reviewed
-
Date of Service: January 18, 2024
[2024-01-18 12:59] LABS: Glucose - Point of Care 257 mg/dl (70-99)
[2024-01-18] MEDS: NSS IV (14:53)
[2024-01-18] MEDS: IMODIUM 2 MG PO (14:53)
--- NOTE | 2024-01-18 16:00 | PTCARENOTE ---
No acute changes. Vitals stable. Loose stools diminishing in frequency.
[2024-01-18] MEDS: STERILE WATER FOR INJECTION 20 ML IV (16:30)
[2024-01-18] MEDS: ROCEPHIN 2000 MG IV (16:30)
[2024-01-18 17:46] LABS: Glucose - Point of Care 299 mg/dl (70-99)
[2024-01-18] MEDS: NOVOLOG FLEXPEN-HIGH RESISTANCE 7 UNITS SC (17:46)
[2024-01-18] MEDS: NOVOLIN R 8 UNITS SC (18:19)
--- NOTE | 2024-01-18 20:45 | PTCARENOTE ---
Pt received from keny RN. Walking rounds completed. Pt AAOx3. GARCIA. 1x assist OOB. Pt v-paced on the monitor. HR 80s. BP stable. Palpable pulses. LE edema present. Pt on RA. POX 96%. Lung sounds diminished. Deep breathing and IS encouraged.
Abdomen soft/nontender. +BS. Pt states she had multiple loose stools throughout the day. CT sites CDI. Left upper chest Aquacel CDI. Sternal incision approximated and open to air - some drainage at the top of the incision - 4x4 gauze placed. Right
upper arm PICC CDI. No c/o pain at this time. See worklist for full nursing assessment, interventions and VS. Call amos within reach and pt ringing appropriately.
[2024-01-18] MEDS: CRESTOR 20 MG PO (22:31)
[2024-01-18] MEDS: LANTUS 0.299999999999999989 UNITS SC (22:31)
[2024-01-18 22:32] LABS: Glucose - Point of Care 252 mg/dl (70-99)
[2024-01-19] VITALS (17 sets, daily range): BP systolic 89–115; BP diastolic 42–59; PULSE 70; O2SAT 97; BMI 32.1
--- NOTE | 2024-01-19 00:50 | PTCARENOTE ---
Previous assessment unchanged. Pt V-paced on the monitor. HR 60s. BP stable. RA. POX 95%. All surgical sites stable. Call amos within reach.
[2024-01-19 04:19] LABS: Hematocrit 27.6 % (37.0-47.0); Hemoglobin 9.1 g/dL (12.0-16.0); Mean Corpuscular Hgb 29.4 pg (27.0-31.0); Mean Platelet Volume 10.1 fL (7.4-10.4); Platelet Count 279 10^3/uL (130-400); Red Cell Dist. Width 14.2 % (11.5-14.5); White Blood Cell Count 13.1 10^3/uL (4.8-10.8)
--- NOTE | 2024-01-19 04:20 | PTCARENOTE ---
Previous assessment unchanged. Pt V-paced on the monitor. HR 60s. BP stable. Pt on room air. POX 96%. No c/o pain at this time. All surgical sites stable. Pt repositioned in bed. Labs drawn and sent. Call amos within reach.
[2024-01-19 04:26] LABS: PT 33.5 Sec (11.4-14.6)
[2024-01-19 04:42] LABS: ALT (SGPT) 42 U/L (0-35); AST (SGOT) 54 U/L (14-36); Albumin 3.2 g/dl (3.5-5.0); Alkaline Phosphatase 110 U/L (38-126); Blood Urea Nitrogen 39 mg/dl (7-17); Calcium 8.6 mg/dl (8.4-10.2); Carbon Dioxide 31 mmol/L (22-30); Chloride 102 mmol/L (98-107); Estimated Creatinine Clearance 41 ml/min; Glucose 139 mg/dl (70-99); Potassium 3.9 mmol/L (3.5-5.1); Sodium 138 mmol/L (135-145); Total Bilirubin 0.3 mg/dl (0.2-1.3); Total Protein 5.7 g/dl (6.3-8.2); eGFR 47.21
[2024-01-19] MEDS: TYLENOL 1000 MG PO ×3 (05:41→22:16)
--- NOTE | 2024-01-19 05:42 | W.PN.CT ---
Today's Communication / Plan
-
-pod #6
-no issues overnight, looks and feels slightly better
-diuresed with 2 mg iv bid Bumex on 01/17 with multiple voids (unmeasured)
-loose stool x3 on 01/17 - better with Imodium (C.Diff negative)
-Cr 1.2 today (1.0 on 01/17)- follow
-has picc, on Ceftriaxone
-s/p pacer implant on 01/16
-BB and Amio restarted after pacer implant
-INR 3.30 today--will re-check at noon (got Coumadin 2, 5, 3, 3, 0). Plan is to continue Coumadin for 3 months, then switch to ASA
-stable L small ptx, b/l pleur effusions on 01/16- effusions appear resolved and ptx is smaller on today's CXR - follow Radiology report
-continue PT/OT
-encourage IS, OOB
Assessment / Plan
-
Assessment:
-s/p Reconstruction of the fibrous body using bovine pericardium (aka Commando Procedure); MVR #27 mm Mitris; AVR #23 mm Inspiris on 01/13/[address] Toledo, pod #6
-intraop SHANI: EF�60%, AV 11/6mmHg, MV 3/1mmHg, no AI/MR, moderate TR
-s/p Successful implantation of Medtronic MRI compatible dual chamber conduction system pacing permanent pacemaker on 01/17/[address] Fink
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 mitral valve, per SHANI 01/11/24. Bioprosthetic aortic valve is well seated
-Fever/Leukocytosis
-Blood culture from 01/02 grew Strep mitis/oralis; no growth from subsequent cultures
-Recent tooth extraction
-S/P Endoscopic bilateral anterior ethmoidectomy and maxillary antrostomy, 11/22/23
-S/P Aortic valve replacement ([address] Elias Trifecta bovine pericardial tissue valve) by Dr. Jayjay Read on 02/25/2015
-SHARRON on CKD3b
-Hypertension.
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
-Hx CVA (w/resolved RUE weakness)
-Hyperlipidemia
-Class 1 obesity (BMI 30)
-GERD
-Asthma
-Depression
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
-Hx of vertigo
-S/p Cholecystectomy
-S/P Appendectomy
-S/P Bilateral breast biopsies (benign)
-S/p Teeth implants
-Acute on chronic postop blood loss anemia - s/p 3 pRBCs
-Acute postop coagulopathy - s/p 2 FFPs and 2 unit platelets
-Acute postop atelectasis/ b/l small-mod pleural effusions
-SHARRON-resolved
-Acute postop small L apical ptx - stable
-Acute postop complete heart block, requiring Dopa/Epi/pacing on 01/15 - s/p pacer implant 01/17/24
Echo 01/14/24:
-Technically difficult study with very limited acoustic windows. Definity contrast used.
-Left ventricular ejection fraction is >75%, by visual assessment. Normal regional wall motion.
-Normal right ventricular systolic function.
-Status-post mitral valve replacement with peak/mean gradients of 14/3 mmHg. No mitral regurgitation is seen.
-Status-post bioprosthetic aortic valve replacement with peak/mean gradients of 10/6 mmHg. No aortic regurgitation is seen.
Discussed patient care with: Nursing and Care Team
Subjective
Procedure
-s/p Reconstruction of the fibrous body using bovine pericardium (aka Commando Procedure); MVR #27 mm Mitris; AVR #23 mm Inspiris on 01/13/[address] Toledo
-
Date of Service: January 19, 2024
Objective Data
-
PT 35.6 Sec (11.4-14.6) H 01/18/24 03:51
INR 3.56 01/18/24 03:51
APTT 43.1 Sec (23.4-35.0) H 01/13/24 14:13
Vital Signs
Vital Signs
Temp Pulse Resp BP Pulse Ox
97.9 F 68 16 98/53 95
01/19/24 00:26 01/19/24 00:26 01/19/24 00:26 01/19/24 00:26 01/19/24 00:26
CT Intake/Output/Weight
01/18/24 01/18/24 01/19/24
06:59 18:59 06:59
Intake Total 1200 / 1200
Output Total 600 / 1050 300 / 300
Balance -600 / -1000 900 / 900
SaO2: 95
Physical Exam
-
General: Awake and AOx3
Cardiovascular: Regular rate & rhythm, No Murmurs and No Rub
Respiratory: Clear and Decreased Breath Sounds
Sternum: Stable
Incision: Clean, Dry and Intact
Abdomen: soft, nondistended, nontender, + bowel sounds
Extremities: Other (trace edema b/l)
Data Reviewed
-
Lab Results: Results Reviewed
Medications: Active Meds Reviewed
Chest X-Ray: Report Reviewed and Image Reviewed
ECG: Report Reviewed and Image Reviewed
--- NOTE | 2024-01-19 07:00 | PTCARENOTE ---
Bedside walking rounds report received. V paced rhythm on monitor with rates in the 80's. Having less loose stools than previous day. Plan: diurese. Check INR at 12 noon.
[2024-01-19 08:02] LABS: Glucose - Point of Care 141 mg/dl (70-99)
[2024-01-19] MEDS: NOVOLOG FLEXPEN-HIGH RESISTANCE 1 UNITS SC (08:02)
[2024-01-19] MEDS: PROTONIX 40 MG PO (08:23)
[2024-01-19] MEDS: LOW STRENGTH ASPIRIN 81 MG PO (08:23)
[2024-01-19] MEDS: NEURONTIN 600 MG PO ×2 (08:23→19:49)
[2024-01-19] MEDS: FEOSOL 325 MG PO (08:23)
[2024-01-19] MEDS: CYMBALTA DELAYED RELEASE 30 MG PO (08:23)
[2024-01-19] MEDS: VITAMIN C 500 MG PO (08:23)
[2024-01-19] MEDS: PACERONE 200 MG PO ×3 (08:23→22:16)
[2024-01-19] MEDS: LOPRESSOR 12.5 MG PO ×2 (08:24→19:49)
[2024-01-19] MEDS: LIDOCAINE 4% PATCH TOPICAL (08:24)
[2024-01-19] MEDS: BUMEX 2 MG IV (09:15)
[2024-01-19] MEDS: IMODIUM 2 MG PO ×2 (09:16→17:22)
[2024-01-19] MEDS: KCL 40 MEQ PO (09:16)
[2024-01-19] MEDS: FLEXBUMIN 100 IV (09:17)
--- NOTE | 2024-01-19 09:39 | W.PN.CD ---
Today's Communication / Plan
-
-Remains clinically stable.
-Continue postsurgical care as directed by CT Surgery.
-Continue current medications.
Impression / Plan
-
Sepsis, bacteremia, and prosthetic valve with aortic root abscess:
-IV abx per ID
-Repeat SHANI 01/11/24 showed progression of the aortic root abscess with flow within the abscess, extension into the LVOT and along the anterior mitral valve with associated trace flow.
-Left heart cath on 01/07/2024: No significant coronary artery disease; both left and right coronary takeoffs are close to prosthetic valve annulus�prostatic aortic valve endocarditis
-now s/p bio AVR, MVR, reconstruction of the fibrous body using bovine pericardium (aka Commando Procedure) with Dr. Toledo 01/13/24.
-Intra-op EF 55%.
-Remains clinically stable.
-Continue postsurgical care as directed by CT Surgery.
-Continue current medications.
Rhythm
-Status-post 2-chamber Medtronic MRI compatible PPM 01/17/24; stable.
Dilated cardiomyopathy with recovered EF (prior 25-30%, most recent 60-65%- 55% on SHANI); chronic HFpEF
-Did not tolerate Farxiga or Jardiance in the past
-on Coreg/ARB as OP: assess to resume as she recovers from OR
-Continue low-dose metoprolol tartrate---> transition to SUCCINATE on discharge
-Wt is up post op, agree with diuresis
Severe aortic stenosis s/p bioprosthetic aortic valve replacement
-21 mm bovine Trifecta tissue valve 02/25/[address] Read
-now s/p redo CT surgery as above
PVC's
Hypertension, hold ARB in the setting of sepsis/SHARRON
Nonobstructive CAD (luminal irregularities): ASA, statin
CKD3b, follows with Dr. Washburn
NIDDM, Hgba1c 6.5%, per primary
HLD, on rosuvastatin 20mg
Anemia, chronic, follows with Dr. Rivas
Subjective:
No major events overnight. No cardiac complaints this a.m.
Physical Exam
Vital Signs/Labs
Vital Signs
Temp Pulse Resp BP Pulse Ox
97.5 F 80 18 114/47 99
01/19/24 08:05 01/19/24 09:00 01/19/24 08:05 01/19/24 08:07 01/19/24 08:15
01/18/24 01/19/24 01/20/24
06:59 06:59 06:59
Actual Weight 83.2 kg 82.1 kg
01/19/24 04:02
01/19/24 04:02
PT 33.5 Sec (11.4-14.6) H 01/19/24 04:02
INR 3.30 01/19/24 04:02
APTT 43.1 Sec (23.4-35.0) H 01/13/24 14:13
Magnesium 2.3 mg/dl (1.6-2.3) 01/18/24 03:51
Physical Exam
Constitutional: No acute distress and Comfortable
EENT: Anicteric
Cardiovascular: Rhythm & rate is regular, Pedal edema is absent, Systolic murmur absent and S1S2 is normal
Respiratory: Respiratory effort normal and Lungs clear to auscul.
GI: Soft
Neuro/Psych: AO x 3
Other: Skin (Warm, dry, intact)
Data Reviewed
-
Date of Service: January 19, 2024
EKG: Tracing Personally Visualized and interpreted (Telemetry: Sinus rhythm)
Medical Tests (PFT, Pathology etc): Discussed with Nurse and Discussed with Patient
Labs: Labs Reviewed by me
Critical Care Time (in minutes): 34
[2024-01-19 12:30] LABS: INR 2.71; PT 29.1 Sec (11.4-14.6)
[2024-01-19 12:37] LABS: Glucose - Point of Care 190 mg/dl (70-99)
--- NOTE | 2024-01-19 12:51 | W.PN.ID1 ---
Date of Service
Date of Service: January 19, 2024
Today's Communication
Continue ceftriaxone.
Assessment / Plan
# Streptococcus mitis/oralis bacteremia
# Bio-AVR root abscess and MV IE
# Leukocytosis -trending down
# PCN allergy (occurred in remote past, college), tolerating cephalosporins
- recent cracked molar s/p dental procedure, did take prophylactic clindamycin.
- Repeat blood cultures finalized negative
- 01/05 SHANI suspicious for root abscess.
- 01/10 SHANI progression of AV root abscess with progression and now involves MV
- 01/13/2024 s/p Reconstruction of the fibrous body using bovine pericardium; MVR #27 mm Mitris; AVR #23 mm Inspiris
OR valve cultures negative
- 01/17/24 s/p PPM
- Continue ceftriaxone 2g IV q24h x 6 weeks through 02/15/24
- PICC in place.
- Infusion sheet placed in chart and case management aware.
- Trend WBC
# Diarrhea
-C. diff negative
- Ordered probiotic.
-Continue Imodium prn
# Additional Past Medical History:
DM
s/p Bioprosthetic aortic valve replacement (2014)
Hypertension
CKD3
Chronic sinusitis s/p endoscopic sinus surgery 11/22/23
Mild Asthma
Melanoma
cholecystectomy
Appendectomy
Chief Complaint
-: Bacteremia and Other (endocarditis, AV root abscess)
Subjective / Review of Systems
Diarrhea improved.
Vital Signs / Physical Exam
Vital Signs
Vital Signs
Temp Pulse Resp BP Pulse Ox
98 F 76 18 109/56 97
01/19/24 11:48 01/19/24 11:50 01/19/24 11:48 01/19/24 11:50 01/19/24 11:50
Physical Exam
Constitutional: No Acute Distress and Comfortable
Gastrointestinal: Soft, Non Tender and Non Distended
Extremities: Edema
Neurological: AO x 3
Lines: PICC (RUE)
Objective Data
Lab Data
Lab Results
01/19/24 04:02
01/19/24 04:02
ESR 61 mm/hour (0-20) H 01/11/24 04:22
PT 29.1 Sec (11.4-14.6) H 01/19/24 11:56
INR 2.71 01/19/24 11:56
APTT 43.1 Sec (23.4-35.0) H 01/13/24 14:13
Estimated Creat Clear 41 ml/min 01/19/24 04:02
Lactic Acid 1.2 mmol/L (0.7-2.0) 01/16/24 23:56
Total Bilirubin 0.3 mg/dl (0.2-1.3) 01/19/24 04:02
AST 54 U/L (14-36) H 01/19/24 04:02
ALT 42 U/L (0-35) H 01/19/24 04:02
Alkaline Phosphatase 110 U/L (38-126) 01/19/24 04:02
C-Reactive Protein 175.00 mg/L (0.0-10.00) H 01/04/24 05:59
Most recent labs reviewed.
Micro Results:
01/18/24 10:11 C. difficile GDH Antigen & Toxins - Final
Feces/Stool Negative for toxigenic C.difficile
01/13/24 09:56 Tissue Culture - Final
Valve No Growth After 72 Hours
Gram Stain - Final
01/13/24 09:52 Tissue Culture - Final
Abscess No Growth After 72 Hours
Gram Stain - Final
01/13/24 09:54 Tissue Culture - Final
Valve No Growth After 72 Hours
Gram Stain - Final
01/13/24 09:54 Anaerobic Culture - Final
Valve NO ANAEROBES ISOLATED
01/13/24 09:56 Anaerobic Culture - Final
Valve NO ANAEROBES ISOLATED
01/13/24 09:52 Anaerobic Culture - Final
Abscess NO ANAEROBES ISOLATED
01/13/24 09:52 Fungal Culture - Preliminary
Abscess Culture in progress.
Positive cultures are reported as soon as detected.
Final report to follow in four to five weeks.
01/13/24 09:56 Fungal Culture - Preliminary
Valve Culture in progress.
Positive cultures are reported as soon as detected.
Final report to follow in four to five weeks.
01/13/24 09:54 Fungal Culture - Preliminary
Valve Culture in progress.
Positive cultures are reported as soon as detected.
Final report to follow in four to five weeks.
01/12/24 09:57 C. difficile GDH Antigen & Toxins - Final
Feces/Stool Negative for toxigenic C.difficile
01/06/24 03:46 Blood Culture - Final
Blood/Venous No Growth - Final Report
01/05/24 13:17 Blood Culture - Final
Blood/Venous No Growth - Final Report
01/05/24 04:36 Blood Culture - Final
Blood/Venous No Growth - Final Report
01/03/24 21:49 Blood Culture - Final
Blood/Venous Strep mitis/oralis
Gram Stain - Final
01/03/24 21:39 Blood Culture - Final
Blood/Venous Strep mitis/oralis
Gram Stain - Final
01/03/24 21:41 Influenza Types A & B (ALDAIR) - Final
Nasal Swab Negative for Influenza A & B, NAAT
Negative results must be combined with clinical observations
and patient history.
Nucleic Acid Amplification test (NAAT)performed on the
[employer] platform.
--- NOTE | 2024-01-19 12:58 | CM ---
Addendum entered by Lay Yao 01/19/24 15:43:
Received call back from [facility] Liaison Teaching to the patient to be done today, the medication to be delivered 01/20/24. and Jackie RN will be out on Wednesday01/21/24. Need to fax labs tomorrow to ( ).
Original Note:
Reviewed chart. Met with Mrs. Gallardo to review discharge plans. She states she is feeling ok, but she currently has diarrhea. She states she has been walking to the bathroom and getting up out of the chair without assistance. She states prior to
admission she resides with her spouse in a two story home with two steps to enter. She states she has a full bathroom on each floor. She states she does have to go up a full flight of steps to get to bedroom. She states prior to admission she was
independent with ambulation and adls. She ambulated 80 feet with supervision today. We reviewed home ABX with [facility] and [facility] with [facility]. She is agreeable to the home care suppliers. Telephone call to [facility] to confirm
discharge date and to make sure they have anything else from me. Left message. Telephone call to [facility] liaison to update them and confirm discharge date. Mrs. Gallardo states her spouse will be home to assist in her care if needed. She
has a prescription plan with [facility] and uses [facility]. Medical work-up in progress. The discahrge plan is to return home with her spouse and [facility] for ABX and [facility] when medically stable.
[2024-01-19] MEDS: NSS IV (13:05)
[2024-01-19] MEDS: LIDOCAINE 4% PATCH 1 PATCH TOPICAL (13:07)
[2024-01-19] MEDS: NOVOLOG FLEXPEN-HIGH RESISTANCE 2 UNITS SC ×2 (13:08→17:59)
[2024-01-19] MEDS: BUMEX 1 MG IV (14:08)
[2024-01-19] MEDS: ROCEPHIN 2000 MG IV (15:51)
[2024-01-19] MEDS: STERILE WATER FOR INJECTION 20 ML IV (15:51)
[2024-01-19 17:57] LABS: Glucose - Point of Care 188 mg/dl (70-99)
[2024-01-19] MEDS: COUMADIN 2.5 MG PO (17:57)
--- NOTE | 2024-01-19 20:15 | PTCARENOTE ---
Assumed care of patient at 1900. Patient found OOB in chair at time of assessment with spouse at bedside. Patient is AOx4, follows commands appropriately, moves all extremities. Lung sounds are diminished throughout, saO2 at 97%. Heart sounds have a
regular rate and rhythm, patient has PPM 100% vpaced on the monitor, heart tones are distant. Patient has weak pedal pulses, normal radial pulses, and trace BLE edema. Patient has round obese abdomen with active BS. Patient reports diarrhea during
day. Patient is voiding in bathroom. There is an ABD dressing over CT wounds that is CDI, a sternal incision with 4x4 gauze dressing that is CDI, and bilateral groin punctures approx with surg adhesive WILLIE. There is a R PICC available for
intermittent infusion. Patient has no complaints at this time.
[2024-01-19 22:15] LABS: Glucose - Point of Care 270 mg/dl (70-99)
[2024-01-19] MEDS: FLEXERIL 5 MG PO (22:16)
[2024-01-19] MEDS: CRESTOR 20 MG PO (22:16)
[2024-01-19] MEDS: LANTUS 0.340000000000000024 UNITS SC (22:18)
--- NOTE | 2024-01-20 00:30 | PTCARENOTE ---
Patient reassessed. VSS. Assisted patient to bathroom and back without incident. Patient is stable.
[2024-01-20 04:01] VITALS: BP 99/60
[2024-01-20 04:12] LABS: Hematocrit 28.5 % (37.0-47.0); Hemoglobin 9.2 g/dL (12.0-16.0); Mean Corp Hgb Conc. 32.3 g/dL (33.0-37.0); Mean Corpuscular Hgb 29.6 pg (27.0-31.0); Mean Corpuscular Volume 91.6 fL (81.0-99.0); Mean Platelet Volume 10.2 fL (7.4-10.4); Platelet Count 265 10^3/uL (130-400); Red Blood Cell Count 3.11 10^6/uL (4.20-5.40); Red Cell Dist. Width 13.9 % (11.5-14.5); White Blood Cell Count 12.3 10^3/uL (4.8-10.8)
[2024-01-20 04:24] LABS: INR 2.84; PT 30.3 Sec (11.4-14.6)
[2024-01-20 04:30] VITALS: BP 99/60
[2024-01-20 04:38] LABS: ALT (SGPT) 40 U/L (0-35); AST (SGOT) 40 U/L (14-36); Albumin 3.4 g/dl (3.5-5.0); Alkaline Phosphatase 96 U/L (38-126); Blood Urea Nitrogen 33 mg/dl (7-17); Calcium 8.6 mg/dl (8.4-10.2); Carbon Dioxide 33 mmol/L (22-30); Chloride 99 mmol/L (98-107); Estimated Creatinine Clearance 49 ml/min; Glucose 146 mg/dl (70-99); Potassium 4.3 mmol/L (3.5-5.1); Sodium 135 mmol/L (135-145); Total Bilirubin 0.4 mg/dl (0.2-1.3); Total Protein 5.8 g/dl (6.3-8.2); eGFR 58.75
--- NOTE | 2024-01-20 04:44 | PTCARENOTE ---
Patient reassessed. VSS. AM labs obtained. Remains SR with first deg AV block and BBB. No complaints at this time. Patient is stable.
--- NOTE | 2024-01-20 05:46 | W.PN.CT ---
Today's Communication / Plan
-
-pod #7
-no issues overnight, c/o mid back pain- better with Flexeril, warm compress
-loose stools - improving (C.Diff negative)
-Cr 1.0 today (1.2 on 01/18, 1.0 on 01/17)
-has picc, on Ceftriaxone
-s/p pacer implant on 01/16
-BB and Amio restarted after pacer implant
-INR 2.84 today (got Coumadin 2, 5, 3, 3, 0, 2.5). Plan is to continue Coumadin for 3 months, then switch to ASA
-continue PT/OT
-encourage IS, OOB
-possible d/c
Assessment / Plan
-
Assessment:
-s/p Reconstruction of the fibrous body using bovine pericardium (aka Commando Procedure); MVR #27 mm Mitris; AVR #23 mm Inspiris on 01/13/[address] Toledo, pod #7
-intraop SHANI: EF�60%, AV 11/6mmHg, MV 3/1mmHg, no AI/MR, moderate TR
-s/p Successful implantation of Medtronic MRI compatible dual chamber conduction system pacing permanent pacemaker on 01/17/[address] Fink
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 mitral valve, per SHANI 01/11/24. Bioprosthetic aortic valve is well seated
-Fever/Leukocytosis
-Blood culture from 01/02 grew Strep mitis/oralis; no growth from subsequent cultures
-Recent tooth extraction
-S/P Endoscopic bilateral anterior ethmoidectomy and maxillary antrostomy, 11/22/23
-S/P Aortic valve replacement ([address] Elias Trifecta bovine pericardial tissue valve) by Dr. Jayjay Read on 02/25/2015
-SHARRON on CKD3b
-Hypertension.
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
-Hx CVA (w/resolved RUE weakness)
-Hyperlipidemia
-Class 1 obesity (BMI 30)
-GERD
-Asthma
-Depression
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
-Hx of vertigo
-S/p Cholecystectomy
-S/P Appendectomy
-S/P Bilateral breast biopsies (benign)
-S/p Teeth implants
-Acute on chronic postop blood loss anemia - s/p 3 pRBCs
-Acute postop coagulopathy - s/p 2 FFPs and 2 unit platelets
-Acute postop atelectasis/ b/l small-mod pleural effusions
-SHARRON-resolved
-Acute postop small L apical ptx - stable
-Acute postop complete heart block, requiring Dopa/Epi/pacing on 01/15 - s/p pacer implant 01/17/24
Echo 01/14/24:
-Technically difficult study with very limited acoustic windows. Definity contrast used.
-Left ventricular ejection fraction is >75%, by visual assessment. Normal regional wall motion.
-Normal right ventricular systolic function.
-Status-post mitral valve replacement with peak/mean gradients of 14/3 mmHg. No mitral regurgitation is seen.
-Status-post bioprosthetic aortic valve replacement with peak/mean gradients of 10/6 mmHg. No aortic regurgitation is seen.
Discussed patient care with: Nursing and Care Team
Subjective
Procedure
-s/p Reconstruction of the fibrous body using bovine pericardium (aka Commando Procedure); MVR #27 mm Mitris; AVR #23 mm Inspiris on 01/13/[address] Toledo
-
Date of Service: January 20, 2024
Objective Data
-
PT 29.1 Sec (11.4-14.6) H 01/19/24 11:56
INR 2.71 01/19/24 11:56
APTT 43.1 Sec (23.4-35.0) H 01/13/24 14:13
Vital Signs
Vital Signs
Temp Pulse Resp BP Pulse Ox
98.5 F 76 18 97/42 97
01/19/24 23:00 01/19/24 23:00 01/19/24 23:00 01/19/24 23:00 01/19/24 23:00
CT Intake/Output/Weight
01/19/24 01/19/24 01/20/24
06:59 18:59 06:59
Intake Total 1050 / 1050
Balance 1050 / 1050
SaO2: 97
Physical Exam
-
General: Awake and AOx3
Cardiovascular: Regular rate & rhythm, No Murmurs and No Rub
Respiratory: Clear and Decreased Breath Sounds
Sternum: Stable
Incision: Clean, Dry and Intact
Abdomen: soft, nondistended, nontender, + bowel sounds
Extremities: Other (trace edema b/l)
Data Reviewed
-
Lab Results: Results Reviewed
Medications: Active Meds Reviewed
Chest X-Ray: Report Reviewed and Image Reviewed
ECG: Report Reviewed and Image Reviewed
[2024-01-20 06:00] VITALS: BMI 31.5
[2024-01-20] MEDS: TYLENOL 1000 MG PO (06:21)
[2024-01-20 07:40] VITALS: BP 119/52
--- NOTE | 2024-01-20 08:00 | PTCARENOTE ---
Received pt from inspector chief RN; pt AAOx3 and resting comfortably in chair; NSR BBB on monitor and VSS; Right single PICC patent; Lungs diminished; IS to 1000; positive bowel sounds; pt voiding clear yellow urine; weak lower extremity pulses and
positive radial pulses; no edema noted; all surgical sites C/D/I; see nursing documentation for further details.
[2024-01-20 08:23] LABS: Glucose - Point of Care 171 mg/dl (70-99)
[2024-01-20] MEDS: CYMBALTA DELAYED RELEASE 30 MG PO (08:23)
[2024-01-20] MEDS: NEURONTIN 600 MG PO (08:23)
[2024-01-20] MEDS: PACERONE 200 MG PO (08:23)
[2024-01-20] MEDS: LOW STRENGTH ASPIRIN 81 MG PO (08:23)
[2024-01-20] MEDS: VISBIOME 2 CAP PO (08:23)
[2024-01-20] MEDS: FEOSOL 325 MG PO (08:23)
[2024-01-20] MEDS: LOPRESSOR 12.5 MG PO (08:23)
[2024-01-20] MEDS: PROTONIX 40 MG PO (08:23)
[2024-01-20] MEDS: VITAMIN C 500 MG PO (08:23)
[2024-01-20] MEDS: NOVOLOG FLEXPEN-HIGH RESISTANCE 2 UNITS SC (08:24)
[2024-01-20] MEDS: LIDOCAINE 4% PATCH 1 PATCH TOPICAL (08:24)
--- NOTE | 2024-01-20 08:50 | W.PN.CD ---
Today's Communication / Plan
-
transition metoprolol to succinate for discharge
will not resume ARB can reconsider as outpatient
will arrange device check for next week, continue dressing until that time.
Impression / Plan
-
Sepsis, bacteremia, and prosthetic valve with aortic root abscess:
-IV abx per ID
-Repeat SHANI 01/11/24 showed progression of the aortic root abscess with flow within the abscess, extension into the LVOT and along the anterior mitral valve with associated trace flow.
-Left heart cath on 01/07/2024: No significant coronary artery disease; both left and right coronary takeoffs are close to prosthetic valve annulus�prostatic aortic valve endocarditis
-now s/p bio AVR, MVR, reconstruction of the fibrous body using bovine pericardium (aka Commando Procedure) with Dr. Toledo 01/13/24.
-Intra-op EF 55%.
-Remains clinically stable.
-Continue postsurgical care as directed by CT Surgery.
Rhythm
-Status-post 2-chamber Medtronic MRI compatible PPM 01/17/24; stable.
Dilated cardiomyopathy with recovered EF (prior 25-30%, most recent 60-65%- 55% on SHANI); chronic HFpEF
-Did not tolerate Farxiga or Jardiance in the past
-on Coreg/ARB as OP:
-Continue low-dose metoprolol tartrate---> transition to SUCCINATE on discharge
-reassess as outpatient to resume arb
Severe aortic stenosis s/p bioprosthetic aortic valve replacement
-21 mm bovine Trifecta tissue valve 02/25/[address] Read
-now s/p redo CT surgery as above
PVC's
Hypertension, hold ARB in the setting of sepsis/SHARRON
Nonobstructive CAD (luminal irregularities): ASA, statin
CKD3b, follows with Dr. Washburn
NIDDM, Hgba1c 6.5%, per primary
HLD, on rosuvastatin 20mg
Anemia, chronic, follows with Dr. Rivas
Subjective:
No major events overnight. She is feeling better, pain manageable
Physical Exam
Vital Signs/Labs
Vital Signs
Temp Pulse Resp BP Pulse Ox
98.0 F 84 20 119/52 95
01/20/24 08:00 01/20/24 08:30 01/20/24 08:00 01/20/24 08:23 01/20/24 08:49
01/19/24 01/20/24 01/21/24
06:59 06:59 06:59
Actual Weight 82.1 kg 80.6 kg
01/20/24 04:00
01/20/24 04:00
PT 30.3 Sec (11.4-14.6) H 01/20/24 04:00
INR 2.84 01/20/24 04:00
APTT 43.1 Sec (23.4-35.0) H 01/13/24 14:13
Magnesium 2.3 mg/dl (1.6-2.3) 01/18/24 03:51
Physical Exam
Constitutional: No acute distress
EENT: Anicteric
Cardiovascular: Rhythm & rate is regular, Pedal edema is absent, JVD pressure is normal and Systolic murmur present
Respiratory: Respiratory effort normal, Lungs clear to auscul., Wheeze Absent, Crackles Absent and Rhonchi Absent
Neuro/Psych: AO x 3
Data Reviewed
-
Date of Service: January 20, 2024
EKG: Other (sinus)
--- NOTE | 2024-01-20 08:59 | W.PN.ID1 ---
Date of Service
Date of Service: January 20, 2024
Today's Communication
Follow up with me in 2 to 3 weeks.
Assessment / Plan
# Streptococcus mitis/oralis bacteremia
# Bio-AVR root abscess and MV IE
# Leukocytosis -resolving
# PCN allergy (occurred in remote past, [facility]), tolerating cephalosporins
- recent cracked molar s/p dental procedure, did take prophylactic clindamycin.
- Repeat blood cultures finalized negative
- 01/05 SHANI suspicious for root abscess.
- 01/10 SHANI progression of AV root abscess with progression and now involves MV
- 01/13/2024 s/p Reconstruction of the fibrous body using bovine pericardium; MVR #27 mm Mitris; AVR #23 mm Inspiris
OR valve cultures negative
- 01/17/24 s/p PPM
- Continue ceftriaxone 2g IV q24h x 6 weeks through 02/15/24
- PICC in place.
-Follow-up with me in 2 to 3 weeks.
# Diarrhea
-C. diff negative
- Ordered probiotic.
-Continue Imodium prn
# Additional Past Medical History:
DM
s/p Bioprosthetic aortic valve replacement (2014)
Hypertension
CKD3
Chronic sinusitis s/p endoscopic sinus surgery 11/22/23
Mild Asthma
Melanoma
cholecystectomy
Appendectomy
Chief Complaint
-: Bacteremia and Other (endocarditis, AV root abscess)
Subjective / Review of Systems
Going home today.
Vital Signs / Physical Exam
Vital Signs
Vital Signs
Temp Pulse Resp BP Pulse Ox
98.0 F 84 20 119/52 95
01/20/24 08:00 01/20/24 08:30 01/20/24 08:00 01/20/24 08:23 01/20/24 08:52
Physical Exam
Constitutional: No Acute Distress and Comfortable
Cardiovascular: Regular Rate and S1/S2
Gastrointestinal: Soft, Non Tender and Non Distended
Neurological: AO x 3
Lines: PICC (RUE)
Objective Data
Lab Data
Lab Results
01/20/24 04:00
01/20/24 04:00
ESR 61 mm/hour (0-20) H 01/11/24 04:22
PT 30.3 Sec (11.4-14.6) H 01/20/24 04:00
INR 2.84 01/20/24 04:00
APTT 43.1 Sec (23.4-35.0) H 01/13/24 14:13
Estimated Creat Clear 49 ml/min 01/20/24 04:00
Lactic Acid 1.2 mmol/L (0.7-2.0) 01/16/24 23:56
Total Bilirubin 0.4 mg/dl (0.2-1.3) 01/20/24 04:00
AST 40 U/L (14-36) H 01/20/24 04:00
ALT 40 U/L (0-35) H 01/20/24 04:00
Alkaline Phosphatase 96 U/L (38-126) 01/20/24 04:00
C-Reactive Protein 175.00 mg/L (0.0-10.00) H 01/04/24 05:59
Most recent labs reviewed.
Micro Results:
01/18/24 10:11 C. difficile GDH Antigen & Toxins - Final
Feces/Stool Negative for toxigenic C.difficile
01/13/24 09:56 Tissue Culture - Final
Valve No Growth After 72 Hours
Gram Stain - Final
01/13/24 09:52 Tissue Culture - Final
Abscess No Growth After 72 Hours
Gram Stain - Final
01/13/24 09:54 Tissue Culture - Final
Valve No Growth After 72 Hours
Gram Stain - Final
01/13/24 09:54 Anaerobic Culture - Final
Valve NO ANAEROBES ISOLATED
01/13/24 09:56 Anaerobic Culture - Final
Valve NO ANAEROBES ISOLATED
01/13/24 09:52 Anaerobic Culture - Final
Abscess NO ANAEROBES ISOLATED
01/13/24 09:52 Fungal Culture - Preliminary
Abscess Culture in progress.
Positive cultures are reported as soon as detected.
Final report to follow in four to five weeks.
01/13/24 09:56 Fungal Culture - Preliminary
Valve Culture in progress.
Positive cultures are reported as soon as detected.
Final report to follow in four to five weeks.
01/13/24 09:54 Fungal Culture - Preliminary
Valve Culture in progress.
Positive cultures are reported as soon as detected.
Final report to follow in four to five weeks.
01/12/24 09:57 C. difficile GDH Antigen & Toxins - Final
Feces/Stool Negative for toxigenic C.difficile
01/06/24 03:46 Blood Culture - Final
Blood/Venous No Growth - Final Report
01/05/24 13:17 Blood Culture - Final
Blood/Venous No Growth - Final Report
01/05/24 04:36 Blood Culture - Final
Blood/Venous No Growth - Final Report
01/03/24 21:49 Blood Culture - Final
Blood/Venous Strep mitis/oralis
Gram Stain - Final
01/03/24 21:39 Blood Culture - Final
Blood/Venous Strep mitis/oralis
Gram Stain - Final
01/03/24 21:41 Influenza Types A & B (ALDAIR) - Final
Nasal Swab Negative for Influenza A & B, NAAT
Negative results must be combined with clinical observations
and patient history.
Nucleic Acid Amplification test (NAAT)performed on the
[employer] platform.
--- NOTE | 2024-01-20 09:13 | W.DCSUMMARY ---
Discharge Summary
Discharge Data
Date of Admission: 01/04/24
Date of Discharge: 01/20/24
-
Pending Results: No
Hospital Course
Primary care physician: Susan Arnold
Outpatient separations scientist: Aileen Stovall
Inpatient consultants: [facility] Cardiology, Infectious Disease
Procedures:
1. Redo aortic valve replacement/mitral valve replacement with reconstruction of fibrous blood
2. Permanent pacemaker implant (Medtronic)
Primary Diagnosis:
1. Strep mitis bacteremia with aortic root abscess
Secondary Diagnoses:
1. Aortic stenosis status post biologic aortic valve replacement (#[address] Elias Trifecta) in 2014
2. Hypertension
3. Type 2 diabetes
4. SHARRON on kidney disease IIIb (GFR 36)
5. Hx CVA (w/resolved RUE weakness)
6. Hyperlipidemia
7. Class 1 obesity (BMI 31)
8. GERD
9. Asthma
10. Depression
11. 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
12. Acute on chronic postop blood loss anemia
13. Acute postop coagulopathy
14. Acute postop small L apical pneumothorax- stable
15. Acute postop complete heart block- s/p Medtronic pacer implant 01/17/24
HPI: 73-year-old female with history of of AVR (#21mm St. Elias Trifecta with Dr. Read in 2014), DMII, HTN, and recent dental and sinus surgery was admitted 01/03/24 via the ED complaining of weakness and chills. Blood cultures were
positive for strep mitis and transesophageal echogram cardiogram reported aortic valve and mitral valve abscesses.
Hospital course: Antibiotic therapy was initiated with ceftriaxone. Left heart cath on 01/06 reported no obstructive coronary disease. Repeat SHANI on 01/10 reported aortic root abscess with extension into the LVOT, bioprosthetic aortic valve and
anterior mitral valve. Normal biventricular size and systolic function without regional wall motion abnormality. Patient went to the operating room on 5/2 for redo sternotomy, wide debridement from trigone to trigone, AVR #23mm Inspiris, MVR number
27 mm Mitris, with reconstruction of fibrous body with bovine pericardial patch (Commando procedure). Intraoperative SHANI reported EF of 60%, AV gradients of 11/6 mmHg, mitral valve gradients of 3/1 mmHg, and moderate TR. Patient returned to CVICU
on Levophed, Precedex, and insulin. Blood pressure was labile with patient on and off Levophed and Cardene. Dobutamine and milrinone were added. She received 1 unit of packed red blood cells for hemoglobin of 8.1. Patient was extubated at 12:40
AM on postoperative day #1. Pleural chest tube was removed. Dobutamine, Cardene, milrinone, and nitroglycerin were discontinued. Patient's rhythm was sinus rhythm with a long first-degree AV block. Postoperative day #2 the Tejeda and Chest Tube
were removed. Right Upper Extremity PICC Line was placed. And Right IJ Cordis was removed. A left apical pneumothorax was noted and patient was monitored. Patient received an additional packed cell for hemoglobin of 8.6 followed by Bumex 2 mg.
Coumadin was initiated. On postoperative day #3, patient complained of a ulcer on her tongue and Magic mouthwash was ordered. Predischarge TTE reported EF greater than 75%, normal RV function. AV gradients of 10/6 mmHg with no AI. MV gradients
of 14/3 mmHg, no MR and mild TR. Postoperative day #4, patient became bradycardic with pauses patient was started on dopamine and epinephrine. Patient underwent Medtronic pacer implant later that day. On postoperative day #5, INR was 3.3 and
Coumadin dose was held. Patient continued to be diuresed with Bumex. Patient had diarrhea C. difficile negative and Imodium was started. Temporary pacing wires were cut and Lantus was initiated. Blood sugars were better controlled on day 6. On
postoperative day #7, INR was 2.8 and patient will be discharged with Coumadin 2.5 mg daily. Rocephin 2 g will be administered daily via E PICC and date 02/15/2024. Weekly CBC will be drawn and monitored by ID (Dr. Aguiar). Transitional nurses will
draw INR and report to CT office for adjustments as needed. Patient is deemed stable for discharge to home.
Home medication changes:
Stop Albuterol, Valsartan, nitroglycerin
Coreg changed to Toprol
Omeprazole changed to Protonox with warfarin
Discharge Plan
-
Patient Disposition: Home (Routine Discharge)
Discharge Diagnosis/Procedures: AVR/MVR (01/12), Pacemaker implant (01/16)
Condition: Fair
Diet: Diabetic, Carb Controlled
Activity: No strenuous activity
Driving Restrictions: Not until seen by your Dr
Bathing Restrictions: OK to Shower
Blood Work: weekly CBC-report to ID (Dr. Aguiar), INR 5/10, then 2 x week until stable, then weekly
Other Services: Cardiac Rehab
Specialty Instructions: Weigh Daily- Call MD for wt gain/loss 3 lbs overnight/5 lbs in 1 week
Stand Alone Forms: DC Instructions- Cath/EP Lab, DC Inst - Implanted Device
Referrals:
CT Transitional Care Nurse [Outside]
(The Cardiothoracic Transitional Care Nurse will call you to set up a visit in 1-2 days.
This visit will include post pacemaker incision check)
[facility]. Cardiac Rehab [Outside] - 02/18/24 1:00 pm
(Cardiac Rehab Orientation appointment and� First Exercise appointment is on Wednesday02/18/24 1pm.
The Cardiac Rehab gym is located on the first floor of the [facility].)
Caryl Aragon CRNP [Specified Professional Personl] - 02/28/24 10:00 am (cardiology follow-up)
Clari Velasquez CRNP [Specified Professional Personl] - 01/26/24 11:20 am (incision check pacemaker)
Susan Arnold MD [Family Provider] -
Robb Toledo MD [Active] - 02/09/24 2:45 pm
Jennifer Aguiar MD [Active] - in two to four weeks
Additional Discharge Medication Instructions: Stop Albuterol, Valsartan, nitroglycerin
Coreg changed to Toprol
Omeprazole changed to Protonox with warfarin
Prescriptions:
New
acetaminophen 325 mg Tablet
650 mg PO Q4HPRN PRN (Reason: mild pain,headache,temp >101F ) Qty: 0 0RF
ascorbic acid (vitamin C) [Vitamin C] 500 mg Tablet
500 mg PO DAILY Qty: 30 1RF
pantoprazole 40 mg Tablet,Delayed Release (Dr/Ec)
40 mg PO DAILY Qty: 30 1RF
ferrous sulfate [FeroSul] 325 mg (65 mg iron) Tablet
325 mg PO DAILY Qty: 30 1RF
aspirin [Children's Aspirin] 81 mg Tablet,Chewable
81 mg PO DAILY Qty: 1 0RF
ceftriaxone 2 gram Recon Soln
2,000 mg IV Q24H Qty: 0 0RF
Lactobac/Bifidobac [Visbiome]
2 cap PO DAILY Qty: 30 0RF
oxycodone 5 mg Tablet
5 mg PO Q4HPRN PRN (Reason: severe pain) Qty: 20 0RF
metoprolol succinate [Toprol XL] 25 mg tablet extended release 24 hr
25 mg PO DAILY Qty: 30 1RF
warfarin [Jantoven] 2.5 mg tablet
2.5 mg PO QPM Qty: 30 1RF
Continued
cyanocobalamin (vitamin B-12) [Vitamin B-12] 1,000 mcg Tablet
1,000 mcg PO DAILY
duloxetine 30 mg Capsule,Delayed Release(Dr/Ec)
30 mg PO DAILY
Mounjaro 2.5 mg/0.5 mL Pen Injector
2.5 mg SC QWEEK
rosuvastatin 20 mg Tablet
20 mg PO HS
insulin glargine [Lantus Solostar U-100 Insulin] 100 unit/mL (3 mL) Insulin Pen
34 unit SC HS
furosemide 20 MG tablet
20 mg PO DAILY
fluticasone propion-salmeterol [Wixela Inhub] 100-50 mcg/dose blister with device
1 inh INHALATION R BID
gabapentin 600 MG tablet
1,200 mg PO BID Qty: 0 0RF
Discontinued
albuterol sulfate [Ventolin HFA] 90 MCG/PUFF HFA aerosol inhaler
2 puff inhalation R Q4 PRN (Reason: sob/wheezing)
omeprazole 20 MG tablet,delayed release (DR/EC)
20 mg PO QPM
carvedilol 6.25 mg Tablet
6.25 mg PO BID
famotidine 40 mg Tablet
40 mg PO HS
valsartan 80 mg Tablet
80 mg PO HS
nitroglycerin [Nitrostat] 0.4 mg Tablet, Sublingual
0.4 mg SUBLINGUAL [id number] PRN (Reason: chest pain)
fluticasone propionate 50 mcg/actuation [place],Suspension
1 spray INTRANASAL DAILY
Discharge Orders:
Discharge Patient (As Directed); Ordered 01/20/24
Ordered By: Jenn Romeo
Care Plan Goals
Care Plan Goals:
Problem: Readiness for enhanced knowledge related to diagnosis and treatment plan
Goal: Understand your diagnosis and treatment plan needs, including medications if applicable.
Instructions: Know your diagnosis, underlying causes and treatment plan options, including medications if applicable. Consult with your health care team to learn about your diagnosis and treatment plan, including medications if applicable.
Discharge Date and Time
Print Language: WELSH
--- NOTE | 2024-01-20 10:06 | PTCARENOTE ---
Pt educated on Left Limb restrictions due to PPM; pt assisted in shower.
--- NOTE | 2024-01-20 10:51 | CM ---
Reviewed chart. Met with and Mrs. Gallardo to review discharge plans. Telephone call to [facility] to confirm delivery. Medications will be delivered tonight. Also spoke with [facility] Liaison who states their nurse will be there tomorrow
01/21/24. Mrs. Gallardo to get her IV ABX here prior to discharge. Faxed script, PICC line information and CXR to [facility]. Faxed today lab work to [facility]. Medical work-up in progress. The discharge plan is to return home with her
spouse, [facility] and [facility] when medically stable.
[2024-01-20] MEDS: ROCEPHIN 2000 MG IV (11:35)
[2024-01-20] MEDS: STERILE WATER FOR INJECTION 20 ML IV (11:35)
[2024-01-20 12:23] VITALS: BP 111/55
== END 2024-01-20 12:57 | disposition home health service (06) | DRG 212 ==
LOC: CVICU 01:31
PROVIDERS: Clinical Nurse Specialist Acute Care; Clinical Nurse Specialist Family Health; Hospitalist; Internal Medicine; Internal Medicine Cardiovascular Disease; Nurse Practitioner; Physician Assistant Medical; ADMITTING PHYSICIAN Hospitalist; ATTENDING PHYSICIAN Thoracic Surgery (Cardiothoracic Vascular Surgery); CONSULT PHYSICIAN Dentist Oral and Maxillofacial Surgery; CONSULT PHYSICIAN Internal Medicine Critical Care Medicine; CONSULT PHYSICIAN Internal Medicine Infectious Disease; EMERGENCY PHYSICIAN Emergency Medicine; FAMILY PHYSICIAN Internal Medicine; OTHER PHYSICIAN Internal Medicine Cardiovascular Disease
PROC: B2111ZZ Fluoroscopy of Multiple Coronary Arteries using Low Osmolar Contrast (ICD-10-PCS; 2024-01-07)
PROC: 4A023N7 Measurement of Cardiac Sampling and Pressure, Left Heart, Percutaneous Approach (ICD-10-PCS; 2024-01-07)
PROC: 02UA08Z Supplement Heart with Zooplastic Tissue, Open Approach (ICD-10-PCS; 2024-01-13)
PROC: 02RF08Z Replacement of Aortic Valve with Zooplastic Tissue, Open Approach (ICD-10-PCS; 2024-01-13)
PROC: 30233K1 Transfusion of Nonautologous Frozen Plasma into Peripheral Vein, Percutaneous Approach (ICD-10-PCS; 2024-01-13)
PROC: B24BZZ4 Ultrasonography of Heart with Aorta, Transesophageal (ICD-10-PCS; 2024-01-13)
PROC: 30233R1 Transfusion of Nonautologous Platelets into Peripheral Vein, Percutaneous Approach (ICD-10-PCS; 2024-01-13)
PROC: 30233N1 Transfusion of Nonautologous Red Blood Cells into Peripheral Vein, Percutaneous Approach (ICD-10-PCS; 2024-01-13)
PROC: 02RG08Z Replacement of Mitral Valve with Zooplastic Tissue, Open Approach (ICD-10-PCS; 2024-01-13)
PROC: 5A1221Z Performance of Cardiac Output, Continuous (ICD-10-PCS; 2024-01-13)
PROC: 02HV33Z Insertion of Infusion Device into Superior Vena Cava, Percutaneous Approach (ICD-10-PCS; 2024-01-15)
PROC: 0JH606Z Insertion of Pacemaker, Dual Chamber into Chest Subcutaneous Tissue and Fascia, Open Approach (ICD-10-PCS; 2024-01-17)
PROC: 02HK3JZ Insertion of Pacemaker Lead into Right Ventricle, Percutaneous Approach (ICD-10-PCS; 2024-01-17)
PROC: 02H63JZ Insertion of Pacemaker Lead into Right Atrium, Percutaneous Approach (ICD-10-PCS; 2024-01-17)
DX: T82.7XXA Infection and inflammatory reaction due to other cardiac and vascular devices, implants and grafts, initial encounter (principal); J95.811 Postprocedural pneumothorax; A40.8 Other streptococcal sepsis; I33.0 Acute and subacute infective endocarditis; T81.32XA Disruption of internal operation (surgical) wound, not elsewhere classified, initial encounter; T82.2 Mechanical complication of coronary artery bypass graft and biological heart valve graft; I31.0 Chronic adhesive pericarditis; I5A Non-ischemic myocardial injury (non-traumatic); N17.9 Acute kidney failure, unspecified; I42.0 Dilated cardiomyopathy; D62 Acute posthemorrhagic anemia; D68.9 Coagulation defect, unspecified; I44.2 Atrioventricular block, complete; I13.0 Hypertensive heart and chronic kidney disease with heart failure and stage 1 through stage 4 chronic kidney disease, or unspecified chronic kidney disease; Y83.2 Surgical operation with anastomosis, bypass or graft as the cause of abnormal reaction of the patient, or of later complication, without mention of misadventure at the time of the procedure; I25.10 Atherosclerotic heart disease of native coronary artery without angina pectoris; N18.32 Chronic kidney disease, stage 3b; E11.22 Type 2 diabetes mellitus with diabetic chronic kidney disease; E78.00 Pure hypercholesterolemia, unspecified; E11.40 Type 2 diabetes mellitus with diabetic neuropathy, unspecified; E66.9 Obesity, unspecified; K21.9 Gastro-esophageal reflux disease without esophagitis; D63.1 Anemia in chronic kidney disease; R05.3 Chronic cough; J45.20 Mild intermittent asthma, uncomplicated; F32.A Depression, unspecified; M16.10 Unilateral primary osteoarthritis, unspecified hip; I08.0 Rheumatic disorders of both mitral and aortic valves; I50.9 Heart failure, unspecified; R19.7 Diarrhea, unspecified; Z11.52 Encounter for screening for COVID-19; Q65.89 Other specified congenital deformities of hip; Z68.31 Body mass index [BMI] 31.0-31.9, adult; Z79.4 Long term (current) use of insulin; Z79.899 Other long term (current) drug therapy; Z82.49 Family history of ischemic heart disease and other diseases of the circulatory system; Z86.73 Personal history of transient ischemic attack (TIA), and cerebral infarction without residual deficits; Z87.01 Personal history of pneumonia (recurrent); Z87.891 Personal history of nicotine dependence
CPT/HCPCS: 88300; 88304; 93308; 33208; 70355; 70450; 71045; 71046; 71275; 74174; 80048; 80053; 80202; 81003; 81015; 82330; 82550; 82565; 82805; 82810; 82947; 82962; 83036; 83605; 83735; 83930; 83935; 84100; 84132; 84145; 84302; 84443; 84484; 84520; 85014; 85018; 85025; 85027; 85049; 85610; 85652; 85730; 86140; 86618; 86803; 86850; 86900; 86901; 86920; 87040; 87070; 87075; 87102; 87149; 87176; 87186; 87205; 87324; 87449; 87502; 87811; 93005; 93306; 93312; 93320; 93325; 93454; 93880; 94002; 94003; 96360; 97116; 97163; 97164; 97530; 97535; 99285; C1768; C1769; C1785; C1887; C1892; C1894; C1898; P9016; P9045; P9047; P9059; P9073; Q9957; Q9967

== ENCOUNTER → 2024-02-22 11:09 | Outpatient (REF) | payer MEDICARE, OTHER, SELFPAY ==
[2024-02-22 12:30] LABS: INR 1.84; PT 21.1 Sec (11.4-14.6)
== END ==
LOC: REG 11:09
PROVIDERS: ATTENDING PHYSICIAN Internal Medicine Cardiovascular Disease; FAMILY PHYSICIAN Internal Medicine
DX: Z95.3 Presence of xenogenic heart valve (principal)
CPT/HCPCS: 36415; 85610

== ENCOUNTER → 2024-02-29 08:44 | Outpatient (REF) | payer MEDICARE, OTHER, SELFPAY ==
[2024-02-29 10:46] LABS: INR 2.54; PT 27.2 Sec (11.4-14.6)
[2024-02-29 10:53] LABS: Blood Urea Nitrogen 21 mg/dl (7-17); Calcium 9.5 mg/dl (8.4-10.2); Carbon Dioxide 30 mmol/L (22-30); Chloride 102 mmol/L (98-107); Glucose 76 mg/dl (70-99); Iron 65 ug/dl (37-170); Potassium 3.9 mmol/L (3.5-5.1); Sodium 142 mmol/L (135-145)
== END ==
LOC: REG 08:44
PROVIDERS: ATTENDING PHYSICIAN Internal Medicine Cardiovascular Disease; FAMILY PHYSICIAN Internal Medicine
DX: E87.6 Hypokalemia (principal); Z09 Encounter for follow-up examination after completed treatment for conditions other than malignant neoplasm; Z86.2 Personal history of diseases of the blood and blood-forming organs and certain disorders involving the immune mechanism; D64.9 Anemia, unspecified; Z95.3 Presence of xenogenic heart valve
CPT/HCPCS: 36415; 80048; 82728; 83540; 85610

== ENCOUNTER → 2024-03-07 14:18 | Outpatient (REF) | payer MEDICARE, OTHER, SELFPAY ==
[2024-03-07 14:55] LABS: INR 2.75
== END ==
LOC: REG 14:18
PROVIDERS: ATTENDING PHYSICIAN Internal Medicine Cardiovascular Disease; FAMILY PHYSICIAN Internal Medicine
DX: Z95.3 Presence of xenogenic heart valve (principal)
CPT/HCPCS: 36415; 85610

== ENCOUNTER 2024-03-08 09:46 | Outpatient (RCR) | payer MEDICARE, OTHER, SELFPAY ==
[2024-02-18 14:53] LABS: Glucose - Point of Care 123 mg/dl (70-99)
[2024-02-18 15:18] LABS: Glucose - Point of Care 120 mg/dl (70-99)
[2024-02-21 09:21] LABS: Glucose - Point of Care 110 mg/dl (70-99)
[2024-02-21 09:55] LABS: Glucose - Point of Care 118 mg/dl (70-99)
[2024-02-23 09:26] LABS: Glucose - Point of Care 124 mg/dl (70-99)
[2024-02-23 10:11] LABS: Glucose - Point of Care 122 mg/dl (70-99)
[2024-03-01 09:18] LABS: Glucose - Point of Care 109 mg/dl (70-99)
[2024-03-01 10:03] LABS: Glucose - Point of Care 107 mg/dl (70-99)
[2024-03-03 09:18] LABS: Glucose - Point of Care 137 mg/dl (70-99)
[2024-03-03 09:59] LABS: Glucose - Point of Care 123 mg/dl (70-99)
[2024-03-06 09:25] LABS: Glucose - Point of Care 130 mg/dl (70-99)
[2024-03-06 10:19] LABS: Glucose - Point of Care 107 mg/dl (70-99)
== END 2024-03-08 23:59 | disposition home or self-care (01) ==
LOC: CRHB 09:46
PROVIDERS: ATTENDING PHYSICIAN Internal Medicine Cardiovascular Disease
DX: Z95.4 Presence of other heart-valve replacement (principal)
CPT/HCPCS: 82962; G0422; G0423

== ENCOUNTER → 2024-03-14 10:39 | Outpatient (REF) | payer MEDICARE, OTHER, SELFPAY ==
[2024-03-14 11:33] LABS: INR 3.29; PT 33.4 Sec (11.4-14.6)
== END ==
LOC: REG 10:39
PROVIDERS: ATTENDING PHYSICIAN Internal Medicine Cardiovascular Disease; FAMILY PHYSICIAN Internal Medicine
DX: Z95.3 Presence of xenogenic heart valve (principal)
CPT/HCPCS: 36415; 85610

== ENCOUNTER 2024-04-10 10:32 | Outpatient (RCR) | payer MEDICARE, OTHER, SELFPAY | END 2024-04-10 23:59 | disposition home or self-care (01) | LOC: CRHB 10:32 | PROVIDERS: ATTENDING PHYSICIAN Internal Medicine Cardiovascular Disease; FAMILY PHYSICIAN Internal Medicine | DX: Z95.4 Presence of other heart-valve replacement (principal) | CPT/HCPCS: 36415; 85610; G0422; G0423 ==

== ENCOUNTER 2024-04-10 15:17 | Inpatient (IN) | payer MEDICARE, OTHER, SELFPAY ==
[2024-04-10] VITALS (15 sets, daily range): BP systolic 100–164; BP diastolic 69–107; BMI 30.1
--- NOTE | 2024-04-10 10:30 | ED.GENMED ---
History of Present Illness
General
Chief Complaint: Chest Pain
Source: patient
Exam Limitations: none
Time Seen by Provider: 04/10/24 10:30
Nursing documentation reviewed up to this point in time: agreed with
History of Present Illness
History of Present Illness:
74-year-old female with history of diabetic neuropathy, aortic valve replacement 2014, cardiomyopathy, dual-chamber Medtronic MRI compatible PPM on 01/17/2024, CHF, HTN, HLD, IDDM states for the past 2 weeks off and on she has had lower jaw pain
starting in the right and radiating over the left and in the past week it is associated with upper right back pain intermittently. She states the pain was the worst 2 nights ago between 10 PM and 5 AM and she did not get much sleep. She took
Tylenol and used a heating pad and was able to fall back asleep until 7 AM that day. She denies N/V, denies chest pain or shortness of breath. She denies headache.
She denies any jaw pain or back pain at this time.
Past History
Past History
ED Past Medical History: Asthma, HTN, Hypercholesterolemia, NIDDM and Other (Neuropathy, PNA, Cardiomyopathy, Hemorrhoids, Cervical prolapse, Anemia, Vertigo)
ED Past Surgical History: Appendectomy, Cardiac (Aortic valve replaced), Cholecystectomy, Gynecological (Breast biopsy, Partial hysterectomy, ) and Other (Pessary, Cataracts, )
Social History
Tobacco: Non-smoker
Alcohol: Daily (Wine 2 glasses)
Personal:
Living: with family
Review of Systems
Review of Systems
Allergies reviewed?: Yes
All Other Systems: ROS reviewed and negative except as documented in HPI and ROS
Constitutional: Denies fever or fatigue
Respiratory: Denies trouble breathing
Cardiac: Denies chest pain, diaphoresis or palpitations
ABD/GI: Denies abdominal pain, nausea or vomiting
: Denies dysuria or difficulty voiding
Musculoskeletal: Reports no symptoms
Skin: Reports no symptoms
Neurological: Reports no symptoms
Phy Exam
Physical Exam
Physical Exam:
GENERAL: No acute distress. A&Ox3.
CONSTITUTIONAL: Afebrile.
EYES: PERRL, conjunctivae normal
Neck: Supple
ENMT: moist mucus membranes, Pharynx nl, jaw nontender, full ROM, no intraoral lesions, no tooth infection
RESPIRATORY: Regular respirations, nonlabored, lungs clear.
CARDIOVASCULAR: Regular rate and rhythm, no murmurs, no rubs.
GI: Soft, nontender, normal BS
MUSCULOSKELETAL: Moves with ease. Well perfused.
SKIN: Warm, dry, pink
PSYCH: Normal mood and affect. Well kept, interactive and appropriate
NEUROLOGIC: Awake, alert and oriented. No focal neurological deficits
Scores
Heart Score for Chest Pain Patients
STEMI patient?: No
History: Moderately Suspicious
ECG: Nonspecific Repolarization
Age: >/= 65 years
Risk Factors: >/= 3 Risk Factors or History of CAD
Troponin: >1 - <3 x Normal Limit
Heart Score for Chest Pain Patients: 7
Heart Score Risk: 72.7 % MACE over next 6 weeks
Course
Orders/Labs/Results
Orders:
Orders
04/10/24 09:45
ECG [Electrocardiogram (*1)] Urgent
Reason for Study: Other
Other Reason for Exam: back and jaw pain
EKG- Treatment ONCE
04/10/24 Lunch
NPO
Allow oral meds: Yes
Allow clear liquids: No
04/10/24 10:51
CR Chest - 2 Views Urgent
Comment:
Reason For Exam: jaw pain, R upper back pain
04/10/24 11:44
Complete Blood Count/With Diff Urgent
Comprehensive Metabolic Panel Urgent
PT/INR [Prothrombin Time] Urgent
Troponin I Urgent
04/10/24 12:57
Electrocardiogram (*1) Urgent
Reason for Study: Other
Other Reason for Exam: elevated troponin
EKG- Treatment ONCE
04/10/24 13:03
Troponin I Urgent
04/10/24 14:02
Echo 2D MMode Color/Doppler Urgent
Reason for Study: Jaw pain, recent AVR/MVR
04/10/24 14:21
Aspirin Chewable [Low Strength Aspirin] 243 mg PO NOW STA
04/10/24 14:51
Admit/Transfer Patient As Directed
Co-Sign Provider:
Level of Care: Inpatient admission
Assign to:: IVU
Physician / Group: CBC
Diagnosis: ACS
Reason for Hospitalization: Abnormal troponin with exertional jaw pain
Expected length of stay greater than two midnights?: Yes
ELOS- Estimated Length of Stay in days: 3
I certify the patient meets the requirements for IP care: Yes
PRN Pain Medication Management As Directed
May give lesser potent ordered pain med per pt: Yes
preference::
Protocol:: Medication orders for pain may be administered in a
manner that supports deferring to patient preference
when the pt is:
- Requesting an ordered lesser potent pain medication.
Least to most potent pain medications are defined
as: acetaminophen < NSAID < tramadol < opioids
(morphine, oxycodone, hydromorphone).
- Requesting a lesser dose of the same medication IF
ORDERED.
- Requesting a less intrusive route of administration
if both routes are prescribed by the provider (PO <
IV).
04/10/24 14:52
Code Status As Directed
Resuscitation Status: Full Code
Abnormal Lab Results
04/10/24 04/10/24
11:44 13:03
MCV 78.9 L fL
(81.0-99.0)
MCH 24.9 L pg
(27.0-31.0)
MCHC 31.6 L g/dL
(33.0-37.0)
RDW 14.6 H %
(11.5-14.5)
Absolute Neuts (auto) 7.7 H 10^3/uL
(1.4-6.5)
Absolute Monos (auto) 0.8 H 10^3/uL
(0.1-0.6)
Lymphocytes % 16.0 L %
(20.5-51.1)
PT 33.7 H Sec
(11.4-14.6)
BUN 27 H mg/dl
(7-17)
Creatinine 1.1 H mg/dL
(0.6-1.0)
Glucose 122 H mg/dl
(70-99)
Troponin I 0.429 H* ng/ml 0.481 H* ng/ml
04/10/24 11:44
04/10/24 11:44
Vital Signs
Initial and Last Documented VS:
Initial Vital Signs
Temp Pulse Resp BP Pulse Ox
97.5 F 85 18 145/80 100
04/10/24 09:43 04/10/24 09:43 04/10/24 09:43 04/10/24 09:43 04/10/24 09:43
Last Documented Vital Signs
Temp Pulse Resp BP Pulse Ox
97.5 F 84 15 140/75 98
04/10/24 09:43 04/10/24 13:30 04/10/24 13:30 04/10/24 13:01 04/10/24 13:30
MDM/Problems Addressed
Differential Diagnosis Includes:
ACS, MS, angina
MDM/Problems Addressed:
74-year-old female with history of diabetic neuropathy, CVA, aortic valve replacement 2015, cardiomyopathy, CHF, HTN, HLD, IDDM states for the past 2 weeks off and on she has had lower jaw pain starting in the right and radiating over the left and
in the past week it is associated with upper right back pain intermittently. She states the pain was the worst 2 nights ago between 10 PM and 5 AM and she did not get much sleep. She took Tylenol and used a heating pad and was able to fall back
asleep until 7 AM that day. She denies N/V, denies chest pain or shortness of breath. She denies headache.
She denies any jaw pain or back pain at this time.
Admitted 01/03-01/19 for redo of Aortic calve and for MV replacement, had complete heart block and pacemaker placed, had abscess mitral valve (had recent dental infection)
Afebrile, NAD, VSS
EKG: Sinus rhythm with first-degree AV block ST and T wave abnormality
12:15 p.m.
CBC with no clinically significant abnormality
CMP: BUN/creatinine 27/1.1, her baseline, otherwise normal
Troponin: elevated 0.[address] Stovall Cardiology who will see pt
2:00 p.m.
Cardiology CLINICAL WRITER in, bedside echo to be done
2:[address] Stovall in and will arrange pt to rn labor delivery
Holding on Heparin as INR 3.3
Pt remains stable
4:30 p.m.
Pt to Director Of Accreditation
*Critical Care Note
Total Time (30-74mins, 75-104mins- exclusive of procedures): Not Applicable
ED Attending Note
-
Portions of this chart may have been created with voice recognition software.� Occasional wrong word or��sound alike� substitutions may have occurred due to the inherent limitations of voice recognition software.
Discharge Plan
Departure
Patient Disposition: Admit
Date of Disposition: 04/10/24
Time of Disposition: 16:28
Admit to: manager labor delivery
Presentation/result/management discussed w/ accepting /DO: Wilman
Condition: Fair
Discharge Problem:
ACS (acute coronary syndrome)
Interventions
Interventions:
*Risk Screen - Suicide Last Done: 04/10/24 09:49
*General Assessment Last Done: 04/10/24 09:49
*Neglect/Abuse Screening Last Done: 04/10/24 09:49
*Nursing Disposition Last Done: 04/10/24 16:36
ED- Cardiac Assessment Last Done: 04/10/24 13:02
Discharge Date and Time
Discharge Date/Time: 04/10/24 16:36
--- NOTE | 2024-04-10 11:38 | EDRN ---
Lab aware questioned validity to initial lab results as pt reports that she was not stuck for labwork prior to NAVYA Heredia sticking for IV in room 15. Will cancel and reorder. Provider aware.
[2024-04-10 12:01] LABS: % Basophils 0.3 % (0-2); % Eosinophils 4.4 % (0-6); % Immature Granulocytes 0.4 % (0-0.5); % Monocytes 7.6 % (1.7-9.3); % Neutrophils 71.3 % (42.2-75.2); Absolute Eosinophils 0.5 10^3/uL (0-0.7); Absolute Lymphocytes 1.7 10^3/uL (1.2-3.4); Absolute Monocytes 0.8 10^3/uL (0.1-0.6); Absolute Neutrophils 7.7 10^3/uL (1.4-6.5); Hematocrit 41.2 % (37.0-47.0); Mean Corp Hgb Conc. 31.6 g/dL (33.0-37.0); Mean Corpuscular Hgb 24.9 pg (27.0-31.0); Mean Corpuscular Volume 78.9 fL (81.0-99.0); Mean Platelet Volume 10.3 fL (7.4-10.4); Nucleated Red Blood Cells % 0 %; Platelet Count 245 10^3/uL (130-400); Red Blood Cell Count 5.22 10^6/uL (4.20-5.40); Red Cell Dist. Width 14.6 % (11.5-14.5); White Blood Cell Count 10.8 10^3/uL (4.8-10.8)
[2024-04-10 12:08] LABS: PT 33.7 Sec (11.4-14.6)
[2024-04-10 12:15] LABS: INR 3.32
[2024-04-10 12:20] LABS: ALT (SGPT) 17 U/L (0-35); AST (SGOT) 32 U/L (14-36); Albumin 4.2 g/dl (3.5-5.0); Alkaline Phosphatase 71 U/L (38-126); Blood Urea Nitrogen 27 mg/dl (7-17); Calcium 9.4 mg/dl (8.4-10.2); Carbon Dioxide 28 mmol/L (22-30); Chloride 104 mmol/L (98-107); Glucose 122 mg/dl (70-99); Sodium 138 mmol/L (135-145); Total Bilirubin 0.4 mg/dl (0.2-1.3); Total Protein 6.7 g/dl (6.3-8.2)
[2024-04-10 12:26] LABS: Troponin I 0.429 ng/ml
[2024-04-10 13:38] LABS: Troponin I 0.481 ng/ml
--- NOTE | 2024-04-10 14:04 | HPS.HSE ---
Addendum entered and electronically signed by Gt Stovall MD 04/10/24 15:42:
I saw and examined the patient.
The ELECTROPLATER APPRENTICE's note was reviewed and I agree with the note.
Comment: 4-year-old female with severe aortic stenosis status post AVR 2014, DCM (EF 25-30%, recovered), dyslipidemia, hypertension, GERD, chronic kidney disease, and chronic anemia, and hospitalization 01/04/2024 - 01/20/2024 with strep mitis
bacteremia with aortic root abscess requiring bioAVR, MVR, reconstruction of fibrous body using bovine pericardium (AKA commando procedure) by Dr. Toledo 01/13/2024. She required a pacemaker POD #4. Now with approximately 1 week of intermittent
exertional jaw pain. It seems to be worse with exertion. It happened at rest Wednesday night, and then today walking into cardiac rehab she began to experience it. It is better now with rest. Otherwise she is been feeling well. No recent fever
or chills. She has not gone to the dentist. On exam she has a regular rate and rhythm with a normal S1-S2 no murmur rubs or gallops were appreciated lungs were clear to auscultation. No extremity edema. Labs are notable for troponin of 0.429
increasing to 0.481. Symptoms concerning for ACS. Recent extensive cardiac surgery, warrants further evaluation with a cardiac catheterization. Discussed with Dr. Jones who will take to the lab today. Will update her echo. She remains on
warfarin post valve replacements. INR 3.3 noted, procedure should be through the radial artery.
Original Note:
Family Physician
-
Family Physician: Susan Arnold
Pre Press Operator: Dr. Gt Stovall
Chief Complaint
-
Jaw pain
History of Present Illness
Cookie Gallardo is a 74-year-old female with severe aortic stenosis status post AVR 2014, DCM (EF 25-30%, recovered), dyslipidemia, hypertension, GERD, chronic kidney disease, and chronic anemia, and hospitalization 01/04/2024 - 01/20/2024 with strep mitis
bacteremia with aortic root abscess requiring bioAVR, MVR, reconstruction of fibrous body using bovine pericardium (AKA commando procedure) by Dr. Toledo 01/13/2024. She required a pacemaker POD #4. She is presenting with bilateral jaw pain. This pain
is worse with exertion. On 04/08/2024 she had bilateral jaw pain that radiated into her right shoulder overnight. She was laying in bed. After several hours of discomfort she took a hot shower and she got pain some relief. This morning,
while walking into cardiac rehab she had bilateral jaw pain. It resolved with rest. Her troponin was found to be abnormal at 0.429. It was repeated ~90 minutes later and resulted at 0.481. Her EKG is stable.
Medical History
Past Medical History
Past Medical History: Reports CAD (non obstructive), CHF (DCM, recovered EF), HTN, Hypercholesterolemia, Renal Failure (CKD), Valvular Disease (MVR #27 mm Mitris & AVR #23 mm Inspiris on 01/13/24) and Other (chronic anemia)
Past Surgical History: Reports Appendectomy, Cardiac and Cholecystectomy
Social History
Tobacco: Former Smoker
Alcohol: Occasional
Drug: None
Personal:
Living: With Family
Employment: Retired
Family History
Family History: Not pertinent
Allergies / Home Medications
Allergies reflects when Allergies were last updated in pickrset.
Home Medications with original date entered in pickrset
Allergy/Medication List:
Allergies:
Vicodin cause confusion
Oxycodone caused nausea
Penicillin caused rash and shortness of breath
Home medication list:
Vitamin C 500 mg p.o. daily
Aspirin 81 mg p.o. daily
Vitamin B12 1000 mcg p.o. daily
Duloxetine 30 mg p.o. daily
Flonase 1 spray intranasal daily
Gabapentin 1200 mg p.o. twice daily
Lantus 34 units subcu at bedtime
Visbiome 1 capsule p.o. daily
Metoprolol succinate 25 mg p.o. daily
Mounjaro 5 mg subcu
Pantoprazole 40 mg p.o. daily
Rosuvastatin 20 mg p.o. at bedtime
Warfarin 2.5 mg p.o. Wednesday, Wednesday, Wednesday, Wednesday
Warfarin 5 mg p.o. Wednesday, , Wednesday
Review of Systems
-
History Source: Patient
A 12 point ROS was completed and negative except as noted: Yes
Constitutional: Reports Fatigue
EENT: Reports No Symptoms
Respiratory: Reports No Symptoms
Cardiac: Reports See HPI
Abdomen/GI: Reports No Symptoms
: Reports No Symptoms
Musculoskeletal: Reports Joint Pain (right shoulder)
Skin: Reports No Symptoms
Neurological: Reports No Symptoms
Endocrine: Reports No Symptoms
Hematologic/Lymphatic: Reports No Symptoms
Psych: Reports No Symptoms
Physical Exam
Vital Signs
Vital Signs
Temp Pulse Resp BP Pulse Ox
97.5 F 84 15 140/75 98
04/10/24 09:43 04/10/24 13:30 04/10/24 13:30 04/10/24 13:01 04/10/24 13:30
Physical Exam
General: Well Developed, Well Nourished, No Apparent Distress, Comfortable and Conversant
HEENT: NormoCephalic, Anicteric and Moist mucous membranes
Respiratory: Clear and Non Labored Respirations
Cardiac: S1/S2 and Regular Rhythm
Breast: Deferred by me
GI: Soft, Non Tender, Non Distended and Normal Bowel Sounds
Rectal: Deferred by Provider
Musculoskeletal: No Clubbing, No Cyanosis and No Edema
Skin: Warm and Dry
Neuro: AO x 3
Hematologic/Lymphatic: No Lymphadenopathy
Psych: Calm
Laboratory Results
-
04/10/24 11:44
04/10/24 11:44
Laboratory Results
PT 33.7 Sec (11.4-14.6) H 04/10/24 11:44
INR 3.32 04/10/24 11:44
APTT Cancelled 04/10/24 11:38
Total Bilirubin 0.4 mg/dl (0.2-1.3) 04/10/24 11:44
AST 32 U/L (14-36) 04/10/24 11:44
ALT 17 U/L (0-35) 04/10/24 11:44
Alkaline Phosphatase 71 U/L (38-126) 04/10/24 11:44
Troponin I 0.481 ng/ml H* 04/10/24 13:03
Data Reviewed
-
Diagnostic Radiology: Report Reviewed by me (EKG: Sinus rhythm, first degree AV block, PACs) and Other (CXR: No active pulmonary process.)
Lab Data: Labs Reviewed by me
Old Records: Reviewed
Impression/Plan
-
BACKGROUND: 74F with severe aortic stenosis status post AVR 2014, DCM (EF 25-30%, recovered), dyslipidemia, hypertension, GERD, chronic kidney disease, and chronic anemia, and hospitalization 01/04/2024 - 01/20/2024 with strep mitis bacteremia with
aortic root abscess requiring bioAVR, MVR, reconstruction of fibrous body using bovine pericardium (AKA commando procedure) by Dr. Toledo 01/13/2024. She required a pacemaker POD #4. She is presenting with bilateral jaw pain.
Pre Press Operator: Dr. Stovall
IMPRESSION/PLAN:
ACS
-Exertional jaw pain with abnormal troponin
-Troponin 0.429 & 0.481
-Non-obstructive CAD on prior catheterization
Step mitis bacteremia with aortic root abscess S/P Commando Procedure by Dr Toledo 01/13/2024
-S/p Reconstruction of the fibrous body using bovine pericardium; MVR #27 mm Mitris; AVR #23 mm Inspiris
-MVR post 24/11 mmHg & AVR post 10/6 mmHg
-21 mm bovine Trifecta tissue valve 02/25/[address] Read
-INR 3.36
DCM with recovered EF
-Did not tolerate SGLT2i
-Update echocardiogram
Chronic kidney disease stage 3b, follows Dr. Washburn in the outpatient setting
HLD, on rosuvastatin 20 mg, fasting lipid panel in a.m.
Type 2 diabetes mellitus, on long-acting insulin and Mounjaro, HgbA1c in a.m.
GERD, on pantoprazole
Chronic anemia, followed by Dr. Rivas in the outpatient setting
Prior CVA, no residual weakness
[2024-04-10] MEDS: LOW STRENGTH ASPIRIN 243 MG PO (14:43)
--- NOTE | 2024-04-10 16:35 | EDRN ---
16:15: Per [employer], pt will be transported by them from card services. Belongings brought to echo room.
--- NOTE | 2024-04-10 19:24 | ITS.CL.ANGIO ---
Agronomy Manager - Angioplasty
Angioplasty
Procedure Report:
CARDIAC CATHETERIZATION REPORT
Date of Procedure: 04/10/2024
Referring: Marry Stovall M.D.
INDICATION: Non-ST elevation myocardial infarction.
PROCEDURE:
1. Coronary angiography.
2. Placement of an intra-aortic balloon pump.
3. Successful PCI of the ostial left main coronary artery into LAD.
4. Intravascular ultrasound of the stent.
ACCESS:
6 Macanese left radial artery.
6 Macanese right common femoral artery using a modified Seldinger technique with a micropuncture kit under ultrasound guidance.
8 Macanese left common femoral artery using a modified Seldinger technique with a micropuncture kit under ultrasound guidance.
CATHETERS:
1. 5 Macanese JR4.
2. 5 Macanese JL 3.5.
3. 5 Macanese JL 3.0 guiding catheter.
4. Intra-aortic balloon pump catheter.
5. 6 Macanese EBU 3.0 guiding catheter.
HEMODYNAMIC DATA
Weight (kg): 76.7
AO (s/d/x, mmHg): 137/80/104
LV (s/x mmHg): Not obtained.
LEFT VENTRICULOGRAPHY: Not performed. A bioprosthetic aortic valve is in place. A bioprosthetic mitral valve is in place.
CORONARY ANGIOGRAPHY
Dominance: Right.
Left Main: Extremely short, trifurcating vessel. There is a 95% ostial stenosis with extension into the LAD and EMILIA II flow.
LAD: Normal size vessel giving rise to 2 diagonals. There is EMILIA II flow in the vessel with extension of the left main lesion into the proximal vessel.
Ramus: Small size vessel supplying the proximal anterolateral wall.
Circumflex: Normal size, nondominant vessel that is essentially a large marginal supplying the majority of the inferolateral wall. There is a 20% lesion in the circumflex immediately proximal to the origin of the obtuse marginal.
RCA: Normal size, dominant vessel with an anterior takeoff. There is no coronary artery disease.
INTERVENTION(S)
1. Successful placement of an intra-aortic balloon pump.
2. Successful IVUS guided PCI of the ostial left main (Medtronic [place] Whitlash 4.0 x 15 ALIYAH).
Narrative:
After completing diagnostic angiography with the 5 Macanese JL 3.0 guiding catheter, I discussed the case with Dr. Pizarro, the CT surgeon on-call. During the diagnostic procedure, the patient did begin to experience worsening jaw pain, reaching a
level of 10/10. Dr. Pizarro felt that a third sternotomy was inappropriate for her current situation and that percutaneous management would be best. If percutaneous management were not feasible, he recommended transferring the patient to higher
level of care.
The decision was made to proceed with percutaneous coronary intervention attempt.
The decision was made to provide additional hemodynamic support and chest pain relief with an intra-aortic balloon pump. The left common femoral artery was accessed using a modified Seldinger technique under ultrasound guidance with a micropuncture
kit. The micropuncture sheath was removed and the 8 Macanese sheath was inserted then sutured into place. A 40 cc fiberoptic intra-aortic balloon pump was advanced to the level of the tracheal nancy. The wire was removed and the balloon pump was
started at 1:1. The balloon pump suture sites were secured using STAT-Lock devices.
The diagnostic catheter was removed over a wire and a 6Fr EBU 3.0 guiding catheter was advanced to the aortic root and seated in the left coronary cusp, just outside the left main coronary ostium as the catheter would not primarily engage.
Additional heparin was given and a Power Turn Flex wire was advanced into the distal LAD with surprisingly relative ease. Given the nature of the lesion, the decision was made to protect the circumflex if possible. A BMW wire was advanced. In
spite of multiple attempts, the BMW wire could not enter the left circumflex artery. Given the patient's ongoing pain, the decision was made to proceed with angioplasty and readdress the circumflex. The BMW was advanced into the diagonal and the
95% ostial left main lesion was predilated with a 2.0 x 12 semi-compliant balloon to 12 miguel. Once again, we attempted to cannulate the circumflex with the BMW wire, but were unsuccessful. The BMW wire was withdrawn and a whisper wire was advanced,
again without success. Follow-up angiography showed no significant improvement in the left main lesion and LAD flow. The decision was made to upsize the balloon. The 2.0 x 12 semicompliant balloon was replaced with a 3.0 x 12 semicompliant
balloon and the left main and proximal LAD were dilated to 12 miguel. It appeared that flow may be improved in the LAD, but the inability of the catheter to fully engage was a rate limiting factor. A GuideLiner was advanced over the 3.0 balloon and
into the LAD. Angiography showed improvement in the LAD flow and also clarified the anatomic location of the circumflex. The whisper wire was readvanced through the guide liner so that both wires were now within the GuideLiner lumen. The
GuideLiner was slowly withdrawn from the LAD with intermittent angiography to identify the location of the circumflex. Once the GuideLiner had been pulled proximal to the circumflex, the whisper wire was able to easily enter the circumflex for
protection and reaccessed if needed.
The 3.0 x 12 semi-compliant balloon was removed and a Medtronic [place] Whitlash 4.0 x 15 drug-eluting stent was advanced. Meticulous care was taken while positioning the stent. The guide was disengaged from the left main coronary artery and
translation of the stent was performed primarily through the GuideLiner which was pulled back into the left coronary cusp, just outside of the left main ostium. Once we were satisfied that the entire left main ostium would be covered by the stent,
the stent was deployed at 12 atmospheres. The stent balloon was removed. The patient reported immediate chest/jaw pain relief.
The decision was made to perform intracoronary imaging. An IVUS catheter was advanced through the guiding catheter and into the ostium of the artery. Ring down was performed once the imaging crystal was no longer inside of the guiding catheter. The
IVUS catheter was advanced into the proximal LAD. Intravascular ultrasound was performed in a retrograde fashion using a slow pullback. Intracoronary imaging demonstrated some nonobstructive atherosclerosis within the proximal LAD as well as
excellent stent expansion and apposition. The IVUS catheter and the 6 Macanese guide liner were withdrawn. As a final maneuver, the BMW wire was readvanced
Into the left main coronary artery and directed through the stent struts into the left circumflex with relative ease, demonstrating that both the LAD and left circumflex were angiographically and percutaneously accessible. The whisper wire was
withdrawn from behind the stent.
Angiography was performed in orthogonal views, confirming good stent expansion and an excellent angiographic result. The coronary wire was withdrawn and the guide was disengaged from the artery. The catheter was removed over a standard J-wire.
Closure Device: Vascular band for the left radial artery. 6 Macanese Angio-Seal for the right common femoral artery. The balloon pump was sutured in place in the left common femoral artery.
Radiation (mGy): 3340.83
DAP (cm2.Gy): 218.78
Fluoroscopy time (minutes): 35.2
Sedation time (minutes): 120
CONCLUSIONS
1. Right dominant circulation with an anterior takeoff of the RCA and a very short left main coronary artery with a critical, 95% stenosis in the ostium of the left main coronary artery extending into the LAD with EMILIA I to EMILIA II flow, status
post successful IVUS guided PCI (Medtronic [place] Whitlash 4.0 x 15 ALIYAH) with reduction in stenosis to 0%, restoring EMILIA-3 flow.
2. Successful placement of an intra-aortic balloon pump for intraprocedural chest pain.
3. Status post bioprosthetic aortic valve replacement (#23 [place] Resilia Inspiris AVR, serial #[id number]), mitral valve replacement (#27 [place] Resilia Mitris MVR, serial #[id number]) with Dr. Toledo (01/13/2024).
RECOMMENDATIONS:
1. Expectant management after cardiac catheterization via right radial, right femoral and left femoral approaches.
2. Limited weight bearing on the right wrist for one week. The patient must lay flat overnight given the presence of the intra-aortic balloon pump.
3. Triple therapy with aspirin, clopidogrel and warfarin for at least 1 week. We will discuss antithrombotic therapy going forward (discontinuing either aspirin or warfarin).
4. Maintain balloon pump overnight. We will consider using FFP to lower INR transiently to allow for adequate hemostasis.
5. Guideline directed medical therapy as hemodynamics will tolerate.
6. Secondary prevention with high-dose, high potency statin. I suspect that this lesion was due to proliferation of scar tissue and not atherosclerosis, though IVUS did reveal evidence of atherosclerotic deposition without intra coronary occlusion.
Copy to: Robb Toledo M.D., Marry Stovall M.D., Susan Arnold M.D.
Armando Ruiz DO, FACC, FACP
[2024-04-10] MEDS: LANTUS 0.34 UNITS SC (20:30)
[2024-04-10 20:40] LABS: Glucose - Point of Care 114 mg/dl (70-99)
--- NOTE | 2024-04-10 21:11 | PTCARENOTE ---
Assumed pt care. Pt s/p CCL - ALIYAH x [address] Pt AAO x 4, denies pain/discomfort at time of assessment. Remains on 2L NC - POX 97%, anterior BS clear/equal, denies SOB/orthopnea. Pt in NSR with 1st degree AVB on monitor, heart tones
normal, denies CP, no edema. B/L DP pulses +1, pt reports chronic b/l LE neuropathy. IABP 1:1, augmenting 140-150, present through LFA - site CDI, mild tenderness proximal to insertion site/no ecchymosis/scant drainage present. Pt instructed to
maintain bedrest with LLE straight. BS audible, denies n/v, pt tolerated PO intake. Pt due to void. L radial TR band present. PIV x 1 present & patent. at bedside & updated with plan of care.
[2024-04-10] MEDS: CRESTOR 20 MG PO (22:01)
[2024-04-10] MEDS: NEURONTIN 300 MG PO (22:01)
--- NOTE | 2024-04-10 22:13 | PTCARENOTE ---
LFA IABP site oozing - moderate amount of blood present on sheet. L groin site remains tender to palpation, golf-ball size hematoma present - CTS PA made aware. Pt noted to have socks off - previously on, reported to have wiggled socks off feet
independently - encouraged pt to ask for assistance and keep LLE straight.
--- NOTE | 2024-04-10 22:42 | PTCARENOTE ---
Pressure held on LFA by CTS PA - IABP site re-dressed. Pt due to void - bladder scanned for 550 mL, PureWik placed, pt encouraged to attempt to urinate.
[2024-04-10] MEDS: TYLENOL 650 MG PO (23:02)
--- NOTE | 2024-04-10 23:31 | PTCARENOTE ---
report received from preivous RN, walking rounds done, assumed pt care. IABP in place via LFA, 1:1, dressing CDI. pt AAO x4, c/o mild pain/discomfort at left groin site. PRN tylenol given. POX 97% on 2LNC, B/L breath sounds present. NSR w 1st degree
AVB on monitor, heart tones audible, denies CP, no edema. B/L radial and DP pulses weakly palpable, pt reports chronic b/l LE neuropathy. pt instructed to maintain bedrest with LLE straight. BS audible, denies n/v, pt tolerating PO intake. pt due to
void, purewick in place. L radial TR band present. PIV x 1 present & patent. see worklist for full assessment, VS, and interventions. pt resting comfortably w call light in reach.
[2024-04-11] VITALS (70 sets, daily range): BP systolic 115–175; BP diastolic 45–97
--- NOTE | 2024-04-11 03:00 | PTCARENOTE ---
pt oozing from L groin site, CT PA notified and at bedside--manual pressure held, pressure dressing re-enforced. SR w 1st degree AVB 80's. POX 94-95% on 2LNC. IABP maintained @ 1:1. SBP 110's-120's. pt unable to void. straight cath done per
orders--700cc CYU drained. AM labs drawn and sent. EKG done. PRN tylenol given for L groin soreness and lower back pain.
[2024-04-11 03:01] LABS: PT 28.6 Sec (11.4-14.6)
[2024-04-11 03:02] LABS: APTT 43.6 Sec (23.4-35.0)
[2024-04-11] MEDS: TYLENOL 650 MG PO ×2 (03:07→07:04)
[2024-04-11 03:18] LABS: Blood Urea Nitrogen 25 mg/dl (7-17); Calcium 8.9 mg/dl (8.4-10.2); Carbon Dioxide 27 mmol/L (22-30); Chloride 105 mmol/L (98-107); Estimated Creatinine Clearance 48 ml/min; Glucose 126 mg/dl (70-99); HDL Cholesterol 41 mg/dl; LDL Cholesterol, Calculated 66 mg/dl; Potassium 3.8 mmol/L (3.5-5.1); Sodium 138 mmol/L (135-145); Total Cholesterol 167 mg/dl (50-199); Triglyceride 300 mg/dl (10-149); Very Low Density Lipoprotein 60 mg/dl (0-30); eGFR 58.75
[2024-04-11 04:30] LABS: Magnesium 1.7 mg/dl (1.6-2.3)
[2024-04-11] MEDS: KCL 20 MEQ PO (04:40)
--- NOTE | 2024-04-11 05:10 | CONSULT.CT ---
Consultation
-
Date/Time Consultation Requested: 04/10/24
Date/Time Consultation Performed: 04/11/24
Requesting Provider: Dr. Ruiz/IRAIS
Performing Provider: ROBEL Fabian/Dr. Pizarro
Reason for Consultation: Possible CABG following recent AVR/MVR
Patient History
Physicians
Family Physician: Susan Arnold MD
Inpatient Supervisor Pairing And Inspecting: Marry Stovall MD/IRAIS
History of Present Illness
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
adhesiolysis/Explant of prior aortic valve prosthesis and wide debridement from trigone to trigone/Chordal sparing mitral valve replacement with a 27 mm bioprosthesis/Aortic valve replacement with a [address] Toledo with assistance
from Dr. Viera on 01/13/24. Pt's postop course was complicated by CHB which required Dual Chamber PPM placement by Dr. Fink on 01/17/24. Pt was discharged home on 01/20/24. Pt presented to -ED on 04/10/24 with C/O progressive exacerbation of jaw pain
x 1 wk, denies associated CP, SOB, or fever. Was at [facility] Rehab when she was directed to ER. Noted to have NSTEMI (peak trop of 1.79) in the ER prompting Left hearth Cath which yielded 95% ostial LM stenosis with extension into the LAD. After
discussion between Dr. Pizarro/Carlos Eduardo, it was felt to be prudent to attempt a PCI in order to avoid a third sternotomy, hence a successful PCI with ALIYAH was performed by Dr. Ruiz without complications. Pt achieved immediate relief of Jaw pain
following PCI. Of note, given pt's persistent 10/10 jaw pain while in the cardiac cath technician, IABP was placed prior to PCI. Echo done prior to Cath was unrevealing and showed a well seated bioprosthetic AVR/MVR with mean gradient of 4/4 mmHg respectively,
without AI or MR, EF was 45-50% with anteroseptal and apical hypokinesis.
Pt's surgical wounds have all healed nicely without any signs infections or sternal dehiscence.
Past Medical History
Assessment:
-NSTEMI S/P PCI with ALIYAH to ostial LM into LAD, 04/10/24
-S/P Reconstruction of the fibrous body using bovine pericardium (aka Commando Procedure); MVR #27 mm Mitris; AVR #23 mm Inspiris on 01/13/[address] Toledo
-S/P Successful implantation of Medtronic MRI compatible dual chamber conduction system pacing permanent pacemaker on 01/17/[address] Fink
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 mitral valve, per SHANI 01/11/24. Bioprosthetic aortic valve is well seated
-Fever/Leukocytosis
-Blood culture from 01/02 grew Strep mitis/oralis; no growth from subsequent cultures
-Recent tooth extraction
-S/P Endoscopic bilateral anterior ethmoidectomy and maxillary antrostomy, 11/22/23
-S/P Aortic valve replacement ([address] Elias Trifecta bovine pericardial tissue valve) by Dr. Jayjay Read on 02/25/2015
-SHARRON on CKD3b
-Hypertension.
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
-Hyperlipidemia
-Class 1 obesity
-GERD
-Asthma
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
-Hx of vertigo
-S/p Cholecystectomy
-S/P Appendectomy
-S/P Bilateral breast biopsies (benign)
-S/p Teeth implants
Past Surgical History
Past Surgical History: Other (as above)
Family History
Mother: N/A
Father: N/A
Family Medical History: Other
Social History
Alcohol: None
Drug: None
Tobacco: Non-Smoker
Personal:
Living: With Spouse
Employment: Retired
Allergies
Allergy/AdvReac Type Severity Reaction Status Date / Time
hydrocodone bitartrate Allergy confusion Verified 04/10/24 09:52
[From Vicodin]
oxycodone HCl [From Percocet] Allergy Nausea Verified 04/10/24 09:52
Penicillins Allergy skin color Verified 04/10/24 09:52
changes,problems
breathing
(in
college)
Home Medications
�Medication �Instructions �Recorded �Confirmed �Type
cyanocobalamin (vitamin B-12) 1,000 mcg PO DAILY Supplement 11/18/23 04/10/24 History
1,000 mcg tablet (Vitamin B-12)
duloxetine 30 mg capsule,delayed 30 mg PO DAILY depression 11/18/23 04/10/24 History
release
insulin glargine 100 unit/mL (3 34 unit SC HS diabetes 11/18/23 04/10/24 History
mL) subcutaneous pen (Lantus
Solostar U-100 Insulin)
rosuvastatin 20 mg tablet 20 mg PO HS High Cholesterol 11/18/23 04/10/24 History
tirzepatide 2.5 mg/0.5 mL 5 mg SC TH Weight loss 11/18/23 04/10/24 History
subcutaneous pen injector
(Mounjaro)
ascorbic acid (vitamin C) 500 mg 500 mg PO DAILY Supplement #30 tabs 01/20/24 04/10/24 Rx
tablet (Vitamin C)
aspirin 81 mg chewable tablet 81 mg PO DAILY Heart 01/20/24 04/10/24 Rx
(Children's Aspirin) disease/condition #1 tab
metoprolol succinate 25 mg 25 mg PO DAILY Heart 01/20/24 04/10/24 Rx
tablet,extended release 24 hr disease/condition #30 tabs
(Toprol XL)
Lactobac no.2-Bifidobac no.1-S. 1 cap PO DAILY 04/10/24 04/10/24 History
thermo 112.5 billion cell capsule
(Visbiome)
fluticasone propionate 50 1 spray intranasal DAILY 04/10/24 04/10/24 History
mcg/actuation nasal
spray,suspension
gabapentin 600 mg tablet 1,200 mg PO BID nerve pain 04/10/24 04/10/24 History
pantoprazole 40 mg tablet,delayed 40 mg PO DAILY 04/10/24 04/10/24 History
release (Protonix)
warfarin 2.5 mg tablet (Jantoven) 5 mg PO WETHFR@1900 Blood clot 04/10/24 04/10/24 History
prevention/tx
warfarin 5 mg tablet 2.5 mg PO SUMOTUSA@1900 04/10/24 04/10/24 History
Review of Systems
-
Unable to obtain full review of systems at this time due to: Other (Alert and oriented x 3)
History Source: Patient
General: Reports Other (left groin IABP insertion site tenderness)
HEENT: Reports No Symptoms
Respiratory: Reports No Symptoms
Cardiac: Reports No Symptoms
Abdomen/GI: Reports No Symptoms
: Reports Incontinence (s/p straight cathed x 1)
Musculoskeletal: Reports Other (lower back pain)
Skin: Reports No Symptoms
Neurological: Reports No Symptoms
Vascular: Reports No Symptoms
Physical Exam
Vital Signs
Temp 98.4 F 04/11/24 03:00
Temp route: Oral 04/11/24 03:00
Pulse 81 04/11/24 05:00
Rhythm: Normal sinus rhythm 04/11/24 05:00
With- First Degree Heart Block 04/11/24 05:00
Resp Rate 13 04/11/24 05:00
Blood pressure 148/86 04/11/24 05:00
Blood pressure extremity used: Right upper arm 04/11/24 05:00
Position: Lying 04/11/24 05:00
MAP (cuff-Bria Monitor) 105 04/11/24 05:00
SaO2 96 04/11/24 05:00
Nasal Cannula flow liters per minute 2 04/11/24 05:00
Oxygen Mode of Delivery Room air 04/10/24 09:43
Can the patient verbally communicate their pain? Yes 04/11/24 04:07
Pain scale rating: Asleep 04/11/24 04:07
Assisted Systolic Pressure 118 04/11/24 05:00
Assisted end diastolic pressure 55 04/11/24 05:00
Augmented Diastolic Pressure 151 04/11/24 05:00
IABP Augmentation max 04/11/24 05:00
Actual Weight 77 kg 04/10/24 14:27
Body Mass Index (BMI) 30.1 04/10/24 14:27
Labs
04/10/24 11:44
04/11/24 02:20
PT 28.6 Sec (11.4-14.6) H 04/11/24 02:20
APTT 43.6 Sec (23.4-35.0) H 04/11/24 02:20
Hemoglobin A1c Cancelled 04/10/24 18:47
Troponin I 1.790 ng/ml H* D 04/11/24 02:20
Exam
General: Well Developed, Well Nourished and No Apparent Distress
HEENT: Normocephalic, Anicteric and Moist Mucous Membranes
Neck: Trachea Midline
Respiratory: Clear
Cardiac: S1/S2 and Regular Rhythm
GI: Soft, Non Tender, Non Distended and Normal Bowel Sounds
Rectal: Deferred by Provider
Skin: Warm
Neuro: Awake, Alert, Oriented and AO x 3
Extremities: Lower Level Edema (trace edema)
Lymph: No Lymphadenopathy
Psych: Calm
Assessment / Plan
-
-Management per primary team
-Dr. Toledo is okay with discontinuation of Coumadin and addition of Plavix
Data Reviewed
-
EKG: Report Reviewed by me
Finish Carpenter: Report Reviewed by me
Echo: Report Reviewed by me
Radiology: Report Reviewed by me
Medical Tests (Nuc Med, etc): Report Reviewed by me
Labs: Labs Reviewed by me
Old Records: Reviewed
--- NOTE | 2024-04-11 07:00 | PTCARENOTE ---
Bedside walking rounds report received. Patient seen on rounds resting in bed: currently on IABP support via left femoral artery access: small amt of drainage and small hematoma palpated proximal to insertion site: MARIA ESTHER Ed and Penelope MACHINE TANK OPERATOR aware of same.
Plan per cardiology to dc IABP at some point today(with reversal of anticoag with INR 2.7). IABP 1:1/tolerated 1:2 when printing strip. Denies nausea. Denies chest or jaw pain. Palpable bilateral peripheral lower extremity pulses. NSR with first
degree avb. See flowrecord for remaining assessments.
[2024-04-11] MEDS: NEURONTIN 300 MG PO (07:32)
[2024-04-11] MEDS: CYMBALTA DELAYED RELEASE 30 MG PO (07:32)
[2024-04-11] MEDS: PLAVIX 75 MG PO (07:33)
[2024-04-11] MEDS: LOW STRENGTH ASPIRIN 81 MG PO (07:33)
[2024-04-11] MEDS: TOPROL XL 25 MG PO (07:33)
[2024-04-11] MEDS: PROTONIX 40 MG PO (07:33)
[2024-04-11 07:39] LABS: ACT-LR - POC > 397 Seconds (116-155)
[2024-04-11 07:39] LABS: ACT-LR - POC > 397 Seconds (116-155)
--- NOTE | 2024-04-11 08:15 | PTCARENOTE ---
[place] text to Dr. Kulkarni: Dr. Stovall on will round soon and pass along to Dr. Novak about hypertension, INR 2.7: plan for IABP removal today.
--- NOTE | 2024-04-11 08:26 | W.PN.CD ---
Today's Communication / Plan
-
2 u ffp
2.5mg vit K
pull IABP later today--D/w Dr Novak who will pull
CCT 31 minutes
Impression / Plan
-
74F with severe aortic stenosis status post AVR 2014, DCM (EF 25-30%, recovered), dyslipidemia, hypertension, GERD, chronic kidney disease, and chronic anemia, and hospitalization 01/04/2024 - 01/20/2024 with strep mitis bacteremia with aortic root
abscess requiring bioAVR, MVR, reconstruction of fibrous body using bovine pericardium (AKA commando procedure) by Dr. Toledo 01/13/2024. She required a pacemaker POD #4. She is presenting with ACS
Planer Tailer: Dr. Stovall
IMPRESSION/PLAN:
ACS
-s/p Right dominant circulation with an anterior takeoff of the RCA and a very short left main coronary artery with a critical, 95% stenosis in the ostium of the left main coronary artery extending into the LAD with EMILIA I to EMILIA II flow, status
post successful IVUS guided PCI (Medtronic Jefferson Irrigon 4.0 x 15 ALIYAH) with reduction in stenosis to 0%, restoring EMILIA-3 flow.
-With plan for DAPT without warfarin after Dr Ruiz reviewed with Dr Toledo.
-IABP placed in photofinishing laboratory worker for severe CP, will remove today. INR 2.7 will discuss timing with photofinishing laboratory worker team as will likely need ffp.
Step mitis bacteremia with aortic root abscess S/P Commando Procedure by Dr Toledo 01/13/2024
-S/p Reconstruction of the fibrous body using bovine pericardium; MVR #27 mm Mitris; AVR #23 mm Inspiris
-MVR post 14/3 mmHg & AVR post 10/6 mmHg
-21 mm bovine Trifecta tissue valve 02/25/[address] Read
-INR 3.36---Dr Ruiz d/w Dr Toledo now that will have DAPT will stop warfarin.
DCM with recovered EF
-EF back to 45-50%
-Did not tolerate SGLT2i
-GDMT as able
Iatrogenic coagulopathy:
-will give 2u ffp to pull IABP
-will give a small dose of vitk
Chronic kidney disease stage 3b, follows Dr. Washburn in the outpatient setting
HLD, on rosuvastatin 20
Type 2 diabetes mellitus, on long-acting insulin and Mounjaro, HgbA1c in a.m.
GERD, on pantoprazole
Chronic anemia, followed by Dr. Rivas in the outpatient setting
Prior CVA, no residual weakness
Subjective:
she has no cp/jaw pain, just back pain
Cath 04/11/24:
CONCLUSIONS
1. Right dominant circulation with an anterior takeoff of the RCA and a very short left main coronary artery with a critical, 95% stenosis in the ostium of the left main coronary artery extending into the LAD with EMILIA I to EMILIA II flow, status
post successful IVUS guided PCI (Medtronic Jefferson Irrigon 4.0 x 15 ALIYAH) with reduction in stenosis to 0%, restoring EMILIA-3 flow.
2. Successful placement of an intra-aortic balloon pump for intraprocedural chest pain.
3. Status post bioprosthetic aortic valve replacement (#23 [place] Resilia Inspiris AVR, serial #[id number]), mitral valve replacement (#27 [place] Resilia Mitris MVR, serial #[id number]) with Dr. Toledo (01/13/2024).
RECOMMENDATIONS:
1. Expectant management after cardiac catheterization via right radial, right femoral and left femoral approaches.
2. Limited weight bearing on the right wrist for one week. The patient must lay flat overnight given the presence of the intra-aortic balloon pump.
3. Triple therapy with aspirin, clopidogrel and warfarin for at least 1 week. We will discuss antithrombotic therapy going forward (discontinuing either aspirin or warfarin).
4. Maintain balloon pump overnight. We will consider using FFP to lower INR transiently to allow for adequate hemostasis.
5. Guideline directed medical therapy as hemodynamics will tolerate.
6. Secondary prevention with high-dose, high potency statin. I suspect that this lesion was due to proliferation of scar tissue and not atherosclerosis, though IVUS did reveal evidence of atherosclerotic deposition without intra coronary occlusion.
TTE:
CONCLUSIONS
1. Normal LV size with anteroseptal and apical severe hypokinesis. LVEF 45-50%
2. S/P MVR with mean gradient 4mm Hg and no MR
3. S/P AVR with mean gradient 4mm Hg and no AI
4. Normal estimated PA pressure
5. Compared with 01-14-2024 study, LV wall motion abnormalities are new and
previous LVEF 65-70%
Physical Exam
Vital Signs/Labs
Vital Signs
Temp Pulse Resp BP Pulse Ox
97.6 F 77 10 160/95 97
04/11/24 07:37 04/11/24 08:00 04/11/24 08:00 04/11/24 07:37 04/11/24 08:00
04/10/24 04/11/24 04/12/24
06:59 06:59 06:59
Actual Weight 76.8 kg
04/10/24 11:44
04/11/24 02:20
PT 28.6 Sec (11.4-14.6) H 04/11/24 02:20
INR 2.70 04/11/24 02:20
APTT 43.6 Sec (23.4-35.0) H 04/11/24 02:20
Magnesium 1.7 mg/dl (1.6-2.3) 04/11/24 02:20
Triglycerides 300 mg/dl (10-149) H 04/11/24 02:20
LDL Cholesterol, Calc 66 mg/dl 04/11/24 02:20
VLDL Cholesterol, Calc 60 mg/dl (0-30) H 04/11/24 02:20
HDL Cholesterol 41 mg/dl 04/11/24 02:20
LAB Results
04/10/24 04/10/24 04/10/24
10:58 11:38 11:44
Troponin I Cancelled Cancelled 0.429 H*
04/10/24 04/10/24 04/11/24
13:03 20:41 02:20
Troponin I 0.481 H* 1.350 H* D 1.790 H* D
Physical Exam
Constitutional: No acute distress
Cardiovascular: Rhythm & rate is regular, Pedal edema is absent, JVD pressure is normal, Systolic murmur absent and Diastolic murmur absent
Respiratory: Respiratory effort normal, Lungs clear to auscul., Wheeze Absent, Crackles Absent and Rhonchi Absent
Neuro/Psych: AO x 3
Data Reviewed
-
Date of Service: April 11, 2024
Medical Decision Making: Review of Case with other Provider (Plan for ffp and vit K d/w YECENIA Henry)
EKG: Tracing Personally Visualized and interpreted and Other (tele sinus)
[2024-04-11 08:51] LABS: Glucose - Point of Care 99 mg/dl (70-99)
--- NOTE | 2024-04-11 09:15 | PTCARENOTE ---
Dr. Stovall here: new orders will type and sc and transfuse 2 units FFP and give vit K po for INR of 2.7. Re check INR 30 to 45min after ffp transfusion and notify Dr. Novak to have IABP dc.
--- NOTE | 2024-04-11 10:00 | PTCARENOTE ---
[place] text to Dr. Stovall: systolic BP now 170. New orders via [employer].
--- NOTE | 2024-04-11 10:18 | CON.INTV ---
Consultation
Consultation Request
Date/Time Consultation Requested: 04/10/2024 - 1846
Date/Time Consultation Performed: 04/11/2024 - 100
Requesting Provider: LALO Navarrete
Performing Provider: Jasen Henson MD
Reason for Consultation: ACS
Medical History
-
Chief Complaint: Jaw pain
History of Present Illness:
74-year-old female former tobacco smoker with a past medical history of severe aortic stenosis s/p aortic valve replacement (2014) c/b AV-endocarditis/aortic root abscess with S. mitis bacteremia requiring redo sternotomy with extensive adhesiolysis
with prior AV prosthesis explantation with debridement + chordal sparing bioprosthetic MVR + bioprosthetic AVR (01/13/2024), intermittent CHB s/p dual-chamber PPM (implanted 01/17/2024), DM type II c/b neuropathy, CAD, GERD, chronic HFpEF, hypertension,
CKD, chronic anemia and history of asthma who presented from cardiac rehab with jaw pain and back pain x3 days. Initial vitals were stable with BP 145/80, SpO2 100% on room air, RR: 18, pulse rate 85 and afebrile to 97.5 �F. Initial labs showed
Hb 13, absolute eosinophil count 500, INR 3.32 (on Coumadin as outpatient), creatinine 1.1, A1c 6.2, and initial troponin 0.429. CXR showed no active pulmonary process. Patient diagnosed with NSTEMI, given chewable ASA, and brought to [facility] where
IABP was inserted and a 95% ostial stenosis with extension into the LAD with EMILIA II flow was seen. Patient had successful IVUS guided PCI of the ostial left main. Patient transferred to the CVICU postoperatively and critical care services
consulted for additional management/recommendations.
Patient seen and evaluated today at bedside. IABP has been removed. Patient feels well, jaw pain resolved. She is currently on 2 L/min nasal cannula saturating 98%. She is hemodynamically stable with BP 160/51, and pulse rate 77. She remains
afebrile at 97.8 �F. She denies chest pain, abdominal pain, back pain, headache, fevers or chills.
PMHx: Severe aortic stenosis s/p aortic valve replacement (2014) c/b endocarditis (echodensity seen at the level of the aortic annulus + anterior MV leaflet via SHANI from 01/06/2024) with aortic root abscess + bacteremia s/p redo sternotomy with
explantation of prior AVR with bioprosthetic AVR + chordal sparing bioprosthetic MVR (01/13/2024), CHB s/p dual-chamber PPM (implantation date: 01/17/2024), DM type II c/b neuropathy, CAD, GERD, chronic HFpEF, hypertension, hypercholesterolemia, CKD,
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
PSHx: Appendectomy, cholecystectomy, AVR/MVR (01/13/2024 here at ), recent tooth extraction, teeth implants, bilateral breast biopsies (benign)
Past Medical History
Past Medical History: Other (Above as per HPI)
Past Surgical History: Other (Above as per HPI)
Social History
Tobacco: Former Smoker
Alcohol: Occasional
Drug: None
Personal:
Living: With Family
Employment: Retired
Family History
Family History: Reviewed & Not Pertinent
Allergies / Home Medications
Allergies
Allergy/AdvReac Type Severity Reaction Status Date / Time
hydrocodone bitartrate Allergy confusion Verified 04/10/24 09:52
[From Vicodin]
oxycodone HCl [From Percocet] Allergy Nausea Verified 04/10/24 09:52
Penicillins Allergy skin color Verified 04/10/24 09:52
changes,problems
breathing
(in
college)
Home Medications
�Medication �Instructions �Recorded �Confirmed �Last Taken �Type
cyanocobalamin (vitamin B-12) 1,000 mcg PO DAILY Supplement 11/18/23 04/10/24 04/10/24 History
1,000 mcg tablet (Vitamin B-12)
duloxetine 30 mg capsule,delayed 30 mg PO DAILY depression 11/18/23 04/10/24 04/10/24 History
release
insulin glargine 100 unit/mL (3 34 unit SC HS diabetes 11/18/23 04/10/24 11/21/23 22:00 History
mL) subcutaneous pen (Lantus
Solostar U-100 Insulin)
rosuvastatin 20 mg tablet 20 mg PO HS High Cholesterol 11/18/23 04/10/24 04/09/24 History
tirzepatide 2.5 mg/0.5 mL 5 mg SC TH Weight loss 11/18/23 04/10/24 04/06/24 History
subcutaneous pen injector
(Mounjaro)
ascorbic acid (vitamin C) 500 mg 500 mg PO DAILY Supplement #30 tabs 01/20/24 04/10/24 04/10/24 Rx
tablet (Vitamin C)
aspirin 81 mg chewable tablet 81 mg PO DAILY Heart 01/20/24 04/10/24 04/10/24 Rx
(Children's Aspirin) disease/condition #1 tab
metoprolol succinate 25 mg 25 mg PO DAILY Heart 01/20/24 04/10/24 04/10/24 Rx
tablet,extended release 24 hr disease/condition #30 tabs
(Toprol XL)
Lactobac no.2-Bifidobac no.1-S. 1 cap PO DAILY Supplement 04/10/24 04/10/24 04/10/24 History
thermo 112.5 billion cell capsule
(Visbiome)
fluticasone propionate 50 1 spray intranasal DAILY 04/10/24 04/10/24 04/10/24 History
mcg/actuation nasal INFLAMMATION
spray,suspension
gabapentin 600 mg tablet 1,200 mg PO BID nerve pain 04/10/24 04/10/24 04/10/24 History
pantoprazole 40 mg tablet,delayed 40 mg PO DAILY GERD 04/10/24 04/10/24 04/10/24 History
release (Protonix)
warfarin 2.5 mg tablet (Jantoven) 5 mg PO WETHFR@1900 Blood clot 04/10/24 04/10/24 04/07/24 History
prevention/tx
warfarin 5 mg tablet 2.5 mg PO SUMOTUSA@1900 Blood Clot 04/10/24 04/10/24 04/09/24 History
Prevention/Tx
Review of Systems
-
History Source: Patient
All other systems: Negative unless noted (12 point ROS performed and is negative unless mentioned above.)
Vitals / Labs / Diagnostic Testing
Vital Signs
Temp Pulse Resp BP Pulse Ox
97.8 F 77 16 161/51 98
04/11/24 09:00 04/11/24 09:00 04/11/24 09:00 04/11/24 09:00 04/11/24 09:00
Lab Data
04/10/24 11:44
04/11/24 02:20
Laboratory Results
04/10/24 04/10/24 04/10/24
10:58 11:38 11:44
PT Cancelled Cancelled 33.7 H
INR Cancelled Cancelled 3.32
APTT Cancelled
04/11/24
02:20
PT 28.6 H
INR 2.70
APTT 43.6 H
Diagnostic Testing:
Physical Exam
-
HEENT: Normocephalic and Anicteric
Cardiovascular: S1/S2 and Peripheral Edema (negative)
Respiratory: Wheeze (negative), Rales (negative), Rhonchi (negative) and Non-Labored Respirations
GI: Soft, Non Distended, Non Tender and Normal Bowel Sounds
Neurology: AO x 3 and Tremors (negative)
Skin: Warm and Dry
General: Respiratory Distress (negative), Comfortable, Chills (negative) and Sweats (negative)
Assessment
-
Assessment: 74-year-old female former tobacco smoker with a past medical history of severe aortic stenosis s/p aortic valve replacement (2014) c/b AV-endocarditis/aortic root abscess with S. mitis bacteremia requiring redo sternotomy with extensive
adhesiolysis with prior AV prosthesis explantation with debridement + chordal sparing bioprosthetic MVR + bioprosthetic AVR (01/13/2024), intermittent CHB s/p dual-chamber PPM (implanted 01/17/2024), DM type II c/b neuropathy, CAD, GERD, chronic HFpEF,
hypertension, CKD, chronic anemia and history of asthma who presented from cardiac rehab with jaw pain and back pain x3 days. Initial vitals were stable with BP 145/80, SpO2 100% on room air, RR: 18, pulse rate 85 and afebrile to 97.5 �F. Initial
labs showed Hb 13, absolute eosinophil count 500, INR 3.32 (on Coumadin as outpatient), creatinine 1.1, A1c 6.2, and initial troponin 0.429. CXR showed no active pulmonary process. Patient diagnosed with NSTEMI, given chewable ASA, and brought to
[facility] where IABP was inserted and a 95% ostial stenosis with extension into the LAD with EMILIA II flow was seen. Patient had successful IVUS guided PCI of the ostial left main. Patient transferred to the CVICU postoperatively and critical care
services consulted for additional management/recommendations.
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
sternotomy with explantation of prior AVR with bioprosthetic AVR + chordal sparing bioprosthetic MVR (01/13/2024), CHB s/p dual-chamber PPM (implantation date: 01/17/2024), DM type II c/b neuropathy, CAD, GERD, chronic HFpEF, hypertension,
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
Impression:
#NSTEMI s/p IVUS guided PCI of the ostial left main with ALIYAH x 1 placed on 04/10/2024
#NSTEMI with protracted chest pain requiring IABP � IABP now removed
#Elevated troponin due to NSTEMI
#Chronic anticoagulation with Coumadin
#CKD stage III
#Hx of asthma - not currently in an acute exacerbation
#Hx of bioprosthetic AVR/MVR (01/13/2024)
#Hx of CHB s/p dual-chamber PPM (implantation date: 01/17/2024)
Plan:
Continue supplemental oxygen with goal SpO2 >94%
prn nebulized bronchodilators
Encourage incentive spirometer use
Pain control
Maintain MAP>65
Replete electrolytes with K>4, Mg>2
Monitor hemoglobin
Monitor platelet count and coags
Transfuse blood products if needed to keep Hb>8g/dL, plt>20k
Monitor blood sugar with goal BG 140-180mg/dL
Insulin supplementation as needed to maintain BG goal as above
Aspiration precautions
DVT prophylaxis
Early nutrition
Early mobilization
Patient doing well s/p left heart catheterization, with IABP removed and not on insulin, vasopressors and is hemodynamically stable and breathing comfortably on 2 L/min nasal cannula. Sports Director/Pulmonary service will sign off. Thank you for
allowing us to be involved in the care of this patient. Please reconsult if there are any additional questions/concerns, or if patient's respiratory status deteriorates.
Total time spent today was 55 minutes for this encounter. Time includes reviewing laboratory test/imaging results, reviewing pertinent medical records, obtaining and reviewing medical history, performing an appropriate exam, ordering medications,
tests and procedures. Time also includes documentation of this encounter, coordinating patient care and communicating with other healthcare professionals. Total time does not include separately billed tests performed on this date of service.
Data:
CXR 04/10/2024: No active pulmonary process.
[2024-04-11] MEDS: ALDACTONE 25 MG PO (10:27)
[2024-04-11] MEDS: MEPHYTON 2.5 MG PO (10:44)
[2024-04-11] MEDS: MORPHINE SULFATE 2 MG IV ×2 (10:44→13:50)
--- NOTE | 2024-04-11 10:46 | CM ---
Reviewed chart. Met with and Mrs. Gallardo to review discharge plans. She states she is having back pain today. She states prior to admission she resides with her spouse in a two story home with two steps to enter. She states she has a full
flight of steps to get to bedroom. She states she has a full bathroom on each level. She states prior to admission she was independent with ambulation and adls. She states she does not have any DME in the home. She states she has a prescription
plan and uses [facility]. She has had [facility] and [facility] in the past. Will need to see her current functional level to see if she will have any skilled care needs. Medical work-up in progress. The discharge
plan is to return home with her spouse when medically stable.
[2024-04-11 11:12] LABS: Glycohemoglobin (HgbA1c) 6.2 % (4.0-5.6)
[2024-04-11] MEDS: DILAUDID 0.5 MG IV ×3 (12:00→20:09)
[2024-04-11] MEDS: LOPRESSOR 2.5 MG IV (12:50)
[2024-04-11 12:52] LABS: INR 1.89; PT 21.5 Sec (11.4-14.6)
--- NOTE | 2024-04-11 14:04 | PTCARENOTE ---
Dr. Novak aware of INR of 1.89 and here to the the bedside: Left IABP sutures; and 7FR IABP catheter balloon sheath dc: pressure held by MD for 10min then catholic priest RN for 20min: premedicated with 2mg of Morphine sulfate IV prior to initiation of
procedure. Hematoma reduced.
--- NOTE | 2024-04-11 15:10 | W.PN.UPDATE ---
Update Note
Progress Note Update
IABP removal
IABP removed after FFP with repeat INR 1.89.
Groin had moderate sized hematoma above puncutre site PRIOR to IABP removal. Hematoma pushed out during manual compression x 25-30 min to achieve hemostasis
Resume warfarin tonight with 5mg. Daily dosing per INR results in AM
--- NOTE | 2024-04-11 17:00 | PTCARENOTE ---
Bladder scanned for 518ml: will straight cath per order protocol: patient is unable to void with purewick in place
--- NOTE | 2024-04-11 17:14 | W.PN.UPDATE ---
Update Note
Progress Note Update
Communicated with Fadi Ruiz and [place] who do not feel continue OAT best course of treatment. Will cancel coumadin ordered for this evening. Continue ASA/Plavix
[2024-04-11 17:55] LABS: Glucose - Point of Care 100 mg/dl (70-99)
[2024-04-11] MEDS: NEURONTIN 1200 MG PO (19:51)
--- NOTE | 2024-04-11 20:20 | PTCARENOTE ---
Assumed care of patient at 1900. Patient found in bed at time of assessment. Patient is AOx4, follows commands appropriately, moves all extremities. Lung sounds are diminished in the bases, patient is on RA with saO2 of 98%. Heart sounds have a
regular rate and rhythm, patient is SR with first deg AV block and BBB on the monitor. Patient has normal palpable radial pulses and doralis pedis are present with doppler. No edema is noted. Patient has active BS throughout all four quadrants,
there is a purewick in place however very low UOP. Patient noted to have urinary retention with previous two shifts requiring straight cath. Patient has R groin puncture with 4x4 gauze dressing that is CDI and L groin puncture with 4x4 gauze
dressing that is CDI. There is a hematoma proximal to L groin puncture site. Patient has L FA PIV available for intermittent infusion. Patient c/o severe pain 2/2 lower back and L groin hematoma. Given 0.5 Dilaudid per orders. VSS. Will continue to
monitor.
[2024-04-11 21:56] LABS: Glucose - Point of Care 115 mg/dl (70-99)
[2024-04-11] MEDS: LANTUS SC (22:14)
[2024-04-11] MEDS: LANTUS 0.15 UNITS SC (22:20)
[2024-04-11] MEDS: CRESTOR 20 MG PO (22:20)
[2024-04-12] VITALS (37 sets, daily range): BP systolic 92–145; BP diastolic 53–88; BMI 29.5
[2024-04-12 00:17] LABS: Glucose - Point of Care 106 mg/dl (70-99)
--- NOTE | 2024-04-12 00:30 | PTCARENOTE ---
Patient reassessed. VSS. No c/o pain at this time. Patient refusing turns at this time due to potential pain. Patient with blood sugar of 115 at HS. Patient due for 34 units Lantus. Patient reports poor appetite during day. Conferred with CT PA
regarding insulin dosage. Patient given 15 units Lantus instead. No UOP via purewick. Patient bladderscanned for 207. Will encourage patient to use bathroom or bedside commode in AM.
[2024-04-12 04:11] LABS: PT 17.9 Sec (11.4-14.6)
[2024-04-12 04:12] LABS: APTT 34.9 Sec (23.4-35.0)
[2024-04-12 04:13] LABS: % Basophils 0.3 % (0-2); % Eosinophils 3.6 % (0-6); % Immature Granulocytes 0.4 % (0-0.5); % Lymphocytes 16.3 % (20.5-51.1); % Monocytes 10.8 % (1.7-9.3); % Neutrophils 68.6 % (42.2-75.2); Absolute Eosinophils 0.4 10^3/uL (0-0.7); Absolute Lymphocytes 1.7 10^3/uL (1.2-3.4); Absolute Monocytes 1.1 10^3/uL (0.1-0.6); Absolute Neutrophils 7.1 10^3/uL (1.4-6.5); Hematocrit 31.1 % (37.0-47.0); Hemoglobin 10.2 g/dL (12.0-16.0); Mean Corp Hgb Conc. 32.8 g/dL (33.0-37.0); Mean Corpuscular Hgb 25.3 pg (27.0-31.0); Mean Corpuscular Volume 77.2 fL (81.0-99.0); Nucleated Red Blood Cells % 0 %; Platelet Count 188 10^3/uL (130-400); Red Blood Cell Count 4.03 10^6/uL (4.20-5.40); White Blood Cell Count 10.4 10^3/uL (4.8-10.8)
[2024-04-12 04:35] LABS: Albumin 3.8 g/dl (3.5-5.0); Blood Urea Nitrogen 21 mg/dl (7-17); Calcium 8.9 mg/dl (8.4-10.2); Carbon Dioxide 27 mmol/L (22-30); Chloride 104 mmol/L (98-107); Estimated Creatinine Clearance 60 ml/min; Glucose 88 mg/dl (70-99); Phosphorus 3.7 mg/dl (2.5-4.5); Potassium 4.8 mmol/L (3.5-5.1); Sodium 134 mmol/L (135-145); eGFR > 60.00
--- NOTE | 2024-04-12 05:23 | W.PN.CT ---
Today's Communication / Plan
-
-no significant issues overnight
-IABP dcd on 04/11
-pain in groins b/l, L>R- both are soft, appear stable after walking to the commode this am. BP is stable 120s.
-Hg 10.2 today- follow (13.0 on 04/10, got 2 FFPs on 04/11)
-Cr ok - 0.8 today
-got lower dose of Lantus 15 units last night to avoid hypoglycemia-BG this am is 88
-Echo 04/10 with MVR peak/mean grad 16/4, no MR and AVR peak/mean grad 8/4, no AI; new wma, decreased EF 45-50% (65-70% on 01/14/24)
-current meds (ASA, Plavix, Crestor, Toprol, Aldactone, Protonix). Coumadin stopped (inr 1.50 today)
-difficulty with ambulation this am - consider PT/OT eval
Assessment / Plan
-
-ACS/NSTEMI
-a very short left main coronary artery with a critical, 95% stenosis in the ostium of the left main coronary artery extending into the LAD with EMILIA I to EMILIA II flow, status post successful IVUS guided PCI (Medtronic Polo Ida 4.0 x 15 ALIYAH)
with reduction in stenosis to 0%, restoring EMILIA-3 flow on 04/10/24, pod #2.
-suspected that this lesion was due to proliferation of scar tissue and not atherosclerosis, though IVUS did reveal evidence of atherosclerotic deposition without intra coronary occlusion.
-IABP placed in cathode ray tube assembler for severe CP, removed on 04/11 after getting 2 FFPs and vit K
-Coumadin stopped this admission. Will continue ASA and Plavix
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
-S/p Reconstruction of the fibrous body using bovine pericardium; MVR #27 mm Mitris; AVR #23 mm Inspiris
-MVR post 14/3 mmHg & AVR post 10/6 mmHg
-s/p 21 mm bovine Trifecta tissue valve 02/25/[address] Read
-DCM with recovered EF
-EF back to 45-50%
-Did not tolerate SGLT2i
-CKD3b, follows Dr. Washburn in the outpatient setting
-HLD, on Crestor 20
-DM II
-GERD, on pantoprazole
-Chronic anemia, followed by Dr. Rivas
-Prior CVA, no residual weakness
Cath 04/10/24:
1. Right dominant circulation with an anterior takeoff of the RCA and a very short left main coronary artery with a critical, 95% stenosis in the ostium of the left main coronary artery extending into the LAD with EMILIA I to EMILIA II flow, status
post successful IVUS guided PCI (Medtronic Polo Ida 4.0 x 15 ALIYAH) with reduction in stenosis to 0%, restoring EMILIA-3 flow.
2. Successful placement of an intra-aortic balloon pump for intraprocedural chest pain.
3. Status post bioprosthetic aortic valve replacement (#23 Blanton Resilia Inspiris AVR, serial #[id number]), mitral valve replacement (#27 Blanton Resilia Mitris MVR, serial #[id number]) with Dr. Toledo (01/13/2024).
Echo 04/10/24:
1. Normal LV size with anteroseptal and apical severe hypokinesis. LVEF 45-50%
2. S/P MVR with mean gradient 4mm Hg and no MR
3. S/P AVR with mean gradient 4mm Hg and no AI
4. Normal estimated PA pressure
5. Compared with 01-14-2024 study, LV wall motion abnormalities are new and previous LVEF 65-70%
Discussed patient care with: Nursing and Care Team
Subjective
-
Date of Service: April 12, 2024
Objective Data
-
PT 21.5 Sec (11.4-14.6) H 04/11/24 12:23
INR 1.89 04/11/24 12:23
APTT 43.6 Sec (23.4-35.0) H 04/11/24 02:20
Vital Signs
Vital Signs
Temp Pulse Resp BP Pulse Ox
98 F 95 14 125/63 93
04/11/24 22:00 04/12/24 01:00 04/12/24 01:00 04/12/24 01:00 04/12/24 01:00
CT Intake/Output/Weight
04/11/24 04/11/24 04/12/24
06:59 18:59 06:59
Intake Total 250 / 250 1806 / 1806
Output Total 700 / 700 600 / 600 0 / 600
Balance -450 / -450 1206 / 1206 0 / 1206
SaO2: 93
Physical Exam
-
General: Awake and AOx3 (no complaints)
Cardiovascular: Regular rate & rhythm and No Murmurs
Respiratory: Decreased Breath Sounds
Incision: Other (b/l groins are tender to touch, L>R, but soft b/l)
Extremities: No Edema (DPs present by Doppler b/l. Cool feet b/l (chronic per pt))
Data Reviewed
-
Lab Results: Results Reviewed
Medications: Active Meds Reviewed
Chest X-Ray: Report Reviewed and Image Reviewed
ECG: Report Reviewed and Image Reviewed
--- NOTE | 2024-04-12 05:29 | PTCARENOTE ---
Patient reassessed. Remains SR with first deg AV block and BBB. Assisted patient OOB to bedside commode. Patient reports some pain during transfer, but successfully stood and pivot to the commode. Patient is an assistx2. Patient with successful void
of 175. Assisted patient back to bed without incident. Purewick removed. Once back to bed patient reported that their pain had subsided.
--- NOTE | 2024-04-12 07:30 | PTCARENOTE ---
Patient received from night stocker resting in bed, AAO x 3, c/o L groin discomfort. ST via cm, SaO2 @ 97% on RA. R groin site stable, cdi, no ecchymosis or hematoma noted - L groin with small palp hematoma, not expanded per prior RN. Distal pulses
obtainable via doppler. Patient updated to plan of care for the day, in agreement. See work list for full assessment and interventions performed.
[2024-04-12] MEDS: PLAVIX 75 MG PO (09:11)
[2024-04-12] MEDS: NEURONTIN 1200 MG PO ×2 (09:11→19:26)
[2024-04-12] MEDS: PROTONIX 40 MG PO (09:11)
[2024-04-12] MEDS: TYLENOL 650 MG PO ×2 (09:11→17:46)
[2024-04-12] MEDS: CYMBALTA DELAYED RELEASE 30 MG PO (09:11)
[2024-04-12] MEDS: TOPROL XL 25 MG PO (09:12)
[2024-04-12] MEDS: ALDACTONE 25 MG PO (09:12)
[2024-04-12] MEDS: LOW STRENGTH ASPIRIN 81 MG PO (09:12)
--- NOTE | 2024-04-12 09:31 | W.PN.CD ---
Today's Communication / Plan
-
CTA Abdomen/Pelvis.
Hold warfarin.
Transfer to IVU.
Increase metoprolol to 50 mg daily.
Impression / Plan
-
Impression/Plan: 74F with severe aortic stenosis status post SAVR 2014, DCM (EF 25-30%, recovered), dyslipidemia, hypertension, GERD, chronic kidney disease, and chronic anemia, and hospitalization 01/04/2024 - 01/20/2024 with strep mitis bacteremia
with aortic root abscess requiring bioAVR, MVR, reconstruction of fibrous body using bovine pericardium (AKA commando procedure) by Dr. Toledo 01/13/2024, subsequently complicated by CHB requiring pacemaker POD #4, now presenting with ACS.
Excelsior Machine Operator: Dr. Stovall
#ACS
-s/p PCI of the ostium of the LMCA (probably due to progressive scar tissue, noted on Dr. Toledo's operative note).
-Troponin peaked to 1.790.
-Plan for DAPT without warfarin.
-IABP placed in chemistry laboratory technician for severe CP removed yesterday after FFP given.
-HR around 100. Increase metoprolol to 50 mg BID.
#Anemia
-Acute on chronic.
-Hbg 10.2 <-- 13.3 <-- 9.2 (01/20/2024).
-She does complain of some mild groin pain.
-Given elevated INR and large bore access, now with persistently elevated HR, we will check CT abdomen/pelvis with CTX to evalute for hematoma/RPB.
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
-S/P prior #21 bovine Trifecta tissue valve 02/25/[address] Read.
-S/P Commando Procedure by Dr Toledo, 01/13/2024.
-S/p Reconstruction of the fibrous body using bovine pericardium; MVR #27 Resilia Mitris; SAVR #23 Resilia Inspiris.
#Dilated cardiomyopathy with partially recovered EF
-Improved.
-LVEF back to 45-50%.
-Did not tolerate SGLT2i.
-GDMT as hemodynamics will tolerate. Uptitrate beta rose.
#Iatrogenic coagulopathy
-Chronic.
-Corrected with FFP/Phytonadione.
-No further warfarin.
#IDDM Type 2
-Chronic, stable.
-On long-acting insulin and tirzepitide
-HgbA1c pending.
#HLD
-Chronic, stable.
-Total cholesterol = 167, LDL = 66, HDL = 41, Triglycerides =300.
-Continue rosuvastatin 20 mg daily.
-LDL at goal.
-Start icosapent ethyl 2g PO BID at discharge. Goal triglycerides < 150.
#Chronic kidney disease stage 3b, follows Dr. Washburn in the outpatient setting
#GERD, on pantoprazole
#Chronic anemia, followed by Dr. Rivas in the outpatient setting
#Prior CVA, no residual weakness
#Dispo
-Full code.
-Ok to downgrade to IVU.
Critical Care Time = 45 minutes.
Subjective/Interval History:
HR around 100.
Hbg down to 10.2 (from 13), but with a prior history of anemia (Hbg 9.2 on 01/20/2024).
INR down to 1.50.
DATA:
Cath/PCI, 04/10/24:
CONCLUSIONS
1. Right dominant circulation with an anterior takeoff of the RCA and a very short left main coronary artery with a critical, 95% stenosis in the ostium of the left main coronary artery extending into the LAD with EMILIA I to EMILIA II flow, status
post successful IVUS guided PCI (Medtronic Polo [place] 4.0 x 15 ALIYAH) with reduction in stenosis to 0%, restoring EMILIA-3 flow.
2. Successful placement of an intra-aortic balloon pump for intraprocedural chest pain.
3. Status post bioprosthetic aortic valve replacement (#23 Blanton Resilia Inspiris AVR, serial #[id number]), mitral valve replacement (#27 Blanton Resilia Mitris MVR, serial #[id number]) with Dr. Toledo (01/13/2024).
TTE, 04/10/2024:
CONCLUSIONS
1. Normal LV size with anteroseptal and apical severe hypokinesis. LVEF 45-50%
2. S/P MVR with mean gradient 4mm Hg and no MR
3. S/P AVR with mean gradient 4mm Hg and no AI
4. Normal estimated PA pressure
5. Compared with 01-14-2024 study, LV wall motion abnormalities are new and
previous LVEF 65-70%
Physical Exam
Vital Signs/Labs
Vital Signs
Temp Pulse Resp BP Pulse Ox
36.8 C 107 16 134/67 97
04/12/24 08:00 04/12/24 09:15 04/12/24 08:00 04/12/24 09:12 04/12/24 09:00
04/10/24 04/11/24 04/12/24
11:59 11:59 11:59
Actual Weight 76.8 kg 75.6 kg
04/12/24 03:36
04/12/24 03:36
PT 17.9 Sec (11.4-14.6) H 04/12/24 03:36
INR 1.50 04/12/24 03:36
APTT 34.9 Sec (23.4-35.0) 04/12/24 03:36
Magnesium 1.7 mg/dl (1.6-2.3) 04/11/24 02:20
Triglycerides 300 mg/dl (10-149) H 04/11/24 02:20
LDL Cholesterol, Calc 66 mg/dl 04/11/24 02:20
VLDL Cholesterol, Calc 60 mg/dl (0-30) H 04/11/24 02:20
HDL Cholesterol 41 mg/dl 07/30/24 02:20
LAB Results
04/10/24 04/10/24 04/10/24
10:58 11:38 11:44
Troponin I Cancelled Cancelled 0.429 H*
04/10/24 04/10/24 04/11/24
13:03 20:41 02:20
Troponin I 0.481 H* 1.350 H* D 1.790 H* D
04/11/24
08:43
Troponin I 1.590 H*
Physical Exam
Constitutional: No acute distress and Comfortable
EENT: Anicteric and Moist mucous membranes
Cardiovascular: Rhythm & rate is regular, Pedal edema is absent, JVD pressure is normal, S1S2 is normal and Murmur/rub/gallop absent
Respiratory: Respiratory effort normal, Lungs clear to auscul., Wheeze Absent, Crackles Absent and Rhonchi Absent
GI: Soft, Distention absent, Flat, Non tender and Normal bowel sounds
Neuro/Psych: AO x 3
Other: Cath Site (Bilateral femoral access sites are C/D/I. There is some bilateral tenderness. Left radial access site is C/D/I.)
Data Reviewed
-
Date of Service: April 12, 2024
Medical Decision Making: Reviewed Test Results, Independent Historian Assessment and Test Interpretation
EKG: Tracing Personally Visualized and interpreted and Report Reviewed by me
Echo: Tracing Personally Visualized and interpreted and Report Reviewed by me
X-Ray/CT/US/MRI/NUC/PET: Image Personally Visualized and interpreted and Report Reviewed by me
Medical Tests (PFT, Pathology etc): Image Personally Visualized and interpreted and Report Reviewed by me
Labs: Labs Reviewed by me
[2024-04-12 09:50] LABS: Glucose - Point of Care 103 mg/dl (70-99)
--- NOTE | 2024-04-12 10:25 | PTCARENOTE ---
Patient ambulated cross w/[facility] and RN, tolerated well. Returned to bed, pleural chest tubes d/c'd as ordered. Patient resting comfortably.
[2024-04-12 13:54] LABS: Glucose - Point of Care 114 mg/dl (70-99)
[2024-04-12 16:50] LABS: Glucose - Point of Care 130 mg/dl (70-99)
--- NOTE | 2024-04-12 17:13 | W.PN.UPDATE ---
Update Note
Progress Note Update
Patient seen at the request of Dr. 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 Patient is currently hemodynamically stable, reports mild tenderness at left groin
puncture site where previous balloon pump was placed for percutaneous intervention. Denies nausea, vomiting, fever, chills, shortness of breath, chest pain, or bilateral lower extremity pain/coolness. On physical exam patient is hemodynamically
stable, resting bed comfortably, no JVD, no tachycardia, no dyspnea on room air, ABD flat, nondistended, nontender, left groin site tender to palpation with scant evidence of edema, no evidence of hematoma all surrounding compartments soft. Right
groin site CDI with no tenderness to palpation. Bilateral DP/PT Doppler signals present, bilateral feet warm. Reviewed HPI, physical exam, and CT scan results with on-call attending Dr. Colt Rodrigues who agrees with plan of consulting interventional
radiology for thrombin injection given favorable longneck present at pseudoaneurysm. Recommendations relayed to dock or pier laborer Dr. Armando Ruiz. Full consult to follow.
--- NOTE | 2024-04-12 17:18 | CON.VAS ---
Consultation
Consultation Request
Date/Time Consultation Performed: 04/12/2024 1700
Requesting Provider: Armando Ruiz MD
Performing Provider: Jennifer Luu NP-C for Colt Rodrigues MD
Reason for Consultation: Left common femoral artery pseudoaneurysm
Medical History
-
Chief Complaint: Left common femoral artery pseudoaneurysm
History of Present Illness:
This is a 74-year-old female with significant past medical history for coronary artery disease, dilated cardiomyopathy, hypertension, hypercholesterolemia, valvular disease, chronic kidney disease, and anemia who presented to the hospital on
04/10/2024 with reports of intermittent exertional jaw pain, which was concerning for ACS and she was taken to the cardiac catheterization lab. Cardiac catheterization demonstrated ostial left main disease and decision was made to place intra aortic
balloon pump in left common femoral artery while proceeding with high risk PCI. Patient underwent procedure successfully and balloon pump was removed from left common femoral artery on 04/11/2024. However, today patient was noted to have decrease
in hemoglobin with reports of tenderness at left groin prompting CTA of abdomen pelvis, preliminary reading relayed to Dr. Ruiz of longneck pseudoaneurysm arising from left common femoral artery prompting vascular surgery consultation. Currently
patient offers minimal complaints other than tenderness at left groin, she denies nausea, vomiting, fever, chills, generalized abdominal pain, bilateral cool feet, or pain in bilateral lower extremities.
Past Medical History
Past Medical History: CAD, CHF (DCM, recovered EF), HTN, Hypercholesterolemia, Valvular Disease (MVR #27 mm Mitris & AVR #23 mm Inspiris on 01/13/24) and Other (Chronic kidney disease, chronic anemia)
Past Surgical History: Appendectomy, Cardiac (Mitral valve and aortic valve replacement, cardiac catheterization with PCI, permanent pacemaker) and Cholecystectomy
Social History
Tobacco: Former Smoker
Alcohol: Occasional
Drug: None
Personal:
Living: With Family
Allergies / Home Medications
Allergy/AdvReac Type Severity Reaction Status Date / Time
hydrocodone bitartrate Allergy confusion Verified 04/10/24 09:52
[From Vicodin]
oxycodone HCl [From Percocet] Allergy Nausea Verified 04/10/24 09:52
Penicillins Allergy skin color Verified 04/10/24 09:52
changes,problems
breathing
(in
college)
�Medication �Instructions �Recorded �Confirmed �Type
cyanocobalamin (vitamin B-12) 1,000 mcg PO DAILY Supplement 11/18/23 04/10/24 History
1,000 mcg tablet (Vitamin B-12)
duloxetine 30 mg capsule,delayed 30 mg PO DAILY depression 11/18/23 04/10/24 History
release
insulin glargine 100 unit/mL (3 34 unit SC HS diabetes 11/18/23 04/10/24 History
mL) subcutaneous pen (Lantus
Solostar U-100 Insulin)
rosuvastatin 20 mg tablet 20 mg PO HS High Cholesterol 11/18/23 04/10/24 History
tirzepatide 2.5 mg/0.5 mL 5 mg SC TH Weight loss 11/18/23 04/10/24 History
subcutaneous pen injector
(Mounjaro)
ascorbic acid (vitamin C) 500 mg 500 mg PO DAILY Supplement #30 tabs 01/20/24 04/10/24 Rx
tablet (Vitamin C)
aspirin 81 mg chewable tablet 81 mg PO DAILY Heart 01/20/24 04/10/24 Rx
(Children's Aspirin) disease/condition #1 tab
metoprolol succinate 25 mg 25 mg PO DAILY Heart 01/20/24 04/10/24 Rx
tablet,extended release 24 hr disease/condition #30 tabs
(Toprol XL)
Lactobac no.2-Bifidobac no.1-S. 1 cap PO DAILY Supplement 04/10/24 04/10/24 History
thermo 112.5 billion cell capsule
(Visbiome)
fluticasone propionate 50 1 spray intranasal DAILY 04/10/24 04/10/24 History
mcg/actuation nasal INFLAMMATION
spray,suspension
gabapentin 600 mg tablet 1,200 mg PO BID nerve pain 04/10/24 04/10/24 History
pantoprazole 40 mg tablet,delayed 40 mg PO DAILY GERD 04/10/24 04/10/24 History
release (Protonix)
warfarin 2.5 mg tablet (Jantoven) 5 mg PO WETHFR@1900 Blood clot 04/10/24 04/10/24 History
prevention/tx
warfarin 5 mg tablet 2.5 mg PO SUMOTUSA@1900 Blood Clot 04/10/24 04/10/24 History
Prevention/Tx
Review of Systems
-
History Source: Patient
Constitutional: Reports No Symptoms
EENT: Reports No Symptoms
Respiratory: Reports No Symptoms
Cardiac: Reports No Symptoms
Vascular: Denies Leg Pain / Claudication
Abdomen/GI: Reports No Symptoms
: Reports No Symptoms
Musculoskeletal: Reports Other (Pain at left groin)
Skin: Reports No Symptoms
Neurological: Reports No Symptoms
Endocrine: Reports No Symptoms
Physical Exam
Vital Signs
Temp Pulse Resp BP Pulse Ox
98.2 F 93 17 115/59 97
04/12/24 16:00 04/12/24 17:00 04/12/24 16:00 04/12/24 15:57 04/12/24 16:00
Lab Results
04/12/24 03:36
04/12/24 03:36
Troponin I 1.590 ng/ml H* 04/11/24 08:43
Physical Exam
General: No Apparent Distress and Comfortable
HEENT: Normocephalic, Anicteric and Atraumatic
Respiratory: Non Labored Respirations
Cardiac: Negative JVD
GI: Soft, Non Tender and Non Distended
Musculoskeletal: Other (Left groin with noted edema but no clear hematoma, tender to palpation, all surrounding compartments soft)
Skin: Warm and Dry
Neuro: AO x 3
Pulses: Bilateral Femoral: +2, Bilateral Dorsalis Pedis: Doppler and Bilateral Posterior Tibial: Doppler
Assessment / Plan
-
Assessment: 74-year-old female with finding on CTA of abdomen/pelvis of left common femoral artery pseudoaneurysm status post removal of intra-aortic balloon pump
Plan:
Reviewed HPI, physical exam, and CT scan results with on-call attending Dr. Colt Rodrigues who agrees with plan of consulting interventional radiology for thrombin injection given favorable longneck present at pseudoaneurysm. Recommendations relayed to
sales vendor Dr. Armando Ruiz.
--- NOTE | 2024-04-12 18:00 | PTCARENOTE ---
Patient transported via bed to IR for LCFA thrombin injection. Report given to NAVYA Marks.
[2024-04-12] MEDS: DILAUDID 0.5 MG IV (18:11)
--- NOTE | 2024-04-12 18:25 | W.PN.UPDATE ---
Update Note
Progress Note Update
US guided thrombin injection of LCA PSA
- approx 500 units of thrombin injected. additional US guided compression. No flow within sac or neck on final images
- rec repeat US tomorrow
--- NOTE | 2024-04-12 19:08 | PTCARENOTE ---
Patient retrieved from IR post-procedure, settled back to room. Patient resting comfortably.
[2024-04-12] MEDS: LOPRESSOR 25 MG PO (19:27)
--- NOTE | 2024-04-12 20:00 | PTCARENOTE ---
Received pt from [facility]; pt is s/p IR procedure of thrombin injection for pseudoaneurysm at LEFT common femoral artery; NSR on monitor, VSS; pt is AAOx4, denies pain; heart sounds audible, radial and DP pulses palpable, no edema noted; lungs
diminished at b/l bases, spo2 94% on RA; +bs x4 quadrants, abdomen soft non tender; pt has yet to void since retuning from IR; left and right groin dressing CDI, see worklist for site checks; PIV maintained; call amos within reach; will continue to
monitor.
[2024-04-12] MEDS: LANTUS 0.34 UNITS SC (22:05)
[2024-04-12] MEDS: CRESTOR 20 MG PO (22:05)
[2024-04-12 22:06] LABS: Glucose - Point of Care 231 mg/dl (70-99)
[2024-04-13] VITALS (7 sets, daily range): BP systolic 103–125; BP diastolic 53–64; BMI 29.8
--- NOTE | 2024-04-13 | PTCARENOTE ---
Pt assessment unchanged; VSS; NSR on monitor; groin dressings CDI; call amos within reach; will continue to monitor.
[2024-04-13 03:18] LABS: % Basophils 0.4 % (0-2); % Eosinophils 4.2 % (0-6); % Immature Granulocytes 0.3 % (0-0.5); % Lymphocytes 19.4 % (20.5-51.1); % Monocytes 10.8 % (1.7-9.3); % Neutrophils 64.9 % (42.2-75.2); Absolute Basophils 0.1 10^3/uL (0-0.2); Absolute Eosinophils 0.5 10^3/uL (0-0.7); Absolute Lymphocytes 2.4 10^3/uL (1.2-3.4); Absolute Monocytes 1.3 10^3/uL (0.1-0.6); Hemoglobin 10.8 g/dL (12.0-16.0); Mean Corp Hgb Conc. 31.8 g/dL (33.0-37.0); Mean Corpuscular Hgb 25.4 pg (27.0-31.0); Mean Platelet Volume 10.1 fL (7.4-10.4); Nucleated Red Blood Cells % 0 %; Platelet Count 215 10^3/uL (130-400); Red Blood Cell Count 4.25 10^6/uL (4.20-5.40); Red Cell Dist. Width 15.1 % (11.5-14.5); White Blood Cell Count 12.3 10^3/uL (4.8-10.8)
[2024-04-13 03:32] LABS: Blood Urea Nitrogen 22 mg/dl (7-17); Calcium 9.2 mg/dl (8.4-10.2); Carbon Dioxide 28 mmol/L (22-30); Chloride 102 mmol/L (98-107); Estimated Creatinine Clearance 53 ml/min; Glucose 88 mg/dl (70-99); Phosphorus 3.8 mg/dl (2.5-4.5); Potassium 4.1 mmol/L (3.5-5.1); Sodium 137 mmol/L (135-145); eGFR > 60.00
[2024-04-13 03:36] LABS: INR 1.26; PT 15.9 Sec (11.4-14.6)
[2024-04-13 03:37] LABS: APTT 42.4 Sec (23.4-35.0)
--- NOTE | 2024-04-13 04:00 | PTCARENOTE ---
Pt assessment unchanged; NSR on monitor, VSS; pt resting comfortably in bed; b/l groin site dressings clean dry intact; pt ambulating to bathroom with stand by assist; labs drawn and sent; call amos within reach; will continue to monitor.
--- NOTE | 2024-04-13 05:22 | W.PN.CT ---
Today's Communication / Plan
-
-no issues overnight, ambulation improving
-groins are less painful -s/p thrombin injection of L QUALITY IMPROVEMENT ANALYST PSA 04/12
-follow-up L groin US today (ordered)
-Hg stable 10.8 (10.2 on 04/12)
-current meds (ASA, Plavix, Crestor, Toprol, Aldactone, Protonix). Coumadin stopped
Assessment / Plan
-
-ACS/NSTEMI
-a very short left main coronary artery with a critical, 95% stenosis in the ostium of the left main coronary artery extending into the LAD with EMILIA I to EMILIA II flow, status post successful IVUS guided PCI (Medtronic [place] 4.0 x 15 ALIYAH)
with reduction in stenosis to 0%, restoring EMILIA-3 flow on 04/10/24, pod #3
-suspected that this lesion was due to proliferation of scar tissue and not atherosclerosis, though IVUS did reveal evidence of atherosclerotic deposition without intra coronary occlusion.
-s/p L QUALITY IMPROVEMENT ANALYST pseudoaneurysm thrombin injection by IR on 04/12/24
-IABP placed in labor crew supervisor for severe CP, removed on 04/11 after getting 2 FFPs and vit K
-Coumadin stopped this admission. Will continue ASA and Plavix
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
-S/p Reconstruction of the fibrous body using bovine pericardium; MVR #27 mm Mitris; AVR #23 mm Inspiris
-MVR post 14/3 mmHg & AVR post 10/6 mmHg
-s/p 21 mm bovine Trifecta tissue valve 02/25/[address] Read
-DCM with recovered EF
-EF back to 45-50%
-Did not tolerate SGLT2i
-CKD3b, follows Dr. Washburn in the outpatient setting
-HLD, on Crestor 20
-DM II
-GERD, on pantoprazole
-Chronic anemia, followed by Dr. Rivas
-Prior CVA, no residual weakness
Cath 04/10/24:
1. Right dominant circulation with an anterior takeoff of the RCA and a very short left main coronary artery with a critical, 95% stenosis in the ostium of the left main coronary artery extending into the LAD with EMILIA I to EMILIA II flow, status
post successful IVUS guided PCI (Medtronic [place] 4.0 x 15 ALIYAH) with reduction in stenosis to 0%, restoring EMILIA-3 flow.
2. Successful placement of an intra-aortic balloon pump for intraprocedural chest pain.
3. Status post bioprosthetic aortic valve replacement (#23 [place] Resilia Inspiris AVR, serial #[id number]), mitral valve replacement (#27 [place] Resilia Mitris MVR, serial #[id number]) with Dr. Toledo (01/13/2024).
Echo 04/10/24:
1. Normal LV size with anteroseptal and apical severe hypokinesis. LVEF 45-50%
2. S/P MVR with mean gradient 4mm Hg and no MR
3. S/P AVR with mean gradient 4mm Hg and no AI
4. Normal estimated PA pressure
5. Compared with 01-14-2024 study, LV wall motion abnormalities are new and previous LVEF 65-70%
Discussed patient care with: Nursing and Care Team
Subjective
-
Date of Service: April 13, 2024
Objective Data
-
Lab Results
04/13/24 03:05
04/13/24 03:05
PT 15.9 Sec (11.4-14.6) H 04/13/24 03:05
INR 1.26 04/13/24 03:05
APTT 42.4 Sec (23.4-35.0) H 04/13/24 03:05
Vital Signs
Vital Signs
Temp Pulse Resp BP Pulse Ox
98.5 F 88 16 103/53 95
04/13/24 04:00 04/13/24 04:01 04/13/24 04:00 04/13/24 04:01 04/13/24 04:00
CT Intake/Output/Weight
04/12/24 04/12/24 04/13/24
06:59 18:59 06:59
Intake Total 500 / 500
Output Total 175 / 775 600 / 1000 400 / 1000
Balance -175 / 1031 -100 / -500 -400 / -500
SaO2: 95
Physical Exam
-
General: Awake and AOx3 (no complaints)
Cardiovascular: Regular rate & rhythm and No Murmurs
Respiratory: Decreased Breath Sounds
Incision: both groins are less tender, soft b/l
Extremities: No Edema (DPs present by Doppler b/l. Cool feet b/l (chronic per pt))
Data Reviewed
-
Lab Results: Results Reviewed
Medications: Active Meds Reviewed
Chest X-Ray: Report Reviewed and Image Reviewed
ECG: Report Reviewed and Image Reviewed
--- NOTE | 2024-04-13 07:33 | W.PN.UPDATE ---
Update Note
Progress Note Update
Seen and examined with MARIA ESTHER Luu. See full consultation note to follow. See her prior update note from yesterday. 74-year-old female with extensive medical history who underwent PCI procedure 2 days ago with assistance of intra-aortic balloon pump.
Procedure performed through right groin, balloon pump in left groin. Noted to have significant swelling and pain in left groin yesterday. CT angiogram was performed. We were called following this, was seen by MARIA ESTHER Luu yesterday and discussed with
me. I reviewed CT scan last evening. Long neck (thin neck) pseudoaneurysm noted left common femoral artery. Amenable to injection. Therefore I recommended IR for thrombin injection. This was successfully performed. Patient notes today that her
left groin pain is improved, still slightly there but much improved from yesterday. Seen and examined and on exam her left groin is soft. Much less tender. No large pulsatile mass. Right groin also flat, no hematoma. Feet are both warm and
well-perfused with palpable pedal pulses. (Right side 2+ PT, left side 2+ DP and 1+/2+ PT).
Plan/ Successful thrombin injection of pseudoaneurysm left common femoral artery. Repeat ultrasound today and if pseudoaneurysm remains successfully obliterated, okay for out of bed. Will sign off. Please call if any questions/concerns/recurrence
of pseudoaneurysm.
--- NOTE | 2024-04-13 08:40 | W.PN.CD ---
Today's Communication / Plan
-
repeat groin u/s
ambulate
possible home later today
Impression / Plan
-
Impression/Plan: 74F with severe aortic stenosis status post SAVR 2014, DCM (EF 25-30%, recovered), dyslipidemia, hypertension, GERD, chronic kidney disease, and chronic anemia, and hospitalization 01/04/2024 - 01/20/2024 with strep mitis bacteremia
with aortic root abscess requiring bioAVR, MVR, reconstruction of fibrous body using bovine pericardium (AKA commando procedure) by Dr. Toledo 01/13/2024, subsequently complicated by CHB requiring pacemaker POD #4, now presenting with ACS.
Irrigation Service Technician: Dr. Stovall
#ACS
-s/p PCI of the ostium of the LMCA (probably due to progressive scar tissue, noted on Dr. Toledo's operative note).
-Troponin peaked to 1.790.
-Plan for DAPT without warfarin.
-IABP placed in cath laboratory technician for severe CP removed yesterday after FFP given.
-Pseudoaneurysm found s/p thrombin injection
-HR around 100. Increase metoprolol to 50 mg BID.
#Anemia
-Acute on chronic.
-now stable at 10.8
#Pseudoaneurysm
-s/p thrombin injection
-repeat u/s today
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
-S/P prior #21 bovine Trifecta tissue valve 02/25/[address] Read.
-S/P Commando Procedure by Dr Toledo, 01/13/2024.
-S/p Reconstruction of the fibrous body using bovine pericardium; MVR #27 Resilia Mitris; SAVR #23 Resilia Inspiris.
#Dilated cardiomyopathy with partially recovered EF
-Improved.
-LVEF back to 45-50%.
-Did not tolerate SGLT2i.
-GDMT as hemodynamics will tolerate. Uptitrated beta rose. Further titration as outpatient
#Iatrogenic coagulopathy
-Chronic.
-Corrected with FFP/Phytonadione.
-No further warfarin.
#IDDM Type 2
-Chronic, stable.
-On long-acting insulin and tirzepitide
-HgbA1c pending.
#HLD
-Chronic, stable.
-Total cholesterol = 167, LDL = 66, HDL = 41, Triglycerides =300.
-Continue rosuvastatin 20 mg daily.
-LDL at goal.
-Will discuss Vascepa at follow up. Goal triglycerides < 150.
#Chronic kidney disease stage 3b, follows Dr. Washburn in the outpatient setting
#GERD, on pantoprazole
#Chronic anemia, followed by Dr. Rivas in the outpatient setting
#Prior CVA, no residual weakness
#Dispo
-Full code.
-d/c later today if u/s ok and ambulating well.
Subjective/Interval History:
she is feeling much better groin pain improved. No jaw/cp. No sob.
DATA:
Cath/PCI, 04/10/24:
CONCLUSIONS
1. Right dominant circulation with an anterior takeoff of the RCA and a very short left main coronary artery with a critical, 95% stenosis in the ostium of the left main coronary artery extending into the LAD with EMILIA I to EMILIA II flow, status
post successful IVUS guided PCI (Medtronic [place] 4.0 x 15 ALIYAH) with reduction in stenosis to 0%, restoring EMILIA-3 flow.
2. Successful placement of an intra-aortic balloon pump for intraprocedural chest pain.
3. Status post bioprosthetic aortic valve replacement (#23 Blanton Resilia Inspiris AVR, serial #[id number]), mitral valve replacement (#27 Blanton Resilia Mitris MVR, serial #[id number]) with Dr. Toledo (01/13/2024).
TTE, 04/10/2024:
CONCLUSIONS
1. Normal LV size with anteroseptal and apical severe hypokinesis. LVEF 45-50%
2. S/P MVR with mean gradient 4mm Hg and no MR
3. S/P AVR with mean gradient 4mm Hg and no AI
4. Normal estimated PA pressure
5. Compared with 01-14-2024 study, LV wall motion abnormalities are new and
previous LVEF 65-70%
Physical Exam
Vital Signs/Labs
Vital Signs
Temp Pulse Resp BP Pulse Ox
97.8 F 92 16 110/56 97
04/13/24 08:00 04/13/24 08:00 04/13/24 08:00 04/13/24 07:57 04/13/24 08:00
04/12/24 04/13/24 04/14/24
06:59 06:59 06:59
Actual Weight 75.6 kg 76.3 kg
04/13/24 03:05
04/13/24 03:05
PT 15.9 Sec (11.4-14.6) H 04/13/24 03:05
INR 1.26 04/13/24 03:05
APTT 42.4 Sec (23.4-35.0) H 04/13/24 03:05
Magnesium 1.7 mg/dl (1.6-2.3) 04/11/24 02:20
Triglycerides 300 mg/dl (10-149) H 04/11/24 02:20
LDL Cholesterol, Calc 66 mg/dl 04/11/24 02:20
VLDL Cholesterol, Calc 60 mg/dl (0-30) H 04/11/24 02:20
HDL Cholesterol 41 mg/dl 04/11/24 02:20
LAB Results
04/10/24 04/10/24 04/10/24
10:58 11:38 11:44
Troponin I Cancelled Cancelled 0.429 H*
04/10/24 04/10/24 04/11/24
13:03 20:41 02:20
Troponin I 0.481 H* 1.350 H* D 1.790 H* D
04/11/24
08:43
Troponin I 1.590 H*
Physical Exam
Constitutional: No acute distress
Cardiovascular: Rhythm & rate is regular, Pedal edema is absent and JVD pressure is normal
Respiratory: Respiratory effort normal, Lungs clear to auscul., Wheeze Absent, Crackles Absent and Rhonchi Absent
Neuro/Psych: AO x 3
Other: Cath Site (Right FA site, soft well healed no hematoma)
Data Reviewed
-
Date of Service: April 13, 2024
EKG: Other (sinus to mild sinus tachycardia)
[2024-04-13] MEDS: TOPROL XL 50 MG PO (10:32)
[2024-04-13] MEDS: NEURONTIN 1200 MG PO (10:32)
[2024-04-13] MEDS: VITAMIN C 500 MG PO (10:33)
[2024-04-13] MEDS: VITAMIN B-12 1000 MCG PO (10:33)
[2024-04-13] MEDS: PROTONIX 40 MG PO (10:33)
[2024-04-13] MEDS: ALDACTONE 25 MG PO (10:33)
[2024-04-13] MEDS: CYMBALTA DELAYED RELEASE 30 MG PO (10:33)
[2024-04-13] MEDS: LOW STRENGTH ASPIRIN 81 MG PO (10:33)
[2024-04-13] MEDS: PLAVIX 75 MG PO (10:33)
--- NOTE | 2024-04-13 11:07 | CM ---
Reviewed chart. Met with Mrs. Gallardo to review discharge plans. She states she is feeling better and maybe able to go home. We reviewed [facility] with her and she is agreeable to a VNA Services. Telephone call to [facility] to make
the referral. Sent the referral. Prior to admission she resides with her spouse in a two story home with two steps to enter. She has a full flight of steps to get to bedroom. She states she has a full bathroom on each floor. Prior to admission
she was independent with ambulation and adls. She does not have any DME in the home. She has a prescription plan with [facility] and uses [facility]. Medical work-up in progress. The discharge plan is to return home with her spouse and
[facility] when medically stable.
[2024-04-13 13:21] LABS: Glucose - Point of Care 126 mg/dl (70-99)
--- NOTE | 2024-04-13 13:55 | PTCARENOTE ---
VSS, sinus rhythm maintained on tele. pt tolerating sitting in chair
--- NOTE | 2024-04-13 16:18 | W.DS.TRANS ---
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
-
Discharge Instructions:
Sleep Apnea Risk Intermediate
Discharge Diagnosis/Procedures acute coronary syndrome, angioplasty and stent
x1 to Left Main/Left Anterior Descending artery,
pseudoaneurysm
Diet Low Cholesterol,2 Gram Sodium
Activity Other activity
Additional Activity no heavy lifting or strenuous activity until
cleared in follow-up
Driving Restrictions No driving for 24 hours
Bathing Restrictions OK to Shower
Blood Work BMP 1 week- lab slip sent electronically to
[facility].
Other Services Cardiac Rehab
Specialty Instructions Weigh Daily
Instructions:
Stand-Alone Forms: DC Instructions- Cath/EP Lab
Changes to Home Medications: Yes
Discharge Medications:
DC Medications w/original date entered in [employer]
cyanocobalamin (vitamin B-12) 1,000 mcg tablet (Vitamin B-12) 1,000 mcg PO DAILY Supplement 11/18/23
duloxetine 30 mg capsule,delayed release 30 mg PO DAILY depression 11/18/23
insulin glargine 100 unit/mL (3 mL) subcutaneous pen (Lantus Solostar U-100 Insulin) 34 unit SC HS diabetes 11/18/23
rosuvastatin 20 mg tablet 20 mg PO HS High Cholesterol 11/18/23
tirzepatide 2.5 mg/0.5 mL subcutaneous pen injector (Mounjaro) 5 mg SC TH Weight loss 11/18/23
ascorbic acid (vitamin C) 500 mg tablet (Vitamin C) 500 mg PO DAILY Supplement #30 tabs 01/20/24
aspirin 81 mg chewable tablet (Children's Aspirin) 81 mg PO DAILY Heart disease/condition #1 tab 01/20/24
Lactobac no.2-Bifidobac no.1-S. thermo 112.5 billion cell capsule (Visbiome) 1 cap PO DAILY Supplement 04/10/24
fluticasone propionate 50 mcg/actuation nasal spray,suspension 1 spray intranasal DAILY INFLAMMATION 04/10/24
gabapentin 600 mg tablet 1,200 mg PO BID nerve pain 04/10/24
pantoprazole 40 mg tablet,delayed release (Protonix) 40 mg PO DAILY GERD 04/10/24
clopidogrel 75 mg tablet 75 mg PO DAILY #90 tabs 04/13/24
metoprolol succinate 50 mg tablet,extended release 24 hr 50 mg PO DAILY #30 tabs 04/13/24
nitroglycerin 0.4 mg sublingual tablet (Nitrostat) 0.4 mg sublingual Q5M PRN chest pain #25 tabs 04/13/24
spironolactone 25 mg tablet 25 mg PO DAILY #30 tabs 04/13/24
Home Medication Changes
added spironolactone, stopped warfarin, started Plavix, increased metoprolol
Pending Results: No
== END 2024-04-13 17:38 | disposition home health service (06) | DRG 271 ==
LOC: CVICU 15:17
PROVIDERS: Internal Medicine Cardiovascular Disease; Nurse Practitioner; Nurse Practitioner Gerontology; Radiology Diagnostic Radiology; Registered Nurse; ADMITTING PHYSICIAN Internal Medicine Cardiovascular Disease; CONSULT PHYSICIAN Internal Medicine Critical Care Medicine; EMERGENCY PHYSICIAN Emergency Medicine; FAMILY PHYSICIAN Internal Medicine; OTHER PHYSICIAN Surgery Vascular Surgery; OTHER PHYSICIAN Thoracic Surgery (Cardiothoracic Vascular Surgery)
PROC: 027034Z Dilation of Coronary Artery, One Artery with Drug-eluting Intraluminal Device, Percutaneous Approach (ICD-10-PCS; 2024-04-10)
PROC: 4A023N7 Measurement of Cardiac Sampling and Pressure, Left Heart, Percutaneous Approach (ICD-10-PCS; 2024-04-10)
PROC: 5A02210 Assistance with Cardiac Output using Balloon Pump, Continuous (ICD-10-PCS; 2024-04-10)
PROC: B2111ZZ Fluoroscopy of Multiple Coronary Arteries using Low Osmolar Contrast (ICD-10-PCS; 2024-04-10)
PROC: B240ZZ3 Ultrasonography of Single Coronary Artery, Intravascular (ICD-10-PCS; 2024-04-10)
PROC: 30233K1 Transfusion of Nonautologous Frozen Plasma into Peripheral Vein, Percutaneous Approach (ICD-10-PCS; 2024-04-11)
PROC: 3E053GC Introduction of Other Therapeutic Substance into Peripheral Artery, Percutaneous Approach (ICD-10-PCS; 2024-04-13)
DX: I21.4 Non-ST elevation (NSTEMI) myocardial infarction (principal); D68.9 Coagulation defect, unspecified; I13.0 Hypertensive heart and chronic kidney disease with heart failure and stage 1 through stage 4 chronic kidney disease, or unspecified chronic kidney disease; I50.32 Chronic diastolic (congestive) heart failure; T81.718A Complication of other artery following a procedure, not elsewhere classified, initial encounter; I42.0 Dilated cardiomyopathy; I25.10 Atherosclerotic heart disease of native coronary artery without angina pectoris; E11.40 Type 2 diabetes mellitus with diabetic neuropathy, unspecified; E78.00 Pure hypercholesterolemia, unspecified; N18.32 Chronic kidney disease, stage 3b; K21.9 Gastro-esophageal reflux disease without esophagitis; D63.1 Anemia in chronic kidney disease; E11.22 Type 2 diabetes mellitus with diabetic chronic kidney disease; E66.9 Obesity, unspecified; J45.909 Unspecified asthma, uncomplicated; M16.0 Bilateral primary osteoarthritis of hip; I72.4 Aneurysm of artery of lower extremity; Y83.2 Surgical operation with anastomosis, bypass or graft as the cause of abnormal reaction of the patient, or of later complication, without mention of misadventure at the time of the procedure; F32.A Depression, unspecified; Q65.89 Other specified congenital deformities of hip; Z68.29 Body mass index [BMI] 29.0-29.9, adult; Z79.01 Long term (current) use of anticoagulants; Z79.4 Long term (current) use of insulin; Z79.82 Long term (current) use of aspirin; Z79.899 Other long term (current) drug therapy; Z86.73 Personal history of transient ischemic attack (TIA), and cerebral infarction without residual deficits; Z87.891 Personal history of nicotine dependence; Z95.0 Presence of cardiac pacemaker; Z95.3 Presence of xenogenic heart valve
CPT/HCPCS: 33967; 36002; 71046; 74174; 76942; 80048; 80053; 80061; 80069; 82962; 83036; 83735; 84484; 85025; 85347; 85610; 85730; 86850; 86900; 86901; 92978; 93005; 93306; 93458; 93926; 99285; C1725; C1753; C1760; C1769; C1874; C1887; C1894; C9600; G0422; P9059; Q9967

== ENCOUNTER → 2024-04-20 10:40 | Outpatient (REF) | payer MEDICARE, OTHER, SELFPAY ==
[2024-04-20 12:10] LABS: Blood Urea Nitrogen 29 mg/dl (7-17); Calcium 9.8 mg/dl (8.4-10.2); Carbon Dioxide 30 mmol/L (22-30); Chloride 102 mmol/L (98-107); Glucose 82 mg/dl (70-99); Potassium 4.7 mmol/L (3.5-5.1); Sodium 141 mmol/L (135-145); eGFR 47.21
== END ==
LOC: REG 10:40
PROVIDERS: ATTENDING PHYSICIAN Internal Medicine Cardiovascular Disease; FAMILY PHYSICIAN Internal Medicine
DX: I42.9 Cardiomyopathy, unspecified (principal)
CPT/HCPCS: 36415; 80048

== ENCOUNTER → 2024-05-23 10:43 | Outpatient (REF) | payer MEDICARE, OTHER, SELFPAY ==
[2024-05-23 11:48] LABS: % Basophils 0.3 % (0-2); % Eosinophils 5.7 % (0-6); % Immature Granulocytes 0.3 % (0-0.5); % Monocytes 9.9 % (1.7-9.3); % Neutrophils 62.8 % (42.2-75.2); Absolute Eosinophils 0.5 10^3/uL (0-0.7); Absolute Lymphocytes 1.9 10^3/uL (1.2-3.4); Absolute Monocytes 0.9 10^3/uL (0.1-0.6); Absolute Neutrophils 5.5 10^3/uL (1.4-6.5); Hematocrit 40.9 % (37.0-47.0); Hemoglobin 12.8 g/dL (12.0-16.0); Mean Corp Hgb Conc. 31.3 g/dL (33.0-37.0); Mean Corpuscular Hgb 24.9 pg (27.0-31.0); Mean Corpuscular Volume 79.4 fL (81.0-99.0); Mean Platelet Volume 9.8 fL (7.4-10.4); Nucleated Red Blood Cells % 0 %; Platelet Count 291 10^3/uL (130-400); Red Blood Cell Count 5.15 10^6/uL (4.20-5.40); White Blood Cell Count 8.8 10^3/uL (4.8-10.8)
== END ==
LOC: REG 10:43
PROVIDERS: ATTENDING PHYSICIAN Internal Medicine; REFERRING PHYSICIAN Specialist
DX: Z09 Encounter for follow-up examination after completed treatment for conditions other than malignant neoplasm (principal); T14.8XXA Other injury of unspecified body region, initial encounter; D64.9 Anemia, unspecified
CPT/HCPCS: 36415; 85025

== ENCOUNTER → 2024-07-21 11:16 | Outpatient (REF) | payer MEDICARE, OTHER, SELFPAY ==
[2024-07-21 12:42] LABS: % Basophils 0.4 % (0-2); % Immature Granulocytes 0.1 % (0-0.5); % Lymphocytes 16.5 % (20.5-51.1); % Monocytes 8.1 % (1.7-9.3); % Neutrophils 69.9 % (42.2-75.2); Absolute Eosinophils 0.5 10^3/uL (0-0.7); Absolute Lymphocytes 1.6 10^3/uL (1.2-3.4); Absolute Monocytes 0.8 10^3/uL (0.1-0.6); Absolute Neutrophils 6.6 10^3/uL (1.4-6.5); Hemoglobin 13.3 g/dL (12.0-16.0); Mean Corp Hgb Conc. 32.4 g/dL (33.0-37.0); Mean Corpuscular Hgb 27.1 pg (27.0-31.0); Mean Corpuscular Volume 83.7 fL (81.0-99.0); Mean Platelet Volume 9.8 fL (7.4-10.4); Nucleated Red Blood Cells % 0 %; Platelet Count 242 10^3/uL (130-400); Red Cell Dist. Width 14.9 % (11.5-14.5); White Blood Cell Count 9.5 10^3/uL (4.8-10.8)
[2024-07-21 12:55] LABS: Albumin 4.4 g/dl (3.5-5.0); Blood Urea Nitrogen 34 mg/dl (7-17); Calcium 9.7 mg/dl (8.4-10.2); Carbon Dioxide 30 mmol/L (22-30); Chloride 102 mmol/L (98-107); Glucose 132 mg/dl (70-99); Potassium 4.9 mmol/L (3.5-5.1); Sodium 143 mmol/L (135-145); eGFR 47.21
[2024-07-21 13:15] LABS: TSH Reflex To Free T4 0.95 uIU/ml (0.47-4.68)
== END ==
LOC: REG 11:16
PROVIDERS: ATTENDING PHYSICIAN Internal Medicine Cardiovascular Disease; FAMILY PHYSICIAN Internal Medicine
DX: I25.10 Atherosclerotic heart disease of native coronary artery without angina pectoris (principal); I50.22 Chronic systolic (congestive) heart failure; R61 Generalized hyperhidrosis
CPT/HCPCS: 36415; 80069; 84443; 85025

== ENCOUNTER → 2024-07-31 08:51 | Outpatient (REF) | payer MEDICARE, OTHER, SELFPAY | LOC: RCS 08:51 | PROVIDERS: ATTENDING PHYSICIAN Thoracic Surgery (Cardiothoracic Vascular Surgery); FAMILY PHYSICIAN Internal Medicine | DX: Z95.2 Presence of prosthetic heart valve (principal) | CPT/HCPCS: 93306 ==

== ENCOUNTER 2024-08-03 10:10 | Outpatient (RCR) | payer MEDICARE, OTHER, SELFPAY ==
[2024-07-24 15:20] LABS: Glucose - Point of Care 98 mg/dl (70-99)
[2024-07-24 15:45] LABS: Glucose - Point of Care 140 mg/dl (70-99)
[2024-07-24 16:26] LABS: Glucose - Point of Care 150 mg/dl (70-99)
[2024-07-27 10:38] LABS: Glucose - Point of Care 145 mg/dl (70-99)
[2024-07-27 11:30] LABS: Glucose - Point of Care 134 mg/dl (70-99)
[2024-07-31 10:13] LABS: HDL Cholesterol 47 mg/dl; LDL Cholesterol, Calculated 105 mg/dl; Total Cholesterol 197 mg/dl (50-199); Triglyceride 226 mg/dl (10-149); Very Low Density Lipoprotein 45 mg/dl (0-30)
[2024-08-01 10:20] LABS: Glucose - Point of Care 167 mg/dl (70-99)
[2024-08-01 11:17] LABS: Glucose - Point of Care 126 mg/dl (70-99)
[2024-08-03 10:23] LABS: Glucose - Point of Care 121 mg/dl (70-99)
[2024-08-03 11:24] LABS: Glucose - Point of Care 122 mg/dl (70-99)
== END 2024-08-03 23:59 | disposition home or self-care (01) ==
LOC: CRHB 10:10
PROVIDERS: ATTENDING PHYSICIAN Internal Medicine Cardiovascular Disease; FAMILY PHYSICIAN Internal Medicine
DX: I21.4 Non-ST elevation (NSTEMI) myocardial infarction (principal); Z95.5 Presence of coronary angioplasty implant and graft; Z95.4 Presence of other heart-valve replacement
CPT/HCPCS: 80061; 82962; G0422; G0423

== ENCOUNTER → 2024-08-25 09:15 | Outpatient (REF) | payer MEDICARE, OTHER, SELFPAY ==
[2024-08-25 17:53] LABS: Urine Albumin Negative (Neg - Trace); Urine Bilirubin Negative (Negative); Urine Character Clear (Clear); Urine Color Yellow; Urine Glucose Negative (Negative); Urine Ketone Negative (Negative); Urine Leukocyte Trace (Negative); Urine Nitrite Negative (Negative); Urine Occult Blood Negative (Negative); Urine Urobilinogen Negative (Neg - 1+)
[2024-08-25 18:17] LABS: Urine Squamous Cell >30 /LPF (Few)
[2024-08-25 18:30] LABS: Urine Bacteria Few (Negative); Urine Red Blood Cell 0-2 /HPF (0-2); Urine White Cell 0-2 /HPF (0-5)
== END ==
LOC: CLAB 09:15
PROVIDERS: ATTENDING PHYSICIAN Obstetrics & Gynecology
DX: N39.0 Urinary tract infection, site not specified (principal)
CPT/HCPCS: 81003; 81015; 87086

== ENCOUNTER 2024-08-31 10:33 | Outpatient (RCR) | payer MEDICARE, OTHER, SELFPAY ==
[2024-08-15 10:31] LABS: Glucose - Point of Care 141 mg/dl (70-99)
[2024-08-15 11:18] LABS: Glucose - Point of Care 157 mg/dl (70-99)
[2024-08-17 10:24] LABS: Glucose - Point of Care 160 mg/dl (70-99)
[2024-08-17 11:20] LABS: Glucose - Point of Care 137 mg/dl (70-99)
[2024-08-22 10:41] LABS: Glucose - Point of Care 139 mg/dl (70-99)
[2024-08-22 11:25] LABS: Glucose - Point of Care 131 mg/dl (70-99)
== END 2024-08-31 23:59 | disposition home or self-care (01) ==
LOC: CRHB 10:33
PROVIDERS: ATTENDING PHYSICIAN Internal Medicine Cardiovascular Disease; FAMILY PHYSICIAN Internal Medicine
DX: I25.2 Old myocardial infarction (principal); I25.10 Atherosclerotic heart disease of native coronary artery without angina pectoris; Z95.5 Presence of coronary angioplasty implant and graft
CPT/HCPCS: 82962; G0422; G0423

== ENCOUNTER → 2024-10-03 13:41 | Outpatient (REF) | payer MEDICARE, OTHER, SELFPAY | LOC: RAD 13:41 | PROVIDERS: ATTENDING PHYSICIAN Podiatrist Primary Podiatric Medicine; FAMILY PHYSICIAN Internal Medicine | DX: M79.673 Pain in unspecified foot (principal) | CPT/HCPCS: 93922 ==

== ENCOUNTER 2024-10-12 11:15 | Outpatient (RCR) | payer MEDICARE, OTHER, SELFPAY | END 2024-10-12 23:59 | disposition home or self-care (01) | LOC: CRHB 11:15 | PROVIDERS: ATTENDING PHYSICIAN Internal Medicine Cardiovascular Disease; FAMILY PHYSICIAN Internal Medicine | DX: I25.10 Atherosclerotic heart disease of native coronary artery without angina pectoris (principal); Z95.5 Presence of coronary angioplasty implant and graft; I25.2 Old myocardial infarction | CPT/HCPCS: G0422; G0423 ==

== ENCOUNTER → 2024-10-17 12:06 | Outpatient (REF) | payer MEDICARE, OTHER, SELFPAY ==
[2024-10-17 14:21] LABS: Blood Urea Nitrogen 30 mg/dl (7-17); Calcium 9.6 mg/dl (8.4-10.2); Carbon Dioxide 29 mmol/L (22-30); Chloride 100 mmol/L (98-107); Glucose 143 mg/dl (70-99); Potassium 5.3 mmol/L (3.5-5.1); Sodium 138 mmol/L (135-145); eGFR 47.21
== END ==
LOC: REG 12:06
PROVIDERS: ATTENDING PHYSICIAN Surgery Vascular Surgery; FAMILY PHYSICIAN Internal Medicine
DX: I73.9 Peripheral vascular disease, unspecified (principal)
CPT/HCPCS: 36415; 80048

== ENCOUNTER → 2024-10-19 10:52 | Outpatient (REF) | payer MEDICARE, OTHER, SELFPAY | LOC: RAD 10:52 | PROVIDERS: ATTENDING PHYSICIAN Surgery Vascular Surgery; FAMILY PHYSICIAN Internal Medicine | DX: I73.9 Peripheral vascular disease, unspecified (principal) | CPT/HCPCS: 75635; Q9967 ==

== ENCOUNTER 2024-11-09 10:38 | Outpatient (RCR) | payer MEDICARE, OTHER, SELFPAY | END 2024-11-09 23:59 | disposition home or self-care (01) | LOC: CRHB 10:38 | PROVIDERS: ATTENDING PHYSICIAN Internal Medicine Cardiovascular Disease; FAMILY PHYSICIAN Internal Medicine | DX: I21.4 Non-ST elevation (NSTEMI) myocardial infarction (principal); I25.2 Old myocardial infarction (principal); I25.10 Atherosclerotic heart disease of native coronary artery without angina pectoris; Z95.5 Presence of coronary angioplasty implant and graft | CPT/HCPCS: G0422; G0423 ==

== ENCOUNTER → 2024-11-10 09:24 | Outpatient (REF) | payer MEDICARE, OTHER, SELFPAY ==
[2024-11-10 10:55] LABS: ALT (SGPT) 19 U/L (0-35); AST (SGOT) 23 U/L (14-36); Albumin 4.4 g/dl (3.5-5.0); Alkaline Phosphatase 69 U/L (38-126); Blood Urea Nitrogen 34 mg/dl (7-17); Calcium 9.5 mg/dl (8.4-10.2); Carbon Dioxide 24 mmol/L (22-30); Chloride 105 mmol/L (98-107); Glucose 145 mg/dl (70-99); HDL Cholesterol 48 mg/dl; LDL Cholesterol, Calculated 79 mg/dl; Potassium 4.8 mmol/L (3.5-5.1); Sodium 140 mmol/L (135-145); Total Bilirubin 0.6 mg/dl (0.2-1.3); Total Cholesterol 162 mg/dl (50-199); Triglyceride 176 mg/dl (10-149); Very Low Density Lipoprotein 35 mg/dl (0-30); eGFR 42.88
[2024-11-10 14:10] LABS: Microalbumin, Random Urine 1.2 mg/dl (0.6-1.7); Microalbumin/creatinine Ratio 5.6 mg/g
== END ==
LOC: REG 09:24
PROVIDERS: ATTENDING PHYSICIAN Internal Medicine; OTHER PHYSICIAN Obstetrics & Gynecology; OTHER PHYSICIAN Surgery Vascular Surgery
DX: E11.59 Type 2 diabetes mellitus with other circulatory complications (principal); E78.5 Hyperlipidemia, unspecified
CPT/HCPCS: 36415; 80053; 80061; 82043; 82570; 83036

== ENCOUNTER → 2024-11-15 10:13 | Outpatient (REF) | payer MEDICARE, OTHER, SELFPAY ==
[2024-11-15 11:24] LABS: % Basophils 0.4 % (0-2); % Eosinophils 4.9 % (0-6); % Immature Granulocytes 0.2 % (0-0.5); % Lymphocytes 15.9 % (20.5-51.1); % Monocytes 9.6 % (1.7-9.3); Absolute Eosinophils 0.4 10^3/uL (0-0.7); Absolute Lymphocytes 1.3 10^3/uL (1.2-3.4); Absolute Monocytes 0.8 10^3/uL (0.1-0.6); Absolute Neutrophils 5.7 10^3/uL (1.4-6.5); Hemoglobin 13.6 g/dL (12.0-16.0); Mean Corp Hgb Conc. 33.2 g/dL (33.0-37.0); Mean Corpuscular Hgb 29.5 pg (27.0-31.0); Mean Corpuscular Volume 88.9 fL (81.0-99.0); Mean Platelet Volume 10.3 fL (7.4-10.4); Nucleated Red Blood Cells % 0 %; Platelet Count 227 10^3/uL (130-400); Red Blood Cell Count 4.61 10^6/uL (4.20-5.40); Urine Albumin 1+ (Neg - Trace); Urine Bilirubin Negative (Negative); Urine Character Cloudy (Clear); Urine Color Yellow; Urine Glucose Negative (Negative); Urine Ketone Negative (Negative); Urine Leukocyte 3+ (Negative); Urine Nitrite Negative (Negative); Urine Occult Blood Negative (Negative); Urine Specific Gravity 1.025 (<1.030); Urine Urobilinogen Negative (Neg - 1+); White Blood Cell Count 8.2 10^3/uL (4.8-10.8)
[2024-11-15 12:00] LABS: Urine Squamous Cell >30 /LPF (Few)
[2024-11-15 12:02] LABS: Urine Amorphous Seen; Urine Red Blood Cell 0-2 /HPF (0-2); Urine White Cell 40-50 /HPF (0-5)
[2024-11-15 12:03] LABS: Urine Bacteria Many (Negative)
[2024-11-16 06:00] LABS: Complement C3 135 mg/dl (88-165)
[2024-11-17 19:05] LABS: Beta-2-Glycoprotein I Ab. IgG <10 SGU (<=20); Beta-2-Glycoprotein I Ab. IgM <10 SMU (<=20)
[2024-11-18 03:11] LABS: ANA, IgG Reflex to HEp-2 None Detected (None Detected)
[2024-11-18 08:54] LABS: Cardiolipin IgA Antibody <10 APL (<=11); Cardiolipin IgM Antibody <10 MPL (<=12); Cardiolipin Igg Antibody <10 GPL (<=14)
== END ==
LOC: REG 10:13
PROVIDERS: ATTENDING PHYSICIAN Physician Assistant; FAMILY PHYSICIAN Internal Medicine; OTHER PHYSICIAN Surgery Vascular Surgery; REFERRING PHYSICIAN Internal Medicine Cardiovascular Disease
DX: I73.00 Raynaud's syndrome without gangrene (principal); M32.9 Systemic lupus erythematosus, unspecified; M34.89 Other systemic sclerosis; M35.00 Sjogren syndrome, unspecified
CPT/HCPCS: 36415; 81003; 81015; 83516; 85025; 86038; 86146; 86147; 86160; 86235

== ENCOUNTER 2024-11-21 09:30 | Outpatient (RCR) | payer MEDICARE, OTHER, SELFPAY | END 2024-11-21 11:32 | disposition home or self-care (01) | LOC: CRHB 09:30 | PROVIDERS: ATTENDING PHYSICIAN Internal Medicine Cardiovascular Disease; FAMILY PHYSICIAN Internal Medicine | DX: I21.4 Non-ST elevation (NSTEMI) myocardial infarction (principal); I25.10 Atherosclerotic heart disease of native coronary artery without angina pectoris; Z95.5 Presence of coronary angioplasty implant and graft; I25.2 Old myocardial infarction | CPT/HCPCS: G0422; G0423 ==

== ENCOUNTER → 2024-11-30 11:05 | Outpatient (REF) | payer MEDICARE, OTHER, SELFPAY ==
[2024-11-30 12:05] LABS: Urine Albumin 2+ (Neg - Trace); Urine Bilirubin Negative (Negative); Urine Character Cloudy (Clear); Urine Color Yellow; Urine Glucose Negative (Negative); Urine Ketone Negative (Negative); Urine Leukocyte 3+ (Negative); Urine Nitrite Negative (Negative); Urine Occult Blood Negative (Negative); Urine Specific Gravity 1.025 (<1.030); Urine Urobilinogen Negative (Neg - 1+)
[2024-11-30 12:18] LABS: Urine Bacteria Moderate (Negative); Urine Red Blood Cell 0-2 /HPF (0-2); Urine Squamous Cell >30 /LPF (Few)
== END ==
LOC: REG 11:05
PROVIDERS: ATTENDING PHYSICIAN Internal Medicine
DX: R82.90 Unspecified abnormal findings in urine (principal)
CPT/HCPCS: 81003; 81015; 87086

== ENCOUNTER → 2024-12-28 11:09 | Outpatient (REF) | payer MEDICARE, OTHER, SELFPAY ==
[2024-12-28 12:57] LABS: Albumin 4.9 g/dl (3.5-5.0); Blood Urea Nitrogen 38 mg/dl (7-17); Calcium 9.6 mg/dl (8.4-10.2); Carbon Dioxide 25 mmol/L (22-30); Chloride 103 mmol/L (98-107); Glucose 132 mg/dl (70-99); Magnesium 1.8 mg/dl (1.6-2.3); Phosphorus 4.2 mg/dl (2.5-4.5); Potassium 4.8 mmol/L (3.5-5.1); Sodium 140 mmol/L (135-145); eGFR 47.21
== END ==
LOC: REG 11:09
PROVIDERS: ATTENDING PHYSICIAN Internal Medicine Cardiovascular Disease; FAMILY PHYSICIAN Internal Medicine
DX: I47.29 Other ventricular tachycardia (principal)
CPT/HCPCS: 36415; 80069; 83735

== ENCOUNTER → 2024-12-29 10:20 | Outpatient (REF) | payer MEDICARE, OTHER, SELFPAY | LOC: HWRCS 10:20 | PROVIDERS: ATTENDING PHYSICIAN Internal Medicine Cardiovascular Disease; FAMILY PHYSICIAN Internal Medicine | DX: I47.29 Other ventricular tachycardia (principal) | CPT/HCPCS: 93306 ==

== ENCOUNTER → 2025-02-26 08:53 | Outpatient (REF) | payer MEDICARE, OTHER, SELFPAY ==
[2025-02-26 09:43] LABS: % Basophils 0.5 % (0-2); % Eosinophils 10.7 % (0-6); % Immature Granulocytes 0.2 % (0-0.5); % Lymphocytes 19.2 % (20.5-51.1); % Monocytes 8.5 % (1.7-9.3); % Neutrophils 60.9 % (42.2-75.2); Absolute Basophils 0.1 10^3/uL (0-0.2); Absolute Lymphocytes 1.8 10^3/uL (1.2-3.4); Absolute Monocytes 0.8 10^3/uL (0.1-0.6); Absolute Neutrophils 5.6 10^3/uL (1.4-6.5); Hematocrit 41.9 % (37.0-47.0); Hemoglobin 13.8 g/dL (12.0-16.0); Mean Corp Hgb Conc. 32.9 g/dL (33.0-37.0); Mean Corpuscular Hgb 29.2 pg (27.0-31.0); Mean Corpuscular Volume 88.6 fL (81.0-99.0); Mean Platelet Volume 9.6 fL (7.4-10.4); Nucleated Red Blood Cells % 0 %; Platelet Count 254 10^3/uL (130-400); Red Blood Cell Count 4.73 10^6/uL (4.20-5.40); Red Cell Dist. Width 11.6 % (11.5-14.5); White Blood Cell Count 9.1 10^3/uL (4.8-10.8)
[2025-02-26 10:40] LABS: C-Reactive Protein < 5.00 mg/L (0.0-10.00)
[2025-02-26 11:14] LABS: ALT (SGPT) 17 U/L (0-35); AST (SGOT) 21 U/L (14-36); Albumin 4.6 g/dl (3.5-5.0); Alkaline Phosphatase 64 U/L (38-126); Blood Urea Nitrogen 34 mg/dl (7-17); Calcium 9.9 mg/dl (8.4-10.2); Carbon Dioxide 28 mmol/L (22-30); Chloride 106 mmol/L (98-107); Glucose 134 mg/dl (70-99); Magnesium 1.8 mg/dl (1.6-2.3); Potassium 5.1 mmol/L (3.5-5.1); Sodium 143 mmol/L (135-145); Total Bilirubin 0.7 mg/dl (0.2-1.3); Total Protein 7.2 g/dl (6.3-8.2); eGFR 46.91
== END ==
LOC: REG 08:53
PROVIDERS: ATTENDING PHYSICIAN Internal Medicine Rheumatology; FAMILY PHYSICIAN Internal Medicine
DX: I73.00 Raynaud's syndrome without gangrene (principal); Z51.81 Encounter for therapeutic drug level monitoring
CPT/HCPCS: 36415; 80053; 83735; 85025; 86140

== ENCOUNTER → 2025-05-31 10:40 | Outpatient (REF) | payer MEDICARE, OTHER, SELFPAY ==
[2025-05-31 11:56] LABS: ALT (SGPT) 29 U/L (0-35); AST (SGOT) 25 U/L (14-36); Albumin 4.5 g/dl (3.5-5.0); Alkaline Phosphatase 61 U/L (38-126); Blood Urea Nitrogen 27 mg/dl (7-17); Calcium 9.4 mg/dl (8.4-10.2); Carbon Dioxide 30 mmol/L (22-30); Chloride 102 mmol/L (98-107); Glucose 122 mg/dl (70-99); HDL Cholesterol 42 mg/dl; LDL Cholesterol, Calculated 53 mg/dl; Potassium 4.6 mmol/L (3.5-5.1); Sodium 139 mmol/L (135-145); Total Protein 6.9 g/dl (6.3-8.2); Very Low Density Lipoprotein 47 mg/dl (0-30); eGFR 42.62
[2025-05-31 15:05] LABS: Glycohemoglobin (HgbA1c) 6.8 % (4.0-5.6)
== END ==
LOC: REG 10:40
PROVIDERS: ATTENDING PHYSICIAN Internal Medicine; OTHER PHYSICIAN Internal Medicine Cardiovascular Disease
DX: E11.59 Type 2 diabetes mellitus with other circulatory complications (principal)
CPT/HCPCS: 36415; 80053; 80061; 83036

== ENCOUNTER 2025-08-31 15:15 | Inpatient (IN) | payer MEDICARE, OTHER, SELFPAY ==
[2025-08-29] VITALS (7 sets, daily range): BP systolic 100–131; BP diastolic 54–65; BMI 28.5
--- NOTE | 2025-08-29 16:13 | ED.GENMED ---
History of Present Illness
General
Chief Complaint: Cold/Flu/URI Symptoms
Source: patient
Exam Limitations: none
Time Seen by Provider: 08/29/25 16:12
Nursing documentation reviewed up to this point in time: agreed with
History of Present Illness
History of Present Illness:
75-year-old female with history of asthma, patient presents. IDDM, cardiomyopathy, CHF, CAD, HTN, HLD, anemia, aortic valve replacement 2014, mitral valve replacement 2023. Patient presents for nausea and vomiting for the past 3 days. She states
she had diarrhea 3-4 times yesterday and 5 times today, her last diarrheal stool was an hour and a half ago at home, nonbloody. She also has had vomiting which she states she vomited about 10 times today the last time was also an hour and a half
ago at home. She states she feels nauseous only when she moves. Laying still she feels 'fine.' She states 'I do not have vertigo while at the floor and this is not vertigo.' She denies room spinning. Her just got over similar symptoms
this past week. She denies fever or chills. She denies chest pain or trouble breathing. She denies abdominal pain. She denies urinary symptoms. She states she called her doctor about the symptoms and was told to come to the emergency room due
to 'my cardiac history.'
Past History
Past History
ED Past Medical History: Asthma, HTN, Hypercholesterolemia, IDDM and Other (Neuropathy, PNA, Cardiomyopathy, Hemorrhoids, Cervical prolapse, Anemia, Vertigo)
ED Past Surgical History: Appendectomy, Cardiac (Aortic valve replaced), Cholecystectomy, Gynecological (Breast biopsy, Partial hysterectomy, ) and Other (Pessary, Cataracts, )
Social History
Tobacco: Non-smoker
Alcohol: Daily (Wine 2 glasses)
Personal:
Living: with family
Review of Systems
Review of Systems
Allergies reviewed?: Yes
All Other Systems: ROS reviewed and negative except as documented in HPI and ROS
Constitutional: Reports fatigue; Denies fever
EENT: Denies sore throat
Respiratory: Denies cough or trouble breathing
Cardiac: Denies chest pain or palpitations
ABD/GI: Reports nausea, vomiting and diarrhea; Denies abdominal pain, bloody stools or black stools
: Denies dysuria, frequency or difficulty voiding
Musculoskeletal: Reports no symptoms
Skin: Reports no symptoms
Neurological: Reports no symptoms
Phy Exam
Physical Exam
Physical Exam:
GENERAL: No acute distress. A&Ox3.
CONSTITUTIONAL: Afebrile.
EYES: clear, conjunctivae normal
ENMT: moist mucus membranes, Pharynx nl
RESPIRATORY: Regular respirations, nonlabored, lungs clear.
CARDIOVASCULAR: Regular rate and rhythm, no murmurs, no rubs.
GI: Soft, nontender, normal BS
MUSCULOSKELETAL: Moves with ease. Well perfused. No edema
SKIN: Warm, dry, pink
PSYCH: Normal mood and affect. Well kept, interactive and appropriate
NEUROLOGIC: Awake, alert and oriented. No focal neurological deficits.
Course
Orders/Labs/Results
Orders:
Orders
08/29/25 Breakfast
Clear Liquid
At Your Request: Limited Participation
Does patient need a safe tray?: No
08/29/25 16:29
CMP [Comprehensive Metabolic Panel] Urgent
COVID-19 Antigen Urgent
Source: Nasal Swab
Complete Blood Count/With Diff Urgent
Influenza A+B Rapid Molecular Urgent
MYRNA Source: Nasal Swab
Specimen Description:
08/29/25 16:30
0.9% Sodium Chloride 1000 ml [Nss] 1,000 ml IV BOLUS
08/29/25 17:19
Ondansetron Orally Disint [Zofran Odt (Orally Disintegrating)] 4 mg PO NOW STA
08/29/25 18:17
CT Head W/o Iv Contrast Urgent
Comment:
Reason For Exam: ataxic, nausea
08/29/25 19:32
Admit/Transfer Patient As Directed
Co-Sign Provider:
Level of Care: Observation services
Assign to:: Telemetry
Physician / Group: Jack
Diagnosis: Gastroenteritis
Reason for Telemetry: CVA/TIA
Date to Stop Telemetry: 09/01/25
Time to Stop Telemetry: 11:00
PRN Pain Medication Management As Directed
May give lesser potent ordered pain med per pt: Yes
preference::
Protocol:: Medication orders for pain may be administered in a
manner that supports deferring to patient preference
when the pt is:
- Requesting an ordered lesser potent pain medication.
Least to most potent pain medications are defined
as: acetaminophen < NSAID < tramadol < opioids
(morphine, oxycodone, hydromorphone).
- Requesting a lesser dose of the same medication IF
ORDERED.
- Requesting a less intrusive route of administration
if both routes are prescribed by the provider (PO <
IV).
08/29/25 19:34
Code Status As Directed
Resuscitation Status: Full Code
08/29/25 21:37
Acetaminophen [Tylenol] 650 mg PO Q4HPRN PRN
Dextrose 50%-Water [Dextrose 50% Syringe] 12.5 grams IV [id number] PRN
Glucagon [GlucaGen] 1 mg IM PRN PRN
Lactated Ringers [Lr] 1,000 ml IV 100 mls/hr
Ondansetron Injectable [Zofran] 4 mg IV Q6HPRN PRN
08/29/25 21:37
Activity As Directed
Activity Level: Ambulate
With Assistance
Bedside Glucose Monitoring As Directed
Frequency: AC&HS
Additional Instructions:: Change to q6h if pt on TPN, tube feeding or not eating
EKG with chest pain [ECG as needed] As Directed
ECG as needed for:: Chest Pain
I/O [Intake/ Output] As Directed
Frequency: Per unit guidelines
Neurological Checks As Directed
Frequency: q4h
Orthostatic Vital Signs As Directed
Orthostatic VS Frequency: BID
Pneumatic Compression Sleeves As Directed
Type: Knee high
Vital Signs As Directed
Frequency: Per unit guidelines
Weight As Directed
Frequency: Daily
Oxygen Therapy [O2 Therapy] [RESP] Routine
Titrate/Wean O2 to maintain O2 sat greater than (%): 94
Ot Eval And Treat Routine
PT Consult [Pt Eval And Treat] Routine
Activity Level: Ambulate
With Assistance
DX Deep Vein Thrombosis Video Routine
08/29/25 22:00
Gabapentin [Neurontin] 300 mg PO TID
08/29/25 23:13
Norovirus by PCR Urgent
MYRNA Source: Feces/Stool
Specimen Description:
Date Specimen was Collected: 08/29/25
Time Specimen was Collected: 23:06
Stool Culture Urgent
MYRNA Source: Feces/Stool
Specimen Description:
Date Specimen was Collected: 08/29/25
Time Specimen was Collected: 23:06
08/30/25 06:00
Basic Metabolic Panel IN AM
Complete Blood Count/No Diff IN AM
Glycohemoglobin (HgbA1c) IN AM
Magnesium IN AM
08/30/25 07:30
Insulin Aspart Corrective Low [Novolog Flexpen-Low Resistance] See Protocol SC AC
08/30/25 08:00
Aspirin Chewable [Low Strength Aspirin] 81 mg PO DAILY
Clopidogrel Bisulfate [Plavix] 75 mg PO DAILY
Duloxetine Delayed Release [Cymbalta Delayed Release] 30 mg PO DAILY
Metoprolol Xl [Toprol Xl] 50 mg PO DAILY
Pantoprazole [Protonix] 40 mg PO DAILY
08/30/25 18:00
Rosuvastatin Calcium [Crestor] 40 mg PO QPM
09/01/25 11:00
DC Protocol for Telemetry ONCE
Abnormal Lab Results
08/29/25
16:29
Absolute Neuts (auto) 6.7 H 10^3/uL
(1.4-6.5)
Absolute Lymphs (auto) 0.4 L 10^3/uL
(1.2-3.4)
Neutrophils % 87.1 H %
(42.2-75.2)
Lymphocytes % 4.6 L %
(20.5-51.1)
Carbon Dioxide 20 L mmol/L
(30)
BUN 40 H mg/dl
(17)
Creatinine 1.4 H mg/dL
(0.6-1.0)
Glucose 206 H mg/dl
(70-99)
08/29/25 16:29
08/29/25 16:29
Vital Signs
Initial and Last Documented VS:
Initial Vital Signs
Temp Pulse Resp BP Pulse Ox
98.3 F 98 20 121/54 100
08/29/25 16:10 08/29/25 16:10 08/29/25 16:10 08/29/25 16:10 08/29/25 16:10
Last Documented Vital Signs
Temp Pulse Resp BP Pulse Ox
98.3 F 101 17 121/65 95
08/29/25 16:10 08/29/25 21:30 08/29/25 21:30 08/29/25 21:00 08/29/25 21:30
MDM/Problems Addressed
Differential Diagnosis Includes:
Gastroenteritis, dehydration
Persistent nausea, worse with movement, ataxia: CVA
MDM/Problems Addressed:
75-year-old female with history of asthma, patient presents. IDDM, cardiomyopathy, CHF, CAD, HTN, HLD, anemia, aortic valve replacement 2014, mitral valve replacement 2023. Patient presents for nausea and vomiting for the past 3 days. She states
she had diarrhea 3-4 times yesterday and 5 times today, her last diarrheal stool was an hour and a half ago at home, nonbloody. She also has had vomiting which she states she vomited about 10 times today the last time was also an hour and a half
ago at home. She states she feels nauseous only when she moves. Laying still she feels 'fine.' She states 'I do not have vertigo while at the floor and this is not vertigo.' She denies room spinning. Her just got over similar symptoms
this past week. She denies fever or chills. She denies chest pain or trouble breathing. She denies abdominal pain. She denies urinary symptoms. She states she called her doctor about the symptoms and was told to come to the emergency room due
to 'my cardiac history.'
No recent antibiotic use
No new meds
CBC with no clinically significant abnormality
CMP: BUN/creat 40/1.4 slightly worse than her baseline IV fluid infusing from low dehydration otherwise no clinically significant abnormality
COVID-negative
Flu neg
5:45 p.m.
Pt tolerating finesse josue and crackers, no vomiting but feels nauseous
No vomiting or diarrhea since arrival
Pt and informed of lab results.
6:15 p.m.
Pt OOB to BR, ataxic. Normal finger to nose. Nauseous, concern for central etiology, Head CT ordered.
Pt and updated, all questions answered.
Plan to admit to r/o CVA
7:[address] radiology report read: No acute intracranial abnormality
Hospitalist notified of admission
Chronic conditions affecting care: DM, HTN and Cardiomyopathy
*Pulse Oximetry
Patient hypoxic: no
*Critical Care Note
Total Time (30-74mins, 75-104mins- exclusive of procedures): Not Applicable
ED Attending Note
-
Portions of this chart may have been created with voice recognition software.� Occasional wrong word or��sound alike� substitutions may have occurred due to the inherent limitations of voice recognition software.
Discharge Plan
Departure
Patient Disposition: Admit
Date of Disposition: 08/29/25
Time of Disposition: 19:05
Admit to: Med/Surg
Presentation/result/management discussed w/ accepting MD/DO: Hospitalist
Patient with high blood pressure during this ER visit?: No
Condition: Fair
Discharge Problem:
Ataxia, Nausea & vomiting, History of diarrhea
Interventions
Interventions:
*General Assessment Last Done: 08/29/25 16:10
*Neglect/Abuse Screening Last Done: 08/29/25 16:10
*ED COVID-19 Vaccine History Last Done: 08/29/25 16:10
*ED Influenza Vaccine History Last Done: 08/29/25 16:10
[facility] Fall Risk Assessment Tool Last Done: 08/29/25 16:20
*Risk Screen - Suicide (C-SSRS) Last Done: 08/29/25 16:25
ED- Pulmonary Assessment Last Done: 08/29/25 16:20
[2025-08-29] MEDS: NSS 1000 IV (16:30)
[2025-08-29 16:41] LABS: Hematocrit 42.9 % (37.0-47.0); Hemoglobin 14.5 g/dL (12.0-16.0); Mean Corp Hgb Conc. 33.8 g/dL (33.0-37.0); Mean Corpuscular Volume 85.5 fL (81.0-99.0); Nucleated Red Blood Cells % 0 %; Platelet Count 199 10^3/uL (130-400); Red Cell Dist. Width 12.1 % (11.5-14.5)
[2025-08-29 16:52] LABS: ALT (SGPT) 31 U/L (0-35); AST (SGOT) 26 U/L (14-36); Albumin 4.4 g/dl (3.5-5.0); Alkaline Phosphatase 61 U/L (38-126); Blood Urea Nitrogen 40 mg/dl (7-17); Calcium 8.7 mg/dl (8.4-10.2); Carbon Dioxide 20 mmol/L (22-30); Chloride 101 mmol/L (98-107); Estimated Creatinine Clearance 31 ml/min; Glucose 206 mg/dl (70-99); Potassium 4.4 mmol/L (3.5-5.1); Sodium 136 mmol/L (135-145); Total Protein 6.8 g/dl (6.3-8.2); eGFR 38.99
[2025-08-29 16:57] LABS: COVID-19 Antigen Negative (Negative)
[2025-08-29] MEDS: ZOFRAN ODT (ORALLY DISINTEGRATING) 4 MG PO (17:27)
--- NOTE | 2025-08-29 19:36 | HPS.HSE ---
Family Physician
-
Family Physician: Susan Arnold
Chief Complaint
-
N/V/D
History of Present Illness
Patient is a 75y F with PMH significant for hypertension, ASCVD and SBE s/p valvuloplasties who presents to ED complaining of N/V/D. Patient states that her was recently ill with similar GI symptoms - he improved spontaneously. Patient
noted onset of her symptoms on Wednesday. She reports N/v/D x many episodes - worst was yesterday. She denies any bloody stools. No focal abdominal pain. No urinary complaints. No fevers / chills. Patient called her physician in hopes of
obtaining Rx for antiemetic and was referred to the ED.
In the ED patient also complained of lightheadedness and was noted to be unsteady on her feet.
She denies any headache, room spinning sensation, vision changes, etc.
Medical History
Past Medical History
Past Medical History: Reports Other
Additional Past Medical History:
Aortic Stenosis
SBE
ASCVD
Hypertension
Dilated Cardiomyopathy
CKD III
DM-II
Anxiety / Depression
Past Surgical History: Reports Other
Additional Past Surgical History:
AVR (2014)
AVR, MVR, Fibrous Body Reconstruction (2023)
PPM Placement
Appendectomy
Cholecystectomy
Social History
Tobacco: Non-smoker
Alcohol: Occasional
Drug: None
Family History
Family History: Not pertinent
Allergies / Home Medications
Allergies reflects when Allergies were last updated in [facility].
Home Medications with original date entered in [facility]
Allergy/Medication List:
Allergies
Allergy/AdvReac Type Severity Reaction Status Date / Time
hydrocodone bitartrate (From Allergy confusion Verified 08/29/25 16:20
Vicodin)
oxycodone HCl (From Percocet) Allergy Nausea Verified 08/29/25 16:20
Penicillins Allergy skin color Verified 08/29/25 16:20
changes,problems
breathing
(in
college)
Home Medications
cyanocobalamin (vitamin B-12) 1,000 mcg tablet (Vitamin B-12) 1,000 mcg PO DAILY Supplement 11/18/23
duloxetine 30 mg capsule,delayed release 30 mg PO DAILY depression 11/18/23
insulin glargine 100 unit/mL (3 mL) subcutaneous pen (Lantus Solostar U-100 Insulin) 8 unit SC HS diabetes 11/18/23
tirzepatide 2.5 mg/0.5 mL subcutaneous pen injector (Mounjaro) 5 mg SC TH Weight loss 11/18/23
ascorbic acid (vitamin C) 500 mg tablet (Vitamin C) 500 mg PO DAILY Supplement #30 tabs 01/20/24
aspirin 81 mg chewable tablet (Children's Aspirin) 81 mg PO DAILY Heart disease/condition #1 tab 01/20/24
fluticasone propionate 50 mcg/actuation nasal spray,suspension 1 spray intranasal DAILY INFLAMMATION 04/10/24
gabapentin 600 mg tablet 1,200 mg PO BID nerve pain 04/10/24
pantoprazole 40 mg tablet,delayed release (Protonix) 40 mg PO DAILY GERD 04/10/24
clopidogrel 75 mg tablet 75 mg PO DAILY Blood Clot Prevention/Tx 08/29/25
ezetimibe 10 mg tablet (Zetia) 10 mg PO DAILY High Cholesterol 08/29/25
metoprolol succinate 50 mg tablet,extended release 24 hr 50 mg PO DAILY Heart Disease/Condition 08/29/25
rosuvastatin 40 mg tablet (Crestor) 40 mg PO QPM High Cholesterol 08/29/25
spironolactone 25 mg tablet 25 mg PO DAILY Fluid Retention/Swelling 08/29/25
valsartan 40 mg tablet 40 mg PO DAILY Heart Disease/Condition 08/29/25
Review of Systems
-
History Source: Patient
A 12 point ROS was completed and negative except as noted: Yes
Constitutional: Reports Fatigue; Denies Fever or Chills
EENT: Denies Sore Throat
Respiratory: Denies Cough or Trouble Breathing
Cardiac: Denies Chest Pain or Palpitations
Abdomen/GI: Reports Nausea, Vomiting and Diarrhea; Denies Abdominal Pain, Constipated, Bloody Stools or Black Stools
: Denies Dysuria, Frequency or Flank Pain
Musculoskeletal: Denies Joint Pain or Edema
Neurological: Reports Dizzy; Denies Headache, Weakness or Numbness
Psych: Denies Depression or Anxiety
Physical Exam
Vital Signs
Vital Signs
Temp Pulse Resp BP Pulse Ox
98.3 F 106 7 119/55 99
08/29/25 16:10 08/29/25 18:30 08/29/25 18:30 08/29/25 18:00 08/29/25 17:45
Physical Exam
General: Other (75y F in no acute disstress.)
HEENT: Other (Dry MM. Neck supple.)
Respiratory: Clear; No Wheezes, Rales or Rhonchi
Cardiac: S1/S2 and Regular Rhythm; No Murmur
GI: Other (Abdomen is mildly, diffusely tender. Pos BS. No rebound / guarding.)
Musculoskeletal: No Clubbing, No Cyanosis and No Edema
Neuro: AO x 3 and Nonfocal/grossly intact
Laboratory Results
-
08/29/25 16:29
08/29/25 16:29
Laboratory Results
Total Bilirubin 0.8 mg/dl (0.2-1.3) 08/29/25 16:29
AST 26 U/L (14-36) 08/29/25 16:29
ALT 31 U/L (0-35) 08/29/25 16:29
Alkaline Phosphatase 61 U/L (38-126) 08/29/25 16:29
Impression/Plan
-
A/P: Patient is a 75y F with PMH significant for ASCVD, valvular heart disease / prior SBE, HTN and DM-II who presents to ED complaining of N/V/D since Wednesday.
Gastroenteritis
- Observe overnight for further evaluation and treatment.
- recently ill with similar symptoms and acute infectious gastroenteritis seems most likely etiology of her symptoms.
- Check stool studies if further diarrhea.
- Supportive care with IVFs, antiemetics, etc.
- Diet as tolerated.
- Follow for clinical improvement.
Ataxia / Lightheadedness
- Seems very likely secondary to volume losses due to the above.
- No focal weakness / findings and doubt SUBSCRIPTION CLERK event.
- CT head in the ED was unremarkable.
- Continue usual DAPT.
- PT / OT eval. Follow orthostatic vitals.
- Monitor neurologic exam. Consider further evaluation if any new / worsening symptoms.
ASCVD
- Continue current CV med regimen as noted above.
- No chest pain, dyspnea, etc.
Valvular Heart Disease
Cardiomyopathy
- No evidence of volume overload.
- Hold spironolactone acutely.
- Follow I/Os, daily weights, etc.
CKD III
- Renal function slightly decreased from baseline - but not consistent with SHARRON.
- Follow for changes with IVF, etc.
- Hold ARB acutely.
DM-II
- Stable. Hold basal insulin for now due to poor PO intake, GI symptoms.
- Hold Mounjaro given GI symptoms.
- Follow glucose and cover with SSI as needed.
- Update A1C.
DVT Prophylaxis: SCDs
Code Status: Full
[2025-08-29] MEDS: LR 1000 IV (22:07)
[2025-08-29] MEDS: NEURONTIN 300 MG PO (23:51)
[2025-08-30] VITALS (15 sets, daily range): BP systolic 86–147; BP diastolic 43–73; PULSE 77; BMI 28.8
[2025-08-30 05:03] LABS: Blood Urea Nitrogen 39 mg/dl (7-17); Calcium 8.5 mg/dl (8.4-10.2); Carbon Dioxide 21 mmol/L (22-30); Chloride 107 mmol/L (98-107); Estimated Creatinine Clearance 37 ml/min; Glucose 133 mg/dl (70-99); Magnesium 2.0 mg/dl (1.6-2.3); Potassium 4.3 mmol/L (3.5-5.1); Sodium 136 mmol/L (135-145); eGFR 46.91
[2025-08-30 05:22] LABS: Hematocrit 37.2 % (37.0-47.0); Hemoglobin 12.8 g/dL (12.0-16.0); Mean Corp Hgb Conc. 34.4 g/dL (33.0-37.0); Mean Corpuscular Volume 87.5 fL (81.0-99.0); Platelet Count 181 10^3/uL (130-400); Red Cell Dist. Width 12.2 % (11.5-14.5)
[2025-08-30] MEDS: NSS 500 IV (06:48)
[2025-08-30 07:41] LABS: Glucose - Point of Care 120 mg/dl (70-99)
[2025-08-30 09:18] LABS: Glycohemoglobin (HgbA1c) 7.1 % (4.0-5.9)
[2025-08-30] MEDS: PLAVIX 75 MG PO (09:18)
[2025-08-30] MEDS: LOW STRENGTH ASPIRIN 81 MG PO (09:18)
[2025-08-30] MEDS: PROTONIX 40 MG PO (09:18)
[2025-08-30] MEDS: NEURONTIN 300 MG PO ×3 (09:18→22:13)
[2025-08-30] MEDS: TOPROL XL PO (09:19)
[2025-08-30] MEDS: LR 1000 IV ×2 (09:25→20:45)
[2025-08-30 13:36] LABS: Glucose - Point of Care 119 mg/dl (70-99)
--- NOTE | 2025-08-30 14:28 | W.PN.HOSP.TC ---
Today's Communication/Plan
-
Assessment / Plan
Assessment / Plan
General: No Apparent Distress, Comfortable and Conversant
HEENT: NormoCephalic, Moist mucous membranes, Atraumatic
Respiratory: Clear and Non Labored Respirations
Cardiac: S1/S2 and Regular Rhythm; No Rub or Gallop
GI: Soft, mild diffuse TTP, Non Distended
Musculoskeletal: No Edema, no deformity
Skin: Warm and dry
: NO Tejeda
Neuro: Awake, Alert, Nonfocal/grossly intact
Psych: Calm and Intact Judgment/Insight
Ms. 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
pain, nausea with vomiting, and multiple episodes of diarrhea. Tested positive for norovirus in the ED. Her blood pressure was low and since restarted on IV fluids. She has been admitted for further evaluation and management.
Viral enteritis:
- Secondary to norovirus
- Contact precautions
- IV fluids, blood pressure improving, holding home antihypertensives
- Clear liquid diet, will advance as tolerated
CKD stage III:
- Renal function appears close to baseline
- Will monitor
Heart failure with recovered ejection fraction:
- Continue beta-blockade with metoprolol succinate 50 mg daily
- Losartan and spironolactone on hold due to presenting hypotension in the setting of GI losses, will restart as able
- History of valvular heart disease with AVR and MVR, echocardiogram/ shows appropriately functioning bioprosthetic valves
IDDM:
- At home patient uses Lantus 8 units at night
- Holding scheduled insulin currently due to poor p.o. intake in the setting of enteritis
- Sliding scale insulin as needed
- Hemoglobin A1c 7.1%
DVT prophylaxis: SCDs
CODE STATUS: Full code
Anticipated Discharge: 24 - 48 hours
Subjective/Interval History
-
Date of Service: August 30, 2025
Patient was seen and examined at bedside this morning. Continues to have mild abdominal pain but frequent soft stools. Tested positive for norovirus. Continuing supportive care.
Objective Data
-
Labs:
Laboratory Results
08/30/25
04:34
WBC 6.1
Hgb 12.8
Hct 37.2
Plt Count 181
Sodium 136
Potassium 4.3
Chloride 107
Carbon Dioxide 21 L
BUN 39 H
Creatinine 1.2 H
Glucose 133 H
Calcium 8.5
Vital Signs:
Vital Signs
Temp Pulse Resp BP Pulse Ox
98.0 F 79 18 128/61 94
08/30/25 07:35 08/30/25 11:45 08/30/25 11:36 08/30/25 11:20 08/30/25 07:35
Review of Systems
-
History Source: Patient
All other systems: Reviewed and negative
Abdomen/GI: Reports Abdominal Pain and Diarrhea
Physical Exam
-
General: No Apparent Distress
[2025-08-30] MEDS: CYMBALTA DELAYED RELEASE PO (14:32)
[2025-08-30 17:15] LABS: Glucose - Point of Care 106 mg/dl (70-99)
[2025-08-30] MEDS: CRESTOR 40 MG PO (17:15)
[2025-08-30] MEDS: PERIDEX 0.12% ORAL RINSE 15 ML PO (20:44)
[2025-08-30 21:42] LABS: Glucose - Point of Care 106 mg/dl (70-99)
[2025-08-31 03:05] VITALS: BP 116/52
[2025-08-31 05:23] VITALS: BMI 28.7
[2025-08-31 07:28] VITALS: BP 120/60
[2025-08-31] MEDS: LOW STRENGTH ASPIRIN 81 MG PO (07:47)
[2025-08-31] MEDS: CYMBALTA DELAYED RELEASE 30 MG PO (07:47)
[2025-08-31] MEDS: PROTONIX 40 MG PO (07:47)
[2025-08-31] MEDS: PLAVIX 75 MG PO (07:47)
[2025-08-31] MEDS: NEURONTIN 300 MG PO ×3 (07:47→22:46)
[2025-08-31 07:48] LABS: Glucose - Point of Care 109 mg/dl (70-99)
[2025-08-31] MEDS: LR 1000 IV ×2 (07:48→13:40)
[2025-08-31] MEDS: PERIDEX 0.12% ORAL RINSE 15 ML PO ×2 (07:48→22:46)
[2025-08-31] MEDS: TOPROL XL 50 MG PO (07:48)
[2025-08-31 09:03] LABS: Hematocrit 35.6 % (37.0-47.0); Hemoglobin 11.9 g/dL (12.0-16.0); Mean Corp Hgb Conc. 33.4 g/dL (33.0-37.0); Mean Corpuscular Volume 86.8 fL (81.0-99.0); Nucleated Red Blood Cells % 0 %; Platelet Count 154 10^3/uL (130-400); Red Cell Dist. Width 12.1 % (11.5-14.5)
[2025-08-31 09:31] LABS: Blood Urea Nitrogen 23 mg/dl (7-17); Calcium 8.5 mg/dl (8.4-10.2); Carbon Dioxide 24 mmol/L (22-30); Chloride 105 mmol/L (98-107); Estimated Creatinine Clearance 40 ml/min; Glucose 106 mg/dl (70-99); Magnesium 1.8 mg/dl (1.6-2.3); Potassium 4.1 mmol/L (3.5-5.1); Sodium 136 mmol/L (135-145); eGFR 52.08
[2025-08-31 10:49] VITALS: BP 131/62
[2025-08-31] MEDS: ZOFRAN 4 MG IV (10:56)
[2025-08-31 11:34] LABS: Glucose - Point of Care 123 mg/dl (70-99)
[2025-08-31 15:00] VITALS: BP 116/61
--- NOTE | 2025-08-31 15:57 | W.PN.HOSP.TC ---
Today's Communication/Plan
-
Assessment / Plan
Assessment / Plan
General: No Apparent Distress, Comfortable and Conversant
HEENT: NormoCephalic, Moist mucous membranes, Atraumatic
Respiratory: Clear and Non Labored Respirations
Cardiac: S1/S2 and Regular Rhythm; No Rub or Gallop
GI: Soft, mild diffuse TTP, Non Distended
Musculoskeletal: No Edema, no deformity
Skin: Warm and dry
: NO Tejeda
Neuro: Awake, Alert, Nonfocal/grossly intact
Psych: Calm and Intact Judgment/Insight
Ms. 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
pain, nausea with vomiting, and multiple episodes of diarrhea. Tested positive for norovirus in the ED. Her blood pressure was low and since restarted on IV fluids. She has been admitted for further evaluation and management.
Viral enteritis:
- Secondary to norovirus
- Contact precautions
- IV fluids, blood pressure improving, holding home antihypertensives
- Low residue diet as tolerated
- Antiemetics
CKD stage III:
- Renal function appears close to baseline
- Will monitor
Heart failure with recovered ejection fraction:
- Continue beta-blockade with metoprolol succinate 50 mg daily
- Losartan and spironolactone on hold due to presenting hypotension in the setting of GI losses, will restart as able
- History of valvular heart disease with AVR and MVR, echocardiogram/ shows appropriately functioning bioprosthetic valves
IDDM:
- At home patient uses Lantus 8 units at night
- Holding scheduled insulin currently due to poor p.o. intake in the setting of enteritis
- Sliding scale insulin as needed
- Hemoglobin A1c 7.1%
DVT prophylaxis: SCDs
CODE STATUS: Full code
Anticipated Discharge: 24 - 48 hours
Subjective/Interval History
-
Date of Service: August 31, 2025
Patient was seen and examined at bedside this morning. Continues to feel nauseous and is having ongoing diarrhea. Continuing supportive care for enteritis due to norovirus.
Objective Data
-
Labs:
Laboratory Results
08/31/25
08:35
WBC 6.8
Hgb 11.9 L
Hct 35.6 L
Plt Count 154
Sodium 136
Potassium 4.1
Chloride 105
Carbon Dioxide 24
BUN 23 H
Creatinine 1.1 H
Glucose 106 H
Calcium 8.5
Vital Signs:
Vital Signs
Temp Pulse Resp BP Pulse Ox
97.6 F 83 16 116/61 100
08/31/25 15:00 08/31/25 15:00 08/31/25 15:00 08/31/25 15:00 08/31/25 15:00
I&O
08/30/25 08/31/25 09/01/25
06:59 06:59 06:59
Intake Total 1260 / 1260
Balance 1260 / 1260
Review of Systems
-
History Source: Patient
All other systems: Reviewed and negative
Abdomen/GI: Reports Nausea and Diarrhea
Physical Exam
-
General: No Apparent Distress
[2025-08-31 16:31] LABS: Glucose - Point of Care 100 mg/dl (70-99)
[2025-08-31] MEDS: CRESTOR PO (17:29)
[2025-08-31 19:00] VITALS: BP 129/57
[2025-08-31 22:44] LABS: Glucose - Point of Care 93 mg/dl (70-99)
[2025-08-31 23:00] VITALS: BP 134/57
[2025-09-01 04:11] VITALS: BP 125/50
[2025-09-01 06:00] VITALS: BMI 28.6
[2025-09-01 07:00] VITALS: BP 121/63
[2025-09-01 08:55] LABS: Hematocrit 38.8 % (37.0-47.0); Hemoglobin 12.7 g/dL (12.0-16.0); Mean Corp Hgb Conc. 32.7 g/dL (33.0-37.0); Mean Corpuscular Volume 86.8 fL (81.0-99.0); Nucleated Red Blood Cells % 0 %; Platelet Count 196 10^3/uL (130-400); Red Cell Dist. Width 11.8 % (11.5-14.5)
[2025-09-01] MEDS: CYMBALTA DELAYED RELEASE 30 MG PO (09:18)
[2025-09-01] MEDS: TOPROL XL 50 MG PO (09:18)
[2025-09-01] MEDS: NEURONTIN 300 MG PO ×2 (09:19→17:29)
[2025-09-01] MEDS: PERIDEX 0.12% ORAL RINSE 15 ML PO (09:19)
[2025-09-01] MEDS: PROTONIX 40 MG PO (09:19)
[2025-09-01] MEDS: PLAVIX 75 MG PO (09:19)
[2025-09-01] MEDS: LOW STRENGTH ASPIRIN 81 MG PO (09:19)
[2025-09-01 09:29] LABS: Glucose - Point of Care 112 mg/dl (70-99)
[2025-09-01 11:01] LABS: Blood Urea Nitrogen 17 mg/dl (7-17); Calcium 9.1 mg/dl (8.4-10.2); Carbon Dioxide 28 mmol/L (22-30); Chloride 104 mmol/L (98-107); Estimated Creatinine Clearance 40 ml/min; Glucose 99 mg/dl (70-99); Magnesium 1.7 mg/dl (1.6-2.3); Potassium 4.0 mmol/L (3.5-5.1); Sodium 139 mmol/L (135-145); eGFR 52.08
[2025-09-01 12:19] VITALS: BP 139/65
[2025-09-01 13:59] LABS: Glucose - Point of Care 111 mg/dl (70-99)
--- NOTE | 2025-09-01 14:43 | W.PN.HOSP.TC ---
Today's Communication/Plan
-
Assessment / Plan
Assessment / Plan
General: No Apparent Distress, Comfortable and Conversant
HEENT: NormoCephalic, Moist mucous membranes, Atraumatic
Respiratory: Clear and Non Labored Respirations
Cardiac: S1/S2 and Regular Rhythm; No Rub or Gallop
GI: Soft, mild TTP, Non Distended
Musculoskeletal: No Edema, no deformity
Skin: Warm and dry
: NO Tejeda
Neuro: Awake, Alert, Nonfocal/grossly intact
Psych: Calm and Intact Judgment/Insight
Ms. 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
pain, nausea with vomiting, and multiple episodes of diarrhea. Tested positive for norovirus in the ED. Her blood pressure was low and since restarted on IV fluids. She has been admitted for further evaluation and management.
Viral enteritis:
- Secondary to norovirus
- Improving although still having multiple episodes of diarrhea daily
- Tolerating p.o. diet cautiously
- Contact precautions
- Antiemetics
- Anticipate discharge to home in the next 24 hours if tolerating p.o. diet
CKD stage III:
- Renal function appears close to baseline
- Will monitor
Heart failure with recovered ejection fraction:
- Continue beta-blockade with metoprolol succinate 50 mg daily
- Losartan and spironolactone on hold due to presenting hypotension in the setting of GI losses, will restart as able
- History of valvular heart disease with AVR and MVR, echocardiogram/ shows appropriately functioning bioprosthetic valves
IDDM:
- At home patient uses Lantus 8 units at night
- Holding scheduled insulin currently due to poor p.o. intake in the setting of enteritis
- Sliding scale insulin as needed
- Hemoglobin A1c 7.1%
DVT prophylaxis: SCDs
CODE STATUS: Full code
Anticipated Discharge: 24 - 48 hours
Subjective/Interval History
-
Date of Service: September 01, 2025
Patient was seen and examined at bedside this morning. Improving but still having frequent diarrhea.
Objective Data
-
Labs:
Laboratory Results
09/01/25
07:51
WBC 7.7
Hgb 12.7
Hct 38.8
Plt Count 196 D
Sodium 139
Potassium 4.0
Chloride 104
Carbon Dioxide 28
BUN 17
Creatinine 1.1 H
Glucose 99
Calcium 9.1
Vital Signs:
Vital Signs
Temp Pulse Resp BP Pulse Ox
98.3 F 66 16 139/65 97
09/01/25 12:19 09/01/25 12:19 09/01/25 12:19 09/01/25 12:19 09/01/25 12:19
I&O
08/31/25 09/01/25 09/02/25
06:59 06:59 06:59
Intake Total 1260 / 1260 240 / 240
Balance 1260 / 1260 240 / 240
Review of Systems
-
History Source: Patient
All other systems: Reviewed and negative
Abdomen/GI: Reports Nausea and Diarrhea
Physical Exam
-
General: No Apparent Distress
[2025-09-01] MEDS: IMODIUM 2 MG PO (14:44)
[2025-09-01 15:41] VITALS: BP 127/62
[2025-09-01 16:58] LABS: Glucose - Point of Care 84 mg/dl (70-99)
--- NOTE | 2025-09-01 17:25 | W.DCSUMMARY ---
Discharge Summary
Discharge Data
Date of Admission: 08/31/25
Date of Discharge: 09/01/25
Total time spent discharging patient (in min): 48
-
Pending Results: No
Hospital Course
Ms. 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
pain, nausea with vomiting, and multiple episodes of diarrhea. Tested positive for norovirus in the ED. She was started on IV fluids and admitted for further evaluation and management.
Her diarrhea and nausea improved with supportive care. She was cautiously started on a p.o. diet which she tolerated well. Her home blood pressure medications were held due to borderline low blood pressure and renal function slightly worse than
her baseline. Her AUGUSTA inhibitor and spironolactone will be held at discharge until she is able to follow-up with her primary care physician and repeat labs to monitor her renal function and electrolytes. Her diarrhea has significantly improved but
not resolved. She will be discharged to home with instructions to use Imodium as needed for diarrhea control and a prescription for Zofran to use as needed for nausea. She has been instructed to drink plenty of fluids and continue with p.o. diet
as tolerated. She was medically stable at time of hospital discharge.
Discharge Plan
-
Patient Disposition: Home (Routine Discharge)
Discharge Diagnosis/Procedures: Acute enteritis due to norovirus
Blood Work: Repeat blood work (basic metabolic panel) in approximately 5 days to monitor electrolytes and kidney function
Activity Restrictions/Additional Instructions:
You were admitted for treatment of acute enteritis due to norovirus infection. Your diarrhea has improved although not completely resolved. You received IV fluids while unable to tolerate a diet due to nausea. Your nausea has improved and you are
tolerating a gentle diet. You will be discharged to home with prescriptions for nausea medication and antidiarrheal medication. You should drink plenty of fluids and advance your diet as tolerated. Please follow-up with your primary care
physician after hospital discharge for ongoing monitoring. You should have repeat labs in about a week to monitor your electrolytes and kidney function.
Referrals:
Susan Arnold MD [Family Provider, Internal Medicine]
Prescriptions:
New
loperamide 2 mg Capsule
2 mg PO Q4HPRN PRN (Reason: diarrhea) Qty: 20 0RF
ondansetron 4 mg tablet,disintegrating
4 mg PO Q8H PRN (Reason: nausea and vomiting) Qty: 10 0RF
Continued
cyanocobalamin (vitamin B-12) [Vitamin B-12] 1,000 mcg Tablet
1,000 mcg PO DAILY
duloxetine 30 mg Capsule,Delayed Release(Dr/Ec)
30 mg PO DAILY
insulin glargine [Lantus Solostar U-100 Insulin] 100 unit/mL (3 mL) Insulin Pen
8 unit SC HS
ascorbic acid (vitamin C) [Vitamin C] 500 mg Tablet
500 mg PO DAILY Qty: 30 1RF
aspirin [Children's Aspirin] 81 mg Tablet,Chewable
81 mg PO DAILY Qty: 1 0RF
pantoprazole [Protonix] 40 mg Tablet,Delayed Release (Dr/Ec)
40 mg PO DAILY
fluticasone propionate 50 mcg/actuation [place],Suspension
1 spray INTRANASAL DAILY
gabapentin 600 MG tablet
1,200 mg PO BID
ezetimibe [Zetia] 10 mg Tablet
10 mg PO DAILY
rosuvastatin [Crestor] 40 mg Tablet
40 mg PO QPM
metoprolol succinate 50 mg tablet extended release 24 hr
50 mg PO DAILY
clopidogrel 75 mg tablet
75 mg PO DAILY
Held
Mounjaro 2.5 mg/0.5 mL Pen Injector
5 mg SC TH
Hold Instructions: Hold until follow-up with your prescribing physician
valsartan 40 mg Tablet
40 mg PO DAILY
Hold Instructions: This medication was held due to renal function worse than your baseline and borderline low blood pressure due to poor oral intake and diarrhea, please continue to hold this medication until follow-up with your prescribing
physician and repeat lab work to monitor your kidney function and electrolytes.
spironolactone 25 mg tablet
25 mg PO DAILY
Hold Instructions: This medication was held due to renal function worse than your baseline and borderline low blood pressure due to poor oral intake and diarrhea, please continue to hold this medication until follow-up with your prescribing
physician and repeat lab work to monitor your kidney function and electrolytes.
Discharge Orders:
Discharge Patient (As Directed); Ordered 09/01/25
Ordered By: Darren Bella
Discharge Date and Time
Print Language: TAIWANESE
[2025-09-01] MEDS: CRESTOR PO (17:29)
--- NOTE | 2025-09-01 18:30 | PTCARENOTE ---
patient only had one episode of diarrhea with intermittent nausea, tolerated some soup and tea, showered, wants to go home. Dr. Bella notified at 17:12 via tiger texted and put in d/c order for her.
[2025-09-01 18:45] VITALS: BP 130/60
--- NOTE | 2025-09-02 08:16 | CM ---
chart reviewed
discharge home
no needs
== END 2025-09-01 19:57 | disposition home or self-care (01) | DRG 392 ==
LOC: 3 WEST ACU 15:15
PROVIDERS: Registered Nurse; ADMITTING PHYSICIAN Hospitalist; ATTENDING PHYSICIAN Internal Medicine; EMERGENCY PHYSICIAN Emergency Medicine; FAMILY PHYSICIAN Internal Medicine
DX: A08.11 Acute gastroenteropathy due to Norwalk agent (principal); I13.0 Hypertensive heart and chronic kidney disease with heart failure and stage 1 through stage 4 chronic kidney disease, or unspecified chronic kidney disease; I50.32 Chronic diastolic (congestive) heart failure; I42.0 Dilated cardiomyopathy; N18.30 Chronic kidney disease, stage 3 unspecified; I25.10 Atherosclerotic heart disease of native coronary artery without angina pectoris; E11.22 Type 2 diabetes mellitus with diabetic chronic kidney disease; E11.40 Type 2 diabetes mellitus with diabetic neuropathy, unspecified; F32.A Depression, unspecified; F41.9 Anxiety disorder, unspecified; Z95.2 Presence of prosthetic heart valve; Z11.52 Encounter for screening for COVID-19; Z88.0 Allergy status to penicillin; Z79.899 Other long term (current) drug therapy; Z79.82 Long term (current) use of aspirin; Z79.4 Long term (current) use of insulin; Z90.711 Acquired absence of uterus with remaining cervical stump; D63.1 Anemia in chronic kidney disease; E78.00 Pure hypercholesterolemia, unspecified; J45.909 Unspecified asthma, uncomplicated
CPT/HCPCS: 70450; 80048; 80053; 82962; 83036; 83735; 84100; 85025; 85027; 87045; 87046; 87427; 87502; 87798; 87811